=== PATIENT | male | born 1945 | race Two or more races ===

== ENCOUNTER 2023-11-11 10:39 | Inpatient (IN) | payer OTHER ==
[~2023-11-11] VITALS: Ht 188 cm; Wt 89.6 kg
[2023-11-11 11:40] LABS: Basophils # (auto) 0 10 ^3/uL (0-0.2); Basophils % (auto) 0.1 % (0.0-2.0); Eosinophils # (auto) 0 10 ^3/uL (0-0.8); Hematocrit 52.2 % (41.0-53.0); Hemoglobin 17.5 g/dL (13.5-17.5); Lymphocytes # (auto) 1.4 10 ^3/uL (0.4-5.4); Lymphocytes % (auto) 8.9 % (10.0-50.0); Mean Corpuscular Hemoglobin 32.8 pg (28.0-32.0); Mean Corpuscular Hgb Conc. 33.6 g/dL (32.0-36.0); Mean Corpuscular Volume 97.7 fL (80.0-100.0); Monocytes # (auto) 1.8 10 ^3/uL (0-1.3); Monocytes % (auto) 11.7 % (0.0-12.0); Neutrophils # (auto) 12.2 10 ^3/uL (1.6-8.6); Neutrophils % (auto) 79.3 % (37.0-80.0); Nucleated Red Blood Cells % 0.1 %; Red Blood Cells 5.34 10^6/uL (4.5-5.90); Red Cell Distribution Width 15.3 % (11.8-14.3); White Blood Cell 15.4 10^3/uL (4.4-10.8)
[2023-11-11 11:54] LABS: INR 1.17 (0.9-1.15); Partial Thromboplastin Time 28.2 SEC (24.5-34.5); Prothrombin Time 12.2 sec (9.3-11.8)
[2023-11-11 12:05] LABS: Alanine Aminotransferase 25 U/L (7-40); Albumin 4.8 g/dL (3.2-4.8); Alkaline Phosphatase 108 U/L (46-116); Anion Gap 17 (5-15); Aspartate Aminotransferase 16 U/L (13-40); BUN/Creatinine Ratio 28.5 (10.0-20.0); Blood Urea Nitrogen 43 mg/dL (9-23); Calcium 11.5 mg/dL (8.5-10.1); Carbon Dioxide 20 mmol/L (20-30); Chloride 102 mmol/L (98-107); Potassium 5.1 mmol/L (3.5-5.1); Sodium 139 mmol/L (136-145)
[2023-11-11 12:06] LABS: Total Protein 7.8 g/dL (5.7-8.2)
[2023-11-11 12:16] LABS: Glucose 432 mg/dL (74-106)
[2023-11-11] MEDS ORDERED: SODIUM CHLORIDE 0.9% 1,000 ML IV ONE (12:30)
[2023-11-11] MEDS ORDERED: FUROSEMIDE 40 MG/4 ML VIAL IV ONE (12:30)
[2023-11-11] MEDS ORDERED: PIPERACILLIN-TAZOB 3.375GM 100 ML IV ONE (12:30)
[2023-11-11] MEDS ORDERED: InsuLIN REG 1unit/0.01ml Soln (100units/ml) IV ONE (12:30)
[2023-11-11] MEDS ORDERED: ASPirin 325 MG TAB PO ONE (12:30)
[2023-11-11 13:00] VITALS: RESP 16; O2SAT 95
[2023-11-11 13:03] LABS: Magnesium 2.6 mg/dL (1.6-2.6)
[2023-11-11] MEDS ORDERED: ONDANSETRON HCL 4 MG/2 ML VIAL IV PRN (13:15)
[2023-11-11] MEDS ORDERED: NITROGLYCERIN 0.4 MG SL TAB SL PRN (13:15)
[2023-11-11] MEDS ORDERED: MORPHINE SULFATE INJ 2 MG/ml SYRG IV PRN (13:15)
[2023-11-11] MEDS ORDERED: ACETAMINOPHEN 325 MG TAB PO PRN (13:15)
[2023-11-11] MEDS ORDERED: DEXTROSE (50%) 50ML SYRG IV PRN (13:15)
[2023-11-11] MEDS ORDERED: FUR20T PO (13:28)
[2023-11-11] MEDS ORDERED: ATOR40TA52 PO (13:28)
[2023-11-11] MEDS ORDERED: EMPA1TAB3 PO (13:28)
[2023-11-11] MEDS ORDERED: LISI10TA34 PO (13:28)
[2023-11-11] MEDS ORDERED: TAMS0.4C36 PO (13:28)
[2023-11-11] MEDS ORDERED: METF-869 PO (13:28)
[2023-11-11 14:42] LABS: Alanine Aminotransferase 19 U/L (7-40); Albumin 4.5 g/dL (3.2-4.8); Alkaline Phosphatase 93 U/L (46-116); Anion Gap 14 (5-15); Aspartate Aminotransferase 15 U/L (13-40); Bilirubin, Total 0.8 mg/dL (0.2-1.0); Blood Urea Nitrogen 35 mg/dL (9-23); Calcium 10.9 mg/dL (8.7-10.4); Carbon Dioxide 20 mmol/L (20-30); Chloride 104 mmol/L (98-107); Potassium 4.9 mmol/L (3.5-5.1); Sodium 138 mmol/L (136-145); Total Protein 7.7 g/dL (5.7-8.2)
[2023-11-11 15:03] LABS: Glucose 437 mg/dL (74-106)
[2023-11-11 16:16] LABS: Urine WBC None Seen /hpf (0 - 3)
[2023-11-11 16:31] LABS: COVID19 ANTIGEN SOFIA FIA NEGATIVE (NEGATIVE); Rapid Influenza A Negative (Negative); Rapid Influenza B Negative (Negative)
[2023-11-11 16:42] LABS: Urine Bacteria NONE SEEN /hpf (None Seen); Urine Blood Negative /uL (Negative); Urine Clarity Clear (Clear); Urine Color Colorless (Yellow); Urine Protein, UAD TRACE (Negative); Urine Specific Gravity 1.035 (1.001-1.035); Urine Urobilinogen Normal (Negative); Urine pH 5.5 (5.0-8.0)
[2023-11-11] MEDS: ACCU-CHEK COMFORT CURVE STRIP VI SCH ×2 (17:00→22:00)
[2023-11-11] MEDS: FUROSEMIDE 20 MG/2 ML VIAL IV SCH (18:24)
[2023-11-11] MEDS: InsuLIN REG 1unit/0.01ml Soln (100units/ml) SC SCH (18:26)
[2023-11-11 19:47] VITALS: PULSE 102; RESP 16; O2SAT 95
[2023-11-11] MEDS ORDERED: InsuLIN REG 1unit/0.01ml Soln (100units/ml) SC SCH (22:00)
[2023-11-11 23:00] VITALS: PULSE 101
[2023-11-11] MEDS: ATORVASTATIN 20 MG TAB PO SCH (23:13)
[2023-11-11] MEDS ORDERED: INSLANTI SC (23:20)
[2023-11-11 23:25] VITALS: BP 146/67; PULSE 97; RESP 20; TEMP 97.8; O2SAT 96
[2023-11-12] VITALS (7 sets, daily range): BP systolic 129–163; BP diastolic 60–82; PULSE 74–108; RESP 17–18; TEMP 97.9–99.1; O2SAT 93–97
[2023-11-12 05:37] LABS: Basophils # (auto) 0 10 ^3/uL (0-0.2); Basophils % (auto) 0.2 % (0.0-2.0); Eosinophils # (auto) 0 10 ^3/uL (0-0.8); Eosinophils % (auto) 0.1 % (0.0-7.0); Hematocrit 47.6 % (41.0-53.0); Hemoglobin 16.1 g/dL (13.5-17.5); Lymphocytes # (auto) 1.5 10 ^3/uL (0.4-5.4); Lymphocytes % (auto) 11.2 % (10.0-50.0); Mean Corpuscular Hemoglobin 32.3 pg (28.0-32.0); Mean Corpuscular Hgb Conc. 33.8 g/dL (32.0-36.0); Mean Corpuscular Volume 95.6 fL (80.0-100.0); Monocytes # (auto) 1.6 10 ^3/uL (0-1.3); Monocytes % (auto) 11.9 % (0.0-12.0); Neutrophils # (auto) 10.3 10 ^3/uL (1.6-8.6); Neutrophils % (auto) 76.6 % (37.0-80.0); Nucleated Red Blood Cells % 0.1 %; Red Blood Cells 4.98 10^6/uL (4.5-5.90); Red Cell Distribution Width 14.7 % (11.8-14.3); White Blood Cell 13.4 10^3/uL (4.4-10.8)
[2023-11-12 05:53] LABS: Alanine Aminotransferase 25 U/L (7-40); Albumin 4.1 g/dL (3.2-4.8); Alkaline Phosphatase 93 U/L (46-116); Anion Gap 13 (5-15); Aspartate Aminotransferase 25 U/L (13-40); BUN/Creatinine Ratio 28.8 (10.0-20.0); Bilirubin, Total 0.6 mg/dL (0.2-1.0); Blood Urea Nitrogen 32 mg/dL (9-23); Calcium 10.4 mg/dL (8.5-10.1); Carbon Dioxide 20 mmol/L (20-30); Chloride 105 mmol/L (98-107); Sodium 138 mmol/L (136-145)
[2023-11-12 06:13] LABS: Glucose 277 mg/dL (74-106)
[2023-11-12] MEDS: InsuLIN REG 1unit/0.01ml Soln (100units/ml) SC SCH ×3 (06:37→17:23)
[2023-11-12] MEDS: FUROSEMIDE 20 MG/2 ML VIAL IV SCH ×2 (06:45→17:12)
[2023-11-12] MEDS: ACCU-CHEK COMFORT CURVE STRIP VI SCH ×3 (06:45→17:09)
[2023-11-12] MEDS: ENOXAPARIN SOD 40 MG/0.4 ML SYRINGE SC SCH (08:33)
[2023-11-12] MEDS: cefTRIAXone 1GM/50ML D5W 50 ML IV SCH (08:33)
[2023-11-12] MEDS: hydrALAZINE HCL 20 MG/ML VL IV PRN (08:33)
[2023-11-12] MEDS: TAMSULOSIN HYDROCHLORIDE 0.4 MG CAP PO SCH (08:34)
[2023-11-12] MEDS ORDERED: EMPA1TAB3 PO (09:55)
[2023-11-12] MEDS ORDERED: ASPI1TAB20 PO (09:55)
[2023-11-12] MEDS ORDERED: INS7030I SC (09:55)
[2023-11-12] MEDS: AZITHROMYCIN 500MG/ 250ML 250 ML IV SCH (10:25)
[2023-11-12] MEDS ORDERED: INSULIN LANTUS (GLARGINE) 1 /0.01ml (100units/ml) SC ONE ×2 (12:30→14:00)
[2023-11-12] MEDS ORDERED: DEXTROSE (50%) 50ML SYRG IV PRN (14:00)
[2023-11-12] MEDS: ATORVASTATIN 20 MG TAB PO SCH (21:27)
[2023-11-12] MEDS: INSULIN LANTUS (GLARGINE) 1 /0.01ml (100units/ml) SC SCH (21:33)
[2023-11-13] VITALS (8 sets, daily range): BP systolic 142–155; BP diastolic 67–78; PULSE 99–106; RESP 18–20; TEMP 97.3–98.3; O2SAT 94–98
[2023-11-13] MEDS: ACCU-CHEK COMFORT CURVE STRIP VI SCH ×4 (00:15→19:21)
[2023-11-13] MEDS: InsuLIN REG 1unit/0.01ml Soln (100units/ml) SC SCH ×4 (00:18→19:18)
[2023-11-13] MEDS: hydrALAZINE HCL 20 MG/ML VL IV PRN (00:29)
[2023-11-13] MEDS ORDERED: dilTIAZem 25 MG/5 ML VIAL IV ONE (01:45)
[2023-11-13] MEDS: FUROSEMIDE 20 MG/2 ML VIAL IV SCH ×2 (05:59→18:29)
[2023-11-13] MEDS: cefTRIAXone 1GM/50ML D5W 50 ML IV SCH (09:47)
[2023-11-13] MEDS: ENOXAPARIN SOD 40 MG/0.4 ML SYRINGE SC SCH (09:48)
[2023-11-13] MEDS: TAMSULOSIN HYDROCHLORIDE 0.4 MG CAP PO SCH (09:48)
[2023-11-13] MEDS ORDERED: INSULIN LANTUS (GLARGINE) 1 /0.01ml (100units/ml) SC SCH ×3 (10:00)
[2023-11-13] MEDS: AZITHROMYCIN 500MG/ 250ML 250 ML IV SCH (12:33)
[2023-11-13] MEDS: INSULIN LANTUS (GLARGINE) 1 /0.01ml (100units/ml) SC SCH ×3 (12:38→22:07)
[2023-11-13] MEDS: ATORVASTATIN 20 MG TAB PO SCH (22:07)
[2023-11-13] MEDS ORDERED: INSULIN LISPRO (HUMAN) 100 UNITS/ML ML SC ONE (23:45)
[2023-11-14] MEDS: ACCU-CHEK COMFORT CURVE STRIP VI SCH ×4 (00:01→17:22)
[2023-11-14] MEDS: InsuLIN REG 1unit/0.01ml Soln (100units/ml) SC SCH ×4 (01:34→17:29)
[2023-11-14 05:00] VITALS: BP 152/74; PULSE 102; RESP 18; TEMP 97.9; O2SAT 92
[2023-11-14 05:56] LABS: Anion Gap 10 (5-15); Calcium 10.3 mg/dL (8.7-10.4); Carbon Dioxide 27 mmol/L (20-30); Chloride 102 mmol/L (98-107); Potassium 2.7 mmol/L (3.5-5.1); Sodium 139 mmol/L (136-145)
[2023-11-14] MEDS: FUROSEMIDE 20 MG/2 ML VIAL IV SCH ×2 (06:01→17:25)
[2023-11-14 06:03] LABS: BUN/Creatinine Ratio 35.4 (10.0-20.0); Blood Urea Nitrogen 28 mg/dL (9-23)
[2023-11-14 06:53] LABS: Glucose 47 mg/dL (74-106)
[2023-11-14 07:30] VITALS: PULSE 105
[2023-11-14 09:00] VITALS: BP 123/57; PULSE 97; RESP 20; TEMP 98; O2SAT 92
[2023-11-14] MEDS: cefTRIAXone 1GM/50ML D5W 50 ML IV SCH (09:46)
[2023-11-14] MEDS: ENOXAPARIN SOD 40 MG/0.4 ML SYRINGE SC SCH (09:46)
[2023-11-14] MEDS: TAMSULOSIN HYDROCHLORIDE 0.4 MG CAP PO SCH (09:46)
[2023-11-14] MEDS: INSULIN LANTUS (GLARGINE) 1 /0.01ml (100units/ml) SC SCH ×3 (09:47→21:39)
[2023-11-14] MEDS: AZITHROMYCIN 500MG/ 250ML 250 ML IV SCH (10:48)
[2023-11-14 13:00] VITALS: BP 144/83; PULSE 98; RESP 18; TEMP 98.3; O2SAT 92
[2023-11-14 17:00] VITALS: BP 155/74; PULSE 96; RESP 18; TEMP 98.4; O2SAT 93
[2023-11-14 20:00] VITALS: PULSE 97; O2SAT 96
[2023-11-14] MEDS: ATORVASTATIN 20 MG TAB PO SCH (21:26)
[2023-11-15] VITALS (7 sets, daily range): BP systolic 108–149; BP diastolic 75–86; PULSE 85–100; RESP 16–18; TEMP 97.7–98.5; O2SAT 92–99
[2023-11-15] MEDS: ACCU-CHEK COMFORT CURVE STRIP VI SCH ×4 (00:42→18:36)
[2023-11-15] MEDS: InsuLIN REG 1unit/0.01ml Soln (100units/ml) SC SCH ×4 (00:48→19:21)
[2023-11-15] MEDS: FUROSEMIDE 20 MG/2 ML VIAL IV SCH ×2 (05:46→18:36)
[2023-11-15] MEDS: cefTRIAXone 1GM/50ML D5W 50 ML IV SCH (08:46)
[2023-11-15] MEDS: INSULIN LANTUS (GLARGINE) 1 /0.01ml (100units/ml) SC SCH ×2 (10:00→22:00)
[2023-11-15] MEDS: AZITHROMYCIN 500MG/ 250ML 250 ML IV SCH (10:37)
[2023-11-15] MEDS: TAMSULOSIN HYDROCHLORIDE 0.4 MG CAP PO SCH (10:37)
[2023-11-15] MEDS: ENOXAPARIN SOD 40 MG/0.4 ML SYRINGE SC SCH (10:38)
[2023-11-15 15:37] LABS: Basophils # (auto) 0 10 ^3/uL (0-0.2); Basophils % (auto) 0.4 % (0.0-2.0); Eosinophils # (auto) 0.2 10 ^3/uL (0-0.8); Eosinophils % (auto) 1.7 % (0.0-7.0); Hemoglobin 15.7 g/dL (13.5-17.5); Lymphocytes # (auto) 2.2 10 ^3/uL (0.4-5.4); Lymphocytes % (auto) 23.1 % (10.0-50.0); Mean Corpuscular Hemoglobin 32.6 pg (28.0-32.0); Mean Corpuscular Volume 95.9 fL (80.0-100.0); Neutrophils # (auto) 6.1 10 ^3/uL (1.6-8.6); Neutrophils % (auto) 64.8 % (37.0-80.0); Nucleated Red Blood Cells % 0.1 %; Red Cell Distribution Width 14.5 % (11.8-14.3); White Blood Cell 9.5 10^3/uL (4.4-10.8)
[2023-11-15 15:39] LABS: Chloride 98 mmol/L (98-107); Potassium 4.4 mmol/L (3.5-5.1)
[2023-11-15 15:40] LABS: Anion Gap 5 (5-15); Calcium 9.8 mg/dL (8.7-10.4); Carbon Dioxide 28 mmol/L (20-30)
[2023-11-15 15:45] LABS: Blood Urea Nitrogen 23 mg/dL (9-23)
[2023-11-15 15:46] LABS: Magnesium 1.7 mg/dL (1.6-2.6)
[2023-11-15 15:58] LABS: Glucose 354 mg/dL (74-106); Sodium 131 mmol/L (136-145)
[2023-11-15] MEDS: ATORVASTATIN 20 MG TAB PO SCH (22:05)
[2023-11-15] MEDS: DOCUSATE SOD 100 MG CAP PO PRN (22:20)
[2023-11-16] MEDS: ACCU-CHEK COMFORT CURVE STRIP VI SCH ×3 (00:06→11:04)
[2023-11-16 05:00] VITALS: BP 133/78; PULSE 95; RESP 16; TEMP 98; O2SAT 94
[2023-11-16] MEDS: FUROSEMIDE 20 MG/2 ML VIAL IV SCH (05:47)
[2023-11-16] MEDS: InsuLIN REG 1unit/0.01ml Soln (100units/ml) SC SCH ×3 (06:19→11:08)
[2023-11-16 08:00] VITALS: PULSE 82
[2023-11-16] MEDS: cefTRIAXone 1GM/50ML D5W 50 ML IV SCH (08:38)
[2023-11-16 09:00] VITALS: BP 122/74; PULSE 83; RESP 19; TEMP 98.4; O2SAT 94
[2023-11-16] MEDS: DOCUSATE SOD 100 MG CAP PO PRN (10:11)
[2023-11-16] MEDS: TAMSULOSIN HYDROCHLORIDE 0.4 MG CAP PO SCH (10:11)
[2023-11-16] MEDS: INSULIN LANTUS (GLARGINE) 1 /0.01ml (100units/ml) SC SCH (10:11)
[2023-11-16] MEDS: ENOXAPARIN SOD 40 MG/0.4 ML SYRINGE SC SCH (10:12)
[2023-11-16] MEDS ORDERED: FURO1TAB33 PO (10:57)
== END 2023-11-16 12:54 | disposition home or self-care (01) | DRG 871 ==
LOC: ER 10:39 → EDBD 10:39 → TELE 13:28 → TELE-WESTW 22:35
PROVIDERS: ADMIT Nurse Practitioner Acute Care; ATTEND Internal Medicine Geriatric Medicine
DX: A41.9 Sepsis, unspecified organism (principal); E11.10 Type 2 diabetes mellitus with ketoacidosis without coma; I21.A1 Myocardial infarction type 2; I50.43 Acute on chronic combined systolic (congestive) and diastolic (congestive) heart failure; J96.01 Acute respiratory failure with hypoxia; G93.41 Metabolic encephalopathy; N17.0 Acute kidney failure with tubular necrosis; J81.1 Chronic pulmonary edema; I11.0 Hypertensive heart disease with heart failure; E11.65 Type 2 diabetes mellitus with hyperglycemia; E78.5 Hyperlipidemia, unspecified; N40.0 Benign prostatic hyperplasia without lower urinary tract symptoms; Z20.822 Contact with and (suspected) exposure to COVID-19; E87.6 Hypokalemia; N30.90 Cystitis, unspecified without hematuria; Z79.899 Other long term (current) drug therapy
CPT/HCPCS: 36415; 71045; 80048; 80053; 81001; 82962; 83036; 83605; 83735; 83880; 84443; 84484; 85025; 85610; 85730; 87040; 87086; 87426; 87804; 93005; 93306; 96365; 96372; 96375; 96376; 97110; 97116; 97163; 97530; G0378; J1815; J2543

== ENCOUNTER 2025-05-24 15:20 | Inpatient (IN) | payer OTHER ==
[~2025-05-24] VITALS: Ht 172.7 cm; Wt 74.5 kg
[~2025-05-24 15:20] MED LIST: ASPI1TAB20 PO; ATOR40TA52 PO; EMPA1TAB3 PO; FURO1TAB33 PO; INSLANTI SC; LISI10TA34 PO; METF-869 PO; TAMS0.4C39 PO
[2025-05-24 15:45] VITALS: PULSE 118; RESP 18; O2SAT 93
--- NOTE | 2025-05-24 16:03 | ED.PDOC ---
Altered Mental Status HPI Comments HPI: This is a 79 year old male BIBA presenting to the ED with chief complaint of ALOC. EMS reports that the patient was found on the ground beside his bed by with a fever and pinpoint pupils. EMS relays that the patient's temperature was 105F on scene and the patient has not been answering questions and following commands, only responding to sternal rub and tracking with his eyes. EMS notes patient's HR was in the 120s. EMS denies any further history at this time. Initial Vitals BP: 100/64 HR: 126 RR: 17 O2 Sat: 96% Temp: 100.5F Past Medical history: DM, HLD, CAD Past Surgical history: PTCA , penile implant on CT scan Social History: Denies smoking, ETOH, and drug use. Allergies: NKDA HPI: Poor Historian. REVIEW OF SYSTEMS: Review of system is limited given the patient's altered mental status CONSTITUTIONAL: Denies acute: diaphoresis, HEAD: Denies acute: headache, photophobia Eyes: Denies acute: Double vision, vision loss, eye pain, eye discharge. EARS: Denies acute: tinnitus, hearing loss, ear discharge, ear pain, THROAT: Denies acute: sore throat, swelling, difficulty swallowing , pain with swallowing, change in voice. NECK: Denies acute: neck pain, neck swelling, stiff neck. HEART: Denies acute : chest pain, palpitations, LUNGS: Denies acute: SOB, wheezing, cough, hemoptysis ABDOMEN: Denies acute: abdominal pain, Nausea, Vomiting, diarrhea, melena , hematemesis, hematochezia SKIN: Denies acute: rash, redness, lesions, itchiness. EXTREMITIES: Denies acute: calf pain, numbness, tingling, weakness, denies pain in extremity. Denies acute: Low back pain. Neuro: Denies acute: focal neurological deficit, motor or sensory focal neurological deficit, tremors, seizure like activity, confusion, dizziness, change in mental status, loss of bowel or bladder function, cauda equina like symptoms. : Denies acute: dysuria, hematuria, flank pain, increase in urinary frequency. PSYCH: Denies acute: hallucination, suicidal ideation, homicidal ideation. PHYSICAL EXAM: General: -----qzwr-uu-qyvycmus---acute distress, awake and alert. Head: normocephalic, atraumatic. Neck: supple, trachea is midline, no swelling. Throat: Normal phonation. Eyes:, no erythema, no purulent discharge, no proptosis, no icterus. Heart: regular tachycardia in setting of fever and sepsis, no significant murmur appreciated. Lungs: no apparent respiratory distress, No wheezing, no rhonchi, no crackles. No stridors Clear to auscultation bilaterally. Abdomen: non tender to palpation, non distended, soft, no guarding, no rebound, + bowel sounds. Neuro: Awake, Alert, oriented to name, self, follows commands Patient arrives in C-collar. Skin: no petechia, no purpura, no cyanosis, non-pale, not jaundice. Lower extremities: --no - Pitting edema no deformity, no focal swelling, no calf TTP. Makes eye contact. moves all four extremities. Face: no apparent facial droop. No nuchal rigidity, Kernig's sign, Brudzinski's sign, no meningeal signs. ED COURSE: DISCLAIMER: This medical document was created using an electronic medical record system with voice recognition software and computerized dictation system. Although this document has been carefully reviewed, there might still be some phonetic and typographical errors. Occasional wrong-word or "sound-alike" substitutions may have occurred due to the inherent limitations of voice recognition software. These areas are purely typographical due to imperfections of the software programs and do not reflect any compromise in the patient's medical care. Please read the chart carefully and recognize, using context, where these substitutions have occurred. Chief Complaint: ALOC Time Seen by MD: 16:00 Primary Care Provider: unknown Reviewed Notes: Medications, Allergies Allergies: Coded Allergies: NO KNOWN ALLERGIES (Unverified , 11/11/23) Home Meds Active Scripts Furosemide (Lasix) 20 Mg Tb, 1 TAB PO DAILY, #30 TAB 5 Refills Prov:TREY SANCHEZ MD 11/16/23 Reported Medications Insulin Regular (Human) (Humulin R) 100 Unit/Ml Inj, 40 UNIT IV BID, INJ 05/26/25 Gabapentin (Gabapentin) 100 Mg Cap, 1 CAP PO TID, #90 CAP 2 Refills 05/26/25 Cholecalciferol (VITAMIN D3) 2,000 Unit Tab, 1250 UNIT OR QWEEKLY, TAB 05/26/25 Donepezil Hydrochloride (DONEPEZIL HCL) 5 Mg Tab, 1 TAB PO DAILY, #30 TAB 5 Refills 05/26/25 Hydrocodone-Acetaminophen (Hydrocodone Bitartrate/AC 5-325 mg) 1 Tab Tab, 1 TAB PO, TAB 05/26/25 Aspirin (Aspir-81) 81 Mg Tab, 81 MG PO DAILY, TAB 11/12/23 Insulin Glargine (Lantus) 100 Unit/Ml Inj, 40 SC BID, INJ 11/11/23 Metformin Hydrochloride (Metformin Hydrochloride) 500 Mg Tab, 1 TAB PO BID 11/11/23 Tamsulosin Hcl (Tamsulosin Hcl) 0.4 Mg Cap, 1 CAP PO DAILY 11/11/23 Empagliflozin (Jardiance) 25 Mg Tab, 1 TAB PO DAILY 11/11/23 Lisinopril (Lisinopril) 10 Mg Tab, 1 TAB PO DAILY 11/11/23 Atorvastatin Calcium (ATORVASTATIN CALCIUM) 40 Mg Tab, 1 TAB PO 11/11/23 Information Source: Patient Mode of Arrival: EMS Was a procedure done? Was a procedure done?: No Differential Diagnosis (ALOC) Differential Diagnosis: Dehydration, Hypoglycemia, DKA, Encephalopathy, Meningitis, Hypoxemia, Seizure, Closed Head Injury, CVA, Mass Lesion, SAH, Renal Failure, Other (DDX include CVA, TGA, cerebellar ischemia/infarct, carotid stenosis, Intracranial mass/infection/bleed, encephalopathy, electrolyte abnormality, thyroid disease, hydrocephalus, hypoglycemia, drug toxicity, cardiac arrhythmia, seizure, infection in the elderly, Hyperammonemia., kidney failure., sepsis.) X-Ray, Labs, Meds, VS Vital Signs Date Time Temp Pulse Resp B/P (MAP) Pulse Ox O2 Delivery O2 Flow Rate FiO2 05/24/25 22:00 107 20 131/81 (98) 100 05/24/25 21:37 96 05/24/25 20:00 97.9 109 12 131/81 (98) 98 97.9 05/24/25 19:35 115 19 92 Room Air* 0 21 05/24/25 18:00 103 29 125/74 (91) 98 05/24/25 15:48 97.8 118 18 134/78 (96) 93 97.8 05/24/25 15:45 118 18 93 Room Air* 0 21 05/24/25 15:42 100.5 126 17 100/64 (76) 96 100.5 Lab Test 05/24/25 19:33 05/24/25 17:15 05/24/25 16:23 Range/Units Lactic Acid Level 1.9 2.3 *H 0.4-2.0 mmol/L Troponin I High Sensitivity 10 10 10 </=54 ng/L White Blood Count 22.9 H 4.4-10.8 10^3/uL Red Blood Count 5.47 4.5-5.90 10^6/uL Hemoglobin 17.0 13.5-17.5 g/dL Hematocrit 50.6 41.0-53.0 % Mean Corpuscular Volume 92.6 80.0-100.0 fL Mean Corpuscular Hemoglobin 31.1 28.0-32.0 pg Mean Corpuscular Hemoglobin Concent 33.6 32.0-36.0 g/dL Red Cell Distribution Width 14.5 H 11.8-14.3 % Platelet Count 156 140-450 10^3/uL Mean Platelet Volume 9.7 6.9-10.8 fL Neutrophils (%) (Auto) 96.0 H 37.0-80.0 % Lymphocytes (%) (Auto) 1.7 L 10.0-50.0 % Monocytes (%) (Auto) 2.2 0.0-12.0 % Eosinophils (%) (Auto) 0.0 0.0-7.0 % Basophils (%) (Auto) 0.1 0.0-2.0 % Neutrophils # (Auto) 22.0 H 1.6-8.6 10 ^3/uL Lymphocytes # (Auto) 0.4 0.4-5.4 10 ^3/uL Monocytes # (Auto) 0.5 0-1.3 10 ^3/uL Eosinophils # (Auto) 0 0-0.8 10 ^3/uL Basophils # (Auto) 0 0-0.2 10 ^3/uL Nucleated Red Blood Cells 0.1 % Prothrombin Time 13.0 H 9.3-11.8 sec Prothrombin Time INR 1.25 H 0.9-1.15 Activated Partial Thromboplast Time 25.1 24.5-34.5 SEC Sodium Level 139 136-145 mmol/L Potassium Level 3.6 3.5-5.1 mmol/L Chloride Level 102 98-107 mmol/L Carbon Dioxide Level 27 20-31 mmol/L Anion Gap 10 5-15 Blood Urea Nitrogen 26 H 9-23 mg/dL Creatinine 1.38 H 0.700-1.30 mg/dL Glomerular Filtration Rate Calc 53 >90 mL/min BUN/Creatinine Ratio 18.8 10.0-20.0 Serum Glucose 186 H 74-106 mg/dL Calcium Level 11.3 H 8.7-10.4 mg/dL Total Bilirubin 0.5 0.2-1.0 mg/dL Aspartate Amino Transferase (AST) 39 13-40 U/L Alanine Aminotransferase (ALT) 24 7-40 U/L Alkaline Phosphatase 109 46-116 U/L Total Protein 6.8 5.7-8.2 g/dL Albumin 4.0 3.2-4.8 g/dL Microbiology Date/Time Source Procedure Growth Status 05/24/25 16:23 Blood Blood Culture - Final Escherichia coli Complete 05/24/25 16:18 Blood Blood Culture - Final Escherichia coli Complete [place] [address] Ph: [phone] DIAGNOSTIC IMAGING Diagnostic Imaging Report : [id number] Signed PATIENT: GAEL MCKEON ACCT: [id number] UNIT: [id number] : 1945 LOC: ER ROOM / BED: / AGE / SEX: 79 / M ADM STATUS: REG ER SERVICE [id number] ORDERING PHYSICIAN: ROBINA GENAO DO PROCEDURE(s): HWOCT - HEAD WITHOUT CONTRAST REASON: fall, ALOC, SEPSIS ORDER NUMBER(s): [id number], ACCESSION NUMBER(s): [id number] EXAM: CT HEAD WITHOUT CONTRAST INDICATION: fall, ALOC, SEPSIS TECHNIQUE: CT of the head without intravenous contrast. Radiation Dose Information: CT Dose: CTDI volume is 56.12 mGy. Dose-length product is 1011.93 mGy*cm The dose indicators for CT are the volume Computed Tomography (CT) Dose Index (CTDIvol) and the Dose Length Product (DLP), and are measured in units of mGy and mGy-cm, respectively. These indicators are not patient dose, but values generated from the CT scanner acquisition factors. The report includes radiation exposure data for exposures received during this examination. COMPARISON: None FINDINGS: There is no evidence of acute intracranial hemorrhage, extra-axial collection, mass effect, midline shift, herniation or hydrocephalus. The ventricles, sulci and cisterns are age appropriate. The toledo-white differentiation is intact. Patchy periventricular and subcortical white matter hypoattenuation is nonspecific but may be related to small vessel ischemic disease. The visualized paranasal sinuses and mastoid air cells are clear. The surrounding soft tissues and osseous structures are unremarkable. IMPRESSION: 1. No acute intracranial abnormality. ATED BY: MK COVARRUBIAS Jr., DO DICTATED DATE/TIME: 05/24/251717 SIGNED BY: MK COVARRUBIAS Jr., SIGNED DATE/TIME: 05/24/251717 CC: [place] [address] Ph: [phone] DIAGNOSTIC IMAGING Diagnostic Imaging Report : [id number] Signed PATIENT: GAEL MCKEON ACCT: [id number] UNIT: [id number] : 1945 LOC: ER ROOM / BED: / AGE / SEX: 79 / M ADM STATUS: REG ER SERVICE [id number] ORDERING PHYSICIAN: ROBINA GENAO DO PROCEDURE(s): CTCAP - CHST AB PEL WO CON-NO IV/ORAL REASON: fall, ALOC, SEPSIS ORDER NUMBER(s): [id number], ACCESSION NUMBER(s): [id number] Indication: fall, ALOC, SEPSIS Technique: CT axial images of the chest, abdomen and pelvis are obtained without contrast. Coronal and sagittal reformats were obtained. Radiation Dose Information: CTDI volume is 15.5 mGy. Dose-length product is 1091 mGy*cm Comparison: None FINDINGS: There is limited interpretation of the chest, abdomen and pelvis without administration of intravenous contrast. The trachea is patent. No pneumothorax. Bilateral atelectasis. 4 mm right upper lobe pulmonary nodule, solid. 3 mm right upper lobe calcified nodule. 2 mm left upper lobe solid nodule. Heart normal in size. Coronary artery calcification disease. Aortic atherosclerotic disease. Thyroid nodules measuring up to 2.1 cm. No supraclavicular, axillary lymphadenopathy. The adrenal glands, spleen are unremarkable in shape. Fatty infiltration of the pancreas. Liver unremarkable in shape. Possible cholelithiasis. No hydronephrosis, nephrolithiasis. Stomach is relatively nondistended. Small bowel loops are normal in caliber. The large bowel is relatively nondistended. Normal appendix. Abdominal aortic atherosclerotic disease. Bladder wall thickening and stranding. Extremely heterogeneous appearance of the prostate especially along the right aspect. Penile implant. Fat containing left inguinal hernia. Oeeo-nw-hglqyqee bilateral sacroiliac degenerative joint disease. Moderate thoracolumbar degenerative disc disease. L1 vertebral body hemangioma. IMPRESSION: Limited without contrast. No CT evidence for acute visceral injury of the chest, abdomen, pelvis. Atherosclerotic, coronary artery calcification disease. Heterogeneous appearance of the prostate especially along the right aspect of the prostate. Correlate clinically and with PSA levels, possible cholelithiasis. Other findings as described. 4 mm right upper lobe solid nodule. Recommend follow-up per Fleischner society criteria. Bladder wall thickening with surrounding stranding. Correlate for cystitis, neurogenic bladder, outlet obstruction, infiltrative etiologies. Thyroid nodules which can be further characterized with thyroid ultrasound in the nonemergent setting. ATED BY: ERIKA SEAY MD DICTATED DATE/TIME: 05/24/251734 SIGNED BY: ERIKA SEAY MD SIGNED DATE/TIME: 05/24/251734 CC: [place] [address] Ph: [phone] DIAGNOSTIC IMAGING Diagnostic Imaging Report : [id number] Signed PATIENT: GAEL MCKEON ACCT: [id number] UNIT: [id number] : 1945 LOC: ER ROOM / BED: / AGE / SEX: 79 / M ADM STATUS: REG ER SERVICE [id number] ORDERING PHYSICIAN: ROBINA GENAO DO PROCEDURE(s): CS2 - CERVICAL WITHOUT CONTRAST REASON: fall, ALOC, SEPSIS ORDER NUMBER(s): [id number], ACCESSION NUMBER(s): [id number] Indication: fall, ALOC, SEPSIS Technique: CT axial images of the cervical spine are obtained without contrast. Coronal and sagittal reformats were obtained. Radiation Dose Information: CTDI volume is 25 mGy. Dose-length product is 63 mGy*cm Comparison: None FINDINGS: The cervical vertebral body heights are maintained. There is mild cervical levocurvature. There is moderate to advanced disc space narrowing. No prevertebral edema. Facet articulations demonstrate moderate facet hypertrophic changes . The atlantooccipital, atlantoaxial articulations are intact. There is moderate to advanced multilevel neural foraminal stenosis in the cervical spine. There is a large left mastoid effusion. Thyroid nodules measuring up to 1.8 cm. Aortic atherosclerotic disease. IMPRESSION: Moderate to advanced cervical degenerative disc. Large left mastoid effusion. Thyroid nodules up to 1.8 cm. Recommend thyroid ultrasound in the nonemergent setting for further characterization. ATED BY: ERIKA SEAY MD DICTATED DATE/TIME: 05/24/251719 SIGNED BY: ERIKA SEAY MD SIGNED DATE/TIME: 05/24/251719 CC: [place] [address] Ph: [phone] DIAGNOSTIC IMAGING Diagnostic Imaging Report : [id number] Signed PATIENT: GAEL MCKEON ACCT: [id number] UNIT: [id number] : 1945 LOC: ER ROOM / BED: / AGE / SEX: 79 / M ADM STATUS: REG ER SERVICE [id number] ORDERING PHYSICIAN: ROBINA GENAO DO PROCEDURE(s): CXRP - CHEST PORTABLE REASON: sepsis ORDER NUMBER(s): [id number], ACCESSION NUMBER(s): [id number] CHEST RADIOGRAPH Indication: sepsis Technique: Single frontal view of the chest was obtained Comparison: XY CHEST XRAY 1 VIEW on DOS: 11/15/23, XY CHEST PORTABLE on DOS: 11/11/23 FINDINGS: Lines and Tubes: None Lungs: No focal consolidation. No pulmonary consolidation or cavitary lesions. Pleura: No effusion. No pneumothorax. Cardiomediastinal contours: Unremarkable Bones: No acute osseous abnormality. IMPRESSION: 1. No acute cardiopulmonary disease. ATED BY: MK COVARRUBIAS Jr., DO DICTATED DATE/TIME: 05/24/251633 SIGNED BY: MK COVARRUBIAS Jr., SIGNED DATE/TIME: 05/24/251633 CC: Time of 1ST Reevaluation: 17:00 Reevaluation 1ST: Unchanged Time of 2ND Reevaluation: 18:17 Reevaluation 2ND: Improved (Patient is slightly more alert and awake at this time.) Patient Education/Counseling: Diagnosis, Treatment Family Education/Counseling: No Family Present Comments MDM: patient presented with the above HPI.---ALOC/sepsis---workup was initiated. patient was found with the above mentioned diagnosis. the following medications were ordered: please refer to order lists of meds and tests obtained by myself Dr. Genao. Patient ED course and VS have been stabilized. Patient has been reassessed in the ED and remained in a stable condition. Patient has been observed in the ED adequate length of time to insure improvement/stability. Escalation of care considered: Consideration of escalation to observation or admission Sepsis protocol was initiated Patient was ADMITTED to the medicine team for further evaluation and treatment of their presentation. All the reports of any imaging studies that were ordered by myself were reviewed by myself. Departure 1 Departure Time of Disposition: 17:00 Impression: Primary Impression: Altered mental status Additional Impressions: Sepsis Fall Leukocytosis Fever in adult Mastoiditis UTI (urinary tract infection) Disposition: ADMITTED INPATIENT Admit to: Tele Condition: Guarded Discharged With: Self Critical Care Note Critical Care Time?: Yes (1 hr-critical care time only) I personally scribed for ROBINA GENAO DO ([email or web address]) on 05/24/25 at 16:03. Electronically submitted by Clayton Ann ([email or web address]). I personally scribed for ROBINA GENAO DO ([email or web address]) on 05/24/25 at 18:18. Electronically submitted by Clayton Ann ([email or web address]). I personally scribed for ROBINA GENAO DO ([email or web address]) on 05/24/25 at 20:34. Electronically submitted by Clayton Ann ([email or web address]). ROBINA GENAO DO May 24, 2025 16:03
[2025-05-24] MEDS: VANCOMYCIN 1GM/200ML PM 200 ML IV ONE (16:10)
[2025-05-24] MEDS: SODIUM CHLORIDE 0.9% 1,000 ML IV ONE ×3 (16:14→16:15)
--- NOTE | 2025-05-24 16:36 | DVH ---
CHEST RADIOGRAPH Indication: sepsis Technique: Single frontal view of the chest was obtained Comparison: XY CHEST XRAY 1 VIEW on DOS: 11/15/23, XY CHEST PORTABLE on DOS: 11/11/23 FINDINGS: Lines and Tubes: None Lungs: No focal consolidation. No pulmonary consolidation or cavitary lesions. Pleura: No effusion. No pneumothorax. Cardiomediastinal contours: Unremarkable Bones: No acute osseous abnormality. IMPRESSION: 1. No acute cardiopulmonary disease.
[2025-05-24 16:50] LABS: Hematocrit 50.6 % (41.0-53.0); Hemoglobin 17.0 g/dL (13.5-17.5); Mean Corpuscular Hemoglobin 31.1 pg (28.0-32.0); Mean Corpuscular Volume 92.6 fL (80.0-100.0); Nucleated Red Blood Cells % 0.1 %
[2025-05-24 17:04] LABS: Alanine Aminotransferase 24 U/L (7-40); Albumin 4.0 g/dL (3.2-4.8); Alkaline Phosphatase 109 U/L (46-116); Anion Gap 10 (5-15); BUN/Creatinine Ratio 18.8 (10.0-20.0); Carbon Dioxide 27 mmol/L (20-31); Chloride 102 mmol/L (98-107); Potassium 3.6 mmol/L (3.5-5.1); Sodium 139 mmol/L (136-145); Total Protein 6.8 g/dL (5.7-8.2)
[2025-05-24 17:05] LABS: Bilirubin, Total 0.5 mg/dL (0.2-1.0)
[2025-05-24 17:06] LABS: Blood Urea Nitrogen 26 mg/dL (9-23); Calcium 11.3 mg/dL (8.7-10.4); Glucose 186 mg/dL (74-106); INR 1.25 (0.9-1.15); Partial Thromboplastin Time 25.1 SEC (24.5-34.5); Prothrombin Time 13.0 sec (9.3-11.8)
[2025-05-24 17:08] LABS: Lactic Acid w/Reflex 2.3 mmol/L (0.4-2.0)
--- NOTE | 2025-05-24 17:20 | DVH ---
EXAM: CT HEAD WITHOUT CONTRAST INDICATION: fall, ALOC, SEPSIS TECHNIQUE: CT of the head without intravenous contrast. Radiation Dose Information: CT Dose: CTDI volume is 56.12 mGy. Dose-length product is 1011.93 mGy*cm The dose indicators for CT are the volume Computed Tomography (CT) Dose Index (CTDIvol) and the Dose Length Product (DLP), and are measured in units of mGy and mGy-cm, respectively. These indicators are not patient dose, but values generated from the CT scanner acquisition factors. The report includes radiation exposure data for exposures received during this examination. COMPARISON: None FINDINGS: There is no evidence of acute intracranial hemorrhage, extra-axial collection, mass effect, midline s hift, herniation or hydrocephalus. The ventricles, sulci and cisterns are age appropriate. The toledo-white differentiation is intact. Patchy periventricular and subcortical white matter hypoattenuation is nonspecific but may be related to small vessel ischemic disease. The visualized paranasal sinuses and mastoid air cells are clear. The surrounding soft tissues and osseous structures are unremarkable. IMPRESSION: 1. No acute intracranial abnormality.
--- NOTE | 2025-05-24 17:21 | DVH ---
Indication: fall, ALOC, SEPSIS Technique: CT axial images of the cervical spine are obtained without contrast. Coronal and sagittal reformats were obtained. Radiation Dose Information: CTDI volume is 25 mGy. Dose-length product is 63 mGy*cm Comparison: None FINDINGS: The cervical vertebral body heights are maintained. There is mild cervical levocurvature. There is m oderate to advanced disc space narrowing. No prevertebral edema. Facet articulations demonstrate mode rate facet hypertrophic changes . The atlantooccipital, atlantoaxial articulations are intact. There is moderate to advanced multilevel neural foraminal stenosis in the cervical spine. There is a large left mastoid effusion. Thyroid nodules measuring up to 1.8 cm. Aortic atherosclerot ic disease. IMPRESSION: Moderate to advanced cervical degenerative disc. Large left mastoid effusion. Thyroid nodules up to 1.8 cm. Recommend thyroid ultrasound in the nonemergent setting for further ch aracterization.
--- NOTE | 2025-05-24 17:35 | DVH ---
Indication: fall, ALOC, SEPSIS Technique: CT axial images of the chest, abdomen and pelvis are obtained without contrast. Coronal an d sagittal reformats were obtained. Radiation Dose Information: CTDI volume is 15.5 mGy. Dose-length product is 1091 mGy*cm Comparison: None FINDINGS: There is limited interpretation of the chest, abdomen and pelvis without administration of intravenou s contrast. The trachea is patent. No pneumothorax. Bilateral atelectasis. 4 mm right upper lobe pulmonary nodul e, solid. 3 mm right upper lobe calcified nodule. 2 mm left upper lobe solid nodule. Heart normal in size. Coronary artery calcification disease. Aortic atherosclerotic disease. Thyroid nodules measuring up to 2.1 cm. No supraclavicular, axillary lymphadenopathy. The adrenal glands, spleen are unremarkable in shape. Fatty infiltration of the pancreas. Liver unre markable in shape. Possible cholelithiasis. No hydronephrosis, nephrolithiasis. Stomach is relatively nondistended. Small bowel loops are normal in caliber. The large bowel is relatively nondistended. Normal appendix. Abdominal aortic atherosclerotic disease. Bladder wall thickening and stranding. Extremely heterogen eous appearance of the prostate especially along the right aspect. Penile implant. Fat containing lef t inguinal hernia. Wchg-xp-okkdjsgy bilateral sacroiliac degenerative joint disease. Moderate thoracolumbar degenerative disc disease. L1 vertebral body hemangioma. IMPRESSION: Limited without contrast. No CT evidence for acute visceral injury of the chest, abdomen, pelvis. Atherosclerotic, coronary artery calcification disease. Heterogeneous appearance of the prostate especially along the right aspect of the prostate. Correlate clinically and with PSA levels, possible cholelithiasis. Other findings as described. 4 mm right upper lobe solid nodule. Recommend follow-up per Fleischner society criteria. Bladder wall thickening with surrounding stranding. Correlate for cystitis, neurogenic bladder, outl et obstruction, infiltrative etiologies. Thyroid nodules which can be further characterized with thyroid ultrasound in the nonemergent setting .
[2025-05-24 19:35] VITALS: PULSE 115; RESP 19; O2SAT 92
[2025-05-24] MEDS ORDERED: ONDANSETRON HCL 4 MG/2 ML VIAL IV PRN (21:45)
[2025-05-24] MEDS ORDERED: DEXTROSE (50%) 50ML SYRG IV PRN (21:45)
[2025-05-24] MEDS ORDERED: VANCOMYCIN PER PHARMACY 0 MG IV SCH (21:45)
[2025-05-24] MEDS: SODIUM CHLOR 0.9% PF (SALINE LOCK) 10ML VIAL/SYR IV SCH (22:00)
[2025-05-24] MEDS: ACCU-CHEK COMFORT CURVE STRIP VI SCH (22:00)
[2025-05-24] MEDS: SODIUM CHLORIDE 0.9% 1,000 ML IV SCH (22:00)
[2025-05-24] MEDS: CEFEPIME 1GM/ 50ML 50 ML IV SCH (22:00)
[2025-05-24] MEDS: InsuLIN REG 1unit/0.01ml Soln (100units/ml) SC SCH (22:00)
[2025-05-24] MEDS: ATORVASTATIN 20 MG TAB PO SCH (22:00)
--- NOTE | 2025-05-24 23:29 | DVHHP2 ---
History of Present Illness Reason for Visit: Altered mental status History of Present Illness The patient is a 79-year-old male with past medical history of diabetes mellitus, hyperlipidemia, hypertension, and coronary artery disease who presented to [facility] ED evaluation of altered level consciousness. As reported by EMS, patient was found on the ground beside his bed by altered with fever and pinpoint pupils. Patient was seen and evaluated in the ED, laboratory data shows WBC 22.9, platelets 156, sodium 139, potassium 3.6, BUN 26, creatinine 1.36, glucose 186, calcium 11.3, lactic acid 2.3 trending down to 1.9, troponin 10, blood pressure 125/74, heart rate 126 trending down to 102, temperature 100.5 F trending down to 97.8 F, O2 saturation 97% on oxygen. Cervical spine CT revealing moderate to advanced cervical degenerative disc, large left mastoid effusion, thyroid nodules up to 1.8 cm. Thyroid ultrasound revealing complex appearing left thyroid lobe structure without calcification, bilateral hypoechoic foci. Please see medication orders section in the computer. On my assessment, patient denied chest pain, no headache, no dizziness, no shortness of breath, no nausea, no vomiting, no fever, no chills. Patient was admitted for further evaluation and medical management. Past Medical History DM, HLD, CAD, HTN Past Surgical History PTCA, Penile implant on CT scan Family History Reviewed, noncontributory to the management of this case. Past Social History The patient lives at home, denies smoking, alcohol or illicit drugs abuse. Review of Systems Constitutional: Yes: Weakness; No: Fever, Chills, Sweats, Malaise, Other Eyes: No: Pain, Vision change, Conjunctivae inflammation, Eyelid inflammation, Other, Redness ENT: No: Ear pain, Ear discharge, Nose pain, Nose discharge, Nose congestion, Mouth pain, Mouth swelling, Throat pain, Throat swelling, Other Respiratory: No: Cough, Dry, Shortness of breath, SOB with excertion, Wheezing, Hemoptysis, Pleuritic Pain, Sputum, Wheezing, Other Cardiovascular: No: Chest Pain, Palpitations, Orthopnea, Paroxysmal Noc. Dyspnea, Edema, Lt Headedness, Other Gastrointestinal: No: Nausea, Vomiting, Abdominal Pain, Diarrhea, Constipation, Melena, Hematochezia, Other Genitourinary: No Dysuria, No Frequency, No Incontinence, No Hematuria, No Retention, No Other Musculoskeletal: No: other, neck pain, shoulder pain, arm pain, back pain, hand pain, leg pain, foot pain Skin: No: Rash, Lesions, Jaundice, Bruising, Other Neurological: Other (Altered level of consciousness); No: Weakness, Numbness, Incoordination, Change in speech, Confusion, Seizures Allergies: Coded Allergies: NO KNOWN ALLERGIES (Unverified , 11/11/23) Medications Current Medications Medications Dose Ordered Sig/Wanda Route Start Time Stop Time Status Last Admin Dose Admin Cefepime HCl 50 ml @ 12.5 mls/hr Q8HR IV 05/24/25 22:00 Aspirin 81 mg DAILY PO 05/25/25 10:00 Atorvastatin Calcium 20 mg HS PO 05/24/25 22:00 Tamsulosin HCl 0.4 mg QPM PO 05/25/25 18:00 Lisinopril 10 mg DAILY PO 05/25/25 10:00 Vancomycin HCl 0 ml @ 0 mls/hr UD IV 05/24/25 21:45 UNV Diagnostic Test (Pha) 1 strip ACHS 05/24/25 22:00 Insulin Human Regular HS SC 05/24/25 22:00 Insulin Human Regular AC SC 05/25/25 07:00 Dextrose 50 ml UD PRN IV 05/24/25 21:45 Sodium Chloride 10 ml Q8HR IV 05/24/25 22:00 Acetaminophen/ Hydrocodone Bitart 1 tab Q4HP PRN PO 05/24/25 21:45 Ondansetron HCl 4 mg Q4HP PRN IV 05/24/25 21:45 Docusate Sodium 100 mg BIDPRN PRN PO 05/24/25 21:45 Acetaminophen 650 mg Q6HP PRN PO 05/24/25 21:45 Sodium Chloride 1,000 ml @ 60 mls/hr [id number] IV 05/24/25 22:00 Exam Vital Signs Vital Signs Date Time Temp Pulse Resp B/P (MAP) Pulse Ox O2 Delivery O2 Flow Rate FiO2 05/24/25 21:37 96 05/24/25 18:00 29 125/74 (91) 98 05/24/25 15:48 97.8 97.8 05/24/25 15:45 Room Air* 0 21 General Appearance: Alert, Oriented X3, Cooperative, No acute distress HEENT: Atraumatic, PERRLA, EOMI, Mucous membr. moist/pink Respiratory: Normal air movement Cardiovascular: Regular rate, Normal S1, Normal S2, No murmurs Abdominal: Normal bowel sounds, Soft, No tenderness, No hepatospenomegaly, No masses Extremities: No clubbing, No cyanosis, No edema, Normal pulses, No tenderness/swelling Skin: No rashes, No significant lesion Neuro: Normal speech, Normal tone, Sensation intact, Cranial nerves 3-12 NL, Reflexes 2+, Other (Generalized weakness) Psych/Mental Status: Mental status NL, Mood NL Labs/Xrays Labs Test 05/24/25 19:33 05/24/25 16:23 Range/Units Lactic Acid Level 1.9 0.4-2.0 mmol/L Troponin I High Sensitivity 10 </=54 ng/L White Blood Count 22.9 H 4.4-10.8 10^3/uL Red Blood Count 5.47 4.5-5.90 10^6/uL Hemoglobin 17.0 13.5-17.5 g/dL Hematocrit 50.6 41.0-53.0 % Mean Corpuscular Volume 92.6 80.0-100.0 fL Mean Corpuscular Hemoglobin 31.1 28.0-32.0 pg Mean Corpuscular Hemoglobin Concent 33.6 32.0-36.0 g/dL Red Cell Distribution Width 14.5 H 11.8-14.3 % Platelet Count 156 140-450 10^3/uL Mean Platelet Volume 9.7 6.9-10.8 fL Neutrophils (%) (Auto) 96.0 H 37.0-80.0 % Lymphocytes (%) (Auto) 1.7 L 10.0-50.0 % Monocytes (%) (Auto) 2.2 0.0-12.0 % Eosinophils (%) (Auto) 0.0 0.0-7.0 % Basophils (%) (Auto) 0.1 0.0-2.0 % Neutrophils # (Auto) 22.0 H 1.6-8.6 10 ^3/uL Lymphocytes # (Auto) 0.4 0.4-5.4 10 ^3/uL Monocytes # (Auto) 0.5 0-1.3 10 ^3/uL Eosinophils # (Auto) 0 0-0.8 10 ^3/uL Basophils # (Auto) 0 0-0.2 10 ^3/uL Nucleated Red Blood Cells 0.1 % Prothrombin Time 13.0 H 9.3-11.8 sec Prothrombin Time INR 1.25 H 0.9-1.15 Activated Partial Thromboplast Time 25.1 24.5-34.5 SEC Sodium Level 139 136-145 mmol/L Potassium Level 3.6 3.5-5.1 mmol/L Chloride Level 102 98-107 mmol/L Carbon Dioxide Level 27 20-31 mmol/L Anion Gap 10 5-15 Blood Urea Nitrogen 26 H 9-23 mg/dL Creatinine 1.38 H 0.700-1.30 mg/dL Glomerular Filtration Rate Calc 53 >90 mL/min BUN/Creatinine Ratio 18.8 10.0-20.0 Serum Glucose 186 H 74-106 mg/dL Calcium Level 11.3 H 8.7-10.4 mg/dL Total Bilirubin 0.5 0.2-1.0 mg/dL Aspartate Amino Transferase (AST) 39 13-40 U/L Alanine Aminotransferase (ALT) 24 7-40 U/L Alkaline Phosphatase 109 46-116 U/L Total Protein 6.8 5.7-8.2 g/dL Albumin 4.0 3.2-4.8 g/dL PATIENT: GAEL MCKEON ACCT: [id number] UNIT: [id number] : 1945 LOC: ER ROOM / BED: / AGE / SEX: 79 / M ADM STATUS: REG ER SERVICE 1607 ORDERING PHYSICIAN: ROBINA GENAO DO PROCEDURE(s): CTCAP - CHST AB PEL WO CON-NO IV/ORAL REASON: fall, ALOC, SEPSIS ORDER NUMBER(s): [id number], ACCESSION NUMBER(s): [id number] Indication: fall, ALOC, SEPSIS Technique: CT axial images of the chest, abdomen and pelvis are obtained without contrast. Coronal and sagittal reformats were obtained. Radiation Dose Information: CTDI volume is 15.5 mGy. Dose-length product is 1091 mGy*cm Comparison: None FINDINGS: There is limited interpretation of the chest, abdomen and pelvis without administration of intravenous contrast. The trachea is patent. No pneumothorax. Bilateral atelectasis. 4 mm right upper lobe pulmonary nodule, solid. 3 mm right upper lobe calcified nodule. 2 mm left upper lobe solid nodule. Heart normal in size. Coronary artery calcification disease. Aortic atherosclerotic disease. Thyroid nodules measuring up to 2.1 cm. No supraclavicular, axillary lymphadenopathy. The adrenal glands, spleen are unremarkable in shape. Fatty infiltration of the pancreas. Liver unremarkable in shape. Possible cholelithiasis. No hydronephrosis, nephrolithiasis. Stomach is relatively nondistended. Small bowel loops are normal in caliber. The large bowel is relatively nondistended. Normal appendix. Abdominal aortic atherosclerotic disease. Bladder wall thickening and stranding. Extremely heterogeneous appearance of the prostate especially along the right aspect. Penile implant. Fat containing left inguinal hernia. [id number] bilateral sacroiliac degenerative joint disease. Moderate thoracolumbar degenerative disc disease. L1 vertebral body hemangioma. IMPRESSION: Limited without contrast. No CT evidence for acute visceral injury of the chest, abdomen, pelvis. Atherosclerotic, coronary artery calcification disease. Heterogeneous appearance of the prostate especially along the right aspect of the prostate. Correlate clinically and with PSA levels, possible cholelithiasis. Other findings as described. 4 mm right upper lobe solid nodule. Recommend follow-up per Fleischner society criteria. Bladder wall thickening with surrounding stranding. Correlate for cystitis, neurogenic bladder, outlet obstruction, infiltrative etiologies. Thyroid nodules which can be further characterized with thyroid ultrasound in the nonemergent setting. ORDERING PHYSICIAN: ROBINA GENAO DO PROCEDURE(s): CS2 - CERVICAL WITHOUT CONTRAST REASON: fall, ALOC, SEPSIS ORDER NUMBER(s): [id number], ACCESSION NUMBER(s): [id number] Indication: fall, ALOC, SEPSIS Technique: CT axial images of the cervical spine are obtained without contrast. Coronal and sagittal reformats were obtained. Radiation Dose Information: CTDI volume is 25 mGy. Dose-length product is 63 mGy*cm Comparison: None FINDINGS: The cervical vertebral body heights are maintained. There is mild cervical levocurvature. There is moderate to advanced disc space narrowing. No prevertebral edema. Facet articulations demonstrate moderate facet hypertrophic changes. The atlantooccipital, atlantoaxial articulations are intact. There is moderate to advanced multilevel neural foraminal stenosis in the cervical spine. There is a large left mastoid effusion. Thyroid nodules measuring up to 1.8 cm. Aortic atherosclerotic disease. IMPRESSION: Moderate to advanced cervical degenerative disc. Large left mastoid effusion. Thyroid nodules up to 1.8 cm. Recommend thyroid ultrasound in the nonemergent setting for further characterization. ORDERING PHYSICIAN: ROBINA GENAO DO PROCEDURE(s): HWOCT - HEAD WITHOUT CONTRAST REASON: fall, ALOC, SEPSIS ORDER NUMBER(s): [id number], ACCESSION NUMBER(s): [id number] EXAM: CT HEAD WITHOUT CONTRAST INDICATION: fall, ALOC, SEPSIS TECHNIQUE: CT of the head without intravenous contrast. Radiation Dose Information: CT Dose: CTDI volume is 56.12 mGy. Dose-length product is 1011.93 mGy*cm The dose indicators for CT are the volume Computed Tomography (CT) Dose Index (CTDIvol) and the Dose Length Product (DLP), and are measured in units of mGy and mGy-cm, respectively. These indicators are not patient dose, but values generated from the CT scanner acquisition factors. The report includes radiation exposure data for exposures received during this examination. COMPARISON: None FINDINGS: There is no evidence of acute intracranial hemorrhage, extra-axial collection, mass effect, midline shift, herniation or hydrocephalus. The ventricles, sulci and cisterns are age appropriate. The toledo-white differentiation is intact. Patchy periventricular and subcortical white matter hypoattenuation is nonspecific but may be related to small vessel ischemic disease. The visualized paranasal sinuses and mastoid air cells are clear. The surrounding soft tissues and osseous structures are unremarkable. IMPRESSION: 1. No acute intracranial abnormality. ORDERING PHYSICIAN: CLAUDIA BRANHAM DNP PROCEDURE(s): THYDU - THYROID REASON: Thyroid nodules up to 1.8 cm. ORDER NUMBER(s): [id number], ACCESSION NUMBER(s): [id number] ULTRASOUND SOFT TISSUE HEAD AND NECK CLINICAL INDICATION: Thyroid nodules up to 1.8 cm. TECHNIQUE: Multiple real time sonographic images of the thyroid were obtained. Comparison: None FINDINGS: The right thyroid gland measures 3.4 x 1.9 x 1.8 cm and contains a 4 x 3 x 2 mm hypoechoic focus. The left thyroid gland measures approximately 3.0 x 1.5 x 1.4 cm and contains a 1.5 x 1.4 x 1.3 cm complex appearing structure (TR 3) without calcifications as well as a 5 x 4 x 4 mm hypoechoic focus. The isthmus measures 0.6 cm. IMPRESSION: 1. Complex appearing left thyroid lobe structure without calcifications. TR 3. 2. Bilateral hypoechoic foci. TR 2. [employer] TI-RADS Categories and Recommendations (2017): TR1: 0 points, Benign, No FNA TR2: 2 points, Not suspicious, No FNA TR3: 3 points, Mildly suspicious, FNA if > or = 2.5 cm, Follow if > or = 1.5 cm TR4: 4-6 points, Moderately Suspicious, FNA if > or = 1.5 cm, Follow if > or = 1.0 cm TR5: 7+ points, Highly Suspicious, FNA if > or = 1.0 cm, Follow if > or = 0.5 cm Follow-up ultrasound guidelines: TR5: yearly for 5 years, if no growth or change in TI-RADS level TR4: at 1, 2, 3 and 5 years, if no growth or change in TI-RADS level TR3: at 1, 3 and 5 years, if no growth or change in TI-RADS level If increased but below threshold for FNA, repeat in one year. Source: ACR Thyroid Imaging, Reporting and Data System (TI-RADS): White Paper of the ACR TI-RADS Committee. Roderick et al., J Am Rahul Radiol 2017;14:587-595. ORDERING PHYSICIAN: ROBINA GENAO DO PROCEDURE(s): CXRP - CHEST PORTABLE REASON: sepsis ORDER NUMBER(s): [id number], ACCESSION NUMBER(s): [id number] CHEST RADIOGRAPH Indication: sepsis Technique: Single frontal view of the chest was obtained Comparison: XY CHEST XRAY 1 VIEW on DOS: 11/15/23, XY CHEST PORTABLE on DOS: 11/11/23 FINDINGS: Lines and Tubes: None Lungs: No focal consolidation. No pulmonary consolidation or cavitary lesions. Pleura: No effusion. No pneumothorax. Cardiomediastinal contours: Unremarkable Bones: No acute osseous abnormality. IMPRESSION: 1. No acute cardiopulmonary disease. SEPSIS Sepsis Screen Date sepsis recognized/suspect: May 25, 2025 Time Sepsis recognized/suspect: 15:25 Recent Procedure: No On Antibiotic Therapy: No Respiratory Rate >20: No Heart Rate >90: Yes Temp<36 C (96.8 F) or >38.3 C: Yes SBP <90 or MAP <65 mmHG: No New Acute Mental Status Change: Yes Is the patient on CPAP, BIPAP,: No Physician Orders Shearing Supervisor (05/24/25 15:57) Urinalysis (05/24/25 15:57) Chest Portable (05/24/25 15:57) Accucheck (05/24/25 15:57) Blood Culture (05/24/25 15:57) Cefepime 1gm/ 50ml (Maxipime 1gm/50ml) (05/24/25 22:00) Notify Md If Map <65 Or Bp<90 (05/24/25 15:57) If Map<65 Start Vasopressor (05/24/25 15:57) Sepsis Reassesment After Fluid (05/24/25 16:57) Urine Bacterial Culture (05/24/25 16:07) Cervical Without Contrast (05/24/25 16:07) Head Without Contrast (05/24/25 16:07) Chst Ab Pel Wo Con-No Iv/Oral (05/24/25 16:07) Thyroid (05/24/25 21:37) Aspirin Tablet (05/25/25 10:00) Atorvastatin (Lipitor) (05/24/25 22:00) Tamsulosin Hydrochloride (Flomax) (05/25/25 18:00) Lisinopril Tablet (Zestril Tablet) (05/25/25 10:00) Vancomycin Per Pharmacy (05/24/25 21:45) Glucose Blood (Accu-Chek Comfort Curve T (05/24/25 22:00) Insulin R (Human) (Insulin R) (05/24/25 22:00) Insulin R (Human) (Insulin R) (05/25/25 07:00) Dextrose 50% Syringe (05/24/25 21:45) Allergies (05/24/25 21:37) Code Status (05/24/25 21:37) Sodium Chloride Lock (Saline Lock Ns) (05/24/25 22:00) Oxygen Per Hour (05/24/25 21:37) Hydrocodone-Acet 5/325mg Tab ([place] 5/32 (05/24/25 21:45) Ondansetron Hcl (Zofran) (05/24/25 21:45) Docusate Sodium Capsule (Colace Capsule) (05/24/25 21:45) Fall Risk Precautions In Place QSHIFT (05/24/25 21:37) Complete Blood Count (05/25/25 04:00) Comprehensive Metabolic Panel (05/25/25 04:00) Condition: Serious (05/24/25 21:37) Acetaminophen Tablet (Tylenol Tablet) (05/24/25 21:45) Maintain Bed Rest (05/24/25 21:37) Sequential Compression Device (05/24/25 ) Consistent Carb(Ccho)Diabetes (05/25/25 Breakfast) Sodium Chloride 0.9% (05/24/25 22:00) Vital Signs Date Time Temp Pulse Resp B/P (MAP) Pulse Ox O2 Delivery O2 Flow Rate FiO2 05/24/25 21:37 96 05/24/25 18:00 103 29 125/74 (91) 98 05/24/25 15:48 97.8 118 18 134/78 (96) 93 97.8 05/24/25 15:45 118 18 93 Room Air* 0 21 05/24/25 15:42 100.5 126 17 100/64 (76) 96 100.5 Laboratory Tests Test 05/24/25 16:23 05/24/25 19:33 Lactic Acid Level 2.3 mmol/L (0.4-2.0) *H 1.9 mmol/L (0.4-2.0) White Blood Count 22.9 10^3/uL (4.4-10.8) H Medications Medications Dose Ordered Sig/Wanda Route Start Time Stop Time Status Last Admin Dose Admin Sodium Chloride 1,000 ml @ 1,000 mls/hr Q1H ONCE IV 05/24/25 16:15 05/24/25 17:14 DC 05/24/25 16:15 1,000 MLS/HR Sodium Chloride 1,000 ml @ 1,000 mls/hr Q1H ONCE IV 05/24/25 16:15 05/24/25 17:14 DC 05/24/25 16:15 1,000 MLS/HR Sodium Chloride 1,000 ml @ 1,000 mls/hr Q1H ONCE IV 05/24/25 16:15 05/24/25 17:14 DC 05/24/25 16:14 1,000 MLS/HR Vancomycin HCl 200 ml @ 200 mls/hr ONCE ONCE IV 05/24/25 16:00 05/24/25 16:59 DC 05/24/25 16:10 200 MLS/HR Assessment/Plan Assessment/Plan Altered mental status Mastoiditis Acute renal injury Sepsis, unspecified organism Generalized weakness Plan 1. Admit to telemetry unit 2. Breathing treatment 3. Pain control management 4. IV antibiotic management 5. Management of fluids and electrolytes 6. Consultation for hospitalist 7. Diagnostic test cervical spine CT 8. DVT prophylaxis-on SCDs 9. Repeat labs CBC, CMP in a.m. 10. Home medication reviewed and reconciled 11. Continue with current medical management 12. Treatment plan discussed with patient and RN. Patient verbalized understanding. Plan discussed with: Patient, Other (RN) My Orders Orders - CLAUDIA BRANHAM DNP Procedure Category Date Status Time Thyroid US 05/24/25 Taken 21:37 Aspirin Tablet PHA 05/25/25 In Process 10:00 Atorvastatin (Lipitor) PHA 05/24/25 In Process 22:00 Tamsulosin PHA 05/25/25 In Process Hydrochloride (Flomax) 18:00 Lisinopril Tablet PHA 05/25/25 In Process (Zestril Tablet) 10:00 Vancomycin Per PHA 05/24/25 Pending Pharmacy 21:45 Glucose Blood PHA 05/24/25 In Process (Accu-Chek Comfort 22:00 Insulin R (Human) PHA 05/24/25 In Process (Insulin R) 22:00 Insulin R (Human) PHA 05/25/25 In Process (Insulin R) 07:00 Dextrose 50% Syringe PHA 05/24/25 In Process 21:45 Allergies SIMONE 05/24/25 In Process 21:37 Code Status CODE 05/24/25 Transmitted 21:37 Sodium Chloride Lock PHA 05/24/25 In Process (Saline Lock Ns) 22:00 Oxygen Per Hour RT 05/24/25 Transmitted 21:37 Hydrocodone-Acet PHA 05/24/25 In Process 5/325mg Tab ([place] 21:45 Ondansetron Hcl PHA 05/24/25 In Process (Zofran) 21:45 Docusate Sodium PHA 05/24/25 In Process Capsule (Colace 21:45 Fall Risk Precautions SIMONE 05/24/[address] 21:37 Complete Blood Count LAB 05/25/25 Verified 04:00 Comprehensive LAB 05/25/25 Verified Metabolic Panel 04:00 Condition: Serious SIMONE 05/24/25 In Process 21:37 Acetaminophen Tablet PHA 05/24/25 In Process (Tylenol Tablet) 21:45 Maintain Bed Rest SIMONE 05/24/25 In Process 21:37 Sequential SIMONE 05/24/25 In Process Compression Device Consistent DIET 05/25/25 Transmitted Carb(Ccho)Diabetes Breakfast Sodium Chloride 0.9% PHA 05/24/25 In Process 22:00 Problem List: (1) Altered mental status (2) Mastoiditis (3) Acute renal injury (4) Sepsis, unspecified organism Date of Service: May 24, 2025 Billing Provider: CLAUDIA BRANHAM DNP Common Visit Codes: [id number] INP/OBS CARE (HIGH) CLAUDIA BRANHAM DNP May 24, 2025 23:29
[2025-05-24] MEDS ORDERED: NITROGLYCERIN 0.4 MG SL TAB SL PRN (23:30)
[2025-05-24] MEDS ORDERED: MORPHINE SULFATE INJ 2 MG/ml SYRG IV PRN (23:30)
--- NOTE | 2025-05-24 23:56 | DVH ---
ULTRASOUND SOFT TISSUE HEAD AND NECK CLINICAL INDICATION: Thyroid nodules up to 1.8 cm. TECHNIQUE: Multiple real time sonographic images of the thyroid were obtained. Comparison: None FINDINGS: The right thyroid gland measures 3.4 x 1.9 x 1.8 cm and contains a 4 x 3 x 2 mm hypoechoic focus. The left thyroid gland measures approximately 3.0 x 1.5 x 1.4 cm and contains a 1.5 x 1.4 x 1.3 cm co mplex appearing structure (TR 3) without calcifications as well as a 5 x 4 x 4 mm hypoechoic focus. The isthmus measures 0.6 cm. IMPRESSION: 1. Complex appearing left thyroid lobe structure without calcifications. TR 3. 2. Bilateral hypoechoic foci. TR 2. [employer] TI-RADS Categories and Recommendations (2017): TR1: 0 points, Benign, No FNA TR2: 2 points, Not suspicious, No FNA TR3: 3 points, Mildly suspicious, FNA if > or = 2.5 cm, Follow if > or = 1.5 cm TR4: 4-6 points, Moderately Suspicious, FNA if > or = 1.5 cm, Follow if > or = 1.0 cm TR5: 7+ points, Highly Suspicious, FNA if > or = 1.0 cm, Follow if > or = 0.5 cm Follow-up ultrasound guidelines: TR5: yearly for 5 years, if no growth or change in TI-RADS level TR4: at 1, 2, 3 and 5 years, if no growth or change in TI-RADS level TR3: at 1, 3 and 5 years, if no growth or change in TI-RADS level If increased but below threshold for FNA, repeat in one year. Source: ACR Thyroid Imaging, Reporting and Data System (TI-RADS): White Paper of the ACR TI-RADS Committee. Roderick et al., J Am Rahul Radiol 2017;14:587-595.
[2025-05-25 06:37] LABS: Hematocrit 49.4 % (41.0-53.0); Hemoglobin 16.4 g/dL (13.5-17.5); Mean Corpuscular Hemoglobin 31.9 pg (28.0-32.0); Mean Corpuscular Volume 96.4 fL (80.0-100.0); Nucleated Red Blood Cells % 0.1 %
[2025-05-25] MEDS: InsuLIN REG 1unit/0.01ml Soln (100units/ml) SC SCH (06:44)
[2025-05-25 06:49] LABS: Alanine Aminotransferase 19 U/L (7-40); Albumin 3.2 g/dL (3.2-4.8); Alkaline Phosphatase 93 U/L (46-116); Anion Gap 11 (5-15); BUN/Creatinine Ratio 28.3 (10.0-20.0); Bilirubin, Total 0.4 mg/dL (0.2-1.0); Calcium 9.6 mg/dL (8.7-10.4); Carbon Dioxide 23 mmol/L (20-31); Chloride 106 mmol/L (98-107); Potassium 4.3 mmol/L (3.5-5.1); Sodium 140 mmol/L (136-145)
[2025-05-25 06:50] LABS: Blood Urea Nitrogen 28 mg/dL (9-23); Glucose 289 mg/dL (74-106); Total Protein 5.4 g/dL (5.7-8.2)
[2025-05-25 08:20] VITALS: PULSE 97; RESP 16; O2SAT 94
[2025-05-25 08:43] LABS: Urine Protein, UAD TRACE (Negative)
[2025-05-25] MEDS: LISINOPRIL 5 MG TAB PO SCH (09:36)
[2025-05-25] MEDS: HYDROcodone-ACET 5/325MG TAB PO PRN (09:37)
--- NOTE | 2025-05-25 12:30 | DVHPN2 ---
Subjective The patient seen and examined at bedside. The patient did not have any pain today. Reviewed: Care Plan, H&P, Labs, Medications, Previous Orders, Radiology Changes from previous H/P or p: No Changes Eyes: No Pain, No Vision change, No Conjunctivae inflammation, No Eyelid inflammation, No Other, No Redness ENT: No Ear pain, No Ear discharge, No Nose pain, No Nose discharge, No Nose congestion, No Mouth pain, No Mouth swelling, No Throat pain, No Throat swelling, No Other Cardiovascular: No Chest Pain, No Palpitations, No Orthopnea, No Paroxysmal Noc. Dyspnea, No Edema, No Lt Headedness, No Other Respiratory: No Cough, No Dry, No Shortness of breath, No SOB with excertion, No Wheezing, No Hemoptysis, No Pleuritic Pain, No Sputum, No Other Gastrointestinal: No Nausea, No Vomiting, No Abdominal Pain, No Diarrhea, No Constipation, No Melena, No Hematochezia, No Other Genitourinary: No Dysuria, No Frequency, No Incontinence, No Hematuria, No Retention, No Other Musculoskeletal: No other, No neck pain, No shoulder pain, No arm pain, No back pain, No hand pain, No leg pain, No foot pain Skin: No Rash, No Lesions, No Jaundice, No Bruising, No Other Objective Vitals Vital Signs Date Time Temp Pulse Resp B/P (MAP) Pulse Ox O2 Delivery O2 Flow Rate FiO2 05/25/25 12:00 85 18 113/55 (74) 91 05/25/25 08:20 98.8 98.8 05/25/25 08:20 Room Air* 0 21 Intake/Output Intake and Output 05/25/25 07:00 Intake Total 3200 ml Balance 3200 ml Intake IV Total 3200 ml General Appearance: Alert, Oriented X3, Cooperative, No acute distress HEENT: Atraumatic, PERRLA, EOMI, Mucous membr. moist/pink Neck: Supple Lungs: Clear to auscultation, Normal air movement Cardiovascular: Regular rate, Normal S1, Normal S2, No murmurs, Gallops, Rubs Abdomen: Normal bowel sounds, Soft, No tenderness Neuro: Cranial nerves 3-12 NL Psych/Mental Status: Mental status NL Medications Current Medications Medications Dose Ordered Sig/Wanda Route Start Time Stop Time Status Last Admin Dose Admin Cefepime HCl 50 ml @ 12.5 mls/hr Q8HR IV 05/24/25 22:00 05/25/25 06:19 12.5 MLS/HR Aspirin 81 mg DAILY PO 05/25/25 10:00 Atorvastatin Calcium 20 mg HS PO 05/24/25 22:00 05/24/25 22:00 20 MG Tamsulosin HCl 0.4 mg QPM PO 05/25/25 18:00 Lisinopril 10 mg DAILY PO 05/25/25 10:00 05/25/25 09:36 10 MG Vancomycin HCl 0 ml @ 0 mls/hr UD IV 05/24/25 21:45 UNV Diagnostic Test (Pha) 1 strip ACHS 05/24/25 22:00 05/25/25 12:08 1 STRIP Insulin Human Regular HS SC 05/24/25 22:00 05/24/25 22:00 2 UNITS Insulin Human Regular AC SC 05/25/25 07:00 05/25/25 12:05 12 UNITS Dextrose 50 ml UD PRN IV 05/24/25 21:45 Sodium Chloride 10 ml Q8HR IV 05/24/25 22:00 05/25/25 06:12 10 ML Acetaminophen/ Hydrocodone Bitart 1 tab Q4HP PRN PO 05/24/25 21:45 05/25/25 09:37 1 TAB Ondansetron HCl 4 mg Q4HP PRN IV 05/24/25 21:45 Docusate Sodium 100 mg BIDPRN PRN PO 05/24/25 21:45 Acetaminophen 650 mg Q6HP PRN PO 05/24/25 21:45 Sodium Chloride 1,000 ml @ 60 mls/hr [id number] IV 05/24/25 22:00 05/24/25 22:00 60 MLS/HR Nitroglycerin 0.4 mg Q5MINP PRN SL 05/24/25 23:30 Morphine Sulfate 2 mg Q30M PRN IV 05/24/25 23:30 Laboratory Results Laboratory Tests 05/25/25 06:10 Chemistry Test 05/24/25 16:23 05/25/25 06:10 Albumin 4.0 g/dL (3.2-4.8) 3.2 g/dL (3.2-4.8) Calcium Level 11.3 mg/dL (8.7-10.4) H 9.6 mg/dL (8.7-10.4) Total Protein 6.8 g/dL (5.7-8.2) 5.4 g/dL (5.7-8.2) L Coagulation Test 05/24/25 16:23 Prothrombin Time 13.0 sec (9.3-11.8) H Prothrombin Time INR 1.25 (0.9-1.15) H Activated Partial Thromboplast Time 25.1 SEC (24.5-34.5) LFT Test 05/24/25 16:23 05/25/25 06:10 Alanine Aminotransferase (ALT) 24 U/L (7-40) 19 U/L (7-40) Alkaline Phosphatase 109 U/L (46-116) 93 U/L (46-116) Aspartate Amino Transferase (AST) 39 U/L (13-40) 33 U/L (13-40) Total Bilirubin 0.5 mg/dL (0.2-1.0) 0.4 mg/dL (0.2-1.0) Urinalysis Test 05/25/25 08:15 Urine Color Light-orange (Yellow) Urine Clarity Cloudy (Clear) H Urine pH 5.5 (5.0-9.0) Urine Specific [place] 1.026 (1.001-1.035) Urine Protein Trace (Negative) H Urine Ketones 2+ (Negative) H Urine Blood 3+ /uL (Negative) H Urine Nitrite Negative (Negative) Urine Bilirubin Negative (Negative) Urine Urobilinogen Normal mg/dL (Negative) Urine Leukocyte Esterase Negative /uL (Negative) Urine RBC 1330 /hpf (0 - 3) Urine Microscopic WBC 13 /HPF (0-3) H Urine Squamous Epithelial Cells Few /hpf (<5) Urine Bacteria Few /hpf (None Seen) H Urine Glucose 4+ mg/dL (Normal) H Microbiology Microbiology Date/Time Source Procedure Growth Status 05/24/25 16:23 Blood Blood Culture - Preliminary Resulted Labs and/or images reviewed: Labs reviewed by me Assessment/Plan Assessment/Plan Altered mental status Mastoiditis Acute renal injury Sepsis, unspecified organism Generalized weakness Continue current management. Continue IVF Continue Abx This medical document was created using an electronic medical record system with [employer] direct computerized dictation system. Although this document has been carefully reviewed, there may still be some phonetic and typographical errors. These areas are purely typographical due to imperfections of the software programs, and do not reflect any compromise in the patient's medical care. Plan discussed with: Patient My Orders Orders - PAMELA LOPEZ MD Procedure Category Date Status Time Pt Request For Service PT 05/25/25 Logged 10:10 Date of Service: May 25, 2025 Billing Provider: PAMELA LOPEZ MD Common Visit Codes: [id number] INP/OBS CARE(HIGH) PAMELA LOPEZ MD May 25, 2025 12:30
[2025-05-25] MEDS: VANCOMYCIN 1GM/200ML PM 200 ML IV ONE (15:40)
[2025-05-25] MEDS: DOCUSATE SOD 100 MG CAP PO PRN (15:43)
[2025-05-25] MEDS: TAMSULOSIN HYDROCHLORIDE 0.4 MG CAP PO SCH (18:26)
[2025-05-25 20:00] VITALS: PULSE 80; RESP 18
[2025-05-25 21:00] VITALS: BP 111/67; PULSE 80; RESP 18; TEMP 97.8; O2SAT 96
[2025-05-26] VITALS (8 sets, daily range): BP systolic 114–145; BP diastolic 58–81; PULSE 81–93; RESP 16–19; TEMP 97.6–99.3; O2SAT 92–95
[2025-05-26] MEDS: VANCOMYCIN 1GM/200ML PM 200 ML IV SCH (04:18)
[2025-05-26] MEDS ORDERED: GABA-1308 PO (12:16)
[2025-05-26] MEDS ORDERED: INSREG3 IV (12:16)
[2025-05-26] MEDS ORDERED: DONE5TAB80 PO (12:16)
[2025-05-26] MEDS ORDERED: HYDR-4902 PO (12:16)
[2025-05-26] MEDS ORDERED: CHOL20007 OR (12:16)
--- NOTE | 2025-05-26 15:14 | DVHPN2 ---
Subjective The patient is seen and examined at bedside. Still very confused. Sitter at bedside. Reviewed: Care Plan, H&P, Labs, Medications, Previous Orders, Radiology Changes from previous H/P or p: No Changes Eyes: No Pain, No Vision change, No Conjunctivae inflammation, No Eyelid inflammation, No Other, No Redness ENT: No Ear pain, No Ear discharge, No Nose pain, No Nose discharge, No Nose congestion, No Mouth pain, No Mouth swelling, No Throat pain, No Throat swelling, No Other Cardiovascular: No Chest Pain, No Palpitations, No Orthopnea, No Paroxysmal Noc. Dyspnea, No Edema, No Lt Headedness, No Other Respiratory: No Cough, No Dry, No Shortness of breath, No SOB with excertion, No Wheezing, No Hemoptysis, No Pleuritic Pain, No Sputum, No Other Gastrointestinal: No Nausea, No Vomiting, No Abdominal Pain, No Diarrhea, No Constipation, No Melena, No Hematochezia, No Other Genitourinary: No Dysuria, No Frequency, No Incontinence, No Hematuria, No Retention, No Other Musculoskeletal: No other, No neck pain, No shoulder pain, No arm pain, No back pain, No hand pain, No leg pain, No foot pain Skin: No Rash, No Lesions, No Jaundice, No Bruising, No Other Objective Vitals Vital Signs Date Time Temp Pulse Resp B/P (MAP) Pulse Ox O2 Delivery O2 Flow Rate FiO2 05/26/25 09:44 124/68 05/26/25 08:00 Room Air* 0 21 05/26/25 05:00 99.0 88 18 93 99.0 Intake/Output Intake and Output 05/26/25 07:00 Intake Total 1000 ml Output Total 500 ml Balance 500 ml Intake Oral 700 ml IV Total 300 ml Output Urine Total 500 ml General Appearance: Alert HEENT: Atraumatic, PERRLA, EOMI, Mucous membr. moist/pink Neck: Supple Cardiovascular: Regular rate, Normal S1, Normal S2, No murmurs, Gallops, Rubs Abdomen: Normal bowel sounds, Soft, No tenderness Neuro: Cranial nerves 3-12 NL Psych/Mental Status: Mental status NL Medications Current Medications Medications Dose Ordered Sig/Wanda Route Start Time Stop Time Status Last Admin Dose Admin Cefepime HCl 50 ml @ 12.5 mls/hr Q8HR IV 05/24/25 22:00 05/26/25 14:48 12.5 MLS/HR Aspirin 81 mg DAILY PO 05/25/25 10:00 Atorvastatin Calcium 20 mg HS PO 05/24/25 22:00 05/25/25 21:29 20 MG Tamsulosin HCl 0.4 mg QPM PO 05/25/25 18:00 05/25/25 18:26 0.4 MG Lisinopril 10 mg DAILY PO 05/25/25 10:00 05/26/25 09:44 10 MG Vancomycin HCl 0 ml @ 0 mls/hr UD IV 05/24/25 21:45 Diagnostic Test (Pha) 1 strip ACHS 05/24/25 22:00 05/26/25 11:30 1 STRIP Insulin Human Regular HS SC 05/24/25 22:00 05/25/25 21:46 6 UNITS Insulin Human Regular AC SC 05/25/25 07:00 05/26/25 12:50 12 UNITS Dextrose 50 ml UD PRN IV 05/24/25 21:45 Sodium Chloride 10 ml Q8HR IV 05/24/25 22:00 05/26/25 14:00 10 ML Acetaminophen/ Hydrocodone Bitart 1 tab Q4HP PRN PO 05/24/25 21:45 05/25/25 22:09 1 TAB Ondansetron HCl 4 mg Q4HP PRN IV 05/24/25 21:45 Docusate Sodium 100 mg BIDPRN PRN PO 05/24/25 21:45 05/25/25 15:43 100 MG Acetaminophen 650 mg Q6HP PRN PO 05/24/25 21:45 Sodium Chloride 1,000 ml @ 60 mls/hr [id number] IV 05/24/25 22:00 05/26/25 07:20 60 MLS/HR Nitroglycerin 0.4 mg Q5MINP PRN SL 05/24/25 23:30 Morphine Sulfate 2 mg Q30M PRN IV 05/24/25 23:30 Vancomycin HCl 200 ml @ 200 mls/hr Q16H IV 05/26/25 05:00 05/26/25 04:18 200 MLS/HR Laboratory Results Laboratory Tests 05/25/25 06:10 05/26/25 06:10 Urinalysis Test 05/25/25 08:15 Urine Color Light-orange (Yellow) Urine Clarity Cloudy (Clear) H Urine pH 5.5 (5.0-9.0) Urine Specific [place] 1.026 (1.001-1.035) Urine Protein Trace (Negative) H Urine Ketones 2+ (Negative) H Urine Blood 3+ /uL (Negative) H Urine Nitrite Negative (Negative) Urine Bilirubin Negative (Negative) Urine Urobilinogen Normal mg/dL (Negative) Urine Leukocyte Esterase Negative /uL (Negative) Urine RBC 1330 /hpf (0 - 3) Urine Microscopic WBC 13 /HPF (0-3) H Urine Squamous Epithelial Cells Few /hpf (<5) Urine Bacteria Few /hpf (None Seen) H Urine Glucose 4+ mg/dL (Normal) H Microbiology Microbiology Date/Time Source Procedure Growth Status 05/25/25 08:15 Voided Urine Urine Culture - Preliminary Resulted 05/24/25 16:23 Blood Blood Culture - Preliminary Resulted Labs and/or images reviewed: Labs reviewed by me Assessment/Plan Assessment/Plan Altered mental status Mastoiditis Acute renal injury Sepsis, unspecified organism Generalized weakness Continuing current management Continuing with IV antibiotic Continuing with IV fluid This medical document was created using an electronic medical record system with [employer] direct computerized dictation system. Although this document has been carefully reviewed, there may still be some phonetic and typographical errors. These areas are purely typographical due to imperfections of the software programs, and do not reflect any compromise in the patient's medical care. Plan discussed with: Patient Date of Service: May 26, 2025 Billing Provider: PAMELA LOPEZ MD Common Visit Codes: [id number] INP/OBS CARE(HIGH) PAMELA LOPEZ MD May 26, 2025 15:14
[2025-05-27] VITALS (9 sets, daily range): BP systolic 132–175; BP diastolic 73–93; PULSE 74–89; RESP 16–18; TEMP 97.5–98.1; O2SAT 95–97
--- NOTE | 2025-05-27 14:50 | DVHPN2 ---
Subjective The patient is seen and examined at bedside. Still very confused. Sitter at bedside. Reviewed: Care Plan, H&P, Labs, Medications, Previous Orders, Radiology Changes from previous H/P or p: No Changes Eyes: No Pain, No Vision change, No Conjunctivae inflammation, No Eyelid inflammation, No Other, No Redness ENT: No Ear pain, No Ear discharge, No Nose pain, No Nose discharge, No Nose congestion, No Mouth pain, No Mouth swelling, No Throat pain, No Throat swelling, No Other Cardiovascular: No Chest Pain, No Palpitations, No Orthopnea, No Paroxysmal Noc. Dyspnea, No Edema, No Lt Headedness, No Other Respiratory: No Cough, No Dry, No Shortness of breath, No SOB with excertion, No Wheezing, No Hemoptysis, No Pleuritic Pain, No Sputum, No Other Gastrointestinal: No Nausea, No Vomiting, No Abdominal Pain, No Diarrhea, No Constipation, No Melena, No Hematochezia, No Other Genitourinary: No Dysuria, No Frequency, No Incontinence, No Hematuria, No Retention, No Other Musculoskeletal: No other, No neck pain, No shoulder pain, No arm pain, No back pain, No hand pain, No leg pain, No foot pain Skin: No Rash, No Lesions, No Jaundice, No Bruising, No Other Objective Vitals Vital Signs Date Time Temp Pulse Resp B/P (MAP) Pulse Ox O2 Delivery O2 Flow Rate FiO2 05/27/25 12:32 98.0 74 16 132/73 (92) 97 98.0 05/27/25 08:00 Room Air* 0 21 Intake/Output Intake and Output 05/27/25 07:00 Intake Total 3095 ml Output Total 1200 ml Balance 1895 ml Intake Oral 1385 ml IV Total 1710 ml Output Urine Total 1200 ml # Voids 1 General Appearance: Alert HEENT: Atraumatic, PERRLA, EOMI, Mucous membr. moist/pink Neck: Supple Lungs: Clear to auscultation, Normal air movement Cardiovascular: Regular rate, Normal S1, Normal S2, No murmurs, Gallops, Rubs Abdomen: Normal bowel sounds, Soft, No tenderness Neuro: Cranial nerves 3-12 NL Psych/Mental Status: Mental status NL Medications Current Medications Medications Dose Ordered Sig/Wanda Route Start Time Stop Time Status Last Admin Dose Admin Cefepime HCl 50 ml @ 12.5 mls/hr Q8HR IV 05/24/25 22:00 05/27/25 14:15 12.5 MLS/HR Aspirin 81 mg DAILY PO 05/25/25 10:00 Atorvastatin Calcium 20 mg HS PO 05/24/25 22:00 05/26/25 21:56 20 MG Tamsulosin HCl 0.4 mg QPM PO 05/25/25 18:00 05/26/25 16:41 0.4 MG Lisinopril 10 mg DAILY PO 05/25/25 10:00 05/26/25 09:44 10 MG Diagnostic Test (Pha) 1 strip ACHS 05/24/25 22:00 05/27/25 11:30 1 STRIP Insulin Human Regular HS SC 05/24/25 22:00 05/26/25 21:58 8 UNITS Insulin Human Regular AC SC 05/25/25 07:00 05/27/25 12:22 6 UNITS Dextrose 50 ml UD PRN IV 05/24/25 21:45 Sodium Chloride 10 ml Q8HR IV 05/24/25 22:00 05/27/25 14:17 10 ML Acetaminophen/ Hydrocodone Bitart 1 tab Q4HP PRN PO 05/24/25 21:45 05/27/25 10:35 1 TAB Ondansetron HCl 4 mg Q4HP PRN IV 05/24/25 21:45 Docusate Sodium 100 mg BIDPRN PRN PO 05/24/25 21:45 05/25/25 15:43 100 MG Acetaminophen 650 mg Q6HP PRN PO 05/24/25 21:45 Sodium Chloride 1,000 ml @ 60 mls/hr [id number] IV 05/24/25 22:00 05/26/25 07:20 60 MLS/HR Nitroglycerin 0.4 mg Q5MINP PRN SL 05/24/25 23:30 Morphine Sulfate 2 mg Q30M PRN IV 05/24/25 23:30 Laboratory Results Laboratory Tests 05/25/25 06:10 05/26/25 06:10 Urinalysis Test 05/25/25 08:15 Urine Color Light-orange (Yellow) Urine Clarity Cloudy (Clear) H Urine pH 5.5 (5.0-9.0) Urine Specific [place] 1.026 (1.001-1.035) Urine Protein Trace (Negative) H Urine Ketones 2+ (Negative) H Urine Blood 3+ /uL (Negative) H Urine Nitrite Negative (Negative) Urine Bilirubin Negative (Negative) Urine Urobilinogen Normal mg/dL (Negative) Urine Leukocyte Esterase Negative /uL (Negative) Urine RBC 1330 /hpf (0 - 3) Urine Microscopic WBC 13 /HPF (0-3) H Urine Squamous Epithelial Cells Few /hpf (<5) Urine Bacteria Few /hpf (None Seen) H Urine Glucose 4+ mg/dL (Normal) H Microbiology Microbiology Date/Time Source Procedure Growth Status 05/25/25 08:15 Voided Urine Urine Culture - Final Complete 05/24/25 16:23 Blood Blood Culture - Final Escherichia coli Complete Labs and/or images reviewed: Labs reviewed by me Assessment/Plan Assessment/Plan Altered mental status Mastoiditis Acute renal injury Sepsis due to E coli infection Generalized weakness Bacteremia with E coli Continuing current management Continuing with IV antibiotic Continuing with IV fluid This medical document was created using an electronic medical record system with [employer] direct computerized dictation system. Although this document has been carefully reviewed, there may still be some phonetic and typographical errors. These areas are purely typographical due to imperfections of the software programs, and do not reflect any compromise in the patient's medical care. Plan discussed with: Patient Date of Service: May 27, 2025 Billing Provider: PAMELA LOPEZ MD Common Visit Codes: [id number] INP/OBS CARE(HIGH) PAMELA LOPEZ MD May 27, 2025 14:50
[2025-05-27] MEDS: LISINOPRIL 5 MG TAB PO ONE (16:56)
[2025-05-28 05:00] VITALS: BP 127/70; PULSE 88; RESP 18; TEMP 98.7; O2SAT 97
[2025-05-28 08:00] VITALS: PULSE 72
[2025-05-28 09:00] VITALS: BP 176/89; PULSE 85; RESP 17; TEMP 97.6; O2SAT 97
--- NOTE | 2025-05-28 10:56 | DVHPN2 ---
Subjective The patient is seen and examined at bedside. Still very confused. Sitter at bedside. Reviewed: Care Plan, H&P, Labs, Medications, Previous Orders, Radiology Changes from previous H/P or p: No Changes Eyes: No Pain, No Vision change, No Conjunctivae inflammation, No Eyelid inflammation, No Other, No Redness ENT: No Ear pain, No Ear discharge, No Nose pain, No Nose discharge, No Nose congestion, No Mouth pain, No Mouth swelling, No Throat pain, No Throat swelling, No Other Cardiovascular: No Chest Pain, No Palpitations, No Orthopnea, No Paroxysmal Noc. Dyspnea, No Edema, No Lt Headedness, No Other Respiratory: No Cough, No Dry, No Shortness of breath, No SOB with excertion, No Wheezing, No Hemoptysis, No Pleuritic Pain, No Sputum, No Other Gastrointestinal: No Nausea, No Vomiting, No Abdominal Pain, No Diarrhea, No Constipation, No Melena, No Hematochezia, No Other Genitourinary: No Dysuria, No Frequency, No Incontinence, No Hematuria, No Retention, No Other Musculoskeletal: No other, No neck pain, No shoulder pain, No arm pain, No back pain, No hand pain, No leg pain, No foot pain Skin: No Rash, No Lesions, No Jaundice, No Bruising, No Other Objective Vitals Vital Signs Date Time Temp Pulse Resp B/P (MAP) Pulse Ox O2 Delivery O2 Flow Rate FiO2 05/28/25 09:15 176/89 05/28/25 08:00 Room Air* 0 21 05/28/25 05:00 98.7 88 18 97 98.7 Intake/Output Intake and Output 05/28/25 07:00 Intake Total 2740 ml Output Total 1050 ml Balance 1690 ml Intake Oral 840 ml IV Total 1900 ml Output Urine Total 1050 ml General Appearance: Alert HEENT: Atraumatic, PERRLA, EOMI, Mucous membr. moist/pink Neck: Supple Lungs: Clear to auscultation, Normal air movement Cardiovascular: Regular rate, Normal S1, Normal S2, No murmurs, Gallops, Rubs Abdomen: Normal bowel sounds, Soft, No tenderness Neuro: Cranial nerves 3-12 NL Psych/Mental Status: Mental status NL Medications Current Medications Medications Dose Ordered Sig/Wanda Route Start Time Stop Time Status Last Admin Dose Admin Cefepime HCl 50 ml @ 12.5 mls/hr Q8HR IV 05/24/25 22:00 05/28/25 05:59 12.5 MLS/HR Aspirin 81 mg DAILY PO 05/25/25 10:00 Atorvastatin Calcium 20 mg HS PO 05/24/25 22:00 05/27/25 21:43 20 MG Tamsulosin HCl 0.4 mg QPM PO 05/25/25 18:00 05/27/25 18:04 0.4 MG Lisinopril 10 mg DAILY PO 05/25/25 10:00 05/28/25 09:15 10 MG Diagnostic Test (Pha) 1 strip ACHS 05/24/25 22:00 05/28/25 06:17 1 STRIP Insulin Human Regular HS SC 05/24/25 22:00 05/27/25 21:44 4 UNITS Insulin Human Regular AC SC 05/25/25 07:00 05/28/25 06:20 6 UNITS Dextrose 50 ml UD PRN IV 05/24/25 21:45 Sodium Chloride 10 ml Q8HR IV 05/24/25 22:00 05/28/25 05:59 10 ML Acetaminophen/ Hydrocodone Bitart 1 tab Q4HP PRN PO 05/24/25 21:45 05/28/25 04:01 1 TAB Ondansetron HCl 4 mg Q4HP PRN IV 05/24/25 21:45 Docusate Sodium 100 mg BIDPRN PRN PO 05/24/25 21:45 05/25/25 15:43 100 MG Acetaminophen 650 mg Q6HP PRN PO 05/24/25 21:45 Sodium Chloride 1,000 ml @ 60 mls/hr [id number] IV 05/24/25 22:00 05/28/25 06:31 60 MLS/HR Nitroglycerin 0.4 mg Q5MINP PRN SL 05/24/25 23:30 Morphine Sulfate 2 mg Q30M PRN IV 05/24/25 23:30 Laboratory Results Laboratory Tests 05/25/25 06:10 05/26/25 06:10 Urinalysis Test 05/25/25 08:15 Urine Color Light-orange (Yellow) Urine Clarity Cloudy (Clear) H Urine pH 5.5 (5.0-9.0) Urine Specific [place] 1.026 (1.001-1.035) Urine Protein Trace (Negative) H Urine Ketones 2+ (Negative) H Urine Blood 3+ /uL (Negative) H Urine Nitrite Negative (Negative) Urine Bilirubin Negative (Negative) Urine Urobilinogen Normal mg/dL (Negative) Urine Leukocyte Esterase Negative /uL (Negative) Urine RBC 1330 /hpf (0 - 3) Urine Microscopic WBC 13 /HPF (0-3) H Urine Squamous Epithelial Cells Few /hpf (<5) Urine Bacteria Few /hpf (None Seen) H Urine Glucose 4+ mg/dL (Normal) H Microbiology Microbiology Date/Time Source Procedure Growth Status 05/25/25 08:15 Voided Urine Urine Culture - Final Complete 05/24/25 16:23 Blood Blood Culture - Final Escherichia coli Complete Assessment/Plan Assessment/Plan Altered mental status Mastoiditis Acute renal injury Sepsis due to E coli infection Generalized weakness Bacteremia with E coli Continuing current management Continuing with IV antibiotic Continuing with IV fluid Encourage to be out of bed and ambulate. This medical document was created using an electronic medical record system with [employer] direct computerized dictation system. Although this document has been carefully reviewed, there may still be some phonetic and typographical errors. These areas are purely typographical due to imperfections of the software programs, and do not reflect any compromise in the patient's medical care. Plan discussed with: Patient My Orders Orders - PAMELA LOPEZ MD Procedure Category Date Status Time Dietary NOTICE 05/27/25 Transmitted Recommendations 14:59 Date of Service: May 28, 2025 Billing Provider: PAMELA LOPEZ MD Common Visit Codes: [id number] INP/OBS CARE(HIGH) PAMELA LOPEZ MD May 28, 2025 10:56
[2025-05-28 13:00] VITALS: BP 114/63; PULSE 83; RESP 19; TEMP 97.8; O2SAT 97
[2025-05-28 17:00] VITALS: BP 138/60; PULSE 85; RESP 17; TEMP 98.2; O2SAT 97
[2025-05-28 20:00] VITALS: PULSE 81
[2025-05-29] VITALS (9 sets, daily range): BP systolic 143–172; BP diastolic 71–88; PULSE 86–100; RESP 15–20; TEMP 97.4–99.4; O2SAT 95–98
--- NOTE | 2025-05-29 12:19 | DVHPN2 ---
Subjective The patient is seen and examined at bedside. More alert , awake today. Complains of back pain and foot pain. Reviewed: Care Plan, H&P, Labs, Medications, Previous Orders, Radiology Changes from previous H/P or p: No Changes Eyes: No Pain, No Vision change, No Conjunctivae inflammation, No Eyelid inflammation, No Other, No Redness ENT: No Ear pain, No Ear discharge, No Nose pain, No Nose discharge, No Nose congestion, No Mouth pain, No Mouth swelling, No Throat pain, No Throat swelling, No Other Cardiovascular: No Chest Pain, No Palpitations, No Orthopnea, No Paroxysmal Noc. Dyspnea, No Edema, No Lt Headedness, No Other Respiratory: No Cough, No Dry, No Shortness of breath, No SOB with excertion, No Wheezing, No Hemoptysis, No Pleuritic Pain, No Sputum, No Other Gastrointestinal: No Nausea, No Vomiting, No Abdominal Pain, No Diarrhea, No Constipation, No Melena, No Hematochezia, No Other Genitourinary: No Dysuria, No Frequency, No Incontinence, No Hematuria, No Retention, No Other Musculoskeletal: No other, No neck pain, No shoulder pain, No arm pain, No back pain, No hand pain, No leg pain, No foot pain Skin: No Rash, No Lesions, No Jaundice, No Bruising, No Other Objective Vitals Vital Signs Date Time Temp Pulse Resp B/P (MAP) Pulse Ox O2 Delivery O2 Flow Rate FiO2 05/29/25 10:00 143/75 05/29/25 09:00 99.4 94 16 97 99.4 05/28/25 20:00 Room Air* 0 21 Intake/Output Intake and Output 05/29/25 07:00 Intake Total 350 ml Output Total 750 ml Balance -400 ml Intake Oral 200 ml IV Total 150 ml Output Urine Total 750 ml # Voids 7 General Appearance: Alert HEENT: Atraumatic, PERRLA, EOMI, Mucous membr. moist/pink Neck: Supple Lungs: Clear to auscultation, Normal air movement Cardiovascular: Regular rate, Normal S1, Normal S2, No murmurs, Gallops, Rubs Abdomen: Normal bowel sounds, Soft, No tenderness Extremities: Other (LLE cool to tough with chente color and some black, discolor skin around toes. Weak pulse on LLE) Neuro: Cranial nerves 3-12 NL Psych/Mental Status: Mental status NL Medications Current Medications Medications Dose Ordered Sig/Wanda Route Start Time Stop Time Status Last Admin Dose Admin Cefepime HCl 50 ml @ 12.5 mls/hr Q8HR IV 05/24/25 22:00 05/29/25 06:21 12.5 MLS/HR Aspirin 81 mg DAILY PO 05/25/25 10:00 Atorvastatin Calcium 20 mg HS PO 05/24/25 22:00 05/28/25 23:05 20 MG Tamsulosin HCl 0.4 mg QPM PO 05/25/25 18:00 05/28/25 16:57 0.4 MG Lisinopril 10 mg DAILY PO 05/25/25 10:00 05/28/25 09:15 10 MG Diagnostic Test (Pha) 1 strip ACHS 05/24/25 22:00 05/29/25 06:21 1 STRIP Insulin Human Regular HS SC 05/24/25 22:00 05/28/25 23:01 4 UNITS Insulin Human Regular AC SC 05/25/25 07:00 05/29/25 06:22 6 UNITS Dextrose 50 ml UD PRN IV 05/24/25 21:45 Sodium Chloride 10 ml Q8HR IV 05/24/25 22:00 05/29/25 06:23 10 ML Acetaminophen/ Hydrocodone Bitart 1 tab Q4HP PRN PO 05/24/25 21:45 05/28/25 16:57 1 TAB Ondansetron HCl 4 mg Q4HP PRN IV 05/24/25 21:45 Docusate Sodium 100 mg BIDPRN PRN PO 05/24/25 21:45 05/25/25 15:43 100 MG Acetaminophen 650 mg Q6HP PRN PO 05/24/25 21:45 Sodium Chloride 1,000 ml @ 60 mls/hr [id number] IV 05/24/25 22:00 05/28/25 06:31 60 MLS/HR Nitroglycerin 0.4 mg Q5MINP PRN SL 05/24/25 23:30 Morphine Sulfate 2 mg Q30M PRN IV 05/24/25 23:30 Laboratory Results Laboratory Tests 05/25/25 06:10 05/26/25 06:10 Urinalysis Test 05/25/25 08:15 Urine Color Light-orange (Yellow) Urine Clarity Cloudy (Clear) H Urine pH 5.5 (5.0-9.0) Urine Specific [place] 1.026 (1.001-1.035) Urine Protein Trace (Negative) H Urine Ketones 2+ (Negative) H Urine Blood 3+ /uL (Negative) H Urine Nitrite Negative (Negative) Urine Bilirubin Negative (Negative) Urine Urobilinogen Normal mg/dL (Negative) Urine Leukocyte Esterase Negative /uL (Negative) Urine RBC 1330 /hpf (0 - 3) Urine Microscopic WBC 13 /HPF (0-3) H Urine Squamous Epithelial Cells Few /hpf (<5) Urine Bacteria Few /hpf (None Seen) H Urine Glucose 4+ mg/dL (Normal) H Microbiology Microbiology Date/Time Source Procedure Growth Status 05/25/25 08:15 Voided Urine Urine Culture - Final Complete 05/24/25 16:23 Blood Blood Culture - Final Escherichia coli Complete Labs and/or images reviewed: Labs reviewed by me Assessment/Plan Assessment/Plan Altered mental status Mastoiditis Acute renal injury Sepsis due to E coli infection Generalized weakness Bacteremia with E coli Color change in Left foot with weak pulse, need to rule out ischemic foot. S/p fall, ? left foot injury Continuing current management Continuing with IV antibiotic Continuing with IV fluid Encourage to be out of bed and ambulate. Will order stat US with artery to rule out stenosis/ischemic foot. Will order XRay of left foot. Will give pain medication. Soft diet. This medical document was created using an electronic medical record system with [employer] direct computerized dictation system. Although this document has been carefully reviewed, there may still be some phonetic and typographical errors. These areas are purely typographical due to imperfections of the software programs, and do not reflect any compromise in the patient's medical care. Plan discussed with: Patient My Orders Orders - PAMELA LOPEZ MD Procedure Category Date Status Time Soft Diet DIET 05/28/25 Transmitted Lunch Date of Service: May 29, 2025 Billing Provider: PAMELA LOPEZ MD Common Visit Codes: [id number] INP/OBS CARE(HIGH) PAMELA LOPEZ MD May 29, 2025 12:19
--- NOTE | 2025-05-29 17:11 | DVH ---
LEFT Lower Extremity Arterial Duplex Date: 05/29/2025 04:25 PM Clinical History: rule out arterial stenosis Comparison: None Technique: Duplex Doppler evaluation including color Doppler and spectral/pulsed waveform analysis of the LEFT l ower extremity arteries was performed. Finding: LEFT: Peak systolic velocities are as follows: FUGITIVE DETECTIVE 130 cm/s triphasic waveform Deep femoral 83 cm/s triphasic waveform SFA proximal 147 cm/s triphasic waveform SFA mid-portion 113 cm/s triphasic waveform SFA distal 68 cm/s triphasic waveform Popliteal 125 cm/s triphasic waveform Posterior tibial 37 cm/s triphasic waveform Dorsalis pedis 9 cm/s monophasic waveform The waveforms are triphasic waveform throughout the left lower extremity except at the dorsalis pedis was monophasic REFERENCE VALUES, [facility]) vascular Imaging Lab Criteria: Peak systolic velocity ranges (in cm/sec) are as follows: <150 cm/s - <20 % stenosis 150-200 cm/s - 20-49% stenosis 200-300 cm/s - 50-75% stenosis >300 cm/s -> 75% stenosis IMPRESSION: 1. There is no evidence for peripheral vascular insufficiency in the left dorsalis pedis 2. No significant focal stenosis is identified.
--- NOTE | 2025-05-29 17:53 | DVH ---
CLINICAL INDICATION: r/o fracture TECHNIQUE: 3 of the radiographic views of the left foot were obtained. Comparison: None FINDINGS/IMPRESSION: Cortical irregularity proximal aspect proximal phalanx left 5th toe correlate for site of injury and tenderness.
--- NOTE | 2025-05-29 23:41 | DVH ---
CT LEFT FOOT HISTORY: L 5th phalanx injury COMPARISON: Left foot radiographs obtained earlier the same day. TECHNIQUE: Multiple axial CT images of the left foot were obtained without intravenous contrast. Cor onal and sagittal bone and soft tissue reformations were also obtained. One or more of the following radiation dose reduction techniques were used for this examination: automated exposure control, adjus tment of the mA and/or kV according to patient size, use of iterative reconstruction technique. Findings and impression: Obliquely oriented, minimally displaced fracture of the 5th proximal phalanx. This is best appreciate d on the sagittal projection. Age indeterminate but relatively chronic appearing deformity of the base of the 4th proximal phalanx as well. Please correlate with physical exam. No other grossly displaced fractures or dislocations are evident.
[2025-05-30] VITALS (8 sets, daily range): BP systolic 109–172; BP diastolic 69–90; PULSE 88–101; RESP 18–19; TEMP 97.6–98.9; O2SAT 93–99
[2025-05-30] MEDS: CEFEPIME 1GM/ 50ML 50 ML IV SCH (03:07)
[2025-05-30 07:32] LABS: Chloride 101 mmol/L (98-107); Sodium 138 mmol/L (136-145)
[2025-05-30 07:33] LABS: Anion Gap 10 (5-15); Carbon Dioxide 27 mmol/L (20-31)
[2025-05-30 07:38] LABS: BUN/Creatinine Ratio 12.9 (10.0-20.0)
[2025-05-30 07:42] LABS: Blood Urea Nitrogen 9 mg/dL (9-23); Calcium 11.1 mg/dL (8.7-10.4); Glucose 187 mg/dL (74-106); Potassium 3.4 mmol/L (3.5-5.1)
[2025-05-30 07:43] LABS: Hematocrit 45.8 % (41.0-53.0); Hemoglobin 15.5 g/dL (13.5-17.5); Mean Corpuscular Hemoglobin 31.1 pg (28.0-32.0); Mean Corpuscular Volume 91.9 fL (80.0-100.0); Nucleated Red Blood Cells % 0.1 %
--- NOTE | 2025-05-30 10:39 | DVHPN2 ---
Subjective Continue to complain of low back pain Reviewed: Care Plan, H&P, Labs, Medications, Previous Orders, Radiology, Other (Consultation) Changes from previous H/P or p: Changes Objective Vitals Vital Signs Date Time Temp Pulse Resp B/P (MAP) Pulse Ox O2 Delivery O2 Flow Rate FiO2 05/30/25 09:48 141/80 05/30/25 05:00 98.1 90 19 96 98.1 05/29/25 20:00 Room Air* 0 21 Intake/Output Intake and Output 05/30/25 07:00 Intake Total 225.0 ml Output Total 600 ml Balance -375.0 ml Intake Oral 200 ml IV Total 25.0 ml Output Urine Total 600 ml General Appearance: Alert, Other (Oriented only to self and place) HEENT: Atraumatic, Other (Severe hearing loss; bilateral) Lungs: Clear to auscultation, Normal air movement Cardiovascular: Regular rate, Normal S1, Normal S2 Abdomen: Normal bowel sounds, Soft, No tenderness Back: Other (Lumbar spine tenderness) Extremities: Other (Discolored left lower extremity) Neuro: Normal speech, Cranial nerves 3-12 NL, Other (Oriented to person and place) Psych/Mental Status: Mood NL Medications Current Medications Medications Dose Ordered Sig/Wanda Route Start Time Stop Time Status Last Admin Dose Admin Aspirin 81 mg DAILY PO 05/25/25 10:00 05/30/25 09:40 81 MG Atorvastatin Calcium 20 mg HS PO 05/24/25 22:00 05/29/25 21:52 20 MG Tamsulosin HCl 0.4 mg QPM PO 05/25/25 18:00 05/29/25 17:42 0.4 MG Lisinopril 10 mg DAILY PO 05/25/25 10:00 05/30/25 09:48 10 MG Diagnostic Test (Pha) 1 strip ACHS 05/24/25 22:00 05/30/25 06:09 1 STRIP Insulin Human Regular HS SC 05/24/25 22:00 05/29/25 21:51 4 UNITS Insulin Human Regular AC SC 05/25/25 07:00 05/30/25 06:10 6 UNITS Dextrose 50 ml UD PRN IV 05/24/25 21:45 Sodium Chloride 10 ml Q8HR IV 05/24/25 22:00 05/30/25 06:09 10 ML Acetaminophen/ Hydrocodone Bitart 1 tab Q4HP PRN PO 05/24/25 21:45 05/30/25 00:17 1 TAB Ondansetron HCl 4 mg Q4HP PRN IV 05/24/25 21:45 Docusate Sodium 100 mg BIDPRN PRN PO 05/24/25 21:45 05/25/25 15:43 100 MG Acetaminophen 650 mg Q6HP PRN PO 05/24/25 21:45 Sodium Chloride 1,000 ml @ 60 mls/hr [id number] IV 05/24/25 22:00 05/28/25 06:31 60 MLS/HR Nitroglycerin 0.4 mg Q5MINP PRN SL 05/24/25 23:30 Morphine Sulfate 2 mg Q30M PRN IV 05/24/25 23:30 Cefepime HCl 50 ml @ 12.5 mls/hr Q8H IV 05/30/25 02:00 05/30/25 10:06 12.5 MLS/HR Laboratory Results Laboratory Tests 05/30/25 06:49 Chemistry Test 05/30/25 06:49 Calcium Level 11.1 mg/dL (8.7-10.4) H Urinalysis Test 05/25/25 08:15 Urine Color Light-orange (Yellow) Urine Clarity Cloudy (Clear) H Urine pH 5.5 (5.0-9.0) Urine Specific [place] 1.026 (1.001-1.035) Urine Protein Trace (Negative) H Urine Ketones 2+ (Negative) H Urine Blood 3+ /uL (Negative) H Urine Nitrite Negative (Negative) Urine Bilirubin Negative (Negative) Urine Urobilinogen Normal mg/dL (Negative) Urine Leukocyte Esterase Negative /uL (Negative) Urine RBC 1330 /hpf (0 - 3) Urine Microscopic WBC 13 /HPF (0-3) H Urine Squamous Epithelial Cells Few /hpf (<5) Urine Bacteria Few /hpf (None Seen) H Urine Glucose 4+ mg/dL (Normal) H Microbiology Microbiology Date/Time Source Procedure Growth Status 05/25/25 08:15 Voided Urine Urine Culture - Final Complete 05/24/25 16:23 Blood Blood Culture - Final Escherichia coli Complete Labs and/or images reviewed: Labs reviewed by me, Image(s) reviewed by me Assessment/Plan Assessment/Plan Covering Dr. 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 hearing aids #Thyroid nodules/cysts; to follow up as outpatient #Atherosclerosis of multiple vessels #Lung nodule; to follow up as outpatient #Discoloration of left lower extremity; ruled out arterial insufficiency with duplex arterial ultrasound #Early dementia; is caregiver; not on treatment; no behavioral changes reported by #Physical deconditioning due to above Reviewed available lab studies and imaging studies Reviewed left foot imaging studies and consulted Podiatry Continue IV antibiotics Continue physical therapy Ordered lumbosacral spine x-rays Avoid nephrotoxic agents Continue pain management as needed Continue insulin treatment and adjust according to blood glucose readings Continue antihypertensive medications and adjust according to blood pressure readings Continue aspirin and statin Continue physical therapy as tolerated Continue monitoring Goals of care discussed with the patient and his for 20 minutes; full code Late Entry. This medical document was created using an electronic medical record system with computerized dictation system. Although this document has been carefully reviewed, there might still be some phonetic and typographical errors. These areas are purely typographical due to imperfections of the software programs, and do not reflect any compromise in the patient's medical care. Plan discussed with: Patient, Spouse, Other (Nurse) My Orders Orders - RENETTA REDDY MD Procedure Category Date Status Time *Podiatry Consult CONS 05/30/25 Verified Musson(Dvmg) 10:35 Potassium Chl Junito PHA 05/30/25 Verified KCL 10:45 Basic Metabolic Panel LAB 05/31/25 Verified 04:00 Complete Blood Count LAB 05/31/25 Verified 04:00 Magnesium LAB 05/31/25 Verified 04:00 Date of Service: May 30, 2025 Billing Provider: RENETTA REDDY MD Common Visit Codes: [id number] INP/OBS CARE(HIGH) Secondary Visit Codes: [id number] CARE PLAN 30 MINUTES (20 minutes) RENETTA REDDY MD May 30, 2025 10:39
--- NOTE | 2025-05-30 13:22 | DVH ---
INDICATION: low back pain COMPARISON: None TECHNIQUE: 3 views of the lumbar spine were obtained. FINDINGS: Levoscoliosis centered at the L3 vertebral body. Severe multilevel degenerative disc disease of the lumbosacral spine. No acute fracture, vertebral compression deformity or aggressive osseous lesions. The paravertebral soft tissues are grossly unremarkable. IMPRESSION: No acute fracture.
--- NOTE | 2025-05-30 14:10 | DVHINCON2 ---
Date Seen: May 30, 2025 Reason for Consultation Left foot toe discoloration History of Present Illness The patient is a 79-year-old male with past medical history of diabetes mellitus, hyperlipidemia, hypertension, and coronary artery disease who presented to [facility] ED evaluation of altered level co nsciousness. As reported by EMS, patient was found on the ground beside his bed by altered with fever and pinpoint pupils. Patient was seen and evaluated in the ED, laboratory data shows WBC 22.9, platelets 156, sodium 139, potassium 3.6, BUN 26, creatinine 1.36, glucose 186, calcium 11.3, lactic acid 2.3 trending down to 1.9, troponin 10, blood pressure 125/74, heart rate 126 trending down to 102, temperature 100.5 F trending down to 97.8 F, O2 saturation 97% on oxygen. Cervical spine CT revealing moderate to advanced cervical degenerative disc, large left mastoid effusion, thyroid nodules up to 1.8 cm. Thyroid ultrasound revealing complex appearing left thyroid lobe structure without calcification, bilateral hypoechoic foci. Please see medication orders section in the computer. On my assessment, patient denied chest pain, no headache, no dizziness, no shortness of breath, no nausea, no vomiting, no fever, no chills. Patient was admitted for further evaluation and medical management. Past Medical History See H&P Past Surgical History See H&P Family History: Patient reports no known family medical history. Allergies: Coded Allergies: NO KNOWN ALLERGIES (Unverified , 11/11/23) Home Meds Active Scripts Furosemide (Lasix) 20 Mg Tb, 1 TAB PO DAILY, #30 TAB 5 Refills Prov:TREY SANCHEZ MD 11/16/23 Reported Medications Insulin Regular (Human) (Humulin R) 100 Unit/Ml Inj, 40 UNIT IV BID, INJ 05/26/25 Gabapentin (Gabapentin) 100 Mg Cap, 1 CAP PO TID, #90 CAP 2 Refills 05/26/25 Cholecalciferol (VITAMIN D3) 2,000 Unit Tab, 1250 UNIT OR QWEEKLY, TAB 05/26/25 Donepezil Hydrochloride (DONEPEZIL HCL) 5 Mg Tab, 1 TAB PO DAILY, #30 TAB 5 Refills 05/26/25 Hydrocodone-Acetaminophen (Hydrocodone Bitartrate/AC 5-325 mg) 1 Tab Tab, 1 TAB PO, TAB 05/26/25 Aspirin (Aspir-81) 81 Mg Tab, 81 MG PO DAILY, TAB 11/12/23 Insulin Glargine (Lantus) 100 Unit/Ml Inj, 40 SC BID, INJ 11/11/23 Metformin Hydrochloride (Metformin Hydrochloride) 500 Mg Tab, 1 TAB PO BID 11/11/23 Tamsulosin Hcl (Tamsulosin Hcl) 0.4 Mg Cap, 1 CAP PO DAILY 11/11/23 Empagliflozin (Jardiance) 25 Mg Tab, 1 TAB PO DAILY 11/11/23 Lisinopril (Lisinopril) 10 Mg Tab, 1 TAB PO DAILY 11/11/23 Atorvastatin Calcium (ATORVASTATIN CALCIUM) 40 Mg Tab, 1 TAB PO 11/11/23 Current Medications Current Medications Medications (Trade) Dose Ordered Sig/Wanda Route PRN Reason Start Time Stop Time Status Last Admin Cefepime HCl 50 ml @ 12.5 mls/hr Q8H IV 05/30/25 02:00 05/30/25 10:06 Vital Signs Vital Signs Date Time Temp Pulse Resp B/P (MAP) Pulse Ox O2 Delivery O2 Flow Rate FiO2 05/30/25 09:48 141/80 05/30/25 08:10 Room Air* 0 21 05/30/25 05:00 98.1 90 19 96 98.1 Physical Exam Dermatological: No obvious derformity, swelling, bruising or skin changes No open wounds No signs of infection or trauma Vascular: Dorsalis pedis and posterior tibial pulses are 2+ bilaterally Capillary refill is <2 seconds Skin temperature is warm bilaterally Neurologic: Protective sensation intact to 10g monofilament Vibration sensation normal Musculoskeletal: Tenderness discoloration over the left 4th digit and 5th digit No warmth, fluctuance, or crepitus noted Range of motion at the ankle and MTP joints is within normal limits. Strength is 5/5 in all tested muscle groups. Antalgic gait abnormality Labs/Diagnostic Data Labs Test 05/30/25 11:49 05/30/25 06:49 05/27/25 12:00 05/25/25 08:15 Range/Units POC Glucose 179 H 70-106 mg/dl White Blood Count 11.4 #H 4.4-10.8 10^3/uL Red Blood Count 4.98 4.5-5.90 10^6/uL Hemoglobin 15.5 13.5-17.5 g/dL Hematocrit 45.8 41.0-53.0 % Mean Corpuscular Volume 91.9 # 80.0-100.0 fL Mean Corpuscular Hemoglobin 31.1 28.0-32.0 pg Mean Corpuscular Hemoglobin Concent 33.9 32.0-36.0 g/dL Red Cell Distribution Width 14.3 11.8-14.3 % Platelet Count 168 # 140-450 10^3/uL Mean Platelet Volume 9.4 6.9-10.8 fL Neutrophils (%) (Auto) 71.0 37.0-80.0 % Lymphocytes (%) (Auto) 17.8 10.0-50.0 % Monocytes (%) (Auto) 9.9 0.0-12.0 % Eosinophils (%) (Auto) 1.0 0.0-7.0 % Basophils (%) (Auto) 0.3 0.0-2.0 % Neutrophils # (Auto) 8.1 1.6-8.6 10 ^3/uL Lymphocytes # (Auto) 2.0 0.4-5.4 10 ^3/uL Monocytes # (Auto) 1.1 0-1.3 10 ^3/uL Eosinophils # (Auto) 0.1 0-0.8 10 ^3/uL Basophils # (Auto) 0 0-0.2 10 ^3/uL Nucleated Red Blood Cells 0.1 % Sodium Level 138 136-145 mmol/L Potassium Level 3.4 L 3.5-5.1 mmol/L Chloride Level 101 98-107 mmol/L Carbon Dioxide Level 27 20-31 mmol/L Anion Gap 10 5-15 Blood Urea Nitrogen 9 9-23 mg/dL Creatinine 0.70 0.700-1.30 mg/dL Glomerular Filtration Rate Calc 94 >90 mL/min BUN/Creatinine Ratio 12.9 10.0-20.0 Serum Glucose 187 #H 74-106 mg/dL Calcium Level 11.1 H 8.7-10.4 mg/dL Vancomycin Level Trough 8.9 5-10 ug/mL Urine Color Light-orange Yellow Urine Clarity Cloudy H Clear Urine pH 5.5 5.0-9.0 Urine Specific [place] 1.026 1.001-1.035 Urine Protein Trace H Negative Urine Ketones 2+ H Negative Urine Blood 3+ H Negative /uL Urine Nitrite Negative Negative Urine Bilirubin Negative Negative Urine Urobilinogen Normal Negative mg/dL Urine Leukocyte Esterase Negative Negative /uL Urine RBC 1330 0 - 3 /hpf Urine Microscopic WBC 13 H 0-3 /HPF Urine Squamous Epithelial Cells Few <5 /hpf Urine Bacteria Few H None Seen /hpf Urine Glucose 4+ H Normal mg/dL Test 05/25/25 06:10 05/24/25 19:33 05/24/25 16:23 Range/Units Total Bilirubin 0.4 0.2-1.0 mg/dL Aspartate Amino Transferase (AST) 33 13-40 U/L Alanine Aminotransferase (ALT) 19 7-40 U/L Alkaline Phosphatase 93 46-116 U/L Total Protein 5.4 L 5.7-8.2 g/dL Albumin 3.2 3.2-4.8 g/dL Lactic Acid Level 1.9 0.4-2.0 mmol/L Troponin I High Sensitivity 10 </=54 ng/L Prothrombin Time 13.0 H 9.3-11.8 sec Prothrombin Time INR 1.25 H 0.9-1.15 Activated Partial Thromboplast Time 25.1 24.5-34.5 SEC Microbiology Date/Time Source Procedure Growth Status 05/25/25 08:15 Voided Urine Urine Culture - Final Complete 05/24/25 16:23 Blood Blood Culture - Final Escherichia coli Complete Problems(with codes): (1) Hyperglycemia (2) Elevated troponin (3) Leukocytosis (4) Mastoiditis (5) Sepsis (6) Altered mental status (7) Fall (8) Fever in adult (9) Acute renal injury (10) Sepsis, unspecified organism Plan/Recommendation ASSESSMENT: Patient is a 80-year-old seen on the floor for worsening discoloration of the left foot PLAN: X-ray of the foot and ankle obtained to confirm fracture and assessed displacement Reviewed imaging which showed Fracture appears to be stable Immobilization initiated with a postop shoe Patient can weight bear as tolerated Ice and elevate to reduce swelling Reviewed signs of worsening pain and numbness Continue immobilization with postop shoe for 4 weeks All questions were answered and concerns addressed to the patient's satisfaction. The patient was given the phone number to the clinic and was told how to make contact with the clinic should any concerns or questions arise. Patient understands that if any questions or concerns arise prior to the next appointment, we should be contacted immediately. FOLLOW-UP: Continue to follow while inpatient Plan discussed with: Patient Date of Service: May 30, 2025 Billing Provider: DAREK TERRELL DPM Common Visit Codes: CONSULT ONLY Consultation Codes: [id number] CONSULT <80MIN DAREK TERRELL DPM May 30, 2025 14:10
--- NOTE | 2025-05-30 14:16 | ECG ---
[facility] Test Date: 2025-05-24 Test Time: 15:54:46 Pat Name: GAEL MCKEON Department: ED Room: 0216T A Gender: M Dredge Pumper: mau : 1945 Requested By: ROBINA GENAO Order Number: [id number] Reading MD: Chad Garcia Measurements Intervals [place] Rate: 117 P: 51 LA: 146 QRS: 5 QRSD: 72 T: -1 QT: 299 QTc: 417 Interpretive Statements Sinus tachycardia Probable left atrial enlargement Probable left ventricular hypertrophy Borderline T abnormalities, inferior leads Electronically Signed On 06-04-2025 21:38:05 PDT by Chad Garcia Please click the below link to view image of tracing.
[2025-05-30] MEDS: POTASSIUM CHLORIDE 40 MEQ, LIDOCAINE 1% (LOCAL ANESTH.) 4 ML in SODIUM CHL 0.9% 250 ML IV ONE (17:20)
[2025-05-31] VITALS (7 sets, daily range): BP systolic 96–152; BP diastolic 55–84; PULSE 68–121; RESP 18–24; TEMP 96.6–100.6; O2SAT 95–100
[2025-05-31] MEDS: ACETAMINOPHEN 325 MG TAB PO PRN (02:25)
[2025-05-31] MEDS: IBUPROFEN 800 MG TAB PO ONE (05:48)
--- NOTE | 2025-05-31 06:48 | DVHPN2 ---
Subjective Drowsy this morning with decreased saturation Reviewed: Care Plan, H&P, Labs, Medications, Previous Orders, Radiology, Other (Consultation) Changes from previous H/P or p: Changes Objective Vitals Vital Signs Date Time Temp Pulse Resp B/P (MAP) Pulse Ox O2 Delivery O2 Flow Rate FiO2 05/31/25 05:48 100.8 05/31/25 05:00 121 18 152/84 (106) 99 05/30/25 20:00 Room Air* 0 21 Intake/Output Intake and Output 05/31/25 07:00 Intake Total 570 ml Output Total 300 ml Balance 270 ml Intake Oral 420 ml IV Total 150 ml Output Urine Total 300 ml General Appearance: Other (Drowsy) HEENT: Atraumatic, Other (Severe hearing loss; bilateral) Lungs: Clear to auscultation, Normal air movement Cardiovascular: Regular rate, Normal S1, Normal S2 Abdomen: Normal bowel sounds, Soft, No tenderness Back: Other (Lumbar spine tenderness) Extremities: Other (Discolored left lower extremity) Neuro: Normal speech, Cranial nerves 3-12 NL, Other (Drowsy) Psych/Mental Status: Other (Drowsy) Medications Current Medications Medications Dose Ordered Sig/Wanda Route Start Time Stop Time Status Last Admin Dose Admin Aspirin 81 mg DAILY PO 05/25/25 10:00 05/30/25 09:40 81 MG Atorvastatin Calcium 20 mg HS PO 05/24/25 22:00 05/30/25 22:33 20 MG Tamsulosin HCl 0.4 mg QPM PO 05/25/25 18:00 05/30/25 18:26 0.4 MG Lisinopril 10 mg DAILY PO 05/25/25 10:00 05/30/25 09:48 10 MG Diagnostic Test (Pha) 1 strip ACHS 05/24/25 22:00 05/30/25 22:00 1 STRIP Insulin Human Regular HS SC 05/24/25 22:00 05/30/25 22:33 6 UNITS Insulin Human Regular AC SC 05/25/25 07:00 05/30/25 18:35 9 UNITS Dextrose 50 ml UD PRN IV 05/24/25 21:45 Sodium Chloride 10 ml Q8HR IV 05/24/25 22:00 05/31/25 05:49 10 ML Acetaminophen/ Hydrocodone Bitart 1 tab Q4HP PRN PO 05/24/25 21:45 05/30/25 22:34 1 TAB Ondansetron HCl 4 mg Q4HP PRN IV 05/24/25 21:45 Docusate Sodium 100 mg BIDPRN PRN PO 05/24/25 21:45 05/30/25 22:37 100 MG Acetaminophen 650 mg Q6HP PRN PO 05/24/25 21:45 05/31/25 02:25 650 MG Sodium Chloride 1,000 ml @ 60 mls/hr [id number] IV 05/24/25 22:00 05/28/25 06:31 60 MLS/HR Nitroglycerin 0.4 mg Q5MINP PRN SL 05/24/25 23:30 Morphine Sulfate 2 mg Q30M PRN IV 05/24/25 23:30 Cefepime HCl 50 ml @ 12.5 mls/hr Q8H IV 05/30/25 02:00 05/31/25 02:45 12.5 MLS/HR Laboratory Results Laboratory Tests 05/30/25 06:49 Chemistry Test 05/30/25 06:49 Calcium Level 11.1 mg/dL (8.7-10.4) H Urinalysis Test 05/25/25 08:15 Urine Color Light-orange (Yellow) Urine Clarity Cloudy (Clear) H Urine pH 5.5 (5.0-9.0) Urine Specific [place] 1.026 (1.001-1.035) Urine Protein Trace (Negative) H Urine Ketones 2+ (Negative) H Urine Blood 3+ /uL (Negative) H Urine Nitrite Negative (Negative) Urine Bilirubin Negative (Negative) Urine Urobilinogen Normal mg/dL (Negative) Urine Leukocyte Esterase Negative /uL (Negative) Urine RBC 1330 /hpf (0 - 3) Urine Microscopic WBC 13 /HPF (0-3) H Urine Squamous Epithelial Cells Few /hpf (<5) Urine Bacteria Few /hpf (None Seen) H Urine Glucose 4+ mg/dL (Normal) H Microbiology Microbiology Date/Time Source Procedure Growth Status 05/25/25 08:15 Voided Urine Urine Culture - Final Complete 05/24/25 16:23 Blood Blood Culture - Final Escherichia coli Complete Labs and/or images reviewed: Labs reviewed by me, Image(s) reviewed by me Assessment/Plan Assessment/Plan Covering Dr. Richard: #Acute hypoxic respiratory failure due to acute on chronic diastolic heart failure causing pulmonary congestion #Acute on chronic diastolic heart failure #Recurrent fever on May 31, 2025 #Acute metabolic/toxic encephalopathy due to sepsis in the setting of early dementia; worsening on May 31, 2025 #Sepsis due to E coli bacteremia in the setting of suspected acute mastoiditis #Leukocytosis and lactic acidosis due to sepsis #GABI in the setting of sepsis due to vasomotor nephropathy #Generalized weakness due to sepsis #Uncontrolled diabetes mellitus type 2 #Hypertensive heart disease #Status post fall at home resulting in left foot fracture #Low back pain due to degenerative changes #Bilateral severe hearing loss; lost his hearing aids #Thyroid nodules/cysts; to follow up as outpatient #Atherosclerosis of multiple vessels #Lung nodule; to follow up as outpatient #Discoloration of left lower extremity; ruled out arterial insufficiency with duplex arterial ultrasound #Early dementia; is caregiver; not on treatment; no behavioral changes reported by #Physical deconditioning due to above Reviewed repeat head CT ordered and done on May 31, 2025 that showed no acute abnormalities Reviewed repeat chest x-ray ordered and done on May 31, 2025 that showed pulmonary congestion Changed IV cefepime to IV Zosyn; ordered a new set of blood cultures Started IV furosemide for pulmonary congestion and increasing oxygen requirement Continue oxygen therapy as needed Reviewed available lab studies and imaging studies Podiatry is following; reviewed their recommendations Continue physical therapy Avoid nephrotoxic agents Continue pain management as needed Continue insulin treatment and adjust according to blood glucose readings Continue antihypertensive medications and adjust according to blood pressure readings; increased the dose of lisinopril on May 31, 2025 Continue aspirin and statin Continue physical therapy as tolerated Continue monitoring Late Entry. This medical document was created using an electronic medical record system with computerized dictation system. Although this document has been carefully reviewed, there might still be some phonetic and typographical errors. These areas are purely typographical due to imperfections of the software programs, and do not reflect any compromise in the patient's medical care. Plan discussed with: Spouse, Other (Nurse) My Orders Orders - RENETTA REDDY MD Procedure Category Date Status Time *Podiatry Consult CONS 05/30/25 Transmitted [facility]) 10:35 Basic Metabolic Panel LAB 05/31/25 Logged 04:00 Complete Blood Count LAB 05/31/25 Logged 04:00 Magnesium LAB 05/31/25 Logged 04:00 Lumbar Spine 3 View XY 05/30/25 Resulted 11:04 Blood Culture JUAREZ 05/31/25 Logged 06:29 Piperacillin-Tazob PHA 05/31/25 In Process 3.375gm (Zosyn 3.375g 14:00 Piperacillin-Tazob PHA 05/31/25 In Process 3.375gm (Zosyn 3.375g 06:30 Complete Blood Count LAB 06/01/25 Verified 04:00 Basic Metabolic Panel LAB 06/01/25 Verified 04:00 Hemoglobin A1c LAB 05/31/25 Logged 06:35 Lisinopril Tablet PHA 05/31/25 In Process (Zestril Tablet) 10:00 Date of Service: May 31, 2025 Billing Provider: RENETTA REDDY MD Common Visit Codes: [id number] INP/OBS CARE(HIGH) RENETTA REDDY MD May 31, 2025 06:48
[2025-05-31] MEDS: PIPERACILLIN-TAZOB 3.375GM 100 ML IV ONE (07:05)
[2025-05-31 07:19] LABS: Anion Gap 9 (5-15); Carbon Dioxide 27 mmol/L (20-31); Chloride 102 mmol/L (98-107); Sodium 138 mmol/L (136-145)
[2025-05-31 07:21] LABS: Hematocrit 43.0 % (41.0-53.0); Hemoglobin 14.6 g/dL (13.5-17.5); Mean Corpuscular Hemoglobin 31.0 pg (28.0-32.0); Mean Corpuscular Volume 91.3 fL (80.0-100.0)
[2025-05-31 07:23] LABS: Calcium 10.8 mg/dL (8.7-10.4); Potassium 3.2 mmol/L (3.5-5.1)
[2025-05-31 07:25] LABS: BUN/Creatinine Ratio 17.9 (10.0-20.0); Blood Urea Nitrogen 14 mg/dL (9-23)
[2025-05-31 07:27] LABS: Glucose 191 mg/dL (74-106); Magnesium 1.3 mg/dL (1.6-2.6)
[2025-05-31 07:58] LABS: Smudge Cells 2 /100 WBC; Total Cells Counted 100.0 (100)
[2025-05-31] MEDS: LISINOPRIL 5 MG TAB PO SCH (10:00)
--- NOTE | 2025-05-31 13:29 | DVH ---
EXAM: XY CHEST XRAY 1 VIEW Indication: Decreased oxygen saturation. Technique: Single frontal view of the chest was obtained Comparison: XY CHEST PORTABLE on DOS: 05/24/25, XY CHEST XRAY 1 VIEW on DOS: 11/15/23, XY CHEST PORTABLE on DOS: 11/11/23 FINDINGS: Lines and Tubes: None Lungs: Low lung volumes . Mild pulmonary edema Pleura: No effusion. No pneumothorax. Cardiomediastinal contours: Unremarkable Bones: No acute osseous abnormality. IMPRESSION: Low lung volumes with mild pulmonary edema.
--- NOTE | 2025-05-31 13:51 | DVH ---
CT HEAD WITHOUT CONTRAST Indication: Altered mental status. Thank You! EXAM DATE: 05/31/2025 12:38 PM COMPARISON: CT HEAD WITHOUT CONTRAST on DOS: 05/24/25 TECHNIQUE: CT of the head without intravenous contrast. RADIATION DOSE: CTDIvol: 0.07 mGy, DLP: 655.36 mGy*cm FINDINGS: There is no intracranial hemorrhage. There is no extra-axial fluid, mass, mass effect or midline shif t. The ventricles are midline and normal in size. Basilar cisterns are patent. There are moderate per iventricular and subcortical white matter chronic microvascular ischemic changes. Mild global cerebr al volume loss. Large left mastoid effusion.. Imaged portion of the orbits are unremarkable. IMPRESSION: No intracranial hemorrhage or mass effect. Moderate chronic microvascular ischemic changes. Mild global cerebral volume loss. Large left mastoid effusion.
[2025-05-31] MEDS: MAGNESIUM SULFATE 1GM/100ML 100 ML IV SCH (14:07)
[2025-05-31] MEDS: PIPERACILLIN-TAZOB 3.375GM 100 ML IV SCH (14:07)
[2025-05-31] MEDS: FUROSEMIDE 40 MG/4 ML VIAL IV ONE (16:04)
[2025-05-31] MEDS: POTASSIUM CHL 20MEQ/100ML 100 ML IV SCH (16:25)
[2025-06-01] VITALS (9 sets, daily range): BP systolic 114–139; BP diastolic 43–74; PULSE 80–120; RESP 17–24; TEMP 98.2–100.5; O2SAT 92–96
[2025-06-01 07:10] LABS: Hematocrit 43.2 % (41.0-53.0); Hemoglobin 14.7 g/dL (13.5-17.5); Mean Corpuscular Hemoglobin 31.2 pg (28.0-32.0); Mean Corpuscular Volume 91.7 fL (80.0-100.0); Nucleated Red Blood Cells % 0.0 %
[2025-06-01 07:15] LABS: Chloride 101 mmol/L (98-107); Sodium 137 mmol/L (136-145)
[2025-06-01 07:16] LABS: Anion Gap 11 (5-15); Calcium 10.2 mg/dL (8.7-10.4); Carbon Dioxide 25 mmol/L (20-31)
[2025-06-01 07:21] LABS: BUN/Creatinine Ratio 17.6 (10.0-20.0); Blood Urea Nitrogen 22 mg/dL (9-23)
[2025-06-01 07:24] LABS: Glucose 205 mg/dL (74-106); Magnesium 1.5 mg/dL (1.6-2.6); Potassium 3.5 mmol/L (3.5-5.1)
[2025-06-01] MEDS: FUROSEMIDE 40 MG/4 ML VIAL IV SCH (07:40)
[2025-06-01] MEDS ORDERED: VANCOMYCIN PER PHARMACY 0 MG IV SCH (09:15)
--- NOTE | 2025-06-01 11:03 | DVHPN2 ---
Subjective Feeling better this morning but with current fever Reviewed: Care Plan, H&P, Labs, Medications, Previous Orders, Radiology, Other (Consultation) Changes from previous H/P or p: Changes Objective Vitals Vital Signs Date Time Temp Pulse Resp B/P (MAP) Pulse Ox O2 Delivery O2 Flow Rate FiO2 06/01/25 09:04 139/74 06/01/25 09:00 99.2 108 18 94 99.2 06/01/25 08:05 Room Air* 0 21 Intake/Output Intake and Output 06/01/25 07:00 Intake Total 970 ml Output Total 225 ml Balance 745 ml Intake Oral 570 ml IV Total 400 ml Output Urine Total 225 ml # Voids 4 # Bowel Movements 1 General Appearance: Alert, Other (Oriented to person and place) HEENT: Atraumatic, Other (Severe hearing loss; bilateral) Lungs: Clear to auscultation, Normal air movement Cardiovascular: Regular rate, Normal S1, Normal S2 Abdomen: Normal bowel sounds, Soft, No tenderness Back: Other (Lumbar spine tenderness) Extremities: Other (Discolored left lower extremity) Neuro: Normal speech, Cranial nerves 3-12 NL, Other (Oriented to person and place) Psych/Mental Status: Mental status NL, Mood NL Medications Current Medications Medications Dose Ordered Sig/Wanda Route Start Time Stop Time Status Last Admin Dose Admin Aspirin 81 mg DAILY PO 05/25/25 10:00 05/30/25 09:40 81 MG Atorvastatin Calcium 20 mg HS PO 05/24/25 22:00 05/31/25 21:41 20 MG Tamsulosin HCl 0.4 mg QPM PO 05/25/25 18:00 05/31/25 17:57 0.4 MG Diagnostic Test (Pha) 1 strip ACHS 05/24/25 22:00 06/01/25 07:52 1 STRIP Insulin Human Regular HS SC 05/24/25 22:00 05/31/25 21:53 6 UNITS Insulin Human Regular AC SC 05/25/25 07:00 06/01/25 07:55 6 UNITS Dextrose 50 ml UD PRN IV 05/24/25 21:45 Sodium Chloride 10 ml Q8HR IV 05/24/25 22:00 06/01/25 07:39 10 ML Acetaminophen/ Hydrocodone Bitart 1 tab Q4HP PRN PO 05/24/25 21:45 06/01/25 00:33 1 TAB Ondansetron HCl 4 mg Q4HP PRN IV 05/24/25 21:45 Docusate Sodium 100 mg BIDPRN PRN PO 05/24/25 21:45 05/30/25 22:37 100 MG Acetaminophen 650 mg Q6HP PRN PO 05/24/25 21:45 06/01/25 04:16 650 MG Sodium Chloride 1,000 ml @ 60 mls/hr [id number] IV 05/24/25 22:00 05/31/25 21:40 60 MLS/HR Nitroglycerin 0.4 mg Q5MINP PRN SL 05/24/25 23:30 Piperacillin Sod/ Tazobactam Sod 100 ml @ 25 mls/hr Q8HR IV 05/31/25 14:00 06/01/25 07:39 25 MLS/HR Lisinopril 20 mg DAILY PO 05/31/25 10:00 Furosemide 40 mg QAM IV 06/01/25 07:00 06/01/25 07:40 40 MG Vancomycin HCl 0 ml @ 0 mls/hr UD IV 06/01/25 09:15 UNV Laboratory Results Laboratory Tests 06/01/25 06:47 Chemistry Test 06/01/25 06:47 Calcium Level 10.2 mg/dL (8.7-10.4) Magnesium Level 1.5 mg/dL (1.6-2.6) L Urinalysis Test 05/25/25 08:15 Urine Color Light-orange (Yellow) Urine Clarity Cloudy (Clear) H Urine pH 5.5 (5.0-9.0) Urine Specific [place] 1.026 (1.001-1.035) Urine Protein Trace (Negative) H Urine Ketones 2+ (Negative) H Urine Blood 3+ /uL (Negative) H Urine Nitrite Negative (Negative) Urine Bilirubin Negative (Negative) Urine Urobilinogen Normal mg/dL (Negative) Urine Leukocyte Esterase Negative /uL (Negative) Urine RBC 1330 /hpf (0 - 3) Urine Microscopic WBC 13 /HPF (0-3) H Urine Squamous Epithelial Cells Few /hpf (<5) Urine Bacteria Few /hpf (None Seen) H Urine Glucose 4+ mg/dL (Normal) H Microbiology Microbiology Date/Time Source Procedure Growth Status 05/31/25 06:55 Blood Blood Culture - Preliminary NO GROWTH AFTER 24 HOURS OF INCUBATION. Resulted 05/25/25 08:15 Voided Urine Urine Culture - Final Complete Labs and/or images reviewed: Labs reviewed by me, Image(s) reviewed by me Assessment/Plan Assessment/Plan Covering Dr. Richard: #Acute hypoxic respiratory failure due to acute on chronic diastolic heart failure causing pulmonary congestion #Acute on chronic diastolic heart failure #Recurrent fever on May 31 and 2024; added IV vancomycin as per pharmacy on June 01, 2025 #Acute metabolic/toxic encephalopathy due to sepsis in the setting of early dementia; resolving #Sepsis due to E coli bacteremia in the setting of suspected acute mastoiditis; repeat cultures with no growth so far #Leukocytosis and lactic acidosis due to sepsis #GABI in the setting of sepsis due to vasomotor nephropathy #Generalized weakness due to sepsis #Uncontrolled diabetes mellitus type 2 #Hypertensive heart disease #Status post fall at home resulting in left foot fracture #Low back pain due to degenerative changes #Bilateral severe hearing loss; lost his hearing aids #Thyroid nodules/cysts; to follow up as outpatient #Atherosclerosis of multiple vessels #Lung nodule; to follow up as outpatient #Discoloration of left lower extremity; ruled out arterial insufficiency with duplex arterial ultrasound #Early dementia; is caregiver; not on treatment; no behavioral changes reported by #Physical deconditioning due to above Reviewed repeat head CT ordered and done on May 31, 2025 that showed no acute abnormalities Reviewed repeat chest x-ray ordered and done on May 31, 2025 that showed pulmonary congestion Changed IV cefepime to IV Zosyn on May 31, 2025 Continue IV furosemide for pulmonary congestion and increasing oxygen requirement Continue oxygen therapy as needed Reviewed available lab studies and imaging studies Podiatry is following; reviewed their recommendations Continue physical therapy Avoid nephrotoxic agents Continue pain management as needed Continue insulin treatment and adjust according to blood glucose readings Continue antihypertensive medications and adjust according to blood pressure readings Continue aspirin and statin Continue physical therapy as tolerated Continue monitoring Late Entry. This medical document was created using an electronic medical record system with computerized dictation system. Although this document has been carefully reviewed, there might still be some phonetic and typographical errors. These areas are purely typographical due to imperfections of the software programs, and do not reflect any compromise in the patient's medical care. Plan discussed with: Patient, Spouse, Other (Nurse) My Orders Orders - RENETTA REDDY MD Procedure Category Date Status Time Chest Xray 1 View XY 05/31/25 Resulted 12:[address] 05/31/25 Resulted 12:19 Furosemide Injection PHA 06/01/25 In Process (Lasix Injection) 07:00 Electrocardigram EKG 05/31/25 Logged 17:31 Vancomycin Per PHA 06/01/25 Logged Pharmacy 09:15 Urine Bacterial JUAREZ 06/01/25 Uncollected Culture 09:06 Urinalysis LAB 06/01/25 Uncollected 09:06 Basic Metabolic Panel LAB 06/02/25 Verified 04:00 Complete Blood Count LAB 06/02/25 Verified 04:00 Date of Service: Jun 01, 2025 Billing Provider: RENETTA REDDY MD Common Visit Codes: [id number] INP/OBS CARE(HIGH) RENETTA REDDY MD Jun 01, 2025 11:03
--- NOTE | 2025-06-01 12:00 | ECG ---
[facility] Test Date: 2025-05-31 Test Time: 02:09:47 Pat Name: GAEL MCKEON Department: Respiratoy Room: 0216T A Gender: M [employer]: SHARMAINE : 1945 Requested By: RENETTA REDDY Order Number: [id number] Reading MD: Chad Garcia Measurements Intervals [place] Rate: 134 P: 42 [place]: 106 QRS: -2 QRSD: 94 T: 142 QT: 367 QTc: 548 Interpretive Statements Sinus tachycardia Inferior infarct, old Anteroseptal infarct, old Prolonged QT interval Baseline wander in lead(s) V3 Electronically Signed On 06-04-2025 21:30:43 PDT by Chad Garcia Please click the below link to view image of tracing.
[2025-06-01] MEDS: VANCOMYCIN 1GM/200ML PM 200 ML IV ONE (13:11)
[2025-06-02] VITALS (8 sets, daily range): BP systolic 113–137; BP diastolic 53–89; PULSE 78–104; RESP 16–18; TEMP 97–99.7; O2SAT 90–95
[2025-06-02 06:27] LABS: Hematocrit 42.5 % (41.0-53.0); Hemoglobin 14.2 g/dL (13.5-17.5); Mean Corpuscular Hemoglobin 31.2 pg (28.0-32.0); Mean Corpuscular Volume 93.3 fL (80.0-100.0); Nucleated Red Blood Cells % 0.0 %
[2025-06-02 07:04] LABS: Chloride 101 mmol/L (98-107)
[2025-06-02 07:05] LABS: Anion Gap 9 (5-15); Carbon Dioxide 26 mmol/L (20-31)
[2025-06-02 07:06] LABS: Calcium 9.9 mg/dL (8.7-10.4)
[2025-06-02 07:10] LABS: BUN/Creatinine Ratio 16.1 (10.0-20.0); Blood Urea Nitrogen 19 mg/dL (9-23)
[2025-06-02 07:11] LABS: Glucose 264 mg/dL (74-106); Potassium 3.4 mmol/L (3.5-5.1); Sodium 136 mmol/L (136-145)
--- NOTE | 2025-06-02 11:16 | DVHPN2 ---
Subjective Did not share any complaints; no more fever so far Reviewed: Care Plan, H&P, Labs, Medications, Previous Orders, Radiology, Other (Consultation) Changes from previous H/P or p: Changes Objective Vitals Vital Signs Date Time Temp Pulse Resp B/P (MAP) Pulse Ox O2 Delivery O2 Flow Rate FiO2 06/02/25 08:45 99.0 104 17 130/89 (103) 93 99.0 06/01/25 20:00 Room Air* 0 21 Intake/Output Intake and Output 06/02/25 07:00 Intake Total 865 ml Output Total 400 ml Balance 465 ml Intake Oral 565 ml IV Total 300 ml Output Urine Total 400 ml # Voids 7 # Bowel Movements 1 General Appearance: Alert, Other (Oriented to person and place) HEENT: Atraumatic, Other (Severe hearing loss; bilateral) Lungs: Clear to auscultation, Normal air movement Cardiovascular: Regular rate, Normal S1, Normal S2 Abdomen: Normal bowel sounds, Soft, No tenderness Back: Other (Lumbar spine tenderness) Extremities: Other (Discolored left lower extremity) Neuro: Normal speech, Cranial nerves 3-12 NL, Other (Oriented to person and place) Psych/Mental Status: Mental status NL, Mood NL Medications Current Medications Medications Dose Ordered Sig/Wanda Route Start Time Stop Time Status Last Admin Dose Admin Aspirin 81 mg DAILY PO 05/25/25 10:00 05/30/25 09:40 81 MG Atorvastatin Calcium 20 mg HS PO 05/24/25 22:00 06/01/25 21:12 20 MG Tamsulosin HCl 0.4 mg QPM PO 05/25/25 18:00 06/01/25 18:22 0.4 MG Diagnostic Test (Pha) 1 strip ACHS 05/24/25 22:00 06/02/25 05:36 1 STRIP Insulin Human Regular HS SC 05/24/25 22:00 06/01/25 22:21 4 UNITS Insulin Human Regular AC SC 05/25/25 07:00 06/02/25 05:47 9 UNITS Dextrose 50 ml UD PRN IV 05/24/25 21:45 Sodium Chloride 10 ml Q8HR IV 05/24/25 22:00 06/02/25 05:37 10 ML Acetaminophen/ Hydrocodone Bitart 1 tab Q4HP PRN PO 05/24/25 21:45 06/02/25 02:37 1 TAB Ondansetron HCl 4 mg Q4HP PRN IV 05/24/25 21:45 Docusate Sodium 100 mg BIDPRN PRN PO 05/24/25 21:45 06/02/25 02:30 100 MG Acetaminophen 650 mg Q6HP PRN PO 05/24/25 21:45 06/01/25 21:12 650 MG Sodium Chloride 1,000 ml @ 60 mls/hr [id number] IV 05/24/25 22:00 06/01/25 11:43 60 MLS/HR Nitroglycerin 0.4 mg Q5MINP PRN SL 05/24/25 23:30 Piperacillin Sod/ Tazobactam Sod 100 ml @ 25 mls/hr Q8HR IV 05/31/25 14:00 06/02/25 05:37 25 MLS/HR Lisinopril 20 mg DAILY PO 05/31/25 10:00 Furosemide 40 mg QAM IV 06/01/25 07:00 06/02/25 05:37 40 MG Vancomycin HCl 0 ml @ 0 mls/hr UD IV 06/01/25 09:15 Laboratory Results Laboratory Tests 06/02/25 05:43 Chemistry Test 06/02/25 05:43 Calcium Level 9.9 mg/dL (8.7-10.4) Urinalysis Test 05/25/25 08:15 Urine Color Light-orange (Yellow) Urine Clarity Cloudy (Clear) H Urine pH 5.5 (5.0-9.0) Urine Specific [place] 1.026 (1.001-1.035) Urine Protein Trace (Negative) H Urine Ketones 2+ (Negative) H Urine Blood 3+ /uL (Negative) H Urine Nitrite Negative (Negative) Urine Bilirubin Negative (Negative) Urine Urobilinogen Normal mg/dL (Negative) Urine Leukocyte Esterase Negative /uL (Negative) Urine RBC 1330 /hpf (0 - 3) Urine Microscopic WBC 13 /HPF (0-3) H Urine Squamous Epithelial Cells Few /hpf (<5) Urine Bacteria Few /hpf (None Seen) H Urine Glucose 4+ mg/dL (Normal) H Microbiology Microbiology Date/Time Source Procedure Growth Status 05/31/25 06:55 Blood Blood Culture - Preliminary NO GROWTH AFTER 48 HOURS OF INCUBATION. Resulted 05/25/25 08:15 Voided Urine Urine Culture - Final Complete Labs and/or images reviewed: Labs reviewed by me, Image(s) reviewed by me Assessment/Plan Assessment/Plan Covering Dr. Richard: #Acute hypoxic respiratory failure due to acute on chronic diastolic heart failure causing pulmonary congestion; resolved #Acute on chronic diastolic heart failure #Recurrent fever on May 31 and 2024; added IV vancomycin on June 01, 2025; no fever reported after starting IV vancomycin #Acute metabolic/toxic encephalopathy due to sepsis in the setting of early dementia; resolving #Sepsis due to E coli bacteremia in the setting of suspected acute mastoiditis; repeat cultures with no growth so far #Leukocytosis and lactic acidosis due to sepsis #GABI in the setting of sepsis due to vasomotor nephropathy #Generalized weakness due to sepsis #Uncontrolled diabetes mellitus type 2 #Hypertensive heart disease #Status post fall at home resulting in left foot fracture #Low back pain due to degenerative changes #Bilateral severe hearing loss; lost his hearing aids #Thyroid nodules/cysts; to follow up as outpatient #Atherosclerosis of multiple vessels #Lung nodule; to follow up as outpatient #Discoloration of left lower extremity; ruled out arterial insufficiency with duplex arterial ultrasound #Early dementia; is caregiver; not on treatment; no behavioral changes reported by #Physical deconditioning due to above Reviewed repeat head CT ordered and done on May 31, 2025 that showed no acute abnormalities Reviewed repeat chest x-ray ordered and done on May 31, 2025 that showed pulmonary congestion Changed IV cefepime to IV Zosyn on May 31, 2025 Continue IV furosemide Restart oxygen therapy if needed Reviewed available lab studies and imaging studies Podiatry is following; reviewed their recommendations Continue physical therapy Avoid nephrotoxic agents Continue pain management as needed Continue insulin treatment and adjust according to blood glucose readings Continue antihypertensive medications and adjust according to blood pressure readings Continue aspirin and statin Continue physical therapy as tolerated Continue monitoring Late Entry. This medical document was created using an electronic medical record system with computerized dictation system. Although this document has been carefully reviewed, there might still be some phonetic and typographical errors. These areas are purely typographical due to imperfections of the software programs, and do not reflect any compromise in the patient's medical care. Plan discussed with: Patient, Other (Nurse) My Orders Orders - RENETTA REDDY MD Procedure Category Date Status Time Vancomycin Per SIMONE 06/01/25 In Process Pharmacy Protoc 18:50 Date of Service: Jun 02, 2025 Billing Provider: RENETTA REDDY MD Common Visit Codes: [id number] INP/OBS CARE(HIGH) RENETTA REDDY MD Jun 02, 2025 11:16
[2025-06-02 14:03] LABS: Urine Protein, UAD Negative (Negative)
[2025-06-02] MEDS: POTASSIUM EFFERVESENT TAB 25 MEQ PO ONE (14:26)
[2025-06-02] MEDS: VANCOMYCIN 1GM/200ML PM 200 ML IV ONE (18:29)
[2025-06-03] VITALS (8 sets, daily range): BP systolic 125–145; BP diastolic 68–83; PULSE 81–102; RESP 16–19; TEMP 97.1–99.9; O2SAT 95–97
[2025-06-03 08:35] LABS: Hematocrit 44.5 % (41.0-53.0); Hemoglobin 15.1 g/dL (13.5-17.5); Mean Corpuscular Hemoglobin 30.6 pg (28.0-32.0); Mean Corpuscular Volume 90.1 fL (80.0-100.0); Nucleated Red Blood Cells % 0.1 %
[2025-06-03 08:46] LABS: Potassium 3.6 mmol/L (3.5-5.1); Sodium 138 mmol/L (136-145)
[2025-06-03 08:47] LABS: Anion Gap 6 (5-15)
[2025-06-03 08:52] LABS: BUN/Creatinine Ratio 14.9 (10.0-20.0); Blood Urea Nitrogen 17 mg/dL (9-23)
[2025-06-03 09:21] LABS: Calcium 10.5 mg/dL (8.7-10.4); Carbon Dioxide 34 mmol/L (20-31); Chloride 98 mmol/L (98-107); Glucose 215 mg/dL (74-106); Magnesium 1.5 mg/dL (1.6-2.6)
--- NOTE | 2025-06-03 11:09 | DVHPN2 ---
Subjective Did not share any complaints; some chills yesterday but no fever documented Reviewed: Care Plan, H&P, Labs, Medications, Previous Orders, Radiology, Other (Consultation) Changes from previous H/P or p: Changes Objective Vitals Vital Signs Date Time Temp Pulse Resp B/P (MAP) Pulse Ox O2 Delivery O2 Flow Rate FiO2 06/03/25 09:42 142/81 06/03/25 08:34 97.5 94 17 96 97.5 06/03/25 08:00 Room Air* 0 21 Intake/Output Intake and Output 06/03/25 07:00 Intake Total 300 ml Balance 300 ml Intake Oral 100 ml IV Total 200 ml # Voids 7 General Appearance: Alert, Other (Oriented to person and place) HEENT: Atraumatic, Other (Severe hearing loss; bilateral) Lungs: Clear to auscultation, Normal air movement Cardiovascular: Regular rate, Normal S1, Normal S2 Abdomen: Normal bowel sounds, Soft, No tenderness Back: Other (Lumbar spine tenderness) Extremities: Other (Discolored left lower extremity) Neuro: Normal speech, Cranial nerves 3-12 NL, Other (Oriented to person and place) Psych/Mental Status: Mental status NL, Mood NL Medications Current Medications Medications Dose Ordered Sig/Wanda Route Start Time Stop Time Status Last Admin Dose Admin Aspirin 81 mg DAILY PO 05/25/25 10:00 06/03/25 09:42 81 MG Atorvastatin Calcium 20 mg HS PO 05/24/25 22:00 06/02/25 21:01 20 MG Tamsulosin HCl 0.4 mg QPM PO 05/25/25 18:00 06/02/25 18:14 0.4 MG Diagnostic Test (Pha) 1 strip ACHS 05/24/25 22:00 06/03/25 06:16 1 STRIP Insulin Human Regular HS SC 05/24/25 22:00 06/02/25 21:24 4 UNITS Insulin Human Regular AC SC 05/25/25 07:00 06/03/25 06:35 6 UNITS Dextrose 50 ml UD PRN IV 05/24/25 21:45 Sodium Chloride 10 ml Q8HR IV 05/24/25 22:00 06/03/25 06:16 10 ML Ondansetron HCl 4 mg Q4HP PRN IV 05/24/25 21:45 Docusate Sodium 100 mg BIDPRN PRN PO 05/24/25 21:45 06/03/25 03:52 100 MG Acetaminophen 650 mg Q6HP PRN PO 05/24/25 21:45 06/01/25 21:12 650 MG Sodium Chloride 1,000 ml @ 60 mls/hr [id number] IV 05/24/25 22:00 06/02/25 22:40 60 MLS/HR Nitroglycerin 0.4 mg Q5MINP PRN SL 05/24/25 23:30 Piperacillin Sod/ Tazobactam Sod 100 ml @ 25 mls/hr Q8HR IV 05/31/25 14:00 06/03/25 06:15 25 MLS/HR Lisinopril 20 mg DAILY PO 05/31/25 10:00 06/03/25 09:42 20 MG Furosemide 40 mg QAM IV 06/01/25 07:00 06/03/25 06:15 40 MG Vancomycin HCl 0 ml @ 0 mls/hr UD IV 06/01/25 09:15 Vancomycin HCl 150 ml @ 150 mls/hr DAILY IV 06/03/25 10:42 Laboratory Results Laboratory Tests 06/03/25 08:16 Chemistry Test 06/03/25 08:16 Calcium Level 10.5 mg/dL (8.7-10.4) H Magnesium Level 1.5 mg/dL (1.6-2.6) L Urinalysis Test 06/02/25 05:20 Urine Color Light-yellow (Yellow) Urine Clarity Clear (Clear) Urine pH 5.0 (5.0-9.0) Urine Specific [place] 1.016 (1.001-1.035) Urine Protein Negative (Negative) Urine Ketones Negative (Negative) Urine Blood Negative /uL (Negative) Urine Nitrite Negative (Negative) Urine Bilirubin Negative (Negative) Urine Urobilinogen Normal mg/dL (Negative) Urine Leukocyte Esterase Negative /uL (Negative) Urine RBC <1 /hpf (0 - 3) Urine Microscopic WBC 2 /HPF (0-3) Urine Squamous Epithelial Cells None seen /hpf (<5) Urine Bacteria None seen /hpf (None Seen) Urine Glucose Trace mg/dL (Normal) Microbiology Microbiology Date/Time Source Procedure Growth Status 06/02/25 05:20 Voided Urine Urine Culture - Preliminary Resulted 05/31/25 06:55 Blood Blood Culture - Preliminary NO GROWTH AFTER 72 HOURS OF INCUBATION. Resulted Labs and/or images reviewed: Labs reviewed by me, Image(s) reviewed by me Assessment/Plan Assessment/Plan Covering Dr. Richard: #Acute hypoxic respiratory failure due to acute on chronic diastolic heart failure causing pulmonary congestion; resolved #Acute on chronic diastolic heart failure #Recurrent fever on May 31 and 2024; added IV vancomycin on June 01, 2025; no fever reported after starting IV vancomycin; chills reported on June 02, 2025 but no documented fever #Acute metabolic/toxic encephalopathy due to sepsis in the setting of early dementia; resolving #Sepsis due to E coli bacteremia in the setting of suspected acute mastoiditis; repeat blood/urine cultures with no growth so far #Leukocytosis and lactic acidosis due to sepsis #GABI in the setting of sepsis due to vasomotor nephropathy #Generalized weakness due to sepsis #Uncontrolled diabetes mellitus type 2 #Hypertensive heart disease with heart failure #Status post fall at home resulting in left foot fracture #Low back pain due to degenerative changes #Bilateral severe hearing loss; lost his hearing aids #Thyroid nodules/cysts; to follow up as outpatient #Atherosclerosis of multiple vessels #Lung nodule; to follow up as outpatient #Discoloration of left lower extremity; ruled out arterial insufficiency with duplex arterial ultrasound #Early dementia; is caregiver; not on treatment; no behavioral changes reported by #Physical deconditioning due to above Reviewed repeat head CT ordered and done on May 31, 2025 that showed no acute abnormalities Reviewed repeat chest x-ray ordered and done on May 31, 2025 that showed pulmonary congestion Changed IV cefepime to IV Zosyn on May 31, 2025 Continue IV furosemide Restart oxygen therapy if needed Reviewed available lab studies and imaging studies Podiatry is following; reviewed their recommendations Continue physical therapy Avoid nephrotoxic agents Continue pain management as needed Continue insulin treatment and adjust according to blood glucose readings Continue antihypertensive medications and adjust according to blood pressure readings Continue aspirin and statin Ordered re-assessment by PT; and ordered Rn Clinical for discharge needs Continue monitoring This medical document was created using an electronic medical record system with computerized dictation system. Although this document has been carefully reviewed, there might still be some phonetic and typographical errors. These areas are purely typographical due to imperfections of the software programs, and do not reflect any compromise in the patient's medical care. Plan discussed with: Patient, Son, Other (Nurse) My Orders Orders - RENETTA REDDY MD Procedure Category Date Status Time Vancomycin Per SIMONE 06/02/25 In Process Pharmacy Protoc 14:33 Vancomycin PHA 06/03/25 In Process 750mg/150ml 10:42 Vancomycin Per SIMONE 06/06/25 In Process Pharmacy Protoc 10:00 Creatinine LAB 06/04/25 Verified 05:00 Vancomycin,Trough LAB 06/06/25 Verified 09:00 Insert Midline ORDERS 06/03/25 Transmitted 10:52 * Rn Clinical CONS 06/03/25 Transmitted Consult Pt Request For Service PT 06/03/25 Transmitted 11:02 Date of Service: Jun 03, 2025 Billing Provider: RENETTA REDDY MD Common Visit Codes: [id number] INP/OBS CARE(HIGH) RENETTA REDDY MD Jun 03, 2025 11:09
[2025-06-03] MEDS: VANCOMYCIN 750mg/150ml 150 ML IV SCH (12:59)
[2025-06-03] MEDS: MAGNESIUM SULFATE 1GM/100ML 100 ML IV SCH (12:59)
[2025-06-04] VITALS (8 sets, daily range): BP systolic 119–155; BP diastolic 62–82; PULSE 80–112; RESP 17–20; TEMP 97–98.3; O2SAT 93–99
[2025-06-04 06:51] LABS: Hematocrit 41.0 % (41.0-53.0); Hemoglobin 14.3 g/dL (13.5-17.5); Mean Corpuscular Hemoglobin 31.5 pg (28.0-32.0); Mean Corpuscular Volume 90.4 fL (80.0-100.0); Nucleated Red Blood Cells % 0.1 %
[2025-06-04 06:52] LABS: Chloride 98 mmol/L (98-107); Sodium 138 mmol/L (136-145)
[2025-06-04 06:53] LABS: Anion Gap 8 (5-15); Calcium 10.2 mg/dL (8.7-10.4)
[2025-06-04 06:58] LABS: BUN/Creatinine Ratio 16.2 (10.0-20.0); Blood Urea Nitrogen 16 mg/dL (9-23); Carbon Dioxide 32 mmol/L (20-31); Glucose 267 mg/dL (74-106); Magnesium 1.9 mg/dL (1.6-2.6); Potassium 3.5 mmol/L (3.5-5.1)
[2025-06-04] MEDS ORDERED: DEXTROSE (50%) 50ML SYRG IV PRN (11:00)
--- NOTE | 2025-06-04 11:04 | DVHPN2 ---
Subjective Patient denies any symptoms at this time. Reviewed: Care Plan, H&P, Labs, Medications, Previous Orders, Radiology, Other (Consultation) Changes from previous H/P or p: No Changes General: Per HPI Objective Vitals Vital Signs Date Time Temp Pulse Resp B/P (MAP) Pulse Ox O2 Delivery O2 Flow Rate FiO2 06/04/25 09:44 148/81 06/04/25 09:00 97.8 92 20 94 97.8 06/04/25 08:00 Room Air* 0 21 Intake/Output Intake and Output 06/04/25 07:00 Intake Total 2800 ml Output Total 1200 ml Balance 1600 ml Intake Oral 1350 ml IV Total 1450 ml Output Urine Total 1200 ml # Bowel Movements 1 General Appearance: Alert, Oriented X3, Cooperative, No acute distress HEENT: Atraumatic, PERRLA, Other (Severe hearing loss; bilateral) Lungs: Clear to auscultation, Normal air movement Cardiovascular: Regular rate, Normal S1, Normal S2 Abdomen: Normal bowel sounds, Soft, No tenderness Back: Other (Lumbar spine tenderness) Extremities: Other (Discolored left lower extremity) Neuro: Normal speech, Cranial nerves 3-12 NL, Other (Oriented to person and place) Psych/Mental Status: Mental status NL, Mood NL Medications Current Medications Medications Dose Ordered Sig/Wanda Route Start Time Stop Time Status Last Admin Dose Admin Aspirin 81 mg DAILY PO 05/25/25 10:00 06/04/25 09:43 81 MG Atorvastatin Calcium 20 mg HS PO 05/24/25 22:00 06/03/25 22:35 20 MG Tamsulosin HCl 0.4 mg QPM PO 05/25/25 18:00 06/03/25 17:34 0.4 MG Sodium Chloride 10 ml Q8HR IV 05/24/25 22:00 06/04/25 06:22 10 ML Ondansetron HCl 4 mg Q4HP PRN IV 05/24/25 21:45 Docusate Sodium 100 mg BIDPRN PRN PO 05/24/25 21:45 06/03/25 03:52 100 MG Acetaminophen 650 mg Q6HP PRN PO 05/24/25 21:45 06/01/25 21:12 650 MG Sodium Chloride 1,000 ml @ 60 mls/hr [id number] IV 05/24/25 22:00 06/03/25 22:01 60 MLS/HR Nitroglycerin 0.4 mg Q5MINP PRN SL 05/24/25 23:30 Piperacillin Sod/ Tazobactam Sod 100 ml @ 25 mls/hr Q8HR IV 05/31/25 14:00 06/04/25 06:22 25 MLS/HR Lisinopril 20 mg DAILY PO 05/31/25 10:00 06/04/25 09:44 20 MG Furosemide 40 mg QAM IV 06/01/25 07:00 06/04/25 06:22 40 MG Diagnostic Test (Pha) 1 strip ACHS 06/04/25 11:30 UNV Insulin Human Regular AC SC 06/04/25 11:30 UNV Insulin Human Regular HS SC 06/04/25 22:00 UNV Dextrose 50 ml UD PRN IV 06/04/25 11:00 UNV Laboratory Results Laboratory Tests 06/04/25 05:39 Chemistry Test 06/04/25 05:39 Calcium Level 10.2 mg/dL (8.7-10.4) Magnesium Level 1.9 mg/dL (1.6-2.6) Urinalysis Test 06/02/25 05:20 Urine Color Light-yellow (Yellow) Urine Clarity Clear (Clear) Urine pH 5.0 (5.0-9.0) Urine Specific [place] 1.016 (1.001-1.035) Urine Protein Negative (Negative) Urine Ketones Negative (Negative) Urine Blood Negative /uL (Negative) Urine Nitrite Negative (Negative) Urine Bilirubin Negative (Negative) Urine Urobilinogen Normal mg/dL (Negative) Urine Leukocyte Esterase Negative /uL (Negative) Urine RBC <1 /hpf (0 - 3) Urine Microscopic WBC 2 /HPF (0-3) Urine Squamous Epithelial Cells None seen /hpf (<5) Urine Bacteria None seen /hpf (None Seen) Urine Glucose Trace mg/dL (Normal) Microbiology Microbiology Date/Time Source Procedure Growth Status 06/02/25 05:20 Voided Urine Urine Culture - Final Complete 05/31/25 06:55 Blood Blood Culture - Preliminary NO GROWTH AFTER 72 HOURS OF INCUBATION. Resulted Labs and/or images reviewed: Labs reviewed by me, Image(s) reviewed by me Assessment/Plan Assessment/Plan Impression: -sepsis with E coli in the blood -dementia -metabolic encephalopathy secondary to infection -primary hypertension -diabetes mellitus -acute mastoiditis -acute hypoxic respiratory failure -acute on chronic diastolic heart failure with pulmonary vascular congestion -acute kidney injury, vasomotor nephropathy -mechanical fall with left foot fracture -bilateral hearing deficits -thyroid cyst/nodules Plan: -deescalate antibiotic therapy to Rocephin 2 g IV daily -stop IV fluids -increase regular insulin sliding scale to aggressive scale -physical therapy -PUD, DVT prophylaxis -continue diuresis with Lasix -repeat labs in a.m. Discussion made with the patient's . Total time spent with patient and family regarding advance care plannin minutes. Total time spent with patient discussing and formulating plan of care: 35 minutes. This medical document was created using an electronic medical record system with [employer] [place] dictation system. Although this document has been carefully reviewed, there may still be some phonetic and typographical errors. These areas are purely typographical due to imperfections of the software programs, and do not reflect any compromise in the patient's medical care. Plan discussed with: Patient, Spouse, Other (RN) My Orders Orders - DAVID PINEDO NP Procedure Category Date Status Time Glucose Blood PHA 06/04/25 Logged (Accu-Chek Comfort 11:30 Insulin R (Human) PHA 06/04/25 Logged (Insulin R) 11:30 Insulin R (Human) PHA 06/04/25 Logged (Insulin R) 22:00 Dextrose 50% Syringe PHA 06/04/25 Logged 11:00 Basic Metabolic Panel LAB 06/05/25 Verified 04:00 Complete Blood Count LAB 06/05/25 Verified 04:00 Ceftriaxone Ivpb PHA 06/05/25 Transmitted Rocephin 10:00 Date of Service: Jun 04, 2025 Billing Provider: DAVID PINEDO NP Common Visit Codes: [id number] INP/OBS CARE(HIGH) Secondary Visit Codes: [id number] CARE PLAN 30 MINUTES DAVID PINEDO NP Jun 04, 2025 11:04
[2025-06-04] MEDS: InsuLIN REG 1unit/0.01ml Soln (100units/ml) SC SCH ×2 (11:40→22:43)
[2025-06-04] MEDS: ACCU-CHEK COMFORT CURVE STRIP VI SCH (11:40)
[2025-06-05] VITALS (9 sets, daily range): BP systolic 105–157; BP diastolic 59–87; PULSE 77–119; RESP 15–18; TEMP 97.3–98.4; O2SAT 91–97
[2025-06-05 07:24] LABS: Hematocrit 42.6 % (41.0-53.0); Hemoglobin 14.7 g/dL (13.5-17.5); Mean Corpuscular Hemoglobin 31.4 pg (28.0-32.0); Mean Corpuscular Volume 90.9 fL (80.0-100.0); Nucleated Red Blood Cells % 0.1 %
[2025-06-05 07:48] LABS: Anion Gap 10 (5-15); Potassium 4.0 mmol/L (3.5-5.1); Sodium 139 mmol/L (136-145)
[2025-06-05 07:50] LABS: Calcium 11.2 mg/dL (8.7-10.4); Carbon Dioxide 33 mmol/L (20-31); Chloride 96 mmol/L (98-107)
[2025-06-05 07:54] LABS: BUN/Creatinine Ratio 18.2 (10.0-20.0); Blood Urea Nitrogen 20 mg/dL (9-23)
[2025-06-05 07:55] LABS: Glucose 350 mg/dL (74-106)
[2025-06-05] MEDS: cefTRIAXone 2GM/50ML D5W 50 ML IV SCH (10:00)
[2025-06-05] MEDS: LISINOPRIL 20 MG TAB PO SCH (10:00)
[2025-06-05] MEDS: INSULIN LANTUS (GLARGINE) 1 /0.01ml (100units/ml) SC SCH (10:00)
[2025-06-05] MEDS ORDERED: DIPHENOXYLATE W/ATROPINE 2.5 MG TAB PO PRN (10:30)
--- NOTE | 2025-06-05 10:32 | DVHPN2 ---
Subjective Patient denies any symptoms at this time. Reviewed: Care Plan, H&P, Labs, Medications, Previous Orders, Radiology, Other (Consultation) Changes from previous H/P or p: No Changes General: Per HPI Objective Vitals Vital Signs Date Time Temp Pulse Resp B/P (MAP) Pulse Ox O2 Delivery O2 Flow Rate FiO2 06/05/25 09:00 98.4 103 17 147/78 (101) 94 98.4 06/05/25 07:50 Room Air* 0 21 Intake/Output Intake and Output 06/05/25 07:00 Intake Total 1240 ml Output Total 1075 ml Balance 165 ml Intake Oral 1090 ml IV Total 150 ml Output Urine Total 1075 ml # Voids 4 General Appearance: Alert, Oriented X3, Cooperative, No acute distress HEENT: Atraumatic, PERRLA, Other (Severe hearing loss; bilateral) Lungs: Clear to auscultation, Normal air movement Cardiovascular: Regular rate, Normal S1, Normal S2 Abdomen: Normal bowel sounds, Soft, No tenderness Back: Other (Lumbar spine tenderness) Extremities: Other (Discolored left lower extremity) Neuro: Normal speech, Cranial nerves 3-12 NL, Other (Oriented to person and place) Skin: Dry, Intact Psych/Mental Status: Mental status NL, Mood NL Medications Current Medications Medications Dose Ordered Sig/Wanda Route Start Time Stop Time Status Last Admin Dose Admin Aspirin 81 mg DAILY PO 05/25/25 10:00 06/04/25 09:43 81 MG Atorvastatin Calcium 20 mg HS PO 05/24/25 22:00 06/04/25 22:39 20 MG Tamsulosin HCl 0.4 mg QPM PO 05/25/25 18:00 06/04/25 16:38 0.4 MG Sodium Chloride 10 ml Q8HR IV 05/24/25 22:00 06/05/25 06:10 10 ML Ondansetron HCl 4 mg Q4HP PRN IV 05/24/25 21:45 Docusate Sodium 100 mg BIDPRN PRN PO 05/24/25 21:45 06/03/25 03:52 100 MG Acetaminophen 650 mg Q6HP PRN PO 05/24/25 21:45 06/01/25 21:12 650 MG Nitroglycerin 0.4 mg Q5MINP PRN SL 05/24/25 23:30 Furosemide 40 mg QAM IV 06/01/25 07:00 06/05/25 06:10 40 MG Diagnostic Test (Pha) 1 strip ACHS 06/04/25 11:30 06/05/25 06:11 1 STRIP Insulin Human Regular AC SC 06/04/25 11:30 06/05/25 06:11 20 UNITS Insulin Human Regular HS SC 06/04/25 22:00 06/04/25 22:43 2 UNITS Dextrose 50 ml UD PRN IV 06/04/25 11:00 Ceftriaxone Sodium/Dextrose 50 ml @ 50 mls/hr DAILY IV 06/05/25 10:00 Insulin Glargine 10 units DAILY@1000 SC 06/05/25 10:00 Lisinopril 40 mg DAILY PO 06/05/25 10:00 Sodium Chloride 1,000 ml @ 75 mls/hr [id number] IV 06/05/25 10:15 Saccharomyces Boulardii 250 mg DAILY PO 06/06/25 10:00 UNV Diphenoxylate HCl/ Atropine 2.5 mg PRN PRN PO 06/05/25 10:30 UNV Laboratory Results Laboratory Tests 06/05/25 05:07 Chemistry Test 06/05/25 05:07 Calcium Level 11.2 mg/dL (8.7-10.4) H Urinalysis Test 06/02/25 05:20 Urine Color Light-yellow (Yellow) Urine Clarity Clear (Clear) Urine pH 5.0 (5.0-9.0) Urine Specific [place] 1.016 (1.001-1.035) Urine Protein Negative (Negative) Urine Ketones Negative (Negative) Urine Blood Negative /uL (Negative) Urine Nitrite Negative (Negative) Urine Bilirubin Negative (Negative) Urine Urobilinogen Normal mg/dL (Negative) Urine Leukocyte Esterase Negative /uL (Negative) Urine RBC <1 /hpf (0 - 3) Urine Microscopic WBC 2 /HPF (0-3) Urine Squamous Epithelial Cells None seen /hpf (<5) Urine Bacteria None seen /hpf (None Seen) Urine Glucose Trace mg/dL (Normal) Microbiology Microbiology Date/Time Source Procedure Growth Status 06/02/25 05:20 Voided Urine Urine Culture - Final Complete 05/31/25 06:55 Blood Blood Culture - Final NO GROWTH AFTER 5 DAYS OF INCUBATION. Complete Labs and/or images reviewed: Labs reviewed by me, Image(s) reviewed by me Assessment/Plan Assessment/Plan Impression: -sepsis with E coli in the blood -dementia -metabolic encephalopathy secondary to infection -primary hypertension -diabetes mellitus -acute mastoiditis -acute hypoxic respiratory failure -acute on chronic diastolic heart failure with pulmonary vascular congestion -acute kidney injury, vasomotor nephropathy -mechanical fall with left foot fracture -bilateral hearing deficits -thyroid cyst/nodules Plan: Events: Patient with no changes overnight. White blood cell count normal. Calcium level continues to increase. Unable to find source of bacteremia. -urology consultation: Possible septic etiology being penile implant. Noted changes prostate bladder on CT scan of abdomen and pelvis -current antibiotic therapy with Rocephin -gentle IV hydration -increase regular insulin sliding scale to aggressive scale , add Lantus 10 units daily -physical therapy -PUD, DVT prophylaxis -continue diuresis with Lasix -repeat labs in a.m. Discussion made with the patient's . Total time spent with patient and family regarding advance care plannin minutes. This medical document was created using an electronic medical record system with [employer] dictation system. Although this document has been carefully reviewed, there may still be some phonetic and typographical errors. These areas are purely typographical due to imperfections of the software programs, and do not reflect any compromise in the patient's medical care. Plan discussed with: Patient, Other (RN) My Orders Orders - DAVID PINEDO [employer] Procedure Category Date Status Time Glucose Blood PHA 06/04/25 In Process (Accu-Chek Comfort 11:30 Insulin R (Human) PHA 06/04/25 In Process (Insulin R) 11:30 Insulin R (Human) PHA 06/04/25 In Process (Insulin R) 22:00 Dextrose 50% Syringe PHA 06/04/25 In Process 11:00 Ceftriaxone 2gm/50ml PHA 06/05/25 In Process D5w (Rocephin 2gm/5 10:00 Psa Total+% Free LAB 06/05/25 In Process 08:17 Insulin Lantus PHA 06/05/25 In Process (Glargine) (Lantus) 10:00 Lisinopril Tablet PHA 06/05/25 In Process (Zestril Tablet) 10:00 Sodium Chloride 0.9% PHA 06/05/25 In Process 10:15 Comprehensive LAB 06/06/25 Verified Metabolic Panel 04:00 Complete Blood Count LAB 06/06/25 Verified 04:00 Florastor (S. PHA 06/06/25 Logged Boulardii) (Florastor) 10:00 Diphenoxylate/Atropine PHA 06/05/25 Logged Tablet (Lomotil T 10:30 * Urology Consult CONS 06/05/25 Verified 10:27 Date of Service: Jun 05, 2025 Billing Provider: DAVID PINEDO NP Common Visit Codes: [id number] INP/OBS CARE(HIGH) DAVID PINEDO NP Jun 05, 2025 10:32
[2025-06-05] MEDS: SODIUM CHLORIDE 0.9% 1,000 ML IV SCH (10:40)
[2025-06-05] MEDS ORDERED: MORPHINE SULFATE INJ 2 MG/ml SYRG IV PRN (10:45)
[2025-06-05] MEDS: HYDROcodone-ACET 5/325MG TAB PO PRN (11:39)
--- NOTE | 2025-06-05 13:24 | DVHINCON2 ---
Date of service: Jun 05, 2025 Referring Physician Hospitalist Reason for Consultation Sepsis Penile implant History of Present Illness Patient was seen at in [facility]ic [facility] on 03/22/2025 for urinary incontinence. He has advanced dementia and uncontrolled diabetes. He was treated for urinary tract infection with antibiotics. He is awaiting to undergo a diagnostic cystoscopy. Patient is admitted to [facility] for altered level of consciousness. Urological consultation is requested mainly because of positive blood culture with the associated existing penile prosthesis. 79-year-old male with past medical history of diabetes mellitus, hyperlipidemia, hypertension, and coronary artery disease who presented to [facility] ED evaluation of altered level consciousness. As reported by EMS, patient was found on the ground beside his bed by altered with fever and pinpoint pupils. Patient was seen and evaluated in the ED, laboratory data shows WBC 22.9, platelets 156, sodium 139, potassium 3.6, BUN 26, creatinine 1.36, glucose 186, calcium 11.3, lactic acid 2.3 trending down to 1.9, troponin 10, blood pressure 125/74, heart rate 126 trending down to 102, temperature 100.5 F trending down to 97.8 F, O2 saturation 97% on oxygen. Cervical spine CT revealing moderate to advanced cervical degenerative disc, large left mastoid effusion, thyroid nodules up to 1.8 cm. Thyroid ultrasound revealing complex appearing left thyroid lobe structure without calcification, bilateral hypoechoic foci. Please see medication orders section in the computer. On my assessment, patient denied chest pain, no headache, no dizziness, no shortness of breath, no nausea, no vomiting, no fever, no chills. Patient was admitted for further evaluation and medical management. Past Medical History DM, HLD, CAD, HTN Past Surgical History PTCA, Penile implant on CT scan Family History Reviewed, noncontributory to the management of this case. Past Social History The patient lives at home, denies smoking, alcohol or illicit drugs abuse. Family History: Patient reports no known family medical history. Allergies: Coded Allergies: NO KNOWN ALLERGIES (Unverified , 11/11/23) Home Meds Active Scripts Furosemide (Lasix) 20 Mg Tb, 1 TAB PO DAILY, #30 TAB 5 Refills Prov:TREY SANCHEZ MD 11/16/23 Reported Medications Insulin Regular (Human) (Humulin R) 100 Unit/Ml Inj, 40 UNIT IV BID, INJ 05/26/25 Gabapentin (Gabapentin) 100 Mg Cap, 1 CAP PO TID, #90 CAP 2 Refills 05/26/25 Cholecalciferol (VITAMIN D3) 2,000 Unit Tab, 1250 UNIT OR QWEEKLY, TAB 05/26/25 Donepezil Hydrochloride (DONEPEZIL HCL) 5 Mg Tab, 1 TAB PO DAILY, #30 TAB 5 Refills 05/26/25 Hydrocodone-Acetaminophen (Hydrocodone Bitartrate/AC 5-325 mg) 1 Tab Tab, 1 TAB PO, TAB 05/26/25 Aspirin (Aspir-81) 81 Mg Tab, 81 MG PO DAILY, TAB 11/12/23 Insulin Glargine (Lantus) 100 Unit/Ml Inj, 40 SC BID, INJ 11/11/23 Metformin Hydrochloride (Metformin Hydrochloride) 500 Mg Tab, 1 TAB PO BID 11/11/23 Tamsulosin Hcl (Tamsulosin Hcl) 0.4 Mg Cap, 1 CAP PO DAILY 11/11/23 Empagliflozin (Jardiance) 25 Mg Tab, 1 TAB PO DAILY 11/11/23 Lisinopril (Lisinopril) 10 Mg Tab, 1 TAB PO DAILY 11/11/23 Atorvastatin Calcium (ATORVASTATIN CALCIUM) 40 Mg Tab, 1 TAB PO 11/11/23 Current Medications Current Medications Medications (Trade) Dose Ordered Sig/Wanda Route PRN Reason Start Time Stop Time Status Last Admin Insulin Human Regular (InsuLIN R) HS SC 06/04/25 22:00 06/04/25 22:43 Ceftriaxone Sodium/Dextrose 50 ml @ 50 mls/hr DAILY IV 06/05/25 10:00 06/05/25 10:00 Insulin Glargine (Lantus) 10 units DAILY@1000 SC 06/05/25 10:00 06/05/25 10:00 Lisinopril (Zestril Tablet) 40 mg DAILY PO 06/05/25 10:00 06/05/25 10:00 Sodium Chloride 1,000 ml @ 75 mls/hr [id number] IV 06/05/25 10:15 06/05/25 10:40 Saccharomyces Boulardii (Florastor) 250 mg DAILY PO 06/06/25 10:00 Diphenoxylate HCl/ Atropine (Lomotil Tablet) 2.5 mg PRN PRN PO FOR DIARRHEA 06/05/25 10:30 Morphine Sulfate 1 mg Q4HPRN PRN IV SEVERE PAIN (7-10 PAIN SCALE) 06/05/25 10:45 Acetaminophen/ Hydrocodone Bitart ([place] 5/325MG Tab) 1 tab Q6HPRN PRN PO MODERATE PAIN (4-6 PAIN SCALE) 06/05/25 10:45 06/05/25 11:39 Review of Systems Patient is alert and oriented times three. He spelled is 1st name correctly as ARTH UR Vital Signs Vital Signs Date Time Temp Pulse Resp B/P (MAP) Pulse Ox O2 Delivery O2 Flow Rate FiO2 06/05/25 10:00 147/78 06/05/25 09:00 98.4 103 17 94 98.4 06/05/25 07:50 Room Air* 0 21 Physical Exam exam: The three piece IP P is palpable in the genitalia and it is fully functional. There is no evidence of fluctuance, erosion or dysfunction involving the penile implant Labs/Diagnostic Data Labs Test 06/05/25 11:13 06/05/25 08:17 06/05/25 05:07 06/04/25 05:39 Range/Units POC Glucose 385 H 70-106 mg/dl Lactate Dehydrogenase 181 120-246 U/L Parathyroid Hormone (Intact) 89.6 H 18.4-80.1 pg/mL White Blood Count 7.8 4.4-10.8 10^3/uL Red Blood Count 4.69 4.5-5.90 10^6/uL Hemoglobin 14.7 13.5-17.5 g/dL Hematocrit 42.6 41.0-53.0 % Mean Corpuscular Volume 90.9 80.0-100.0 fL Mean Corpuscular Hemoglobin 31.4 28.0-32.0 pg Mean Corpuscular Hemoglobin Concent 34.6 32.0-36.0 g/dL Red Cell Distribution Width 14.6 H 11.8-14.3 % Platelet Count 174 140-450 10^3/uL Mean Platelet Volume 10.0 6.9-10.8 fL Neutrophils (%) (Auto) 65.0 37.0-80.0 % Lymphocytes (%) (Auto) 23.5 10.0-50.0 % Monocytes (%) (Auto) 9.8 0.0-12.0 % Eosinophils (%) (Auto) 1.4 0.0-7.0 % Basophils (%) (Auto) 0.3 0.0-2.0 % Neutrophils # (Auto) 5.0 1.6-8.6 10 ^3/uL Lymphocytes # (Auto) 1.8 0.4-5.4 10 ^3/uL Monocytes # (Auto) 0.8 0-1.3 10 ^3/uL Eosinophils # (Auto) 0.1 0-0.8 10 ^3/uL Basophils # (Auto) 0 0-0.2 10 ^3/uL Nucleated Red Blood Cells 0.1 % Sodium Level 139 136-145 mmol/L Potassium Level 4.0 3.5-5.1 mmol/L Chloride Level 96 L 98-107 mmol/L Carbon Dioxide Level 33 H 20-31 mmol/L Anion Gap 10 5-15 Blood Urea Nitrogen 20 9-23 mg/dL Creatinine 1.10 0.700-1.30 mg/dL Glomerular Filtration Rate Calc 69 >90 mL/min BUN/Creatinine Ratio 18.2 10.0-20.0 Serum Glucose 350 H 74-106 mg/dL Calcium Level 11.2 H 8.7-10.4 mg/dL Carcinoembryonic Antigen 1.38 <=5.0 ng/mL Magnesium Level 1.9 1.6-2.6 mg/dL Test 06/03/25 05:44 06/02/25 05:20 05/31/25 06:28 05/27/25 12:00 Range/Units Random Vancomycin Level 12.7 H 5-10 ug/mL Urine Color Light-yellow Yellow Urine Clarity Clear Clear Urine pH 5.0 5.0-9.0 Urine Specific [place] 1.016 1.001-1.035 Urine Protein Negative Negative Urine Ketones Negative Negative Urine Blood Negative Negative /uL Urine Nitrite Negative Negative Urine Bilirubin Negative Negative Urine Urobilinogen Normal Negative mg/dL Urine Leukocyte Esterase Negative Negative /uL Urine RBC <1 0 - 3 /hpf Urine Microscopic WBC 2 0-3 /HPF Urine Squamous Epithelial Cells None seen <5 /hpf Urine Bacteria None seen None Seen /hpf Urine Glucose Trace Normal mg/dL Differential Total Cells Counted 100.0 100 Neutrophils % (Manual) 81 H 37.0-80.0 Band Neutrophils % (Manual) 6 Lymphocytes % (Manual) 5 L 10.0-50.0 Monocytes % (Manual) 8 0-12 Eosinophils % (Manual) 0 0-7 Basophils % (Manual) 0 0.0-2.0 Metamyelocytes % (manual) 0 Myelocytes % (Manual) 0 Promyelocytes % (Manual) 0 Blast Cells % (Manual) 0 Reactive Lymphocytes 0 Smudge Cells 2 /100 WBC Platelet Estimate [place] Large Platelets Few Hemoglobin A1c 10.3 H <5.7 % A1C Vancomycin Level Trough 8.9 5-10 ug/mL Test 05/25/25 06:10 05/24/25 19:33 05/24/25 16:23 Range/Units Total Bilirubin 0.4 0.2-1.0 mg/dL Aspartate Amino Transferase (AST) 33 13-40 U/L Alanine Aminotransferase (ALT) 19 7-40 U/L Alkaline Phosphatase 93 46-116 U/L Total Protein 5.4 L 5.7-8.2 g/dL Albumin 3.2 3.2-4.8 g/dL Lactic Acid Level 1.9 0.4-2.0 mmol/L Troponin I High Sensitivity 10 </=54 ng/L Prothrombin Time 13.0 H 9.3-11.8 sec Prothrombin Time INR 1.25 H 0.9-1.15 Activated Partial Thromboplast Time 25.1 24.5-34.5 SEC Microbiology Date/Time Source Procedure Growth Status 06/02/25 05:20 Voided Urine Urine Culture - Final Complete 05/31/25 06:55 Blood Blood Culture - Final NO GROWTH AFTER 5 DAYS OF INCUBATION. Complete PATIENT: GAEL MCKEON ACCT: [id number] UNIT: [id number] : 1945 LOC: ER ROOM / BED: / AGE / SEX: 79 / M ADM STATUS: REG ER SERVICE 1607 ORDERING PHYSICIAN: ROBINA GENAO DO PROCEDURE(s): CTCAP - CHST AB PEL WO CON-NO IV/ORAL REASON: fall, ALOC, SEPSIS ORDER NUMBER(s): [id number], ACCESSION NUMBER(s): [id number] Indication: fall, ALOC, SEPSIS Technique: CT axial images of the chest, abdomen and pelvis are obtained without contrast. Coronal and sagittal reformats were obtained. Radiation Dose Information: CTDI volume is 15.5 mGy. Dose-length product is 1091 mGy*cm Comparison: None FINDINGS: There is limited interpretation of the chest, abdomen and pelvis without administration of intravenous contrast. The trachea is patent. No pneumothorax. Bilateral atelectasis. 4 mm right upper lobe pulmonary nodule, solid. 3 mm right upper lobe calcified nodule. 2 mm left upper lobe solid nodule. Heart normal in size. Coronary artery calcification disease. Aortic atherosclerotic disease. Thyroid nodules measuring up to 2.1 cm. No supraclavicular, axillary lymphadenopathy. The adrenal glands, spleen are unremarkable in shape. Fatty infiltration of the pancreas. Liver unremarkable in shape. Possible cholelithiasis. No hydronephrosis, nephrolithiasis. Stomach is relatively nondistended. Small bowel loops are normal in caliber. The large bowel is relatively nondistended. Normal appendix. Abdominal aortic atherosclerotic disease. Bladder wall thickening and stranding. Extremely heterogeneous appearance of the prostate especially along the right aspect. Penile implant. Fat containing left inguinal hernia. [id number] bilateral sacroiliac degenerative joint disease. Moderate thoracolumbar degenerative disc disease. L1 vertebral body hemangioma. IMPRESSION: Limited without contrast. No CT evidence for acute visceral injury of the chest, abdomen, pelvis. Atherosclerotic, coronary artery calcification disease. Heterogeneous appearance of the prostate especially along the right aspect of the prostate. Correlate clinically and with PSA levels, possible cholelithiasis. Other findings as described. 4 mm right upper lobe solid nodule. Recommend follow-up per Fleischner society criteria. Bladder wall thickening with surrounding stranding. Correlate for cystitis, neurogenic bladder, outlet obstruction, infiltrative etiologies. Thyroid nodules which can be further characterized with thyroid ultrasound in the nonemergent setting. ATED BY: ERIKA SEAY MD DICTATED DATE/TIME: 05/24/251734 SIGNED BY: ERIKA SEAY MD SIGNED DATE/TIME: 05/24/251734 CC: Assessment History of urinary incontinence and UTI Status post penile prosthesis many years ago Plan/Recommendation No acute urological intervention is indicated at this time. He is scheduled to undergo a cystoscopy in the office setting Plan discussed with: Patient JUSTO PATEL MD Jun 05, 2025 13:24
[2025-06-06] VITALS (8 sets, daily range): BP systolic 104–151; BP diastolic 58–84; PULSE 79–96; RESP 16–20; TEMP 97.6–100; O2SAT 95–99
[2025-06-06 05:37] LABS: Hematocrit 39.6 % (41.0-53.0); Hemoglobin 14.0 g/dL (13.5-17.5); Mean Corpuscular Hemoglobin 32.0 pg (28.0-32.0); Mean Corpuscular Volume 90.8 fL (80.0-100.0); Nucleated Red Blood Cells % 0.0 %
[2025-06-06 05:51] LABS: Alanine Aminotransferase 23 U/L (7-40); Albumin 3.4 g/dL (3.2-4.8); Alkaline Phosphatase 81 U/L (46-116); Anion Gap 8 (5-15); BUN/Creatinine Ratio 22.1 (10.0-20.0); Blood Urea Nitrogen 23 mg/dL (9-23); Calcium 10.2 mg/dL (8.7-10.4); Sodium 137 mmol/L (136-145); Total Protein 6.1 g/dL (5.7-8.2)
[2025-06-06 05:52] LABS: Bilirubin, Total 0.5 mg/dL (0.2-1.0)
[2025-06-06 05:55] LABS: Carbon Dioxide 32 mmol/L (20-31); Chloride 97 mmol/L (98-107); Glucose 268 mg/dL (74-106); Potassium 3.4 mmol/L (3.5-5.1)
--- NOTE | 2025-06-06 09:43 | DVHPN2 ---
Subjective Patient denies any symptoms at this time. Reviewed: Care Plan, H&P, Labs, Medications, Previous Orders, Radiology, Other (Consultation) Changes from previous H/P or p: No Changes General: Per HPI Objective Vitals Vital Signs Date Time Temp Pulse Resp B/P (MAP) Pulse Ox O2 Delivery O2 Flow Rate FiO2 06/06/25 09:04 98.7 95 20 124/80 (95) 96 98.7 06/05/25 20:00 Room Air* 0 21 Intake/Output Intake and Output 06/06/25 07:00 Intake Total 1050 ml Output Total 1100 ml Balance -50 ml Intake Oral 1050 ml Output Urine Total 1100 ml # Voids 1 # Bowel Movements 3 General Appearance: Alert, Oriented X3, Cooperative, No acute distress HEENT: Atraumatic, PERRLA, Other (Severe hearing loss; bilateral) Lungs: Clear to auscultation, Normal air movement Cardiovascular: Regular rate, Normal S1, Normal S2 Abdomen: Normal bowel sounds, Soft, No tenderness Back: Other (Lumbar spine tenderness) Extremities: Other (Discolored left lower extremity) Neuro: Normal speech, Cranial nerves 3-12 NL, Other (Oriented to person and place) Skin: Dry, Intact Psych/Mental Status: Mental status NL, Mood NL Medications Current Medications Medications Dose Ordered Sig/Wanda Route Start Time Stop Time Status Last Admin Dose Admin Aspirin 81 mg DAILY PO 05/25/25 10:00 06/05/25 10:00 81 MG Atorvastatin Calcium 20 mg HS PO 05/24/25 22:00 06/05/25 22:27 20 MG Tamsulosin HCl 0.4 mg QPM PO 05/25/25 18:00 06/05/25 17:41 0.4 MG Sodium Chloride 10 ml Q8HR IV 05/24/25 22:00 06/06/25 06:26 10 ML Ondansetron HCl 4 mg Q4HP PRN IV 05/24/25 21:45 Docusate Sodium 100 mg BIDPRN PRN PO 05/24/25 21:45 06/03/25 03:52 100 MG Acetaminophen 650 mg Q6HP PRN PO 05/24/25 21:45 06/01/25 21:12 650 MG Nitroglycerin 0.4 mg Q5MINP PRN SL 05/24/25 23:30 Furosemide 40 mg QAM IV 06/01/25 07:00 06/06/25 06:26 40 MG Diagnostic Test (Pha) 1 strip ACHS 06/04/25 11:30 06/06/25 06:26 1 STRIP Insulin Human Regular AC SC 06/04/25 11:30 06/06/25 06:27 16 UNITS Insulin Human Regular HS SC 06/04/25 22:00 06/05/25 22:32 4 UNITS Dextrose 50 ml UD PRN IV 06/04/25 11:00 Ceftriaxone Sodium/Dextrose 50 ml @ 50 mls/hr DAILY IV 06/05/25 10:00 06/05/25 10:00 50 MLS/HR Lisinopril 40 mg DAILY PO 06/05/25 10:00 06/05/25 10:00 40 MG Sodium Chloride 1,000 ml @ 75 mls/hr [id number] IV 06/05/25 10:15 06/05/25 10:40 75 MLS/HR Saccharomyces Boulardii 250 mg DAILY PO 06/06/25 10:00 Diphenoxylate HCl/ Atropine 2.5 mg PRN PRN PO 06/05/25 10:30 Morphine Sulfate 1 mg Q4HPRN PRN IV 06/05/25 10:45 Acetaminophen/ Hydrocodone Bitart 1 tab Q6HPRN PRN PO 06/05/25 10:45 06/05/25 11:39 1 TAB Insulin Glargine 15 units DAILY@1000 SC 06/06/25 10:00 Laboratory Results Laboratory Tests 06/06/25 05:02 Chemistry Test 06/06/25 05:02 Albumin 3.4 g/dL (3.2-4.8) Calcium Level 10.2 mg/dL (8.7-10.4) Total Protein 6.1 g/dL (5.7-8.2) LFT Test 06/06/25 05:02 Alanine Aminotransferase (ALT) 23 U/L (7-40) Alkaline Phosphatase 81 U/L (46-116) Aspartate Amino Transferase (AST) 24 U/L (13-40) Total Bilirubin 0.5 mg/dL (0.2-1.0) Urinalysis Test 06/02/25 05:20 Urine Color Light-yellow (Yellow) Urine Clarity Clear (Clear) Urine pH 5.0 (5.0-9.0) Urine Specific [place] 1.016 (1.001-1.035) Urine Protein Negative (Negative) Urine Ketones Negative (Negative) Urine Blood Negative /uL (Negative) Urine Nitrite Negative (Negative) Urine Bilirubin Negative (Negative) Urine Urobilinogen Normal mg/dL (Negative) Urine Leukocyte Esterase Negative /uL (Negative) Urine RBC <1 /hpf (0 - 3) Urine Microscopic WBC 2 /HPF (0-3) Urine Squamous Epithelial Cells None seen /hpf (<5) Urine Bacteria None seen /hpf (None Seen) Urine Glucose Trace mg/dL (Normal) Microbiology Microbiology Date/Time Source Procedure Growth Status 06/02/25 05:20 Voided Urine Urine Culture - Final Complete 05/31/25 06:55 Blood Blood Culture - Final NO GROWTH AFTER 5 DAYS OF INCUBATION. Complete Labs and/or images reviewed: Labs reviewed by me, Image(s) reviewed by me Assessment/Plan Assessment/Plan Impression: -sepsis with E coli in the blood -dementia -metabolic encephalopathy secondary to infection -primary hypertension -diabetes mellitus -acute mastoiditis -acute hypoxic respiratory failure -acute on chronic diastolic heart failure with pulmonary vascular congestion -acute kidney injury, vasomotor nephropathy -mechanical fall with left foot fracture -bilateral hearing deficits -thyroid cyst/nodules Plan: Events: Patient now ambulating approximately 15 ft. Denies any symptoms. White blood cell count normal. No fevers. Discussed possible SNF placement with the patient. At this time he wants to continue rehabbing hospital until he is able to go home. -urology consultation: Recommendations reviewed -current antibiotic therapy with Rocephin -gentle IV hydration -increase regular insulin sliding scale to aggressive scale , add Lantus 10 units daily -physical therapy -PUD, DVT prophylaxis -potassium replaced -repeat labs in a.m. Discussion made with the patient's . Total time spent with patient and family regarding advance care plannin minutes. This medical document was created using an electronic medical record system with [employer] system. Although this document has been carefully reviewed, there may still be some phonetic and typographical errors. These areas are purely typographical due to imperfections of the software programs, and do not reflect any compromise in the patient's medical care. Plan discussed with: Patient, Other (RN) My Orders Orders - DAVID PINEDO NP Procedure Category Date Status Time Sodium Chloride 0.9% PHA 06/05/25 In Process 10:15 Florastor (S. PHA 06/06/25 In Process Boulardii) (Florastor) 10:00 Diphenoxylate/Atropine PHA 06/05/25 In Process Tablet (Lomotil T 10:30 * Urology Consult CONS 06/05/25 Transmitted 10:27 Morphine Sulfate PHA 06/05/25 In Process Injection 10:45 Hydrocodone-Acet PHA 06/05/25 In Process 5/325mg Tab (Volin 10:45 Insulin Lantus PHA 06/06/25 In Process (Glargine) (Lantus) 10:00 Basic Metabolic Panel LAB 06/07/25 Verified 04:00 Complete Blood Count LAB 06/07/25 Verified 04:00 Potassium Effervesent PHA 06/06/25 Verified Tab (Klor-Con/Ef) 09:45 Date of Service: Jun 06, 2025 Billing Provider: DAVID PINEDO NP Common Visit Codes: [id number] INP/OBS CARE(HIGH) DAVID PINEDO NP Jun 06, 2025 09:43
[2025-06-06] MEDS: POTASSIUM EFFERVESENT TAB 25 MEQ PO ONE (10:22)
[2025-06-06] MEDS: FLORASTOR (S. BOULARDII) 250 MG CAP PO SCH (10:23)
[2025-06-06] MEDS: INSULIN LANTUS (GLARGINE) 1 /0.01ml (100units/ml) SC SCH (10:34)
[2025-06-06 11:07] LABS: Prostate Specific Antigen 3.3 ng/mL (0.0-4.0)
[2025-06-07] VITALS (9 sets, daily range): BP systolic 126–184; BP diastolic 55–90; PULSE 18–105; RESP 16–19; TEMP 97.4–100.2; O2SAT 93–97
[2025-06-07 06:15] LABS: Hematocrit 40.3 % (41.0-53.0); Hemoglobin 13.9 g/dL (13.5-17.5); Mean Corpuscular Hemoglobin 31.2 pg (28.0-32.0); Mean Corpuscular Volume 90.2 fL (80.0-100.0); Nucleated Red Blood Cells % 0.1 %
[2025-06-07 06:55] LABS: Anion Gap 9 (5-15); Sodium 139 mmol/L (136-145)
[2025-06-07 06:56] LABS: Calcium 10.9 mg/dL (8.7-10.4); Carbon Dioxide 32 mmol/L (20-31); Chloride 98 mmol/L (98-107); Potassium 3.5 mmol/L (3.5-5.1)
[2025-06-07 07:02] LABS: BUN/Creatinine Ratio 23.0 (10.0-20.0); Blood Urea Nitrogen 20 mg/dL (9-23); Glucose 224 mg/dL (74-106)
--- NOTE | 2025-06-07 09:43 | DVHPN2 ---
Subjective Patient denies any symptoms at this time. Reviewed: Care Plan, H&P, Labs, Medications, Previous Orders, Radiology, Other (Consultation) Changes from previous H/P or p: No Changes General: Per HPI Objective Vitals Vital Signs Date Time Temp Pulse Resp B/P (MAP) Pulse Ox O2 Delivery O2 Flow Rate FiO2 06/07/25 08:38 97.4 105 17 126/63 (84) 93 97.4 06/07/25 08:00 Room Air* 0 21 Intake/Output Intake and Output 06/07/25 07:00 Intake Total 2400 ml Balance 2400 ml Intake Oral 1400 ml IV Total 1000 ml # Voids 107 General Appearance: Alert, Oriented X3, Cooperative, No acute distress HEENT: Atraumatic, PERRLA, Other (Severe hearing loss; bilateral) Lungs: Clear to auscultation, Normal air movement Cardiovascular: Regular rate, Normal S1, Normal S2 Abdomen: Normal bowel sounds, Soft, No tenderness Back: Other (Lumbar spine tenderness) Extremities: Other (Discolored left lower extremity) Neuro: Normal speech, Cranial nerves 3-12 NL, Other (Oriented to person and place) Skin: Dry, Intact Psych/Mental Status: Mental status NL, Mood NL Medications Current Medications Medications Dose Ordered Sig/Wanda Route Start Time Stop Time Status Last Admin Dose Admin Aspirin 81 mg DAILY PO 05/25/25 10:00 06/06/25 10:23 81 MG Atorvastatin Calcium 20 mg HS PO 05/24/25 22:00 06/06/25 21:45 20 MG Tamsulosin HCl 0.4 mg QPM PO 05/25/25 18:00 06/06/25 16:57 0.4 MG Sodium Chloride 10 ml Q8HR IV 05/24/25 22:00 06/07/25 06:02 10 ML Ondansetron HCl 4 mg Q4HP PRN IV 05/24/25 21:45 Docusate Sodium 100 mg BIDPRN PRN PO 05/24/25 21:45 06/03/25 03:52 100 MG Acetaminophen 650 mg Q6HP PRN PO 05/24/25 21:45 06/07/25 03:44 650 MG Nitroglycerin 0.4 mg Q5MINP PRN SL 05/24/25 23:30 Furosemide 40 mg QAM IV 06/01/25 07:00 06/07/25 06:11 40 MG Diagnostic Test (Pha) 1 strip ACHS 06/04/25 11:30 06/07/25 06:11 1 STRIP Insulin Human Regular AC SC 06/04/25 11:30 06/07/25 06:10 4 UNITS Insulin Human Regular HS SC 06/04/25 22:00 06/06/25 21:44 3 UNITS Dextrose 50 ml UD PRN IV 06/04/25 11:00 Ceftriaxone Sodium/Dextrose 50 ml @ 50 mls/hr DAILY IV 06/05/25 10:00 06/06/25 10:22 50 MLS/HR Lisinopril 40 mg DAILY PO 06/05/25 10:00 06/06/25 10:23 40 MG Sodium Chloride 1,000 ml @ 75 mls/hr [id number] IV 06/05/25 10:15 06/07/25 03:32 75 MLS/HR Saccharomyces Boulardii 250 mg DAILY PO 06/06/25 10:00 06/06/25 10:23 250 MG Diphenoxylate HCl/ Atropine 2.5 mg PRN PRN PO 06/05/25 10:30 Morphine Sulfate 1 mg Q4HPRN PRN IV 06/05/25 10:45 Acetaminophen/ Hydrocodone Bitart 1 tab Q6HPRN PRN PO 06/05/25 10:45 06/05/25 11:39 1 TAB Insulin Glargine 20 units DAILY@1000 SC 06/07/25 10:00 Laboratory Results Laboratory Tests 06/07/25 05:05 Chemistry Test 06/07/25 05:05 Calcium Level 10.9 mg/dL (8.7-10.4) H Urinalysis Test 06/02/25 05:20 Urine Color Light-yellow (Yellow) Urine Clarity Clear (Clear) Urine pH 5.0 (5.0-9.0) Urine Specific [place] 1.016 (1.001-1.035) Urine Protein Negative (Negative) Urine Ketones Negative (Negative) Urine Blood Negative /uL (Negative) Urine Nitrite Negative (Negative) Urine Bilirubin Negative (Negative) Urine Urobilinogen Normal mg/dL (Negative) Urine Leukocyte Esterase Negative /uL (Negative) Urine RBC <1 /hpf (0 - 3) Urine Microscopic WBC 2 /HPF (0-3) Urine Squamous Epithelial Cells None seen /hpf (<5) Urine Bacteria None seen /hpf (None Seen) Urine Glucose Trace mg/dL (Normal) Microbiology Microbiology Date/Time Source Procedure Growth Status 06/02/25 05:20 Voided Urine Urine Culture - Final Complete 05/31/25 06:55 Blood Blood Culture - Final NO GROWTH AFTER 5 DAYS OF INCUBATION. Complete Labs and/or images reviewed: Labs reviewed by me, Image(s) reviewed by me Assessment/Plan Assessment/Plan Impression: -sepsis with E coli in the blood -dementia -metabolic encephalopathy secondary to infection -primary hypertension -diabetes mellitus -acute mastoiditis -acute hypoxic respiratory failure -acute on chronic diastolic heart failure with pulmonary vascular congestion -acute kidney injury, vasomotor nephropathy -mechanical fall with left foot fracture -bilateral hearing deficits -thyroid cyst/nodules Plan: Events: Patient did not ambulate yesterday. Discussed with the patient [facility] facility placement. Social service consultation will be placed to speak with the patient. Blood sugars better controlled. -urology consultation: Recommendations reviewed -current antibiotic therapy with Rocephin -gentle IV hydration -increase regular insulin sliding scale to aggressive scale , increase Lantus to 20 units daily -physical therapy -PUD, DVT prophylaxis -potassium replaced -repeat labs in a.m. Discussion made with the patient's . Total time spent with patient and family regarding advance care plannin minutes. This medical document was created using an electronic medical record system with [employer] dictation system. Although this document has been carefully reviewed, there may still be some phonetic and typographical errors. These areas are purely typographical due to imperfections of the software programs, and do not reflect any compromise in the patient's medical care. Plan discussed with: Patient, Other (RN) My Orders Orders - DAVID PINEDO NP Procedure Category Date Status Time Insulin Lantus PHA 06/07/25 In Process (Glargine) (Lantus) 10:00 * Alternative Medicine Practitioner CONS 06/07/25 Transmitted Consult Date of Service: Jun 07, 2025 Billing Provider: DAVID PINEDO NP Common Visit Codes: [id number] INP/OBS CARE(HIGH) DAVID PINEDO NP Jun 07, 2025 09:43
[2025-06-07] MEDS: INSULIN LANTUS (GLARGINE) 1 /0.01ml (100units/ml) SC SCH (10:00)
[2025-06-08] VITALS (7 sets, daily range): BP systolic 113–151; BP diastolic 52–82; PULSE 77–90; RESP 16–18; TEMP 36.4; O2SAT 93–98
--- NOTE | 2025-06-08 12:24 | DVHDS2 ---
Discharge Summary Date of Admission May 24, 2025 at 23:28 Date of Discharge: Jun 08, 2025 Admitting Diagnosis Altered mental status Labs/Diagnostic Data: Laboratory Results Test 06/08/25 11:20 06/07/25 05:05 06/06/25 05:02 06/05/25 15:07 POC Glucose 244 mg/dl (70-106) White Blood Count 10.6 10^3/uL (4.4-10.8) Red Blood Count 4.47 10^6/uL (4.5-5.90) Hemoglobin 13.9 g/dL (13.5-17.5) Hematocrit 40.3 % (41.0-53.0) Mean Corpuscular Volume 90.2 fL (80.0-100.0) Mean Corpuscular Hemoglobin 31.2 pg (28.0-32.0) Mean Corpuscular Hemoglobin Concent 34.5 g/dL (32.0-36.0) Red Cell Distribution Width 14.4 % (11.8-14.3) Platelet Count 192 10^3/uL (140-450) Mean Platelet Volume 9.3 fL (6.9-10.8) Neutrophils (%) (Auto) 82.6 % (37.0-80.0) Lymphocytes (%) (Auto) 9.8 % (10.0-50.0) Monocytes (%) (Auto) 7.0 % (0.0-12.0) Eosinophils (%) (Auto) 0.3 % (0.0-7.0) Basophils (%) (Auto) 0.3 % (0.0-2.0) Neutrophils # (Auto) 8.8 10 ^3/uL (1.6-8.6) Lymphocytes # (Auto) 1.0 10 ^3/uL (0.4-5.4) Monocytes # (Auto) 0.7 10 ^3/uL (0-1.3) Eosinophils # (Auto) 0 10 ^3/uL (0-0.8) Basophils # (Auto) 0 10 ^3/uL (0-0.2) Nucleated Red Blood Cells 0.1 % Sodium Level 139 mmol/L (136-145) Potassium Level 3.5 mmol/L (3.5-5.1) Chloride Level 98 mmol/L (98-107) Carbon Dioxide Level 32 mmol/L (20-31) Anion Gap 9 (5-15) Blood Urea Nitrogen 20 mg/dL (9-23) Creatinine 0.87 mg/dL (0.700-1.30) Glomerular Filtration Rate Calc 88 mL/min (>90) BUN/Creatinine Ratio 23.0 (10.0-20.0) Serum Glucose 224 mg/dL (74-106) Calcium Level 10.9 mg/dL (8.7-10.4) Total Bilirubin 0.5 mg/dL (0.2-1.0) Aspartate Amino Transferase (AST) 24 U/L (13-40) Alanine Aminotransferase (ALT) 23 U/L (7-40) Alkaline Phosphatase 81 U/L (46-116) Total Protein 6.1 g/dL (5.7-8.2) Albumin 3.4 g/dL (3.2-4.8) Free Prostate Specific Antigen 0.77 ng/mL (N/A) Percent Free Prostate Specific Ag 23.3 % (.) Prostate Specific Antigen Total 3.3 ng/mL (0.0-4.0) Test 06/05/25 08:17 06/05/25 05:07 06/04/25 05:39 06/03/25 05:44 Lactate Dehydrogenase 181 U/L (120-246) Parathyroid Hormone (Intact) 89.6 pg/mL (18.4-80.1) Carcinoembryonic Antigen 1.38 ng/mL (<=5.0) Magnesium Level 1.9 mg/dL (1.6-2.6) Random Vancomycin Level 12.7 ug/mL (5-10) Test 06/02/25 05:20 05/31/25 06:28 05/27/25 12:00 05/24/25 19:33 Urine Color Light-yellow (Yellow) Urine Clarity Clear (Clear) Urine pH 5.0 (5.0-9.0) Urine Specific [place] 1.016 (1.001-1.035) Urine Protein Negative (Negative) Urine Ketones Negative (Negative) Urine Blood Negative /uL (Negative) Urine Nitrite Negative (Negative) Urine Bilirubin Negative (Negative) Urine Urobilinogen Normal mg/dL (Negative) Urine Leukocyte Esterase Negative /uL (Negative) Urine RBC <1 /hpf (0 - 3) Urine Microscopic WBC 2 /HPF (0-3) Urine Squamous Epithelial Cells None seen /hpf (<5) Urine Bacteria None seen /hpf (None Seen) Urine Glucose Trace mg/dL (Normal) Differential Total Cells Counted 100.0 (100) Neutrophils % (Manual) 81 (37.0-80.0) Band Neutrophils % (Manual) 6 Lymphocytes % (Manual) 5 (10.0-50.0) Monocytes % (Manual) 8 (0-12) Eosinophils % (Manual) 0 (0-7) Basophils % (Manual) 0 (0.0-2.0) Metamyelocytes % (manual) 0 Myelocytes % (Manual) 0 Promyelocytes % (Manual) 0 Blast Cells % (Manual) 0 Reactive Lymphocytes 0 Smudge Cells 2 /100 WBC Platelet Estimate [place] Large Platelets Few Hemoglobin A1c 10.3 % A1C (<5.7) Vancomycin Level Trough 8.9 ug/mL (5-10) Lactic Acid Level 1.9 mmol/L (0.4-2.0) Troponin I High Sensitivity 10 ng/L (</=54) Test 05/24/25 16:23 Prothrombin Time 13.0 sec (9.3-11.8) Prothrombin Time INR 1.25 (0.9-1.15) Activated Partial Thromboplast Time 25.1 SEC (24.5-34.5) Other Laboratory Tests 06/07/25 05:05 Brief Hx & Hospital Course: History of Present Illness The patient is a 79-year-old male with past medical history of diabetes mellitus, hyperlipidemia, hypertension, and coronary artery disease who presented to [facility] ED evaluation of altered level consciousness. As reported by EMS, patient was found on the ground beside his bed by altered with fever and pinpoint pupils. Patient was seen and evaluated in the ED, laboratory data shows WBC 22.9, platelets 156, sodium 139, potassium 3.6, BUN 26, creatinine 1.36, glucose 186, calcium 11.3, lactic acid 2.3 trending down to 1.9, troponin 10, blood pressure 125/74, heart rate 126 trending down to 102, temperature 100.5 F trending down to 97.8 F, O2 saturation 97% on oxygen. Cervical spine CT revealing moderate to advanced cervical degenerative disc, large left mastoid effusion, thyroid nodules up to 1.8 cm. Thyroid ultrasound revealing complex appearing left thyroid lobe structure without calcification, bilateral hypoechoic foci. Please see medication orders section in the computer. On my assessment, patient denied chest pain, no headache, no dizziness, no shortness of breath, no nausea, no vomiting, no fever, no chills. Patient was admitted for further evaluation and medical management. Course of hospitalization: Patient was treated with IV hydration, regular insulin sliding, Lantus, IV antibiotic therapy. Patient was found to be positive for E coli in the blood. CT scan of the abdomen and pelvis revealed questionable acute cystitis without any noted positive urine cultures. Given positive E coli, urology consultation was obtained. Plans for outpatient cystoscopy. Repeat blood cultures found to be negative. Antibiotics were deescalated to Rocephin 1 g IV daily. Patient's blood sugars were found to be somewhat difficult to control, with increase incremental increases in Lantus, achieving in a blood sugar less than 180. Patient has been found to be deconditioned during his hospitalization. Physical therapy was implemented. Patient will be transitioned to a halfway facility for rehab at this time. Patient was agreeable with discharge plan. All questions answered. Physical examination General: Alert and Oriented x3. No acute distress. Well-nourished. Eyes: EOMI. Anicteric. HENT: Moist mucous membranes. Lungs: Clear to auscultation bilaterally. No accessory muscle use. Cardiovascular: Regular rate and rhythm. No murmur. No JVD. Abdomen: Soft, non-tender and non-distended. No palpable masses. Extremities: No edema. Non-tender. Skin: No rashes or lesions. Warm. Neurologic: No focal neurological deficits. CN II-XII grossly intact, but not individually tested. Psychiatric: Cooperative. Appropriate mood and affect. Total time spent with patient discussing and formulating plan of care: 35 minutes. This medical document was created using an electronic medical record system with SMS [employer] dictation system. Although this document has been carefully reviewed, there may still be some phonetic and typographical errors. These areas are purely typographical due to imperfections of the software programs, and do not reflect any compromise in the patient's medical care. Consults/Reason for consult Urology: Complicated cystitis Condition at Discharge: Fair Final Diagnosis/Problems List Sepsis -sepsis with E coli in the blood -dementia -metabolic encephalopathy secondary to infection -primary hypertension -diabetes mellitus -acute mastoiditis -acute hypoxic respiratory failure -acute on chronic diastolic heart failure with pulmonary vascular congestion -acute kidney injury, vasomotor nephropathy -mechanical fall with left foot fracture -bilateral hearing deficits -thyroid cyst/nodules Discharge Disposition: Shelter Facility Discharge Instruct/Medications Diet: Consistent carbohydrate, Cardiac 2g Na,low cholest Activity: No Restrictions, As Tolerated Follow Up/Referral: Per accepting provider Medications: Refer to medication reconciliation form Scheduled Aspirin (Aspir-81), 81 MG PO DAILY, (Reported) Cholecalciferol (Vitamin D3), 1,250 UNIT OR QWEEKLY, (Reported) Donepezil Hydrochloride (Donepezil Hcl), 1 TAB PO DAILY, (Reported) Empagliflozin (Jardiance), 1 TAB PO DAILY, (Reported) Furosemide (Lasix), 1 TAB PO DAILY Gabapentin (Gabapentin), 1 CAP PO TID, (Reported) Insulin Glargine (Lantus), 40 SC BID, (Reported) Insulin Regular (Human) (Humulin R), 40 UNIT IV BID, (Reported) Lisinopril (Lisinopril), 1 TAB PO DAILY, (Reported) Metformin Hydrochloride (Metformin Hydrochloride), 1 TAB PO BID, (Reported) Tamsulosin Hcl (Tamsulosin Hcl), 1 CAP PO DAILY, (Reported) Miscellaneous Medications Atorvastatin Calcium (Atorvastatin Calcium), 1 TAB PO, (Reported) Hydrocodone-Acetaminophen (Hydrocodone Bitartrate/AC 5-325 mg), 1 TAB PO, (Reported) 36 Discharge Statement: "Patient was advised to return to the ER or call 911 if any headaches, dizziness, shortness of breath, chest pain, abdominal pain, bleeding, fevers, or worsening of medical condition. Patient was counseled about treatment plan, medications, possible side effects, patientverbalized understanding. All questions were answered to the best of my ability. This discharge took greater then 30 minutes in planning, reviewing documentation, counseling the patient, and discussing with other team members." ASSESSMENT ASSESSMENT Assessment Sepsis Date of Service: Jun 08, 2025 Billing Provider: DAVID PINEDO NP Common Visit Codes: 87371-JZJ/OBS DISCH DAY >30min DAVID PINEDO NP Jun 08, 2025 12:24
[2025-06-08] MEDS ORDERED: CEFPODOXIME PROXETIL 200 MG TAB PO SCH (22:00)
== END 2025-06-08 17:15 | DRG 871 ==
LOC: ER 15:20 → EDBD 15:20 → EDUNIT# 15:20 → OVERFLOW 23:28 → TELE-CENTR 05-25 18:09 → CENTRAL 06-07 19:34
PROVIDERS: ADMIT Nurse Practitioner Acute Care; ATTEND Nurse Practitioner Acute Care
DX: A41.51 Sepsis due to Escherichia coli [E. coli] (principal); G92.8 Other toxic encephalopathy; N17.0 Acute kidney failure with tubular necrosis; J96.01 Acute respiratory failure with hypoxia; I50.33 Acute on chronic diastolic (congestive) heart failure; E87.20 Acidosis, unspecified; H70.003 Acute mastoiditis without complications, bilateral; N39.0 Urinary tract infection, site not specified; I11.0 Hypertensive heart disease with heart failure; R65.20 Severe sepsis without septic shock; F03.90 Unspecified dementia, unspecified severity, without behavioral disturbance, psychotic disturbance, mood disturbance, and anxiety; E04.2 Nontoxic multinodular goiter; I70.8 Atherosclerosis of other arteries; E11.9 Type 2 diabetes mellitus without complications; S92.812A Other fracture of left foot, initial encounter for closed fracture; R32 Unspecified urinary incontinence; I25.10 Atherosclerotic heart disease of native coronary artery without angina pectoris; E78.5 Hyperlipidemia, unspecified; E87.6 Hypokalemia; M54.50 Low back pain, unspecified; R91.1 Solitary pulmonary nodule; W18.30XA Fall on same level, unspecified, initial encounter; Y93.89 Activity, other specified; Y99.8 Other external cause status; Y92.098 Other place in other non-institutional residence as the place of occurrence of the external cause
CPT/HCPCS: 36415; 70450; 71045; 71250; 72100; 72125; 73630; 73700; 74176; 76536; 80048; 80053; 80202; 81001; 82378; 82565; 82962; 83036; 83605; 83615; 83735; 83970; 84154; 84484; 85007; 85025; 85027; 85610; 85730; 87040; 87077; 87086; 87186; 93005; 93926; 96365; 97110; 97116; 97162; 97163; G0378; J1815; J2003; J2543; J3480

== ENCOUNTER 2025-09-11 01:40 | Inpatient (IN) | payer OTHER ==
[2025-09-11] VITALS (19 sets, daily range): BP systolic 87–156; BP diastolic 23–81; PULSE 66–92; RESP 11–26; TEMP 97.5; O2SAT 96–100
[~2025-09-11] VITALS: Ht 167.6 cm; Wt 77.9 kg
[~2025-09-11 01:40] MED LIST changes: +CHOL20007 OR; +DONE5TAB80 PO; +GABA-1308 PO; +HYDR-4902 PO; +INSREG3 IV
[2025-09-11 02:03] LABS: Hematocrit 44.3 % (36.0-46.0); Hemoglobin 15.2 g/dL (12.2-16.2); Mean Corpuscular Hemoglobin 32.2 pg (28.0-32.0); Mean Corpuscular Volume 93.8 fL (80.0-100.0); Nucleated Red Blood Cells % 0.0 %
[2025-09-11 02:14] LABS: Chloride 104 mmol/L (98-107); Potassium 4.1 mmol/L (3.5-5.1); Sodium 142 mmol/L (136-145)
[2025-09-11 02:15] LABS: Anion Gap 6 (5-15)
[2025-09-11 02:16] LABS: Calcium 10.0 mg/dL (8.7-10.4); Carbon Dioxide 32 mmol/L (20-31)
[2025-09-11 02:20] LABS: BUN/Creatinine Ratio 18.1 (10.0-20.0); Blood Urea Nitrogen 21 mg/dL (9-23)
[2025-09-11 02:21] LABS: Glucose 128 mg/dL (74-106)
--- NOTE | 2025-09-11 02:45 | ED.PDOC ---
History of Present Illness HPI Comments 80-year-old male who is brought in by ambulance from home for chief complaint of chest pain. Significant history for diabetes, [place] in 2020, and tobacco cigarette use. Patient endorses on sudden, unprovoked, and atraumatic onset of substernal chest pain at 1800, yesterday. Patient is reported to radiate, directly, to his back. He says and having chest pain in the past, intermittently, but not as severe as today's episode. He also reports on taking 324 mg of baby aspirin that his gave him prior to EMS arrival, with pain subsiding 5 minutes after oral intake. He denies on having any symptoms at this time. Per EMS personnel report, patient was not noted to have been hypotensive and a had a blood sugar of 143 on scene. REVIEW OF SYSTEMS: General: No fever, no chills, or fatigue HEENT: No sore throat, no earache, no congestion, no neck pain. Cardiac: chest pain. No palpitations. Lungs: No shortness of breath, no cough. GI: No nausea, no vomiting, no diarrhea, no constipation, no abdominal pain : No dysuria, frequency, or urgency. No hematuria. Musculoskeletal: No joint pain , no joint swelling, no extremity edema. Skin: No rash, no itching. Neuro: No headache, no dizziness, no weakness PHYSICAL EXAM: General: Awake, alert and oriented. No acute distress. Skin: Skin in warm, dry and intact. Appropriate color for ethnicity. HEENT: The head is normocephalic and atraumatic. Conjunctivae are clear without exudates or hemorrhage. Sclera is non-icteric. EOM are intact. No signs of nystagmus. Eyelids are normal in appearance without swelling or lesions. Oral mucosa is pink and moist Neck: The neck is supple with normal range of motion. No JVD. Cardiac: Heart rate and rhythm are normal. No murmurs, gallops, or rubs are auscultated. Respiratory: No signs of respiratory distress. Lung sounds are clear in all lobes bilaterally without rales, rhonchi, or wheezes. Abdominal: Abdomen is soft, non-tender without distention, guarding or rigidity. Bowel sounds are present and normoactive in all four quadrants. Extremities: 1+ pitting edema to bilateral lower extremities. Remaining upper and lower extremities are atraumatic in appearance without deformity or edema. Neurological: The patient is awake, alert and oriented to person, place, and time with normal speech. Speech is clear. There is no facial asymmetry. Psychiatric: Appropriate mood and affect. Good judgement and insight. Chief Complaint: Chest Pain Time Seen by MD: 02:00 Reviewed Notes: Nurses Notes, Warehouse Shipping Supervisor Notes, Medications, Allergies Allergies: Coded Allergies: NO KNOWN ALLERGIES (Unverified , 09/11/25) Information Source: Patient, Emergency Med Personnel Mode of Arrival: EMS Severity: Moderate Timing: Hours Duration: Since onset Prehospital treatment: 12 Lead EKG, Accucheck (143), ASA (324mg), Sewage Reticulation Drafting Officer Past Medical History PAST MEDICAL HISTORY: DM, [place] (2020) Surgical History: Denies all surgeries Family History Family History: Unknown Social History Smoker: Cigarettes, Less Than 1 Pack/Day Alcohol: Occasionally Drugs: Denies Drug Use Lives In: Home Was a procedure done? Was a procedure done?: No EKG EKG : Pulse Rate (adult): 85 [place]: Normal Cardiac Rhythm: NSR Block: None Hypertrophy: None ST: Normal Differential Dx Considerations may include: Differential diagnoses considered include acute ischemic coronary syndrome, aortic dissection, cardiac tamponade, mediastinitis, pulmonary embolus, pneumothorax, tension pneumothorax, esophageal rupture, coronary artery vasospasm, myocarditis, pericarditis, pneumonia, pulmonary edema, esophageal tear, pancreatitis, aortic stenosis, dilated cardiomyopathy, hypertrophic cardiomyopathy, mitral valve prolapse, malignancy, pleuritis, pneumomediastinum, primary pulmonary hypertension, cholecystitis, esophageal spasm, esophagus, gastritis, GERD, peptic ulcer disease, costochondritis, fibromyalgia, rib fracture, herpes zoster, radicular syndromes, thoracic outlet syndrome, somatization. X-Ray, Labs, Meds, VS Vital Signs Date Time Temp Pulse Resp B/P (MAP) Pulse Ox O2 Delivery O2 Flow Rate FiO2 09/11/25 03:57 98.3 79 14 165/86 (112) 100 98.3 09/11/25 02:46 75 09/11/25 02:45 85 09/11/25 01:40 85 09/11/25 01:40 98.5 85 18 178/78 98 98.5 Lab Test 09/11/25 04:42 09/11/25 03:22 09/11/25 01:51 Range/Units Prothrombin Time 10.9 9.3-11.8 sec Prothrombin Time INR 1.03 0.9-1.15 Activated Partial Thromboplast Time 21.7 L 24.5-34.5 SEC Troponin I High Sensitivity 1128 *H 699 *H 536 *H </=54 ng/L White Blood Count 8.4 4.4-10.8 10^3/uL Red Blood Count 4.73 4.0-5.20 10^6/uL Hemoglobin 15.2 12.2-16.2 g/dL Hematocrit 44.3 36.0-46.0 % Mean Corpuscular Volume 93.8 80.0-100.0 fL Mean Corpuscular Hemoglobin 32.2 H 28.0-32.0 pg Mean Corpuscular Hemoglobin Concent 34.3 32.0-36.0 g/dL Red Cell Distribution Width 15.0 H 11.8-14.3 % Platelet Count 163 140-450 10^3/uL Mean Platelet Volume 8.5 6.9-10.8 fL Neutrophils (%) (Auto) 66.7 37.0-80.0 % Lymphocytes (%) (Auto) 24.0 10.0-50.0 % Monocytes (%) (Auto) 7.4 0.0-12.0 % Eosinophils (%) (Auto) 1.6 0.0-7.0 % Basophils (%) (Auto) 0.3 0.0-2.0 % Neutrophils # (Auto) 5.6 1.6-8.6 10 ^3/uL Lymphocytes # (Auto) 2.0 0.4-5.4 10 ^3/uL Monocytes # (Auto) 0.6 0-1.3 10 ^3/uL Eosinophils # (Auto) 0.1 0-0.8 10 ^3/uL Basophils # (Auto) 0 0-0.2 10 ^3/uL Nucleated Red Blood Cells 0.0 % Sodium Level 142 136-145 mmol/L Potassium Level 4.1 3.5-5.1 mmol/L Chloride Level 104 98-107 mmol/L Carbon Dioxide Level 32 H 20-31 mmol/L Anion Gap 6 5-15 Blood Urea Nitrogen 21 9-23 mg/dL Creatinine 1.16 0.700-1.30 mg/dL Glomerular Filtration Rate Calc 64 >90 mL/min BUN/Creatinine Ratio 18.1 10.0-20.0 Serum Glucose 128 H 74-106 mg/dL Calcium Level 10.0 8.7-10.4 mg/dL [address] [address] Ph: [phone] DIAGNOSTIC IMAGING Diagnostic Imaging Report : [id number] Signed PATIENT: TIFFANIE MCKEON ACCT: [id number] UNIT: [id number] : 1945 LOC: ER ROOM / BED: / AGE / SEX: 80 / M ADM STATUS: REG ER SERVICE 3 ORDERING PHYSICIAN: KARIN VILLALTA MD PROCEDURE(s): CXR1 - CHEST XRAY 1 VIEW REASON: Chest pain ORDER NUMBER(s): [id number], ACCESSION NUMBER(s): [id number] CHEST RADIOGRAPH Indication: Chest pain Technique: 1 view Comparison: None FINDINGS: Lines and Tubes: None. Lungs/Pleura: Diffuse interstitial opacities. Left basilar subsegmental atelectasis. No evident pleural effusion or pneumothorax. Cardiomediastinum: No obvious cardiomegaly. Other: No acute osseous abnormality. IMPRESSION: Diffuse interstitial opacities suggest edema or pneumonitis/bronchitis. No evidence of infectious consolidation. ATED BY: ROSAMARIA MCCARTY MD DICTATED DATE/TIME: 09/11/25316 SIGNED BY: ROSAMARIA MCCARTY MD SIGNED DATE/TIME: 09/11/25316 CC: Time of 1ST Reevaluation: 02:30 Reevaluation 1ST: Unchanged Patient Education/Counseling: Treatment, Other (Need for admission) Family Education/Counseling: No Family Present SEPSIS Sepsis Screen Date sepsis recognized/suspect: Sep 11, 2025 Time Sepsis recognized/suspect: 0140 Recent Procedure: No On Antibiotic Therapy: No Respiratory Rate >20: No Heart Rate >90: No Temp<36 C (96.8 F) or >38.3 C: No SBP <90 or MAP <65 mmHG: No New Acute Mental Status Change: No Is the patient on CPAP, BIPAP,: No Physician Orders Electrocardigram (09/11/25 02:41) Electrocardigram (09/11/25 04:41) Chest Xray 1 View (09/11/25 02:14) Platelet Monitoring (09/11/25 04:03) Heparin Per Standardized Proce (09/11/25 04:03) Discontinue All Im Injections (09/11/25 04:03) Heparin Drip/D5w 100units/Ml (09/11/25 06:00) Stat Ekg For Chest Pain (09/11/25 04:03) Titrate Oxygen (09/11/25 04:31) Oxygen (09/11/25 ) Continous Pulse Oximetry (09/11/25 04:31) Saline Lock (09/11/25 04:31) Sewage Reticulation Drafting Officer (09/11/25 ) Vital Signs Date Time Temp Pulse Resp B/P (MAP) Pulse Ox O2 Delivery O2 Flow Rate FiO2 09/11/25 03:57 98.3 79 14 165/86 (112) 100 98.3 09/11/25 02:46 75 09/11/25 02:45 85 09/11/25 01:40 85 09/11/25 01:40 98.5 85 18 178/78 98 98.5 Laboratory Tests Test 09/11/25 01:51 White Blood Count 8.4 10^3/uL (4.4-10.8) Departure 1 Departure Time of Disposition: 03:02 Impression: Primary Impression: Chest pain Additional Impression: NSTEMI (non-ST elevated myocardial infarction) Disposition: ADMITTED INPATIENT Condition: Stable Comments MDM: We will trend troponin prior to heparin. Patient admitted to hospitalist service for further treatment, evaluation and monitoring. Extensive evaluation was performed in attempt to identify or rule out: (See differential diagnosis section) The following tests were ordered, and results were reviewed by me and discussed with patient: (See diagnostic results section) The following test were independently interpreted by me: EKG, chest x-ray-no acute disease I reviewed and agreed with the following test results read by other providers: Chest x-ray Additional information was gathered from interviewing the following independent historians: EMS Personnel Decision regarding hospitalization or escalation of hospital level of care: Risk and benefits of admission for further treatment of patient's condition was considered. Due to patient's current clinical condition, high risk of decline and poor outcome if discharged and need for further inpatient management and monitoring, patient will be admitted to the hospital. Critical Care Note Critical Care Time?: No Stability Stability form required: No Heart Score Heart Score: Heart Score Response (Comments) Value History Moderate Suspicious 1 EKG Normal 0 Age >65 2 Risk Factors 1 or 2 risk factors 1 Troponin >3 x's Normal limit 2 Total 6 I personally scribed for KARIN VILLALTA MD ([email or web address]) on 09/11/25 at 02:45. Electronically submitted by Julian Coats ([email or web address]). I personally scribed for KARIN VILLALTA MD ([email or web address]) on 09/11/25 at 04:20. Electronically submitted by Julian Coats ([email or web address]). KARIN VILLALTA MD Sep 11, 2025 02:45
--- NOTE | 2025-09-11 02:47 | ECG ---
[facility] Test Date: 2025-09-11 Test Time: 02:46:18 Pat Name: TIFFANIE MCKEON Department: [facility] ED Patient ID: [facility]-[id number] Room: 0219T Gender: M [place] Guide: YESENIA : 1945 Requested By: EMERGENCY EMERGENCY Order Number: [id number] Reading MD: Chda Garcia Measurements Intervals [place] Rate: 75 P: 67 OR: 137 QRS: 8 QRSD: 87 T: 67 QT: 394 QTc: 441 Interpretive Statements Sinus rhythm Low voltage, precordial leads Consider anterior infarct Borderline ST depression, lateral leads Electronically Signed On 09-18-2025 13:16:04 PST by Chad Garcia Please click the below link to view image of tracing.
--- NOTE | 2025-09-11 03:19 | DVH ---
CHEST RADIOGRAPH Indication: Chest pain Technique: 1 view Comparison: None FINDINGS: Lines and Tubes: None. Lungs/Pleura: Diffuse interstitial opacities. Left basilar subsegmental atelectasis. No evident pleu ral effusion or pneumothorax. Cardiomediastinum: No obvious cardiomegaly. Other: No acute osseous abnormality. IMPRESSION: Diffuse interstitial opacities suggest edema or pneumonitis/bronchitis. No evidence of infectious con solidation.
[2025-09-11] MEDS ORDERED: ONDANSETRON HCL 4 MG/2 ML VIAL IV PRN (05:00)
[2025-09-11] MEDS ORDERED: MORPHINE SULFATE INJ 2 MG/ml SYRG IV PRN (05:00)
--- NOTE | 2025-09-11 05:00 | DVHHP2 ---
History of Present Illness Reason for Visit: Chest pain History of Present Illness 80 year-old male presents for evaluation of chest pain. Patient reports developing chest pain yesterday at 3:00 p.m.. He describes the pain as substernal pressure-like nonradiating. Denies shortness or breath, nausea or vomiting. No cough or fever. Past Medical History Diabetes mellitus, mi, hypertension Past Surgical History Denies Smoke: <1 pack per day ALCOHOL: occassional Drugs: None Lives: with Family Review of Systems Review of Systems Review of systems are currently negative otherwise addressed in HPI. Allergies: Coded Allergies: NO KNOWN ALLERGIES (Unverified , 09/11/25) Medications Current Medications Medications Dose Ordered Sig/Wanda Route Start Time Stop Time Status Last Admin Dose Admin Heparin Sodium/ Dextrose 250 ml @ 9.384 mls/ hr Q24H IV 09/11/25 04:15 UNV Hydralazine HCl 10 mg Q6HP PRN IV 09/11/25 05:00 UNV Ondansetron HCl 4 mg Q4HP PRN IV 09/11/25 05:00 UNV Nitroglycerin 0.4 mg Q5MINP PRN SL 09/11/25 05:00 UNV Morphine Sulfate 2 mg Q30M PRN IV 09/11/25 05:00 UNV Exam Vital Signs Vital Signs Date Time Temp Pulse Resp B/P (MAP) Pulse Ox O2 Delivery O2 Flow Rate FiO2 09/11/25 03:57 98.3 79 14 165/86 (112) 100 98.3 Exam Gen: 80-year-old male in mild distress Skin: Warm, dry, normal color and texture, no rash. HEENT: Normocephalic atraumatic, mucous membranes moist and pink. Neck: Cervical and supraclavicular nodes normal without enlargement, trachea is midline, thyroid gland is normal without masses. Pulmonary: Clear to auscultation and percussion bilaterally. Cardiac: Regular rate and rhythm. No murmur Abdomen: Soft, nontender, nondistended, bowel sounds present all 4 quadrants, no guarding, no rigidity, no organomegaly. Extremities: No cyanosis, clubbing, no edema Neuro: Cranial nerves II through XII grossly intact, normal affect and speech, no focal motor deficits. Labs/Xrays ORDERING PHYSICIAN: KARIN VILLALTA MD PROCEDURE(s): CXR1 - CHEST XRAY 1 VIEW REASON: Chest pain ORDER NUMBER(s): [id number], ACCESSION NUMBER(s): [id number] CHEST RADIOGRAPH Indication: Chest pain Technique: 1 view Comparison: None FINDINGS: Lines and Tubes: None. Lungs/Pleura: Diffuse interstitial opacities. Left basilar subsegmental atelectasis. No evident pleural effusion or pneumothorax. Cardiomediastinum: No obvious cardiomegaly. Other: No acute osseous abnormality. IMPRESSION: Diffuse interstitial opacities suggest edema or pneumonitis/bronchitis. No evidence of infectious consolidation. Labs Test 09/11/25 04:42 09/11/25 01:51 Range/Units White Blood Count 8.4 4.4-10.8 10^3/uL Red Blood Count 4.73 4.0-5.20 10^6/uL Hemoglobin 15.2 12.2-16.2 g/dL Hematocrit 44.3 36.0-46.0 % Mean Corpuscular Volume 93.8 80.0-100.0 fL Mean Corpuscular Hemoglobin 32.2 H 28.0-32.0 pg Mean Corpuscular Hemoglobin Concent 34.3 32.0-36.0 g/dL Red Cell Distribution Width 15.0 H 11.8-14.3 % Platelet Count 163 140-450 10^3/uL Mean Platelet Volume 8.5 6.9-10.8 fL Neutrophils (%) (Auto) 66.7 37.0-80.0 % Lymphocytes (%) (Auto) 24.0 10.0-50.0 % Monocytes (%) (Auto) 7.4 0.0-12.0 % Eosinophils (%) (Auto) 1.6 0.0-7.0 % Basophils (%) (Auto) 0.3 0.0-2.0 % Neutrophils # (Auto) 5.6 1.6-8.6 10 ^3/uL Lymphocytes # (Auto) 2.0 0.4-5.4 10 ^3/uL Monocytes # (Auto) 0.6 0-1.3 10 ^3/uL Eosinophils # (Auto) 0.1 0-0.8 10 ^3/uL Basophils # (Auto) 0 0-0.2 10 ^3/uL Nucleated Red Blood Cells 0.0 % Sodium Level 142 136-145 mmol/L Potassium Level 4.1 3.5-5.1 mmol/L Chloride Level 104 98-107 mmol/L Carbon Dioxide Level 32 H 20-31 mmol/L Anion Gap 6 5-15 Blood Urea Nitrogen 21 9-23 mg/dL Creatinine 1.16 0.700-1.30 mg/dL Glomerular Filtration Rate Calc 64 >90 mL/min BUN/Creatinine Ratio 18.1 10.0-20.0 Serum Glucose 128 H 74-106 mg/dL Calcium Level 10.0 8.7-10.4 mg/dL SEPSIS Sepsis Screen Date sepsis recognized/suspect: Sep 11, 2025 Time Sepsis recognized/suspect: 014 Recent Procedure: No On Antibiotic Therapy: No Respiratory Rate >20: No Heart Rate >90: No Temp<36 C (96.8 F) or >38.3 C: No SBP <90 or MAP <65 mmHG: No New Acute Mental Status Change: No Is the patient on CPAP, BIPAP,: No Physician Orders Electrocardigram (09/11/25 02:41) Electrocardigram (09/11/25 04:41) Troponin-I Hs (09/11/25 04:42) Chest Xray 1 View (09/11/25 02:14) Prothrombin Time W/ Inr (09/11/25 04:01) Platelet Monitoring (09/11/25 04:03) Heparin Per Standardized Proce (09/11/25 04:03) Discontinue All Im Injections (09/11/25 04:03) Heparin Drip/D5w 100units/Ml (09/11/25 04:15) Stat Ekg For Chest Pain (09/11/25 04:03) Titrate Oxygen (09/11/25 04:31) Oxygen (09/11/25 ) Continous Pulse Oximetry (09/11/25 04:31) Saline Lock (09/11/25 04:31) Returned Goods Repairer (09/11/25 ) Hydralazine Injection (Apresoline Inject (09/11/25 05:00) * Cardiology Consult (09/11/25 04:51) Admit (09/11/25 04:51) Ondansetron Hcl (Zofran) (09/11/25 05:00) Complete Blood Count (09/12/25 04:00) Comprehensive Metabolic Panel (09/12/25 04:00) Npo (Nothing By Mouth) Diet (09/11/25 Breakfast) Echo 2d Mode Cardiac Dop (09/11/25 04:51) Condition: Fair (09/11/25 04:51) Bedrest With Bathroom Privileg (09/11/25 04:51) Nitroglycerin Sublingual (Ntrostat Subli (09/11/25 05:00) Morphine Sulfate Injection (09/11/25 05:00) Notify Of Changes From Base (09/11/25 04:51) Poultry Culler For 24 Hours (09/11/25 04:51) Emergency Dysrhythmia Protocol (09/11/25 04:51) Rhythm Strips Once Every Shift (09/11/25 04:51) Oxygen By Nasal Cannula (09/11/25 04:51) Vital Signs Date Time Temp Pulse Resp B/P (MAP) Pulse Ox O2 Delivery O2 Flow Rate FiO2 09/11/25 03:57 98.3 79 14 165/86 (112) 100 98.3 09/11/25 02:46 75 09/11/25 02:45 85 09/11/25 01:40 85 09/11/25 01:40 98.5 85 18 178/78 98 98.5 Laboratory Tests Test 09/11/25 01:51 White Blood Count 8.4 10^3/uL (4.4-10.8) Assessment/Plan Assessment/Plan Assessment NSTEMI Accelerated hypertension Plan Admit the patient to telemetry to the hospitalist ACS protocol Continue heparin drip NPO Cardiology consultation As needed antihypertensives Continue treatment per orders. Plan discussed with: Patient My Orders Orders - FREDDY MUNOZ Procedure Category Date Status Time Hydralazine Injection PHA 09/11/25 Logged (Apresoline Inject 05:00 * Cardiology Consult CONS 09/11/25 Transmitted 04:51 Admit ADMIT 09/11/25 Transmitted 04:51 Ondansetron Hcl PHA 09/11/25 Logged (Zofran) 05:00 Complete Blood Count LAB 09/12/25 Verified 04:00 Comprehensive LAB 09/12/25 Verified Metabolic Panel 04:00 Npo (Nothing By DIET 09/11/25 Transmitted Mouth) Diet Breakfast Echo 2d Mode Cardiac US 09/11/25 Logged DOP 04:51 Condition: Fair [facility] 09/11/25 In Process 04:51 Bedrest With Bathroom [facility] 09/11/25 In Process Privileg 04:[address] [facility] 09/11/25 Logged Sublingual (Ntrostat 05:[address] [facility] 09/11/25 Logged Injection 05:00 Notify Md Of Changes [facility] 09/11/25 In Process From Base 04:51 Poultry Culler For [facility] 09/11/25 In Process 24 Hours 04:51 Emergency Dysrhythmia [facility] 09/11/25 In Process Protocol 04:51 Rhythm Strips Once [facility] 09/11/25 In Process Every Shift 04:51 Oxygen By Nasal RT 09/11/25 Transmitted Cannula 04:51 Date of Service: Sep 11, 2025 Billing Provider: FREDDY MUNOZ Common Visit Codes: [id number] INP/OBS CARE (HIGH) FREDDY MUNOZ Sep 11, 2025 05:00
[2025-09-11 05:20] LABS: INR 1.03 (0.9-1.15); Prothrombin Time 10.9 sec (9.3-11.8)
[2025-09-11] MEDS: hydrALAZINE HCL 20 MG/ML VL IV PRN (05:50)
[2025-09-11] MEDS: HEPARIN SODIUM (PORCINE) 5000 UNITS/ML 1ML VIAL IV ONE ×2 (06:04)
[2025-09-11] MEDS: HEPARIN DRIP/D5W 100UNITS/ML 250 ML IV SCH (06:15)
[2025-09-11] MEDS: NITROGLYCERIN 0.4 MG SL TAB SL PRN (06:36)
--- NOTE | 2025-09-11 07:33 | ECG ---
[facility] Test Date: 2025-09-11 Test Time: 06:59:51 Pat Name: TIFFANIE MCKEON Department: [facility] ED Patient ID: [id number] Room: 0219T Gender: M Waiter/Waitress Formal: YESENIA : 1945 Requested By: EMERGENCY EMERGENCY Order Number: [id number] Reading MD: Chad Garcia Measurements Intervals [place] Rate: 84 P: 56 [place]: 140 QRS: 9 QRSD: 90 T: 43 QT: 420 QTc: 497 Interpretive Statements Sinus rhythm Low voltage, precordial leads Consider anterior infarct Electronically Signed On 09-18-2025 13:16:20 PST by Chad Garcia Please click the below link to view image of tracing.
--- NOTE | 2025-09-11 07:34 | ECG ---
[facility] Test Date: 2025-09-11 Test Time: 01:38:07 Pat Name: TIFFANIE MCKEON Department: [facility] ED Patient ID: [id number] Room: 0219T Gender: M After School Teacher: LADONNA : 1945 Requested By: EMERGENCY EMERGENCY Order Number: [id number] Reading MD: Chad Garcia Measurements Intervals [place] Rate: 85 P: 58 [place]: 144 QRS: 3 QRSD: 94 T: 26 QT: 414 QTc: 493 Interpretive Statements Sinus rhythm Abnormal inferior Q waves Probable anteroseptal infarct, recent Electronically Signed On 09-18-2025 13:16:02 PST by Chad Garcia Please click the below link to view image of tracing.
[2025-09-11] MEDS: NITROGLYCERIN 50MG/250ML 250 ML IV SCH (07:40)
[2025-09-11 08:42] LABS: Triglycerides 79 mg/dL (< 150)
[2025-09-11 08:44] LABS: Cholesterol 187 mg/dL (< 200); HDL Cholesterol 53 mg/dL (40-59)
[2025-09-11] MEDS ORDERED: DEXTROSE (50%) 50ML SYRG IV PRN (09:00)
--- NOTE | 2025-09-11 09:00 | DVHINCON2 ---
Date Seen: Sep 11, 2025 Referring Physician Brady Montiel NP Reason for Consultation NSTEMI History of Present Illness René Mojica is a 80-year-old male patient who presents to the ED with chief complaint of retrosternal oppressive chest pain in Functional Class IV intensity 6/10 which has been constant since 09/10/2025 at 3:00 p.m., has not been relieved with oral nor IV medication (patient currently on nitroglycerin and heparin drip in emergency department). Had similar symptoms with previous infarct in 2010. Denies any other associated symptoms including dyspnea, palpitation, syncope and diaphoresis. Past medical history: Diabetes insulin-dependent, 2010 AL status post PCI with one NYDIA, last stress test was 10 years ago which was within normal limits, mild cognitive impairment. Surgical history: PCI in 2010 Family history: Noncontributory Social history: Lives in [place] with (next of kin. Smokes six cigars per year, drinks two beers a week. Denies current tobacco, alcohol and other drug abuse. Allergies: Denies Home medication: Aspirin, metformin, insulin Patient seen and examined at bedside. Currently continues with same retrosternal oppressive chest pain intensity 6/10 despite IV nitroglycerin in IV heparin drip, troponin up trending, EKG shows old anterior infarct, no ST e levation. Planning on coronary angiography within 24 hours. Explained risks and benefits to patient twice (he did not recall the 1st time) and also explained to (Fidelina), agreed on completing coronary angiography. Past Medical History Per HPI Past Surgical History Per HPI Family History Per HPI Social History Per HPI Allergies: Coded Allergies: NO KNOWN ALLERGIES (Unverified , 11/11/23) Home Meds Active Scripts Furosemide (Lasix) 20 Mg Tb, 1 TAB PO DAILY, #30 TAB 5 Refills Prov:TREY SANCHEZ MD 11/16/23 Reported Medications Insulin Regular (Human) (Humulin R) 100 Unit/Ml Inj, 40 UNIT IV BID, INJ 05/26/25 Gabapentin (Gabapentin) 100 Mg Cap, 1 CAP PO TID, #90 CAP 2 Refills 05/26/25 Cholecalciferol (VITAMIN D3) 2,000 Unit Tab, 1250 UNIT OR QWEEKLY, TAB 05/26/25 Donepezil Hydrochloride (DONEPEZIL HCL) 5 Mg Tab, 1 TAB PO DAILY, #30 TAB 5 Refills 05/26/25 Hydrocodone-Acetaminophen (Hydrocodone Bitartrate/AC 5-325 mg) 1 Tab Tab, 1 TAB PO, TAB 05/26/25 Aspirin (Aspir-81) 81 Mg Tab, 81 MG PO DAILY, TAB 11/12/23 Insulin Glargine (Lantus) 100 Unit/Ml Inj, 40 SC BID, INJ 11/11/23 Metformin Hydrochloride (Metformin Hydrochloride) 500 Mg Tab, 1 TAB PO BID 11/11/23 Tamsulosin Hcl (Tamsulosin Hcl) 0.4 Mg Cap, 1 CAP PO DAILY 11/11/23 Empagliflozin (Jardiance) 25 Mg Tab, 1 TAB PO DAILY 11/11/23 Lisinopril (Lisinopril) 10 Mg Tab, 1 TAB PO DAILY 11/11/23 Atorvastatin Calcium (ATORVASTATIN CALCIUM) 40 Mg Tab, 1 TAB PO 11/11/23 Current Medications Current Medications Medications (Trade) Dose Ordered Sig/Wanda Route PRN Reason Start Time Stop Time Status Last Admin Heparin Sodium/ Dextrose 250 ml @ 10 mls/hr Q24H IV 09/11/25 06:00 09/11/25 06:15 Hydralazine HCl (Apresoline Injection) 10 mg Q6HP PRN IV SBP>150 09/11/25 05:00 09/11/25 05:50 Ondansetron HCl (Zofran) 4 mg Q4HP PRN IV NAUSEA / VOMITING 09/11/25 05:00 Nitroglycerin (Ntrostat Sublingual) 0.4 mg Q5MINP PRN SL FOR CHEST PAIN 09/11/25 05:00 09/11/25 06:36 Morphine Sulfate 2 mg Q30M PRN IV FOR CHEST PAIN 09/11/25 05:00 Nitroglycerin 250 ml @ 1.5 mls/hr Q24H IV 09/11/25 07:00 09/11/25 07:40 Review of Systems Per HPI Vital Signs Vital Signs Date Time Temp Pulse Resp B/P (MAP) Pulse Ox O2 Delivery O2 Flow Rate FiO2 09/11/25 08:10 137/71 09/11/25 08:00 89 09/11/25 06:28 12 94 09/11/25 06:25 Room Air* 0 21 09/11/25 03:57 98.3 98.3 Physical Exam Patient lying in bed, in no acute distress General: Lucid, afebrile, mucosae are moist Cardiovascular: Normal S1 and S2. No murmurs, gallops or rubs Respiratory: Normal ventilation mechanics. Bilateral rales, rest of lung auscultation is clear Abdomen: Soft, nontender, no organomegaly, normal bowel sounds MSK/skin: Mobilizes 4 limbs. Skin is dry and warm. Bilateral infrapatellar pitting edema. Neurological: Oriented in 2 spheres (not time). No motor no sensitive deficits. Pupils are isocoric and reactive Labs/Diagnostic Data Labs Test 09/11/25 07:36 09/11/25 04:42 09/11/25 01:51 Range/Units Troponin I High Sensitivity 2283 *H </=54 ng/L Prothrombin Time 10.9 9.3-11.8 sec Prothrombin Time INR 1.03 0.9-1.15 Activated Partial Thromboplast Time 21.7 L 24.5-34.5 SEC White Blood Count 8.4 4.4-10.8 10^3/uL Red Blood Count 4.73 4.0-5.20 10^6/uL Hemoglobin 15.2 12.2-16.2 g/dL Hematocrit 44.3 36.0-46.0 % Mean Corpuscular Volume 93.8 80.0-100.0 fL Mean Corpuscular Hemoglobin 32.2 H 28.0-32.0 pg Mean Corpuscular Hemoglobin Concent 34.3 32.0-36.0 g/dL Red Cell Distribution Width 15.0 H 11.8-14.3 % Platelet Count 163 140-450 10^3/uL Mean Platelet Volume 8.5 6.9-10.8 fL Neutrophils (%) (Auto) 66.7 37.0-80.0 % Lymphocytes (%) (Auto) 24.0 10.0-50.0 % Monocytes (%) (Auto) 7.4 0.0-12.0 % Eosinophils (%) (Auto) 1.6 0.0-7.0 % Basophils (%) (Auto) 0.3 0.0-2.0 % Neutrophils # (Auto) 5.6 1.6-8.6 10 ^3/uL Lymphocytes # (Auto) 2.0 0.4-5.4 10 ^3/uL Monocytes # (Auto) 0.6 0-1.3 10 ^3/uL Eosinophils # (Auto) 0.1 0-0.8 10 ^3/uL Basophils # (Auto) 0 0-0.2 10 ^3/uL Nucleated Red Blood Cells 0.0 % Sodium Level 142 136-145 mmol/L Potassium Level 4.1 3.5-5.1 mmol/L Chloride Level 104 98-107 mmol/L Carbon Dioxide Level 32 H 20-31 mmol/L Anion Gap 6 5-15 Blood Urea Nitrogen 21 9-23 mg/dL Creatinine 1.16 0.700-1.30 mg/dL Glomerular Filtration Rate Calc 64 >90 mL/min BUN/Creatinine Ratio 18.1 10.0-20.0 Serum Glucose 128 H 74-106 mg/dL Calcium Level 10.0 8.7-10.4 mg/dL Triglycerides Level 79 < 150 mg/dL Cholesterol Level 187 < 200 mg/dL LDL Cholesterol 123 H < 100 mg/dL HDL Cholesterol 53 40-59 mg/dL Assessment NSTEMI type I Hypertensive crisis Acute on newly diagnosed congestive heart failure (pending LVEF) Coronary artery disease with history of AL status post PCI with one NYDIA Respiratory alkalosis Diabetes insulin dependent Dyslipidemia Vitamin-D deficiency Mild cognitive impairment Plan/Recommendation EKG 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 Troponin positive in up trending ([phone]). Cardiac pain (previously documented angina). Discussed with Dr. Robledo, planning on completing left heart catheterization on 09/11/2025. Continue trending troponin until peak Ordered echocardiogram Currently on heparin and nitroglycerin drip On IV diuretics with furosemide 20 mg IV b.i.d.. On aspirin atorvastatin. After obtaining coronary anatomy we will add a P2Y12 inhibitor Optimize afterload and preload Goals of care discussed with patient for over 18 minutes: Full code status Discussed plan with Dr. Robledo, patient, (Fidelina) and nurses: Patient currently admitted to hospital on telemetry status. Patient will require coronary angiography, planning to completed on 09/11/2025. Explained risks and benefits to patient 2 times (he did not recall) and to , patient and agreed with plan. Pending echocardiogram. Continue with optimal medical therapy at this point. Patient has poor prognosis Plan discussed with: Patient, Spouse (Fidelina), Other (Nurses) NYHA Physical activity limitations: Class2(Slight)fatigue,sob Date of Service: Sep 11, 2025 Billing Provider: MRAY REZA Sr., MD Cardiology Common Codes: [id number] INP/OBS CARE (High) Cardiology Secondary Visit Cod: [id number] CARE PLAN 30 MINUTES THA MONTES RESIDENT Sep 11, 2025 09:00
[2025-09-11] MEDS: METOPROLOL TARTRATE 25 MG TAB PO ONE (09:04)
[2025-09-11] MEDS: ATORVASTATIN 20 MG TAB PO ONE (09:10)
[2025-09-11 09:29] LABS: Base Excess 0.0 mmol/L (-2.0-3.0)
[2025-09-11] MEDS: ERGOCALCIFEROL 50,000 UNIT(1.25MG) CAP PO SCH (10:13)
[2025-09-11] MEDS: CYANOCOBALAMIN 500 MCG TAB PO SCH (10:15)
[2025-09-11] MEDS: FUROSEMIDE 20 MG/2 ML VIAL IV ONE (10:30)
[2025-09-11 11:20] LABS: Hematocrit 40.6 % (41.0-53.0); Hemoglobin 13.8 g/dL (13.5-17.5); Mean Corpuscular Hemoglobin 31.8 pg (28.0-32.0); Mean Corpuscular Volume 93.6 fL (80.0-100.0); Nucleated Red Blood Cells % 0.1 %
[2025-09-11] MEDS: ACCU-CHEK COMFORT CURVE STRIP VI SCH (11:59)
[2025-09-11] MEDS: InsuLIN REG 1unit/0.01ml Soln (100units/ml) SC SCH (11:59)
[2025-09-11 12:25] LABS: Alanine Aminotransferase 17 U/L (7-40); Albumin 3.6 g/dL (3.2-4.8); Alkaline Phosphatase 93 U/L (46-116); Anion Gap 10 (5-15); BUN/Creatinine Ratio 28.1 (10.0-20.0); Bilirubin, Total 0.5 mg/dL (0.2-1.0); Blood Urea Nitrogen 25 mg/dL (9-23); Calcium 9.2 mg/dL (8.7-10.4); Carbon Dioxide 25 mmol/L (20-31); Chloride 106 mmol/L (98-107); Glucose 219 mg/dL (74-106); Magnesium 1.5 mg/dL (1.6-2.6); Potassium 3.8 mmol/L (3.5-5.1); Sodium 141 mmol/L (136-145); Total Protein 6.0 g/dL (5.7-8.2)
[2025-09-11 12:27] LABS: INR 1.07 (0.9-1.15); Partial Thromboplastin Time 52.7 SEC (24.5-34.5); Prothrombin Time 11.3 sec (9.3-11.8)
[2025-09-11 12:51] LABS: Lipase 18 U/L (12-53)
[2025-09-11] MEDS: IODIXANOL 320MG/ML 100ML BTL IV ONE (16:14)
[2025-09-11] MEDS: ANGIOMAX 250 MG VIAL IV ONE ×2 (17:25→19:04)
[2025-09-11] MEDS: VERAPAMIL 2.5MG/ML INJ 2ML VIAL IV ONE (17:25)
[2025-09-11] MEDS: LIDOCAINE 2%HCL (LOCAL ANESTH.) INJ 20ML MDV ONE (17:26)
[2025-09-11] MEDS: fentaNYL CITRATE 100 MCG/2 ML VL ONE (17:26)
[2025-09-11] MEDS: SODIUM CHL 0.9% 50 ML ONE ×2 (17:26→19:04)
[2025-09-11] MEDS: MIDAZOLAM HCL 2MG/2ML 2ml VIAL (1mg/ml) ONE (17:26)
[2025-09-11] MEDS: EPTIFIBATIDE INJ (2MG/ML) 10ML VIAL IV ONE (19:40)
[2025-09-11] MEDS: TICAGRELOR 90 MG TAB ONE (19:40)
[2025-09-11] MEDS: FUROSEMIDE 20 MG/2 ML VIAL IV SCH (20:55)
[2025-09-11] MEDS: MAGNESIUM SULFATE 1GM/100ML 100 ML IV SCH (20:55)
[2025-09-11] MEDS: POTASSIUM PHOSPHATE 22 MEQ in SODIUM CHL 0.9% 100 ML IV ONE (20:56)
--- NOTE | 2025-09-11 21:09 | DVHOP ---
DATE OF SURGERY: 09/11/2025 TECHNIQUE PERFORMED: * Emergency case. * Ultrasound of the right radial artery. * Management of conscious sedation. * Ultrasound guided insertion of a 6-American arterial line from the right radial artery. * Left heart cath. * Left ventriculogram. * [place] selective left and right coronary artery angiography. COMPLICATIONS: None. ASSISTANTS: Assisted by our staff over here is Lew Martinez Angie. INDICATIONS: Acute myocardial infarction. Troponin more than 4000, loss of R wave V1 to V4. DESCRIPTION OF PROCEDURE: Risks and benefits discussed. Counseling done. The patient was brought to laborer hoisting. The right radial area thoroughly cleaned with soap and Betadine. Ultrasound was done. IV Versed and fentanyl was given. A 6-American arterial line was placed. The patient got 100 mcg of nitroglycerin, 2.5 mg of verapamil, 2000 units of heparin. TIG catheter 5-American 4.0 was passed and left coronary angio was done. With the help of similar catheter, right coronary angiography was performed. With the help of similar catheter, left heart cath and the left ventriculogram was also done in the right anterior oblique view. Procedure completed. IMPRESSION: * Normal left main. * Left anterior descending artery 100% occluded at the mid region, DAYANA grade 0 flow to the diagonal artery arising from mid region of the left radial artery subtotal occlusion. * Circumferential artery is a large codominant artery and proximally narrowed 90% and the distal region of the circumflex artery also narrowed 90%. * The right coronary artery is 100% occluded at the proximal one-third region. Chronically occluded artery. PLAN OF ACTION: At this time, the patient was advised to undergo the intervention of the left anterior descending artery. Yao Robledo MD MP/TREVOR/KVNG TID: [id number] RECEIPT: [id number] LUDY
[2025-09-11 21:42] LABS: Prothrombin Time 42.3 sec (9.3-11.8)
[2025-09-11 21:56] LABS: INR 4.65 (0.9-1.15); Partial Thromboplastin Time 70.9 SEC (24.5-34.5)
[2025-09-11] MEDS: ATORVASTATIN 20 MG TAB PO SCH (21:56)
--- NOTE | 2025-09-11 22:03 | DVHSR ---
APPROVED REPORT EXAM: Two-dimensional and M-mode echocardiogram with Doppler and color Doppler. Blood Pressure: 141/78 mmHg INDICATION Chest Pain RISK FACTORS Height: 66, Weight: 242 DIMENSIONS LVDd4.7 (3.8-5.7cm)LA (2D)3.5 (1.9-4.0cm)Aortic Root4.2 (2.0-3.7cm) LVDs3.8 (2.5-4.0cm)LA (MM) (1.9-4.0cm)Aortic Cusp Exc2.1 (1.5-2.0cm) EF (%) 40.0 (55-70%)Rt. Atrium4.1 (1.9-4.0cm)Asc. Aorta cm Mitral Valve MitralMitral Stenosis E wave0.75m/sMV Mean GR.mmHg A wave1.05m/sMV Peak GR.mmHg E/A ratio0.72D MVAcm2 DECEL [id number] 1/2 Fhoo83rh IVRTmsDop MVA3.30cm2 Aortic Valve Aortic ValveAortic Stenosis V11.04m/Marvel Mean GR.3mmHg V21.06m/Marvel Peak GR.4mmHg LVOT Diameter2.3 (1.8-2.4cm)Doppler AVA4.07cm2 Other Information Technically limited study due to body habitus and patient laying flat on his back. Conclusion MAJOR HYPOKINESIS OF ENTIRE ANTERIOR ,APICAL AND SEPTAL WALL LV EF IS 35% AND IS MODERATELY REDUCED NORMAL VALVES NO EFFUSION
--- NOTE | 2025-09-11 23:50 | DVHINCON2 ---
Date Seen: Sep 11, 2025 Referring Physician Brady Montiel NP Reason for Consultation NSTEMI History of Present Illness This is a 80-year-old male with a PMH of Diabetes insulin-dependent, 2011 [place] status post PCI with one NYDIA, last stress test was 10 years ago which was within normal limits, mild cognitive impairment who presents to the ED with a complaint of retrosternal oppressive chest pain in Functional Class IV intensity 04/24 which has been constant since 09/10/2025 at 3:00 p.m., has not been relieved with oral nor IV medication (patient currently on nitroglycerin and heparin drip in emergency department). Had similar symptoms with previous infarct in 2010. Denies any other associated symptoms including dyspnea, palpitation, syncope and diaphoresis. Troponin 2601 > 4873. Chest x-ray shows diffuse interstitial opacities suggest edema or pneumonitis/bronchitis. Patient was admitted to the hospital. I am asked to consult on this patient. Family History: Patient reports no known family medical history. Allergies: Coded Allergies: NO KNOWN ALLERGIES (Unverified , 11/11/23) Home Meds Active Scripts Furosemide (Lasix) 20 Mg Tb, 1 TAB PO DAILY, #30 TAB 5 Refills Prov:TREY SANCHEZ MD 11/16/23 Reported Medications Insulin Regular (Human) (Humulin R) 100 Unit/Ml Inj, 40 UNIT IV BID, INJ 05/26/25 Gabapentin (Gabapentin) 100 Mg Cap, 1 CAP PO TID, #90 CAP 2 Refills 05/26/25 Cholecalciferol (VITAMIN D3) 2,000 Unit Tab, 1250 UNIT OR QWEEKLY, TAB 05/26/25 Donepezil Hydrochloride (DONEPEZIL HCL) 5 Mg Tab, 1 TAB PO DAILY, #30 TAB 5 Re fills 05/26/25 Hydrocodone-Acetaminophen (Hydrocodone Bitartrate/AC 5-325 mg) 1 Tab Tab, 1 TAB PO, TAB 05/26/25 Aspirin (Aspir-81) 81 Mg Tab, 81 MG PO DAILY, TAB 11/12/23 Insulin Glargine (Lantus) 100 Unit/Ml Inj, 40 SC BID, INJ 11/11/23 Metformin Hydrochloride (Metformin Hydrochloride) 500 Mg Tab, 1 TAB PO BID 11/11/23 Tamsulosin Hcl (Tamsulosin Hcl) 0.4 Mg Cap, 1 CAP PO DAILY 11/11/23 Empagliflozin (Jardiance) 25 Mg Tab, 1 TAB PO DAILY 11/11/23 Lisinopril (Lisinopril) 10 Mg Tab, 1 TAB PO DAILY 11/11/23 Atorvastatin Calcium (ATORVASTATIN CALCIUM) 40 Mg Tab, 1 TAB PO 11/11/23 Current Medications Current Medications Medications (Trade) Dose Ordered Sig/Wanda Route PRN Reason Start Time Stop Time Status Last Admin Heparin Sodium/ Dextrose 250 ml @ 10 mls/hr Q24H IV 09/11/25 06:00 09/11/25 06:15 Hydralazine HCl (Apresoline Injection) 10 mg Q6HP PRN IV SBP>150 09/11/25 05:00 09/11/25 05:50 Ondansetron HCl (Zofran) 4 mg Q4HP PRN IV NAUSEA / VOMITING 09/11/25 05:00 Nitroglycerin (Ntrostat Sublingual) 0.4 mg Q5MINP PRN SL FOR CHEST PAIN 09/11/25 05:00 09/11/25 06:36 Morphine Sulfate 2 mg Q30M PRN IV FOR CHEST PAIN 09/11/25 05:00 Nitroglycerin 250 ml @ 1.5 mls/hr Q24H IV 09/11/25 07:00 09/11/25 07:40 Aspirin 81 mg DAILY PO 09/12/25 10:00 Atorvastatin Calcium (Lipitor) 40 mg HS PO 09/11/25 22:00 Diagnostic Test (Pha) (Accu-Chek Comfort Curve T) 1 strip Q6HR 09/11/25 12:00 09/11/25 11:59 Insulin Human Regular (InsuLIN R) Q6HR SC 09/11/25 12:00 09/11/25 11:59 Dextrose 50 ml UD PRN IV Blood Sugar LESS THAN 60 09/11/25 09:00 Ergocalciferol (Vitamin D 50,000 Unit) 50,000 unit Q7D PO 09/11/25 09:45 09/11/25 10:13 Cyanocobalamin (Vitamin B-12) 1,000 mcg DAILY PO 09/11/25 10:00 09/11/25 10:15 Furosemide (Lasix Injection) 20 mg BIDD IV 09/11/25 18:00 Magnesium Sulfate/ Dextrose 100 ml @ 100 mls/hr Q1HR IV 09/11/25 15:00 09/11/25 16:59 DC Review of Systems Per HPI Vital Signs Vital Signs Date Time Temp Pulse Resp B/P (MAP) Pulse Ox O2 Delivery O2 Flow Rate FiO2 09/11/25 15:30 82 17 106/80 (89) 95 09/11/25 12:15 98.8 98.8 09/11/25 07:30 Room Air* 0 21 Physical Exam GENERAL: Alert and oriented x 3. No acute distress. EYES: PERRL, EOMI. Anicteric. HENT: Moist mucous membranes. LUNGS: Clear to auscultation bilaterally. CARDIOVASCULAR: Regular rate and rhythm. ABDOMEN: Soft, nontender and nondistended. EXTREMITIES: Bilateral infrapatellar pitting edema. NEUROLOGIC: No focal neurological deficits. SKIN: Warm, dry. Labs/Diagnostic Data Labs Test 09/11/25 11:55 09/11/25 11:09 09/11/25 09:15 09/11/25 01:51 Range/Units Prothrombin Time 11.3 9.3-11.8 sec Prothrombin Time INR 1.07 0.9-1.15 Activated Partial Thromboplast Time 52.7 H 24.5-34.5 SEC White Blood Count 10.3 4.4-10.8 10^3/uL Red Blood Count 4.34 L 4.5-5.90 10^6/uL Hemoglobin 13.8 13.5-17.5 g/dL Hematocrit 40.6 L 41.0-53.0 % Mean Corpuscular Volume 93.6 80.0-100.0 fL Mean Corpuscular Hemoglobin 31.8 28.0-32.0 pg Mean Corpuscular Hemoglobin Concent 34.0 32.0-36.0 g/dL Red Cell Distribution Width 15.0 H 11.8-14.3 % Platelet Count 133 L 140-450 10^3/uL Mean Platelet Volume 8.5 6.9-10.8 fL Neutrophils (%) (Auto) 72.3 37.0-80.0 % Lymphocytes (%) (Auto) 21.3 10.0-50.0 % Monocytes (%) (Auto) 5.8 0.0-12.0 % Eosinophils (%) (Auto) 0.3 0.0-7.0 % Basophils (%) (Auto) 0.3 0.0-2.0 % Neutrophils # (Auto) 7.5 1.6-8.6 10 ^3/uL Lymphocytes # (Auto) 2.2 0.4-5.4 10 ^3/uL Monocytes # (Auto) 0.6 0-1.3 10 ^3/uL Eosinophils # (Auto) 0 0-0.8 10 ^3/uL Basophils # (Auto) 0 0-0.2 10 ^3/uL Nucleated Red Blood Cells 0.1 % Sodium Level 141 136-145 mmol/L Potassium Level 3.8 3.5-5.1 mmol/L Chloride Level 106 98-107 mmol/L Carbon Dioxide Level 25 20-31 mmol/L Anion Gap 10 5-15 Blood Urea Nitrogen 25 H 9-23 mg/dL Creatinine 0.89 0.700-1.30 mg/dL Glomerular Filtration Rate Calc 88 >90 mL/min BUN/Creatinine Ratio 28.1 H 10.0-20.0 Serum Glucose 219 H 74-106 mg/dL Hemoglobin A1c 10.7 H <5.7 % A1C Lactic Acid Level 1.1 0.4-2.0 mmol/L Calcium Level 9.2 8.7-10.4 mg/dL Phosphorus Level 2.1 L 2.4-5.1 mg/dL Magnesium Level 1.5 L 1.6-2.6 mg/dL Total Bilirubin 0.5 0.2-1.0 mg/dL Aspartate Amino Transferase (AST) 75 H 13-40 U/L Alanine Aminotransferase (ALT) 17 7-40 U/L Alkaline Phosphatase 93 46-116 U/L Troponin I High Sensitivity 4873 *H </=54 ng/L C-Reactive Protein High Sensitivity 0.84 <1.0 mg/dL Total Protein 6.0 5.7-8.2 g/dL Albumin 3.6 3.2-4.8 g/dL Lipase 18 12-53 U/L Blood Gas Specimen Type Arterial Blood Gas Sample Site Right radial Blood Gas Patient Temperature 37.0 Arterial Blood Date Drawn [id number] Arterial Blood pH 7.458 H 7.350-7.450 Arterial Blood Partial Pressure CO2 33.5 L 35.0-48.0 mmHg Arterial Blood Partial Pressure O2 73.2 L 83.0-108.0 mmHg Arterial Blood HCO3 23.2 21.0-28.0 mmol/L Arterial Blood Oxygen Saturation 95.2 94.0-98.0 % Arterial Blood Base Excess 0.0 -2.0-3.0 mmol/L Arterial Blood Oxyhemoglobin 94.0 94.0-98.0 % Arterial Blood Carboxyhemoglobin 1.0 0.5-1.5 % Arterial Blood Methemoglobin 0.3 0.0-1.5 % Nic Test Yes Blood Gas Total Hemoglobin 14.10 13.5-17.5 g/dL Blood Gas Modality Room air FiO2 % 21.0 B-Type Natriuretic Peptide 81.09 0-100 pg/mL Triglycerides Level 79 < 150 mg/dL Cholesterol Level 187 < 200 mg/dL LDL Cholesterol 123 H < 100 mg/dL HDL Cholesterol 53 40-59 mg/dL Vitamin B12 Level 217 211-911 pg/mL Vitamin D 25-Hydroxy 24.1 L 30.0-100 ng/mL Thyroid Stimulating Hormone (TSH) 2.00 0.55-4.78 uIU/mL Assessment NSTEMI type I. Hypertensive crisis. Acute on newly diagnosed congestive heart failure (pending LVEF). Coronary artery disease with history of [place] status post PCI with one NYDIA. Respiratory alkalosis. Diabetes insulin dependent. Dyslipidemia. Vitamin-D deficiency. Mild cognitive impairment. Plan/Recommendation I agree with your ongoing assessment and care of plan. 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 Troponin positive in up trending ([phone]). Cardiac pain (previously documented angina). Planning on completing left heart catheterization on 09/11/2025. Continue trending troponin until peak Ordered echocardiogram Currently on heparin and nitroglycerin drip On IV diuretics with furosemide 20 mg IV b.i.d.. On aspirin atorvastatin. After obtaining coronary anatomy we will add a P2Y12 inhibitor Optimize afterload and preload Additional plan as per the hospital course. Plan discussed with: Patient NYHA Physical activity limitations: Class2(Slight)fatigue,sob Date of Service: Sep 11, 2025 Billing Provider: BOBBY FORDE MD Cardiology Common Codes: 06797-[id number] INP/OBS CARE (High), 01450-DHDTSVTD CARE 30-74 MIN, 15634-DIPGLQFS CARE-EACH +30MIN BOBBY FORDE MD Sep 11, 2025 17:49
[2025-09-12] VITALS (81 sets, daily range): BP systolic 92–158; BP diastolic 51–81; PULSE 68–94; RESP 9–30; TEMP 97.4–99.6; O2SAT 83–99
[2025-09-12 05:48] LABS: Hematocrit 42.4 % (41.0-53.0); Hemoglobin 14.6 g/dL (13.5-17.5); Mean Corpuscular Hemoglobin 32.0 pg (28.0-32.0); Mean Corpuscular Volume 93.2 fL (80.0-100.0); Nucleated Red Blood Cells % 0.1 %
[2025-09-12 05:59] LABS: INR 1.14 (0.9-1.15); Partial Thromboplastin Time 30.8 SEC (24.5-34.5); Prothrombin Time 11.9 sec (9.3-11.8)
[2025-09-12 06:04] LABS: Albumin 3.7 g/dL (3.2-4.8); Alkaline Phosphatase 96 U/L (46-116); Anion Gap 7 (5-15); BUN/Creatinine Ratio 14.7 (10.0-20.0); Bilirubin, Total 1.0 mg/dL (0.2-1.0); Blood Urea Nitrogen 14 mg/dL (9-23); Calcium 9.5 mg/dL (8.7-10.4); Carbon Dioxide 28 mmol/L (20-31); Chloride 104 mmol/L (98-107); Cholesterol 168 mg/dL (< 200); HDL Cholesterol 40 mg/dL (40-59); Magnesium 1.9 mg/dL (1.6-2.6); Sodium 139 mmol/L (136-145); Total Protein 6.5 g/dL (5.7-8.2); Triglycerides 104 mg/dL (< 150)
[2025-09-12 06:07] LABS: Alanine Aminotransferase 41 U/L (7-40); Glucose 224 mg/dL (74-106); Potassium 3.4 mmol/L (3.5-5.1)
--- NOTE | 2025-09-12 10:27 | DVHPN2 ---
Subjective Status post PTCA and angioplasty of the LAD yesterday Chest pains improved Changes from previous H/P or p: Changes Objective Vitals Vital Signs Date Time Temp Pulse Resp B/P (MAP) Pulse Ox O2 Delivery O2 Flow Rate FiO2 09/12/25 08:00 68 09/12/25 08:00 24 96 Room Air* 0 21 09/12/25 07:45 99.0 116/59 (78) 99.0 Intake/Output Intake and Output 09/12/25 07:00 Intake Total 985 ml Output Total 1415 ml Balance -430 ml Intake Oral 600 ml IV Total 385 ml Output Urine Total 1415 ml # Voids 5 General Appearance: Alert, Oriented X3, Cooperative Lungs: Clear to auscultation, Normal air movement Cardiovascular: Regular rate, Normal S1, Normal S2 Abdomen: Normal bowel sounds, Soft, No tenderness Extremities: No edema Medications Current Medications Medications Dose Ordered Sig/Wanda Route Start Time Stop Time Status Last Admin Dose Admin Hydralazine HCl 10 mg Q6HP PRN IV 09/11/25 05:00 09/11/25 05:50 10 MG Ondansetron HCl 4 mg Q4HP PRN IV 09/11/25 05:00 Nitroglycerin 0.4 mg Q5MINP PRN SL 09/11/25 05:00 09/11/25 06:36 0.4 MG Morphine Sulfate 2 mg Q30M PRN IV 09/11/25 05:00 Aspirin 81 mg DAILY PO 09/12/25 10:00 Atorvastatin Calcium 40 mg HS PO 09/11/25 22:00 09/11/25 21:56 40 MG Diagnostic Test (Pha) 1 strip Q6HR 09/11/25 12:00 09/12/25 06:00 1 STRIP Insulin Human Regular Q6HR SC 09/11/25 12:00 09/12/25 06:34 4 UNITS Dextrose 50 ml UD PRN IV 09/11/25 09:00 Ergocalciferol 50,000 unit Q7D PO 09/11/25 09:45 09/11/25 10:13 50,000 UNIT Cyanocobalamin 1,000 mcg DAILY PO 09/11/25 10:00 09/11/25 10:15 1,000 MCG Furosemide 20 mg BIDD IV 09/11/25 18:00 09/11/25 20:55 20 MG Laboratory Results Laboratory Tests 09/12/25 05:15 Chemistry Test 09/11/25 11:09 09/12/25 05:15 Albumin 3.6 g/dL (3.2-4.8) 3.7 g/dL (3.2-4.8) Calcium Level 9.2 mg/dL (8.7-10.4) 9.5 mg/dL (8.7-10.4) Magnesium Level 1.5 mg/dL (1.6-2.6) L 1.9 mg/dL (1.6-2.6) Phosphorus Level 2.1 mg/dL (2.4-5.1) L Total Protein 6.0 g/dL (5.7-8.2) 6.5 g/dL (5.7-8.2) Coagulation Test 09/11/25 11:55 09/11/25 20:38 09/12/25 05:15 Prothrombin Time 11.3 sec (9.3-11.8) 42.3 sec (9.3-11.8) H 11.9 sec (9.3-11.8) H Prothrombin Time INR 1.07 (0.9-1.15) 4.65 (0.9-1.15) *H 1.14 (0.9-1.15) Activated Partial Thromboplast Time 52.7 SEC (24.5-34.5) H 70.9 SEC (24.5-34.5) *H 30.8 SEC (24.5-34.5) Lipid panel Test 09/11/25 11:09 09/12/25 05:15 Lipase 18 U/L (12-53) Cholesterol Level 168 mg/dL (< 200) HDL Cholesterol 40 mg/dL (40-59) Triglycerides Level 104 mg/dL (< 150) LFT Test 09/11/25 11:09 09/12/25 05:15 Alanine Aminotransferase (ALT) 17 U/L (7-40) 41 U/L (7-40) H Alkaline Phosphatase 93 U/L (46-116) 96 U/L (46-116) Aspartate Amino Transferase (AST) 75 U/L (13-40) H 302 U/L (13-40) H Total Bilirubin 0.5 mg/dL (0.2-1.0) 1.0 mg/dL (0.2-1.0) HgA1c, TSH Test 09/11/25 11:09 09/12/25 05:15 Hemoglobin A1c 10.7 % A1C (<5.7) H Thyroid Stimulating Hormone (TSH) 0.86 uIU/mL (0.55-4.78) Assessment/Plan Assessment/Plan NSTEMI type 1 Hypertensive crisis Coronary artery disease status post PCI stenting of the LAD Type 2 diabetes Hypertension Mixed hyperlipidemia Vitamin-D deficiency Mild cognitive impairment Acute on chronic congestive heart failure with reduced ejection fraction Plan Aspirin Brilinta Lipitor Lasix 20 mg IV twice a day The patient will need a 2nd angioplasty which will be done early next week on Wednesday Continue to monitor the patient on telemetry closely Plan discussed with: Patient My Orders Orders - TREY SANCHEZ MD Procedure Category Date Status Time Mrsa Screen JUAREZ 09/12/25 Logged 00:17 Education - Smoking SIMONE 09/12/25 In Process Cessation 00:34 * Smoking Cessation CONS 09/12/25 Transmitted Consult 00:34 * Land Reclamation Specialist CONS 09/12/25 Transmitted Consult 00:34 Date of Service: Sep 12, 2025 Billing Provider: TREY SANCHEZ MD Common Visit Codes: NOT BILLABLE TREY SANCHEZ MD Sep 12, 2025 10:27
--- NOTE | 2025-09-12 10:39 | DVHPNRES ---
Progress Note Date Seen: Sep 12, 2025 Resident Creating Document: THA MONTES RESIDENT Medical Necessity Reason Pt with a Central, PICC or Fol: No Subjective Review of Systems René Mojica is a 80-year-old male patient who presents to the ED with chief complaint of retrosternal oppressive chest pain in Functional Class IV intensity 04/24 which has been constant since 09/10/2025 at 3:00 p.m., has not been relieved with oral nor IV medication (patient currently on nitroglycerin and heparin drip in emergency department). Had similar symptoms with previous infarct in 2010. Denies any other associated symptoms including dyspnea, palpitation, syncope and diaphoresis. Past medical history: Diabetes insulin-dependent, 2010 [facility] status post PCI with one NYDIA, last stress test was 10 years ago which was within normal limits, mild cognitive impairment. Surgical history: PCI in 2010 Family history: Noncontributory Social history: Lives in [place] with (next of kin). Smokes six cigars per year, drinks two beers a week. Denies current tobacco, alcohol and other drug abuse. Allergies: Denies Home medication: Aspirin, metformin, insulin Patient seen and examined at bedside. Currently has no new complaints, no retrosternal chest pain after procedure. Patient is currently status post coronary angiography with placement of stents in the LAD, rest of coronary anatomy shows chronically occluded RCA and significant stenosis in circumflex. Planning on stage procedure to RCA on Wednesday. Due to non reflow syndrome patient required tirofiban infusion. Currently on DAPT with aspirin and clopidogrel. Objective vital signs Vital Sign Date Time Temp Pulse Resp B/P (MAP) Pulse Ox O2 Delivery O2 Flow Rate FiO2 09/12/25 08:00 68 09/12/25 08:00 24 96 Room Air* 0 21 09/12/25 07:45 99.0 116/59 (78) 99.0 Total Intake and Output 09/11/25 09/11/25 09/12/25 15:00 23:00 07:00 Intake Total 80 ml 100 ml 805 ml Output Total 1415 ml Balance 80 ml 100 ml -610 ml medications Current Medications Medications Dose Ordered Sig/Wanda Route Start Time Stop Time Status Last Admin Dose Admin Hydralazine HCl 10 mg Q6HP PRN IV 09/11/25 05:00 09/11/25 05:50 10 MG Ondansetron HCl 4 mg Q4HP PRN IV 09/11/25 05:00 Nitroglycerin 0.4 mg Q5MINP PRN SL 09/11/25 05:00 09/11/25 06:36 0.4 MG Morphine Sulfate 2 mg Q30M PRN IV 09/11/25 05:00 Aspirin 81 mg DAILY PO 09/12/25 10:00 09/12/25 10:26 81 MG Atorvastatin Calcium 40 mg HS PO 09/11/25 22:00 Hold 09/11/25 21:56 40 MG Dextrose 50 ml UD PRN IV 09/11/25 09:00 Ergocalciferol 50,000 unit Q7D PO 09/11/25 09:45 09/11/25 10:13 50,000 UNIT Cyanocobalamin 1,000 mcg DAILY PO 09/11/25 10:00 09/12/25 10:26 1,000 MCG Furosemide 20 mg BIDD IV 09/11/25 18:00 09/11/25 20:55 20 MG Clopidogrel Bisulfate 75 mg DAILY PO 09/13/25 10:00 Diagnostic Test (Pha) 1 strip ACHS 09/12/25 11:30 Insulin Human Regular ACHS SC 09/12/25 11:30 Enoxaparin Sodium 40 mg DAILY SC 09/13/25 10:00 UNV Examination Patient lying in bed, in no acute distress General: Lucid, afebrile, mucosae are moist Cardiovascular: Normal S1 and S2. No murmurs, gallops or rubs Respiratory: Normal ventilation mechanics. Clear lung sounds. Abdomen: Soft, nontender, no organomegaly, normal bowel sounds MSK/skin: Mobilizes 4 limbs. Skin is dry and warm. Bilateral infrapatellar pitting edema. Neurological: Oriented in 2 spheres (not time). No motor no sensitive deficits. Pupils are isocoric and reactive laboratory and microbiology Laboratory Tests 09/12/25 05:15 Test 09/12/25 05:15 Range/Units Serum Glucose 224 H 74-106 mg/dL Problem List/Assessment/Plan Problem List/Assessment/Plan Assessment NSTEMI type I - s/p PCI to LAD Hypertensive crisis Acute on newly diagnosed systolic congestive heart failure (LVEF 35%) Coronary artery disease with history of [facility] status post PCI with one NYDIA Respiratory alkalosis No reflow phenomenon Transaminitis Diabetes insulin dependent Dyslipidemia Vitamin-D deficiency Mild cognitive impairment Plan/Recommendation EKG 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 Troponin positive in up trending ([phone]). Cardiac pain (previously documented angina). Completed LHC which showed multi-vessel disease (occluded proximal LAD, chronically occluded RCA and severe stenosis and circumflex), completed PCI to LAD. Due to no reflow phenomena required Tirofiban infusion. Planning on stage procedure to RCA for Wednesday Continue trending troponin until peak Echocardiogram: Major hypokinesis in anterior apical and septal wall, LVEF 35% Optimize GDM T as clinically tolerated. Required heparin and nitroglycerin drip on admission, currently off On IV diuretics with furosemide 20 mg IV b.i.d.. On aspirin and clopidogrel, hold atorvastatin due to transaminitis. Optimize afterload and preload Goals of care discussed with patient for over 18 minutes: Full code status Discussed plan with Dr. Robledo, patient, (Fidelina) and nurses: Currently DAVIS. Completed coronary angiography on 09/11/2025 with PCI to LAD, planning on stage procedure to RCA for Wednesday09/17/2025. On IV diuretics, DAPT, pending optimize his GDM T and hold atorvastatin due to transaminitis. Patient has poor prognosis Plan discussed with: Patient, Spouse (Michaela), Other (Nurses) My Orders My Orders Orders - THA MONTES RESIDENT Procedure Category Date Status Time Npo Except For SIMONE 09/12/25 In Process Medications 00:01 Obtain Consent For: ORDERS 09/11/25 Transmitted 13:46 Hold Enoxaparin Day SIMONE 09/12/25 In Process Of Procedu 00:01 D/C Tlc SIMONE 09/11/25 In Process 13:46 Shave Both Groins SIMONE 09/11/25 In Process 13:46 Provide Education SIMONE 09/11/25 In Process Materials 13:46 Cl Left Heart Cath CL 09/11/25 Logged 13:46 Comprehensive LAB 09/13/25 Verified Metabolic Panel 04:00 Obtain Consent For SIMONE 09/11/25 In Process Anesthesia 13:46 Clopidogrel Bisulfate PHA 09/13/25 In Process (Plavix) 10:00 Enoxaparin Sodium PHA 09/13/25 Logged (Lovenox) 10:00 Enoxaparin Sodium PHA 09/12/25 Logged (Lovenox) 10:45 Visit Coding Cardiology RES Date of Service: Sep 12, 2025 Billing Provider: MARY REZA Sr., MD Cardiology Common Codes: 20037-[id number] HOSP CARE(High Cardiology Secondary Visit Cod: [id number] CARE PLAN 30 MINUTES THA MONTES RESIDENT Sep 12, 2025 10:39
[2025-09-12] MEDS: POTASSIUM CHL 20 Meq TABLET PO ONE (12:41)
[2025-09-12] MEDS: CLOPIDOGREL BISULFATE 75 MG TAB PO ONE (12:43)
[2025-09-12] MEDS: ACCU-CHEK COMFORT CURVE STRIP VI SCH (12:43)
[2025-09-12] MEDS: ENOXAPARIN SOD 40 MG/0.4 ML SYRINGE SC ONE (12:53)
[2025-09-12] MEDS: InsuLIN REG 1unit/0.01ml Soln (100units/ml) SC SCH (12:54)
--- NOTE | 2025-09-12 12:57 | DVHOP ---
DATE OF SURGERY: 09/11/2025 TECHNIQUE PERFORMED: * Emergency case. * Ultrasound of the right radial artery. * Management of conscious sedation. * Ultrasound-guided insertion of a 6-Gu[place] arterial line from the right radial artery. * Left coronary angiography. * Mechanical thrombectomy of the left anterior artery with Penumbra catheter. * Balloon angioplasty of the mid region of the left anterior artery with 2.0 x 30 mm length semi-compliant balloon. * Balloon angioplasty of the mid and distal region of the left anterior artery with the help of a similar balloon 2.0 x 30 mm length semi-compliant balloon. * Stenting and angioplasty of the mid region of the left anterior artery with 2.75 x 30 mm length Rob [place] stent of g2One and mid stent size up to more than 3.0 mm in size. * Intravascular ultrasound of the left main and also of the left anterior descending artery stented region. * Balloon angioplasty of the left anterior descending artery stent with 3.5 x 20 mm in length noncompliant balloon, mid artery size up to 3.7 mm in size. * Intracoronary administration of the Integrilin, total of 10 mL of bolus. COMPLICATIONS: None. ASSISTANTS: Assisted by Seun Martinez. INDICATIONS: Acute myocardial infarction, anterior wall myocardial infarction. Troponin more than 4000, acute occlusion of the mid region of the left anterior descending artery. DESCRIPTION OF PROCEDURE: Risks and benefits discussed. Counseling done. The patient was brought to the cath lab technologist. The right thoroughly cleaned with soap and Betadine. A 6-[place] arterial line also has been placed in a standard manner. We put XB 3.0 catheter, unaable to engage it. Now we put a JL3.0 6-Guatemalan guiding catheter, able to engage and subsequently put a Whisper MS wire, able to pass smoothly. AngioMax has also already been started. Subsequently, we put a Penumbra catheter. Again, a thrombectomy had been done. The clot had been removed and we have also seen the clot in the mid region of the left anterior descending artery. Subsequently, now we put a balloon 2.0 x 30 mm length, balloon angioplasty of the mid and distal region of the left anterior descending artery was done with the similar balloon because of the heavy burden of the clot and subtotal occlusion of the artery. Subsequently, now we put the stent 2.75 x 30 mm length stent and deployed in mid region of the right radial artery, was taken up to 99 mm. Stent size was increased more than 3.0 mm in size, inflated for 31 seconds and subsequently for 21 seconds inflated balloon had been discontinued and then subsequently now on intravascular ultrasound, we found gap between stent and media. So, we put 3.5 x 20 mm noncompliant balloon, proximal in mid and distal region of the stent, mid stent size to 3.7 mm in size and subsequently now we gave intracoronary Integrilin and angiography was done with the help of. There was no complication. The patient did very well. Balloon, wire, catheter all had been discontinued. CONCLUSION: Prior to performing the procedure; 1. The left anterior artery in the mid region was 100% acutely occluded, DAYANA grade 0 flow. 2. The post procedure DAYANA grade 3 flow, 100% widely open, residual stenosis 0%. 3. The most distal region of the left anterior descending in the apical region has got 90% narrowing. We does not need intervention. PLAN OF ACTION: Advised for aspirin, Brilinta, beta-zuri, cholesterol reducing medicine. At a later date, the patient needs to come back and we will do the intervention on the left circumflex artery. Yao Robledo MD MP/LEIGH/KVNG/ELLIOTT TID: [id number] RECEIPT: [id number]
--- NOTE | 2025-09-12 23:46 | DVHPN2 ---
Consult Progress Note Date Seen: Sep 12, 2025 Subjective Other Systems: Patient was seen and evaluated in follow up. Currently has no new complaints, no retrosternal chest pain after procedure. Patient is currently status post coronary angiography with placement of stents in the LAD, rest of coronary anatomy shows chronically occluded RCA and significant stenosis in circumflex. Planning on stage procedure to RCA on Wednesday. Due to non reflow syndrome patient required tirofiban infusion. Currently on DAPT with aspirin and clopidogrel. K 3.4, GLUC 357, AST 302, ALT 41. Objective vital signs Vital Sign Date Time Temp Pulse Resp B/P (MAP) Pulse Ox O2 Delivery O2 Flow Rate FiO2 09/12/25 15:45 98.3 83 29 117/74 (88) 94 98.3 09/12/25 08:00 Room Air* 0 21 Total Intake and Output 09/11/25 09/11/25 09/12/25 15:00 23:00 07:00 Intake Total 80 ml 100 ml 805 ml Output Total 1415 ml Balance 80 ml 100 ml -610 ml medications Current Medications Medications Dose Ordered Sig/Wanda Route Start Time Stop Time Status Last Admin Dose Admin Hydralazine HCl 10 mg Q6HP PRN IV 09/11/25 05:00 09/11/25 05:50 10 MG Ondansetron HCl 4 mg Q4HP PRN IV 09/11/25 05:00 Nitroglycerin 0.4 mg Q5MINP PRN SL 09/11/25 05:00 09/11/25 06:36 0.4 MG Morphine Sulfate 2 mg Q30M PRN IV 09/11/25 05:00 Aspirin 81 mg DAILY PO 09/12/25 10:00 09/12/25 10:26 81 MG Atorvastatin Calcium 40 mg HS PO 09/11/25 22:00 Hold 09/11/25 21:56 40 MG Dextrose 50 ml UD PRN IV 09/11/25 09:00 Ergocalciferol 50,000 unit Q7D PO 09/11/25 09:45 09/11/25 10:13 50,000 UNIT Cyanocobalamin 1,000 mcg DAILY PO 09/11/25 10:00 09/12/25 10:26 1,000 MCG Furosemide 20 mg BIDD IV 09/11/25 18:00 09/11/25 20:55 20 MG Clopidogrel Bisulfate 75 mg DAILY PO 09/13/25 10:00 Diagnostic Test (Pha) 1 strip ACHS 09/12/25 11:30 09/12/25 12:43 1 STRIP Insulin Human Regular ACHS SC 09/12/25 11:30 09/12/25 12:54 10 UNITS Enoxaparin Sodium 40 mg DAILY SC 09/13/25 10:00 Examination: GENERAL:Normal, HEENT:Normal, NECK:Normal, LUNGS:Normal, CVS:Normal, ABDOMEN:Normal, MSK:Abnormal (Bilateral infrapatellar pitting edema.), SKIN:Normal, NEURO:Normal laboratory and microbiology Laboratory Tests 09/12/25 05:15 Test 09/12/25 05:15 Range/Units Serum Glucose 224 H 74-106 mg/dL Problem List/Assessment/Plan Problem List/Assessment/Plan Problem list NSTEMI type I - s/p PCI to LAD. Hypertensive crisis. Acute on newly diagnosed systolic congestive heart failure (LVEF 35%). Coronary artery disease with history of OR status post PCI with one NYDIA. Respiratory alkalosis. No reflow phenomenon. Transaminitis. Diabetes insulin dependent. Dyslipidemia. Vitamin-D deficiency. Mild cognitive impairment. Plan/Recommendation Continued all current supportive medical care. 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 Troponin positive in up trending ([phone]). Cardiac pain (previously documented angina). Completed C which showed multi-vessel disease (occluded proximal LAD, chronically occluded RCA and severe stenosis and circumflex), completed PCI to LAD. Due to no reflow phenomena required Tirofiban infusion. Planning on stage procedure to RCA for Wednesday. Continue trending troponin until peak. Echocardiogram: Major hypokinesis in anterior apical and septal wall, LVEF 35%. Optimize GDM T as clinically tolerated. Required heparin and nitroglycerin drip on admission, currently off. On IV diuretics with furosemide 20 mg IV b.i.d.. On aspirin and clopidogrel, hold atorvastatin due to transaminitis. Optimize afterload and preload. Additional plan as per the hospital course. Plan discussed with: Patient Date of Service: Sep 12, 2025 Billing Provider: BOBBY FORDE MD Cardiology Common Codes: [id number] CARE 30-74 MIN BOBBY FORDE MD Sep 12, 2025 16:43
[2025-09-13] VITALS (11 sets, daily range): BP systolic 100–135; BP diastolic 60–109; PULSE 65–93; RESP 14–26; TEMP 97.8–99.3; O2SAT 94–98
[2025-09-13 04:05] LABS: COVID19 ANTIGEN SOFIA FIA NEGATIVE (NEGATIVE)
[2025-09-13 07:46] LABS: Benzodiazephine Screen, Urine Pos (NEGATIVE)
[2025-09-13 07:53] LABS: Amphetamine Screen, Urine Neg (NEGATIVE); Barbiturate Scree,Urine Neg (NEGATIVE); Cannabinoid Screen, Urine Neg (NEGATIVE); Cocaine Screen, Urine Neg (NEGATIVE); Opiate Scree,Urine Neg (NEGATIVE); Phencyclidine Screen, Urine Neg (NEGATIVE); Urine Protein, UAD Negative (Negative); Urine WBC Clumps PRESENT /hpf (None Seen)
[2025-09-13] MEDS: ENOXAPARIN SOD 40 MG/0.4 ML SYRINGE SC SCH (08:51)
[2025-09-13] MEDS: CLOPIDOGREL BISULFATE 75 MG TAB PO SCH (08:52)
[2025-09-13 10:02] LABS: Hematocrit 43.1 % (41.0-53.0); Hemoglobin 14.7 g/dL (13.5-17.5); Mean Corpuscular Hemoglobin 32.2 pg (28.0-32.0); Mean Corpuscular Volume 94.3 fL (80.0-100.0); Nucleated Red Blood Cells % 0.2 %
[2025-09-13 10:19] LABS: Alanine Aminotransferase 26 U/L (7-40); Albumin 3.7 g/dL (3.2-4.8); Alkaline Phosphatase 89 U/L (46-116); Anion Gap 8 (5-15); BUN/Creatinine Ratio 15.8 (10.0-20.0); Blood Urea Nitrogen 16 mg/dL (9-23); Calcium 9.7 mg/dL (8.7-10.4); Carbon Dioxide 28 mmol/L (20-31); Chloride 102 mmol/L (98-107); Magnesium 1.7 mg/dL (1.6-2.6); Potassium 3.6 mmol/L (3.5-5.1); Sodium 138 mmol/L (136-145); Total Protein 6.6 g/dL (5.7-8.2)
[2025-09-13 10:21] LABS: Bilirubin, Total 0.9 mg/dL (0.2-1.0)
[2025-09-13 10:24] LABS: Glucose 272 mg/dL (74-106)
[2025-09-13] MEDS: METOPROLOL SUCCINATE XL 50 MG TAB PO SCH (12:20)
[2025-09-13] MEDS: EMPAGLIFLOZIN 10 MG TAB PO SCH (12:20)
[2025-09-13] MEDS: LOSARTAN POTASSIUM 25 MG TAB PO SCH (12:21)
[2025-09-13] MEDS: FUROSEMIDE 40 MG TAB PO SCH (12:21)
[2025-09-13] MEDS: INSULIN LANTUS (GLARGINE) 1 /0.01ml (100units/ml) SC ONE (12:23)
[2025-09-13] MEDS: INSULIN LANTUS (GLARGINE) 1 /0.01ml (100units/ml) SC SCH (21:14)
[2025-09-14] VITALS (9 sets, daily range): BP systolic 102–139; BP diastolic 57–83; PULSE 61–88; RESP 16–20; TEMP 97.8–98.6; O2SAT 93–97
--- NOTE | 2025-09-14 11:05 | DVHPNRES ---
Progress Note Date Seen: Sep 13, 2025 Resident Creating Document: THA MONTES RESIDENT Medical Necessity Reason Pt with a Central, PICC or Fol: No Subjective Review of Systems René Mojica is a 80-year-old male patient who presents to the ED with chief complaint of retrosternal oppressive chest pain in Functional Class IV intensity / which has been constant since 09/10/2025 at 3:00 p.m., has not been relieved with oral nor IV medication (patient currently on nitroglycerin and heparin drip in emergency department). Had similar symptoms with previous infarct in 2010. Denies any other associated symptoms including dyspnea, palpitation, syncope and diaphoresis. Past medical history: Diabetes insulin-dependent, 2010 [place] status post PCI with one NYDIA, last stress test was 10 years ago which was within normal limits, mild cognitive impairment. Surgical history: PCI in 2010 Family history: Noncontributory Social history: Lives in [place] with (next of kin). Smokes six cigars per year, drinks two beers a week. Denies current tobacco, alcohol and other drug abuse. Allergies: Denies Home medication: Aspirin, metformin, insulin Patient seen and examined at bedside. Currently has no new complaints, no retrosternal chest pain after procedure. Patient currently status post left heart catheterization with PCI with stent placement in LAD. Pending PCI to RCA on Wednesday. Optimize GDM T as tolerated Objective vital signs Vital Sign Date Time Temp Pulse Resp B/P (MAP) Pulse Ox O2 Delivery O2 Flow Rate FiO2 09/13/25 09:00 97.8 82 18 125/72 (89) 96 97.8 09/12/25 20:00 Room Air* 0 21 Total Intake and Output 09/12/25 09/12/25 09/13/25 15:00 23:00 07:00 Intake Total 480 ml 677 ml 0 ml Output Total 850 ml Balance 480 ml -173 ml 0 ml medications Current Medications Medications Dose Ordered Sig/Wanda Route Start Time Stop Time Status Last Admin Dose Admin Hydralazine HCl 10 mg Q6HP PRN IV 09/11/25 05:00 09/11/25 05:50 10 MG Ondansetron HCl 4 mg Q4HP PRN IV 09/11/25 05:00 Nitroglycerin 0.4 mg Q5MINP PRN SL 09/11/25 05:00 09/11/25 06:36 0.4 MG Morphine Sulfate 2 mg Q30M PRN IV 09/11/25 05:00 Aspirin 81 mg DAILY PO 09/12/25 10:00 09/13/25 08:52 81 MG Atorvastatin Calcium 40 mg HS PO 09/11/25 22:00 Hold 09/11/25 21:56 40 MG Dextrose 50 ml UD PRN IV 09/11/25 09:00 Ergocalciferol 50,000 unit Q7D PO 09/11/25 09:45 09/11/25 10:13 50,000 UNIT Cyanocobalamin 1,000 mcg DAILY PO 09/11/25 10:00 09/13/25 08:52 1,000 MCG Clopidogrel Bisulfate 75 mg DAILY PO 09/13/25 10:00 09/13/25 08:52 75 MG Diagnostic Test (Pha) 1 strip ACHS 09/12/25 11:30 09/13/25 06:46 1 STRIP Insulin Human Regular ACHS SC 09/12/25 11:30 09/13/25 06:44 4 UNITS Enoxaparin Sodium 40 mg DAILY SC 09/13/25 10:00 09/13/25 08:51 40 MG Furosemide 40 mg DAILY PO 09/13/25 10:00 UNV Losartan Potassium 25 mg DAILY PO 09/13/25 10:00 UNV Empaglifozin 10 mg DAILY PO 09/13/25 10:00 UNV Metoprolol Succinate 25 mg DAILY PO 09/13/25 10:00 UNV Examination Patient lying in bed, in no acute distress General: Lucid, afebrile, mucosae are moist Cardiovascular: Normal S1 and S2. No murmurs, gallops or rubs Respiratory: Normal ventilation mechanics. Clear lung sounds. Abdomen: Soft, nontender, no organomegaly, normal bowel sounds MSK/skin: Mobilizes 4 limbs. Skin is dry and warm. Bilateral infrapatellar pitting edema. Neurological: Oriented in 2 spheres (not time). No motor no sensitive deficits. 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 Troponin positive in up trending ([phone]). Cardiac pain (previously documented angina). Completed LHC which showed multi-vessel disease (occluded proximal LAD, chronically occluded RCA and severe stenosis and circumflex), completed PCI to LAD. Due to no reflow phenomena required Tirofiban infusion. Planning on stage procedure to RCA for Wednesday Continue trending troponin until peak Echocardiogram: Major hypokinesis in anterior apical and septal wall, LVEF 35% Optimize GDM T as clinically tolerated. Required heparin and nitroglycerin drip on admission, currently off On IV diuretics with furosemide 20 mg PO daily.. On aspirin and clopidogrel and atorvastatin Optimize afterload and preload Goals of care discussed with patient for over 18 minutes: Full code status Discussed plan with Dr. Forde, patient and nurses: Currently on Telemetry status. Completed coronary angiography on 09/11/2025 with PCI to LAD, planning on stage procedure to RCA for Wednesday09/17/2025. On PO diuretics, DAPT, statins, optimizing GDM T as tolerated. Patient has poor prognosis Plan discussed with: Patient, Other (Nurses) My Orders My Orders Orders - THA MONTES RESIDENT Procedure Category Date Status Time Clopidogrel Bisulfate PHA 09/13/25 In Process (Plavix) 10:00 Enoxaparin Sodium PHA 09/13/25 In Process (Lovenox) 10:00 Complete Blood Count LAB 09/13/25 Logged 09:36 Comprehensive LAB 09/13/25 Logged Metabolic Panel 09:36 Magnesium LAB 09/13/25 Logged 09:36 Furosemide Tablet PHA 09/13/25 Transmitted (Lasix Tablet) 10:00 Losartan Tablet PHA 09/13/25 Transmitted (Cozaar Tablet) 10:00 Empagliflozin PHA 09/13/25 Transmitted (Jardiance) 10:00 Metoprolol Xl PHA 09/13/25 Transmitted Succinate (Toprol Xl) 10:00 Visit Coding Cardiology RES Date of Service: Sep 13, 2025 Billing Provider: BOBBY FORDE MD Cardiology Common Codes: [id number] HOSP CARE(High Cardiology Secondary Visit Cod: [id number] CARE PLAN 30 MINUTES THA MONTES RESIDENT Sep 13, 2025 09:42 BOBBY FORDE MD Sep 14, 2025 00:58
--- NOTE | 2025-09-14 11:06 | DVHPN2 ---
Subjective Doing well No chest pain Awaiting his 2nd angioplasty on Wednesday Complains of generalized weakness Changes from previous H/P or p: Changes Objective Vitals Vital Signs Date Time Temp Pulse Resp B/P (MAP) Pulse Ox O2 Delivery O2 Flow Rate FiO2 09/13/25 09:00 97.8 82 18 125/72 (89) 96 97.8 09/12/25 20:00 Room Air* 0 21 Intake/Output Intake and Output 09/13/25 07:00 Intake Total 1157 ml Output Total 850 ml Balance 307 ml Intake Oral 1157 ml Output Urine Total 850 ml General Appearance: Alert, Oriented X3, Cooperative Lungs: Clear to auscultation, Normal air movement Cardiovascular: Regular rate, Normal S1, Normal S2 Abdomen: Normal bowel sounds, Soft, No tenderness Extremities: No edema Medications Current Medications Medications Dose Ordered Sig/Wanda Route Start Time Stop Time Status Last Admin Dose Admin Hydralazine HCl 10 mg Q6HP PRN IV 09/11/25 05:00 09/11/25 05:50 10 MG Ondansetron HCl 4 mg Q4HP PRN IV 09/11/25 05:00 Nitroglycerin 0.4 mg Q5MINP PRN SL 09/11/25 05:00 09/11/25 06:36 0.4 MG Morphine Sulfate 2 mg Q30M PRN IV 09/11/25 05:00 Aspirin 81 mg DAILY PO 09/12/25 10:00 09/13/25 08:52 81 MG Atorvastatin Calcium 40 mg HS PO 09/11/25 22:00 Hold 09/11/25 21:56 40 MG Dextrose 50 ml UD PRN IV 09/11/25 09:00 Ergocalciferol 50,000 unit Q7D PO 09/11/25 09:45 09/11/25 10:13 50,000 UNIT Cyanocobalamin 1,000 mcg DAILY PO 09/11/25 10:00 09/13/25 08:52 1,000 MCG Clopidogrel Bisulfate 75 mg DAILY PO 09/13/25 10:00 09/13/25 08:52 75 MG Diagnostic Test (Pha) 1 strip ACHS 09/12/25 11:30 09/13/25 06:46 1 STRIP Insulin Human Regular ACHS SC 09/12/25 11:30 09/13/25 06:44 4 UNITS Enoxaparin Sodium 40 mg DAILY SC 09/13/25 10:00 09/13/25 08:51 40 MG Furosemide 40 mg DAILY PO 09/13/25 10:00 UNV Losartan Potassium 25 mg DAILY PO 09/13/25 10:00 UNV Empaglifozin 10 mg DAILY PO 09/13/25 10:00 UNV Metoprolol Succinate 25 mg DAILY PO 09/13/25 10:00 UNV Laboratory Results Laboratory Tests 09/13/25 09:27 Chemistry Test 09/13/25 09:27 Albumin Pending Calcium Level Pending Magnesium Level Pending Total Protein Pending LFT Test 09/13/25 09:27 Alanine Aminotransferase (ALT) Pending Alkaline Phosphatase Pending Aspartate Amino Transferase (AST) Pending Total Bilirubin Pending Urinalysis Test 09/13/25 07:00 Urine Color Light-yellow (Yellow) Urine Clarity Cloudy (Clear) H Urine pH 5.5 (5.0-9.0) Urine Specific Crawford 1.017 (1.001-1.035) Urine Protein Negative (Negative) Urine Ketones Negative (Negative) Urine Blood Negative /uL (Negative) Urine Nitrite Negative (Negative) Urine Bilirubin Negative (Negative) Urine Urobilinogen Normal mg/dL (Negative) Urine Leukocyte Esterase 3+ /uL (Negative) Urine RBC 2 /hpf (0 - 3) Urine WBC Clumps Present /hpf (None Seen) Urine Microscopic WBC 154 /HPF (0-3) H Urine Squamous Epithelial Cells None seen /hpf (<5) Urine Bacteria Many /hpf (None Seen) H Urine Glucose 4+ mg/dL (Normal) H Assessment/Plan Assessment/Plan NSTEMI type 1 Hypertensive crisis Coronary artery disease status post PCI stenting of the LAD Type 2 diabetes Hypertension Mixed hyperlipidemia Vitamin-D deficiency Mild cognitive impairment Acute on chronic congestive heart failure with reduced ejection fraction Plan Aspirin Brilinta Lipitor Lasix 20 mg IV twice a day The patient will need a 2nd angioplasty which will be done early next week on Wednesday Continue to monitor the patient on telemetry closely 09/13/2025: Continue aspirin and Plavix Lasix Restart Lantus Physical therapy evaluation Monitor closely Plan discussed with: Patient My Orders Orders - TREY SANCHEZ MD Procedure Category Date Status Time Glucose Blood PHA 09/12/25 In Process (Accu-Chek Comfort 11:30 Insulin R (Human) PHA 09/12/25 In Process (Insulin R) 11:30 Magnesium LAB 09/13/25 In Process 04:00 Transfer Orders XFER 09/12/25 Transmitted 18:01 Comprehensive LAB 09/13/25 In Process Metabolic Panel 04:00 Pt Request For Service PT 09/13/25 Verified 10:12 Date of Service: Sep 13, 2025 Billing Provider: TREY SANCHEZ MD Common Visit Codes: NOT BILLABLE TREY SANCHEZ MD Sep 13, 2025 10:16
--- NOTE | 2025-09-14 11:31 | DVHPN2 ---
Progress Note - Dictate Date Seen: Sep 13, 2025 Medical Necessity Reason Pt with a Central, PICC or Fol: No Subjective Patient was seen and evaluated in follow up. Currently has no new complaints, no retrosternal chest pain after procedure. Patient currently status post left heart catheterization with PCI with stent placement in LAD. Pending PCI to RCA on Wednesday. Optimize GDM T as tolerated Telemetry reviewed. vital signs Vital Sign Date Time Temp Pulse Resp B/P (MAP) Pulse Ox O2 Delivery O2 Flow Rate FiO2 09/13/25 09:00 97.8 82 18 125/72 (89) 96 97.8 09/13/25 08:05 Room Air* 0 21 Total Intake and Output 09/12/25 09/12/25 09/13/25 15:00 23:00 07:00 Intake Total 480 ml 677 ml 0 ml Output Total 850 ml Balance 480 ml -173 ml 0 ml medications Current Medications Medications Dose Ordered Sig/Wanda Route Start Time Stop Time Status Last Admin Dose Admin Hydralazine HCl 10 mg Q6HP PRN IV 09/11/25 05:00 09/11/25 05:50 10 MG Ondansetron HCl 4 mg Q4HP PRN IV 09/11/25 05:00 Nitroglycerin 0.4 mg Q5MINP PRN SL 09/11/25 05:00 09/11/25 06:36 0.4 MG Morphine Sulfate 2 mg Q30M PRN IV 09/11/25 05:00 Aspirin 81 mg DAILY PO 09/12/25 10:00 09/13/25 08:52 81 MG Atorvastatin Calcium 40 mg HS PO 09/11/25 22:00 Hold 09/11/25 21:56 40 MG Dextrose 50 ml UD PRN IV 09/11/25 09:00 Ergocalciferol 50,000 unit Q7D PO 09/11/25 09:45 09/11/25 10:13 50,000 UNIT Cyanocobalamin 1,000 mcg DAILY PO 09/11/25 10:00 09/13/25 08:52 1,000 MCG Clopidogrel Bisulfate 75 mg DAILY PO 09/13/25 10:00 09/13/25 08:52 75 MG Diagnostic Test (Pha) 1 strip ACHS 09/12/25 11:30 09/13/25 11:30 1 STRIP Insulin Human Regular ACHS SC 09/12/25 11:30 09/13/25 06:44 4 UNITS Enoxaparin Sodium 40 mg DAILY SC 09/13/25 10:00 09/13/25 08:51 40 MG Furosemide 40 mg DAILY PO 09/13/25 10:00 Losartan Potassium 25 mg DAILY PO 09/13/25 10:00 Empaglifozin 10 mg DAILY PO 09/13/25 10:00 Metoprolol Succinate 25 mg DAILY PO 09/13/25 10:00 Insulin Glargine 10 units BID@0700,2200 OK 09/13/25 22:00 objective GENERAL: Alert and oriented x 3. No acute distress. EYES: PERRL, EOMI. Anicteric. HENT: Moist mucous membranes. LUNGS: Clear to auscultation bilaterally. CARDIOVASCULAR: Regular rate and rhythm. ABDOMEN: Soft, nontender and nondistended. EXTREMITIES: Bilateral infrapatellar pitting edema. NEUROLOGIC: No focal neurological deficits. SKIN: Warm, dry. laboratory and microbiology Laboratory Tests 09/13/25 09:27 Test 09/13/25 09:27 Range/Units Serum Glucose 272 H 74-106 mg/dL Problem List NSTEMI type I - s/p PCI to LAD. Hypertensive crisis. Acute on newly diagnosed systolic congestive heart failure (LVEF 35%). Coronary artery disease with history of [place] status post PCI with one NYDIA . Respiratory alkalosis. No reflow phenomenon. Transaminitis - resolved. Diabetes insulin dependent. Dyslipidemia. Vitamin-D deficiency. Mild cognitive impairment. Assessment/Plan Continued all current supportive medical care. Patient has been seen by Edie Hickey Resident on my behalf, we have discussed the plan with the patient. 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 Troponin positive in up trending ([phone]). Cardiac pain (previously documented angina). Completed C which showed multi-vessel disease (occluded proximal LAD, chronically occluded RCA and severe stenosis and circumflex), completed PCI to LAD. Due to no reflow phenomena required Tirofiban infusion. Planning on stage procedure to RCA for Wednesday. Continue trending troponin until peak. Echocardiogram: Major hypokinesis in anterior apical and septal wall, LVEF 35%. Optimize GDM T as clinically tolerated. Required heparin and nitroglycerin drip on admission, currently off. On IV diuretics with furosemide 20 mg PO daily. On aspirin and clopidogrel and atorvastatin. Optimize afterload and preload. Additional plan as per the hospital course. Date of Service: Sep 13, 2025 Billing Provider: BOBBY FORDE MD Cardiology Common Codes: [id number] HOSP CARE(High Cardiology Secondary Visit Cod: [id number] CARE PLAN 30 MINUTES Plan discussed with: Patient BOBBY FORDE MD Sep 13, 2025 12:17
--- NOTE | 2025-09-14 11:41 | DVHPNRES ---
Progress Note Date Seen: Sep 14, 2025 Resident Creating Document: THA MONTES RESIDENT Medical Necessity Reason Pt with a Central, PICC or Fol: No Subjective Review of Systems René Mojica is a 80-year-old male patient who presents to the ED with chief complaint of retrosternal oppressive chest pain in Functional Class IV intensity 04/24 which has been constant since 09/10/2025 at 3:00 p.m., has not been relieved with oral nor IV medication (patient currently on nitroglycerin and heparin drip in emergency department). Had similar symptoms with previous infarct in 2010. Denies any other associated symptoms including dyspnea, palpitation, syncope and diaphoresis. Past medical history: Diabetes insulin-dependent, 2010 [place] status post PCI with one NYDIA, last stress test was 10 years ago which was within normal limits, mild cognitive impairment. Surgical history: PCI in 2010 Family history: Noncontributory Social history: Lives in [place] with (next of kin). Smokes six cigars per year, drinks two beers a week. Denies current tobacco, alcohol and other drug abuse. Allergies: Denies Home medication: Aspirin, metformin, insulin Patient seen and examined at bedside. Currently has no new complaints, no retrosternal chest pain after procedure. Patient currently status post left heart catheterization with PCI with stent placement in LAD. Pending PCI to RCA on Wednesday. Optimize GDM T as tolerated Objective vital signs Vital Sign Date Time Temp Pulse Resp B/P (MAP) Pulse Ox O2 Delivery O2 Flow Rate FiO2 09/14/25 08:24 98.6 88 20 119/79 (92) 96 98.6 09/13/25 20:00 Room Air* 0 21 Total Intake and Output 09/13/25 09/13/25 09/14/25 15:00 23:00 07:00 Intake Total 800 ml 550 ml Output Total 1150 ml 800 ml Balance -350 ml -250 ml medications Current Medications Medications Dose Ordered Sig/Wanda Route Start Time Stop Time Status Last Admin Dose Admin Hydralazine HCl 10 mg Q6HP PRN IV 09/11/25 05:00 09/11/25 05:50 10 MG Ondansetron HCl 4 mg Q4HP PRN IV 09/11/25 05:00 Nitroglycerin 0.4 mg Q5MINP PRN SL 09/11/25 05:00 09/11/25 06:36 0.4 MG Morphine Sulfate 2 mg Q30M PRN IV 09/11/25 05:00 Aspirin 81 mg DAILY PO 09/12/25 10:00 09/13/25 08:52 81 MG Atorvastatin Calcium 40 mg HS PO 09/11/25 22:00 09/13/25 21:13 40 MG Dextrose 50 ml UD PRN IV 09/11/25 09:00 Ergocalciferol 50,000 unit Q7D PO 09/11/25 09:45 09/11/25 10:13 50,000 UNIT Cyanocobalamin 1,000 mcg DAILY PO 09/11/25 10:00 09/13/25 08:52 1,000 MCG Clopidogrel Bisulfate 75 mg DAILY PO 09/13/25 10:00 09/13/25 08:52 75 MG Diagnostic Test (Pha) 1 strip ACHS 09/12/25 11:30 09/14/25 06:15 1 STRIP Insulin Human Regular ACHS SC 09/12/25 11:30 09/14/25 06:17 3 UNITS Enoxaparin Sodium 40 mg DAILY SC 09/13/25 10:00 09/13/25 08:51 40 MG Furosemide 40 mg DAILY PO 09/13/25 10:00 09/13/25 12:21 40 MG Losartan Potassium 25 mg DAILY PO 09/13/25 10:00 09/13/25 12:21 25 MG Empaglifozin 10 mg DAILY PO 09/13/25 10:00 09/13/25 12:20 10 MG Metoprolol Succinate 25 mg DAILY PO 09/13/25 10:00 09/13/25 12:20 25 MG Insulin Glargine 10 units BID@0700,2200 MI 09/13/25 22:00 09/14/25 06:18 10 UNITS Examination Patient lying in bed, in no acute distress General: Lucid, afebrile, mucosae are moist Cardiovascular: Normal S1 and S2. No murmurs, gallops or rubs Respiratory: Normal ventilation mechanics. Clear lung sounds. Abdomen: Soft, nontender, no organomegaly, normal bowel sounds MSK/skin: Mobilizes 4 limbs. Skin is dry and warm. Bilateral infrapatellar pitting edema. Neurological: Oriented in 2 spheres (not time). No motor no sensitive deficits. Pupils are isocoric and reactive laboratory and microbiology Laboratory Tests 09/13/25 09:27 Test 09/13/25 09:27 Range/Units Serum Glucose 272 H 74-106 mg/dL Microbiology Date/Time Source Procedure Growth Status 09/13/25 02:30 Nose MRSA Screen - Final Complete Problem List/Assessment/Plan Problem List/Assessment/Plan Assessment NSTEMI type I - s/p PCI to LAD Hypertensive crisis Acute on newly diagnosed systolic congestive heart failure (LVEF 35%) Coronary artery disease with history of [place] status post PCI with one NYDIA Respiratory alkalosis No reflow phenomenon Transaminitis - resolved Diabetes insulin dependent Dyslipidemia Vitamin-D deficiency Mild cognitive impairment Plan/Recommendation EKG 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 Troponin positive in up trending ([phone]). Cardiac pain (previously documented angina). Completed LHC which showed multi-vessel disease (occluded proximal LAD, chronically occluded RCA and severe stenosis and circumflex), completed PCI to LAD. Due to no reflow phenomena required Tirofiban infusion. Planning on stage procedure to RCA for Wednesday Continue trending troponin until peak Echocardiogram: Major hypokinesis in anterior apical and septal wall, LVEF 35% Optimize GDM T as clinically tolerated. Required heparin and nitroglycerin drip on admission, currently off On IV diuretics with furosemide 20 mg PO daily.. On aspirin and clopidogrel and atorvastatin Optimize afterload and preload Goals of care discussed with patient for over 18 minutes: Full code status Discussed plan with Dr. Robledo, patient and nurses: Currently on Telemetry status. Completed coronary angiography on 09/11/2025 with PCI to LAD, planning on stage procedure to RCA for Wednesday09/17/2025. On PO diuretics, DAPT, statins, optimizing GDM T as tolerated. Patient has poor prognosis Plan discussed with: Patient, Other (Nurses and Friend at bedside) My Orders My Orders Orders - THA MONTES RESIDENT Procedure Category Date Status Time Furosemide Tablet PHA 09/13/25 In Process (Lasix Tablet) 10:00 Losartan Tablet PHA 09/13/25 In Process (Cozaar Tablet) 10:00 Empagliflozin PHA 09/13/25 In Process (Jardiance) 10:00 Metoprolol Xl PHA 09/13/25 In Process Succinate (Toprol Xl) 10:00 Visit Coding Cardiology RES Date of Service: Sep 14, 2025 Billing Provider: MARY REZA Sr., MD Cardiology Common Codes: [id number] HOSP CARE([facility] Secondary Visit Cod: [email or web address] CARE PLAN 30 MINUTES THA MONTES RESIDENT Sep 14, 2025 08:33
--- NOTE | 2025-09-14 12:07 | DVHPN2 ---
Subjective No new complaints No chest pain Changes from previous H/P or p: Changes Objective Vitals Vital Signs Date Time Temp Pulse Resp B/P (MAP) Pulse Ox O2 Delivery O2 Flow Rate FiO2 09/14/25 10:45 88 119/79 09/14/25 08:24 98.6 20 96 98.6 09/13/25 20:00 Room Air* 0 21 Intake/Output Intake and Output 09/14/25 07:00 Intake Total 1350 ml Output Total 1950 ml Balance -600 ml Intake Oral 1350 ml Output Urine Total 1950 ml # Voids 6 # Bowel Movements 1 General Appearance: Alert, Oriented X3, Cooperative Lungs: Clear to auscultation, Normal air movement Cardiovascular: Regular rate, Normal S1, Normal S2 Abdomen: Normal bowel sounds, Soft, No tenderness Extremities: No edema Medications Current Medications Medications Dose Ordered Sig/Wanda Route Start Time Stop Time Status Last Admin Dose Admin Hydralazine HCl 10 mg Q6HP PRN IV 09/11/25 05:00 09/11/25 05:50 10 MG Ondansetron HCl 4 mg Q4HP PRN IV 09/11/25 05:00 Nitroglycerin 0.4 mg Q5MINP PRN SL 09/11/25 05:00 09/11/25 06:36 0.4 MG Morphine Sulfate 2 mg Q30M PRN IV 09/11/25 05:00 Aspirin 81 mg DAILY PO 09/12/25 10:00 09/14/25 10:45 81 MG Atorvastatin Calcium 40 mg HS PO 09/11/25 22:00 09/13/25 21:13 40 MG Dextrose 50 ml UD PRN IV 09/11/25 09:00 Ergocalciferol 50,000 unit Q7D PO 09/11/25 09:45 09/11/25 10:13 50,000 UNIT Cyanocobalamin 1,000 mcg DAILY PO 09/11/25 10:00 09/14/25 10:45 1,000 MCG Clopidogrel Bisulfate 75 mg DAILY PO 09/13/25 10:00 09/14/25 10:44 75 MG Diagnostic Test (Pha) 1 strip ACHS 09/12/25 11:30 09/14/25 11:44 1 STRIP Insulin Human Regular ACHS SC 09/12/25 11:30 09/14/25 11:45 6 UNITS Enoxaparin Sodium 40 mg DAILY SC 09/13/25 10:00 09/14/25 10:46 40 MG Furosemide 40 mg DAILY PO 09/13/25 10:00 09/14/25 10:44 40 MG Losartan Potassium 25 mg DAILY PO 09/13/25 10:00 09/14/25 10:45 25 MG Empaglifozin 10 mg DAILY PO 09/13/25 10:00 09/14/25 10:45 10 MG Metoprolol Succinate 25 mg DAILY PO 09/13/25 10:00 09/14/25 10:45 25 MG Insulin Glargine 10 units BID@0700,2200 SC 09/13/25 22:00 09/14/25 06:18 10 UNITS Laboratory Results Laboratory Tests 09/13/25 09:27 Urinalysis Test 09/13/25 07:00 Urine Color Light-yellow (Yellow) Urine Clarity Cloudy (Clear) H Urine pH 5.5 (5.0-9.0) Urine Specific [place] 1.017 (1.001-1.035) Urine Protein Negative (Negative) Urine Ketones Negative (Negative) Urine Blood Negative /uL (Negative) Urine Nitrite Negative (Negative) Urine Bilirubin Negative (Negative) Urine Urobilinogen Normal mg/dL (Negative) Urine Leukocyte Esterase 3+ /uL (Negative) Urine RBC 2 /hpf (0 - 3) Urine WBC Clumps Present /hpf (None Seen) Urine Microscopic WBC 154 /HPF (0-3) H Urine Squamous Epithelial Cells None seen /hpf (<5) Urine Bacteria Many /hpf (None Seen) H Urine Glucose 4+ mg/dL (Normal) H Microbiology Microbiology Date/Time Source Procedure Growth Status 09/13/25 02:30 Nose MRSA Screen - Final Complete Assessment/Plan Assessment/Plan NSTEMI type 1 Hypertensive crisis Coronary artery disease status post PCI stenting of the LAD Type 2 diabetes Hypertension Mixed hyperlipidemia Vitamin-D deficiency Mild cognitive impairment Acute on chronic congestive heart failure with reduced ejection fraction Plan Aspirin Brilinta Lipitor Lasix 20 mg IV twice a day The patient will need a 2nd angioplasty which will be done early next week on Wednesday Continue to monitor the patient on telemetry closely 09/13/2025: Continue aspirin and Plavix Lasix Restart Lantus Physical therapy evaluation Monitor closely 09/14/25: Continue current Tx Angiogram for Wednesday Plan discussed with: Patient My Orders Orders - TREY SANCHEZ MD Procedure Category Date Status Time Dietary NOTICE 09/14/25 Transmitted Recommendations 11:09 Date of Service: Sep 14, 2025 Billing Provider: TREY SANCHEZ MD Common Visit Codes: NOT BILLABLE TREY SANCHEZ MD Sep 14, 2025 12:07
[2025-09-14] MEDS ORDERED: DEXTROSE (50%) 50ML SYRG IV PRN (12:15)
[2025-09-14] MEDS: MAGNESIUM SULFATE 1GM/100ML 100 ML IV SCH (14:03)
[2025-09-14] MEDS: POTASSIUM EFFERVESENT TAB 25 MEQ PO ONE (14:03)
[2025-09-14] MEDS: InsuLIN REG 1unit/0.01ml Soln (100units/ml) SC SCH ×2 (17:13→22:32)
[2025-09-14] MEDS: ACCU-CHEK COMFORT CURVE STRIP VI SCH (17:14)
--- NOTE | 2025-09-14 17:37 | DVHPN2 ---
Consult Progress Note Date Seen: Sep 14, 2025 Subjective Other Systems: Patient was seen and evaluated in follow up. No overnight events. Patient is c/o generalized weakness. Planned for stage procedure to RCA for Wednesday09/17/2025. On PO diuretics, DAPT, statins, optimizing GDM T as tolerated. Telemetry reviewed. Objective vital signs Vital Sign Date Time Temp Pulse Resp B/P (MAP) Pulse Ox O2 Delivery O2 Flow Rate FiO2 09/14/25 10:45 88 119/79 09/14/25 08:24 98.6 20 96 98.6 09/13/25 20:00 Room Air* 0 21 Total Intake and Output 09/13/25 09/13/25 09/14/25 15:00 23:00 07:00 Intake Total 800 ml 550 ml Output Total 1150 ml 800 ml Balance -350 ml -250 ml medications Current Medications Medications Dose Ordered Sig/Wanda Route Start Time Stop Time Status Last Admin Dose Admin Hydralazine HCl 10 mg Q6HP PRN IV 09/11/25 05:00 09/11/25 05:50 10 MG Ondansetron HCl 4 mg Q4HP PRN IV 09/11/25 05:00 Nitroglycerin 0.4 mg Q5MINP PRN SL 09/11/25 05:00 09/11/25 06:36 0.4 MG Morphine Sulfate 2 mg Q30M PRN IV 09/11/25 05:00 Aspirin 81 mg DAILY PO 09/12/25 10:00 09/14/25 10:45 81 MG Atorvastatin Calcium 40 mg HS PO 09/11/25 22:00 09/13/25 21:13 40 MG Dextrose 50 ml UD PRN IV 09/11/25 09:00 Ergocalciferol 50,000 unit Q7D PO 09/11/25 09:45 09/11/25 10:13 50,000 UNIT Cyanocobalamin 1,000 mcg DAILY PO 09/11/25 10:00 09/14/25 10:45 1,000 MCG Clopidogrel Bisulfate 75 mg DAILY PO 09/13/25 10:00 09/14/25 10:44 75 MG Diagnostic Test (Pha) 1 strip ACHS 09/12/25 11:30 09/14/25 06:15 1 STRIP Insulin Human Regular ACHS SC 09/12/25 11:30 09/14/25 06:17 3 UNITS Enoxaparin Sodium 40 mg DAILY SC 09/13/25 10:00 09/14/25 10:46 40 MG Furosemide 40 mg DAILY PO 09/13/25 10:00 09/14/25 10:44 40 MG Losartan Potassium 25 mg DAILY PO 09/13/25 10:00 09/14/25 10:45 25 MG Empaglifozin 10 mg DAILY PO 09/13/25 10:00 09/14/25 10:45 10 MG Metoprolol Succinate 25 mg DAILY PO 09/13/25 10:00 09/14/25 10:45 25 MG Insulin Glargine 10 units BID@0700,2200 SC 09/13/25 22:00 09/14/25 06:18 10 UNITS Examination: GENERAL:Normal, HEENT:Normal, NECK:Normal, LUNGS:Normal, CVS:Normal, ABDOMEN:Normal, MSK:Normal laboratory and microbiology Laboratory Tests 09/13/25 09:27 Test 09/13/25 09:27 Range/Units Serum Glucose 272 H 74-106 mg/dL Problem List/Assessment/Plan Problem List/Assessment/Plan Problem list NSTEMI type I - s/p PCI to LAD. Hypertensive crisis . Acute on newly diagnosed systolic congestive heart failure (LVEF 35%). Coronary artery disease with history of [place] status post PCI with one NYDIA . Respiratory alkalosis. No reflow phenomenon. Transaminitis - resolved. Diabetes insulin dependent. Dyslipidemia. Vitamin-D deficiency . Mild cognitive impairment. Plan/Recommendation Continued all current supportive medical care. 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 Troponin positive in up trending ([phone]). Cardiac pain (previously documented angina). Completed LHC which showed multi-vessel disease (occluded proximal LAD, chronically occluded RCA and severe stenosis and circumflex), completed PCI to LAD. Due to no reflow phenomena required Tirofiban infusion. Planning on stage procedure to RCA for Wednesday. Continue trending troponin until peak. Echocardiogram: Major hypokinesis in anterior apical and septal wall, LVEF 35%. Optimize GDM T as clinically tolerated. Required heparin and nitroglycerin drip on admission, currently off. On IV diuretics with furosemide 20 mg PO daily.. On aspirin and clopidogrel and atorvastatin. Optimize afterload and preload . Additional plan as per the hospital course. Plan discussed with: Patient Dietary Evaluation Review Comments: Nutrition Recommendation: 1) Consider CCHO 60 + cardiac diet 2) Refer [employer] for diabetes education 3) Monitor PO intake, lab values, weight trend, and I/O Expected Outcomes/Goals: Intake to meet >75% estimated needs Lab values to improve Fu 3-5 days Date of Service: Sep 14, 2025 Billing Provider: BOBBY FORDE MD Cardiology Common Codes: [id number] HOSP CARE(High BOBBY FORDE MD Sep 14, 2025 11:36
[2025-09-15] VITALS (8 sets, daily range): BP systolic 104–137; BP diastolic 60–83; PULSE 61–77; RESP 16–20; TEMP 97.9–98.2; O2SAT 92–96
--- NOTE | 2025-09-15 10:53 | DVHPN2 ---
Subjective No new complaints No chest pain Awaiting heart cath on 09/17/25 Changes from previous H/P or p: Changes Objective Vitals Vital Signs Date Time Temp Pulse Resp B/P (MAP) Pulse Ox O2 Delivery O2 Flow Rate FiO2 09/15/25 08:58 98.0 70 20 134/65 (88) 92 98.0 09/15/25 07:45 Room Air* 0 21 Intake/Output Intake and Output 09/15/25 07:00 Intake Total 800 ml Output Total 900 ml Balance -100 ml Intake Oral 600 ml IV Total 200 ml Output Urine Total 900 ml # Voids 1 General Appearance: Alert, Oriented X3, Cooperative Lungs: Clear to auscultation, Normal air movement Cardiovascular: Regular rate, Normal S1, Normal S2 Abdomen: Normal bowel sounds, Soft, No tenderness Extremities: No edema Medications Current Medications Medications Dose Ordered Sig/Wanda Route Start Time Stop Time Status Last Admin Dose Admin Hydralazine HCl 10 mg Q6HP PRN IV 09/11/25 05:00 09/11/25 05:50 10 MG Ondansetron HCl 4 mg Q4HP PRN IV 09/11/25 05:00 Nitroglycerin 0.4 mg Q5MINP PRN SL 09/11/25 05:00 09/11/25 06:36 0.4 MG Morphine Sulfate 2 mg Q30M PRN IV 09/11/25 05:00 Aspirin 81 mg DAILY PO 09/12/25 10:00 09/15/25 08:53 81 MG Atorvastatin Calcium 40 mg HS PO 09/11/25 22:00 09/14/25 22:10 40 MG Ergocalciferol 50,000 unit Q7D PO 09/11/25 09:45 09/11/25 10:13 50,000 UNIT Cyanocobalamin 1,000 mcg DAILY PO 09/11/25 10:00 09/15/25 08:54 1,000 MCG Clopidogrel Bisulfate 75 mg DAILY PO 09/13/25 10:00 09/15/25 08:53 75 MG Enoxaparin Sodium 40 mg DAILY SC 09/13/25 10:00 09/15/25 08:54 40 MG Furosemide 40 mg DAILY PO 09/13/25 10:00 09/15/25 08:53 40 MG Losartan Potassium 25 mg DAILY PO 09/13/25 10:00 09/15/25 08:53 25 MG Empaglifozin 10 mg DAILY PO 09/13/25 10:00 09/15/25 08:53 10 MG Metoprolol Succinate 25 mg DAILY PO 09/13/25 10:00 09/15/25 08:53 25 MG Diagnostic Test (Pha) 1 strip ACHS 09/14/25 17:00 09/15/25 05:54 1 STRIP Insulin Human Regular HS SC 09/14/25 22:00 09/14/25 22:32 4 UNITS Insulin Human Regular AC SC 09/14/25 17:00 09/14/25 17:13 12 UNITS Dextrose 50 ml UD PRN IV 09/14/25 12:15 Insulin Glargine 20 units BID@0700,2200 SC 09/15/25 22:00 Laboratory Results Laboratory Tests 09/13/25 09:27 Urinalysis Test 09/13/25 07:00 Urine Color Light-yellow (Yellow) Urine Clarity Cloudy (Clear) H Urine pH 5.5 (5.0-9.0) Urine Specific [place] 1.017 (1.001-1.035) Urine Protein Negative (Negative) Urine Ketones Negative (Negative) Urine Blood Negative /uL (Negative) Urine Nitrite Negative (Negative) Urine Bilirubin Negative (Negative) Urine Urobilinogen Normal mg/dL (Negative) Urine Leukocyte Esterase 3+ /uL (Negative) Urine RBC 2 /hpf (0 - 3) Urine WBC Clumps Present /hpf (None Seen) Urine Microscopic WBC 154 /HPF (0-3) H Urine Squamous Epithelial Cells None seen /hpf (<5) Urine Bacteria Many /hpf (None Seen) H Urine Glucose 4+ mg/dL (Normal) H Microbiology Microbiology Date/Time Source Procedure Growth Status 09/13/25 02:30 Nose MRSA Screen - Final Complete Assessment/Plan Assessment/Plan NSTEMI type 1 Hypertensive crisis Coronary artery disease status post PCI stenting of the LAD Type 2 diabetes Hypertension Mixed hyperlipidemia Vitamin-D deficiency Mild cognitive impairment Acute on chronic congestive heart failure with reduced ejection fraction Plan Aspirin Brilinta Lipitor Lasix 20 mg IV twice a day The patient will need a 2nd angioplasty which will be done early next week on Wednesday Continue to monitor the patient on telemetry closely 09/13/2025: Continue aspirin and Plavix Lasix Restart Lantus Physical therapy evaluation Monitor closely 09/14/25: Continue current Tx Angiogram for Wednesday09/15/25: Continue current Tx Increase Lantus to 20 units bid Angiogram in 2 days ASA and Plavix Plan discussed with: Patient My Orders Orders - TREY SANCHEZ MD Procedure Category Date Status Time Dietary NOTICE 09/14/25 Transmitted Recommendations 11:09 Insulin Lantus PHA 09/15/25 In Process (Glargine) (Lantus) 22:00 Date of Service: Sep 15, 2025 Billing Provider: TREY SANCHEZ MD Common Visit Codes: NOT BILLABLE TREY SANCHEZ MD Sep 15, 2025 10:52
[2025-09-15] MEDS: INSULIN LANTUS (GLARGINE) 1 /0.01ml (100units/ml) SC ONE (11:01)
[2025-09-15] MEDS: INSULIN LANTUS (GLARGINE) 1 /0.01ml (100units/ml) SC SCH (21:23)
--- NOTE | 2025-09-15 23:52 | DVHPN2 ---
Progress Note - Dictate Date Seen: Sep 15, 2025 Medical Necessity Reason Pt with a Central, PICC or Fol: No Subjective Patient was seen and evaluated in follow up. No overnight events. Patient appears comfortable in bed. Patient is awaiting heart cath on 09/17/25. Telemetry reviewed. vital signs Vital Sign Date Time Temp Pulse Resp B/P (MAP) Pulse Ox O2 Delivery O2 Flow Rate FiO2 09/15/25 17:22 97.9 64 20 120/63 (82) 93 97.9 09/15/25 07:45 Room Air* 0 21 Total Intake and Output 09/14/25 09/14/25 09/15/25 15:00 23:00 07:00 Intake Total 600 ml 200 ml Output Total 900 ml Balance -300 ml 200 ml medications Current Medications Medications Dose Ordered Sig/Wanda Route Start Time Stop Time Status Last Admin Dose Admin Hydralazine HCl 10 mg Q6HP PRN IV 09/11/25 05:00 09/11/25 05:50 10 MG Ondansetron HCl 4 mg Q4HP PRN IV 09/11/25 05:00 Nitroglycerin 0.4 mg Q5MINP PRN SL 09/11/25 05:00 09/11/25 06:36 0.4 MG Morphine Sulfate 2 mg Q30M PRN IV 09/11/25 05:00 Aspirin 81 mg DAILY PO 09/12/25 10:00 09/15/25 08:53 81 MG Atorvastatin Calcium 40 mg HS PO 09/11/25 22:00 09/14/25 22:10 40 MG Ergocalciferol 50,000 unit Q7D PO 09/11/25 09:45 09/11/25 10:13 50,000 UNIT Cyanocobalamin 1,000 mcg DAILY PO 09/11/25 10:00 09/15/25 08:54 1,000 MCG Clopidogrel Bisulfate 75 mg DAILY PO 09/13/25 10:00 09/15/25 08:53 75 MG Enoxaparin Sodium 40 mg DAILY SC 09/13/25 10:00 09/15/25 08:54 40 MG Furosemide 40 mg DAILY PO 09/13/25 10:00 09/15/25 08:53 40 MG Losartan Potassium 25 mg DAILY PO 09/13/25 10:00 09/15/25 08:53 25 MG Empaglifozin 10 mg DAILY PO 09/13/25 10:00 09/15/25 08:53 10 MG Metoprolol Succinate 25 mg DAILY PO 09/13/25 10:00 09/15/25 08:53 25 MG Diagnostic Test (Pha) 1 strip ACHS 09/14/25 17:00 09/15/25 16:57 1 STRIP Insulin Human Regular HS SC 09/14/25 22:00 09/14/25 22:32 4 UNITS Insulin Human Regular AC SC 09/14/25 17:00 09/15/25 17:09 9 UNITS Dextrose 50 ml UD PRN IV 09/14/25 12:15 Insulin Glargine 20 units BID@0700,2200 SC 09/15/25 22:00 objective GENERAL: Alert and oriented x 3. No acute distress. EYES: PERRL, EOMI. Anicteric. HENT: Moist mucous membranes. LUNGS: Clear to auscultation bilaterally. CARDIOVASCULAR: Regular rate and rhythm. ABDOMEN: Soft, nontender and nondistended. EXTREMITIES: Bilateral infrapatellar pitting edema. NEUROLOGIC: No focal neurological deficits. SKIN: Warm, dry. laboratory and microbiology Laboratory Tests 09/13/25 09:27 Test 09/13/25 09:27 Range/Units Serum Glucose 272 H 74-106 mg/dL Problem List NSTEMI type I - s/p PCI to LAD. Hypertensive crisis . Acute on newly diagnosed systolic congestive heart failure (LVEF 35%). Coronary artery disease with history of [place] status post PCI with one NYDIA . Respiratory alkalosis. No reflow phenomenon. Transaminitis - resolved. Diabetes insulin dependent. Dyslipidemia. Vitamin-D deficiency . Mild cognitive impairment. Assessment/Plan Continued all current supportive medical care. Aspirin, Lipitor, Plavix, Metoprolol. DVT prophylactics. Diuretics with Lasix. Losartan. Morphine for pain management. Additional plan as per the hospital course. Dietary Evaluation Review Comments: Nutrition Recommendation: 1) Consider CCHO 60 + cardiac diet 2) Refer [employer] for diabetes education 3) Monitor PO intake, lab values, weight trend, and I/O Expected Outcomes/Goals: Intake to meet >75% estimated needs Lab values to improve Fu 3-5 days Plan discussed with: Patient BOBBY FORDE MD Sep 15, 2025 21:04
[2025-09-16] VITALS (8 sets, daily range): BP systolic 111–140; BP diastolic 61–82; PULSE 64–72; RESP 17–20; TEMP 97.7–98.6; O2SAT 94–97
--- NOTE | 2025-09-16 09:51 | DVHPN2 ---
Subjective No new complaints No chest pain Awaiting heart cath on 09/17/25 Changes from previous H/P or p: Changes Objective Vitals Vital Signs Date Time Temp Pulse Resp B/P (MAP) Pulse Ox O2 Delivery O2 Flow Rate FiO2 09/16/25 08:52 98.2 72 20 139/68 (91) 94 98.2 09/15/25 20:00 Room Air* 0 21 Intake/Output Intake and Output 09/16/25 06:59 Intake Total 700 ml Output Total 1850 ml Balance -1150 ml Intake Oral 700 ml Output Urine Total 1850 ml # Bowel Movements 1 General Appearance: Alert, Oriented X3, Cooperative Lungs: Clear to auscultation, Normal air movement Cardiovascular: Regular rate, Normal S1, Normal S2 Abdomen: Normal bowel sounds, Soft, No tenderness Extremities: No edema Medications Current Medications Medications Dose Ordered Sig/Wanda Route Start Time Stop Time Status Last Admin Dose Admin Hydralazine HCl 10 mg Q6HP PRN IV 09/11/25 05:00 09/11/25 05:50 10 MG Ondansetron HCl 4 mg Q4HP PRN IV 09/11/25 05:00 Nitroglycerin 0.4 mg Q5MINP PRN SL 09/11/25 05:00 09/11/25 06:36 0.4 MG Morphine Sulfate 2 mg Q30M PRN IV 09/11/25 05:00 Aspirin 81 mg DAILY PO 09/12/25 10:00 09/16/25 08:49 81 MG Atorvastatin Calcium 40 mg HS PO 09/11/25 22:00 09/15/25 21:14 40 MG Ergocalciferol 50,000 unit Q7D PO 09/11/25 09:45 09/11/25 10:13 50,000 UNIT Cyanocobalamin 1,000 mcg DAILY PO 09/11/25 10:00 09/16/25 08:50 1,000 MCG Clopidogrel Bisulfate 75 mg DAILY PO 09/13/25 10:00 09/16/25 08:52 75 MG Enoxaparin Sodium 40 mg DAILY SC 09/13/25 10:00 09/16/25 08:52 40 MG Furosemide 40 mg DAILY PO 09/13/25 10:00 09/16/25 08:52 40 MG Losartan Potassium 25 mg DAILY PO 09/13/25 10:00 09/16/25 08:51 25 MG Empaglifozin 10 mg DAILY PO 09/13/25 10:00 09/16/25 08:52 10 MG Metoprolol Succinate 25 mg DAILY PO 09/13/25 10:00 09/16/25 08:51 25 MG Diagnostic Test (Pha) 1 strip ACHS 09/14/25 17:00 09/16/25 05:18 1 STRIP Insulin Human Regular HS SC 09/14/25 22:00 09/15/25 21:24 4 UNITS Insulin Human Regular AC SC 09/14/25 17:00 09/15/25 17:09 9 UNITS Dextrose 50 ml UD PRN IV 09/14/25 12:15 Insulin Glargine 30 units BID@0700,2200 SC 09/16/25 22:00 Laboratory Results Laboratory Tests 09/13/25 09:27 Urinalysis Test 09/13/25 07:00 Urine Color Light-yellow (Yellow) Urine Clarity Cloudy (Clear) H Urine pH 5.5 (5.0-9.0) Urine Specific [place] 1.017 (1.001-1.035) Urine Protein Negative (Negative) Urine Ketones Negative (Negative) Urine Blood Negative /uL (Negative) Urine Nitrite Negative (Negative) Urine Bilirubin Negative (Negative) Urine Urobilinogen Normal mg/dL (Negative) Urine Leukocyte Esterase 3+ /uL (Negative) Urine RBC 2 /hpf (0 - 3) Urine WBC Clumps Present /hpf (None Seen) Urine Microscopic WBC 154 /HPF (0-3) H Urine Squamous Epithelial Cells None seen /hpf (<5) Urine Bacteria Many /hpf (None Seen) H Urine Glucose 4+ mg/dL (Normal) H Microbiology Microbiology Date/Time Source Procedure Growth Status 09/13/25 02:30 Nose MRSA Screen - Final Complete Assessment/Plan Assessment/Plan NSTEMI type 1 Hypertensive crisis Coronary artery disease status post PCI stenting of the LAD Type 2 diabetes Hypertension Mixed hyperlipidemia Vitamin-D deficiency Mild cognitive impairment Acute on chronic congestive heart failure with reduced ejection fraction Plan Aspirin Brilinta Lipitor Lasix 20 mg IV twice a day The patient will need a 2nd angioplasty which will be done early next week on Wednesday Continue to monitor the patient on telemetry closely 09/13/2025: Continue aspirin and Plavix Lasix Restart Lantus Physical therapy evaluation Monitor closely 10/31/25: Continue current Tx Angiogram for Wednesday09/15/25: Continue current Tx Increase Lantus to 20 units bid Angiogram in 2 days ASA and Plavix 09/16/2025: Doing well Continue Lantus 20 units twice a day Angiogram in the morning Continue aspirin and Plavix Plan discussed with: Patient My Orders Orders - TREY SANCHEZ MD Procedure Category Date Status Time Insulin Lantus PHA 09/16/25 In Process (Glargine) (Lantus) 22:00 Date of Service: Sep 16, 2025 Billing Provider: TREY SANCHEZ MD Common Visit Codes: NOT BILLABLE TREY SANCHEZ MD Sep 16, 2025 09:51
[2025-09-16] MEDS: INSULIN LANTUS (GLARGINE) 1 /0.01ml (100units/ml) SC ONE (10:39)
[2025-09-16] MEDS ORDERED: INSULIN LANTUS (GLARGINE) 1 /0.01ml (100units/ml) SC SCH (22:00)
[2025-09-16] MEDS: INSULIN LANTUS (GLARGINE) 1 /0.01ml (100units/ml) SC SCH (22:05)
--- NOTE | 2025-09-16 23:03 | DVHPN2 ---
Progress Note - Dictate Date Seen: Sep 16, 2025 Medical Necessity Reason Pt with a Central, PICC or Fol: No Subjective Patient was seen and evaluated in follow up. No overnight events. Patient denies any current complaints at this time. Telemetry reviewed. vital signs Vital Sign Date Time Temp Pulse Resp B/P (MAP) Pulse Ox O2 Delivery O2 Flow Rate FiO2 09/16/25 13:10 97.7 68 20 121/61 (81) 94 97.7 09/16/25 08:00 Room Air* 0 21 Total Intake and Output 09/15/25 09/15/25 09/16/25 14:59 22:59 06:59 Intake Total 300 ml 400 ml Output Total 400 ml 1450 ml Balance -100 ml -1050 ml medications Current Medications Medications Dose Ordered Sig/Wanda Route Start Time Stop Time Status Last Admin Dose Admin Hydralazine HCl 10 mg Q6HP PRN IV 09/11/25 05:00 09/11/25 05:50 10 MG Ondansetron HCl 4 mg Q4HP PRN IV 09/11/25 05:00 Nitroglycerin 0.4 mg Q5MINP PRN SL 09/11/25 05:00 09/11/25 06:36 0.4 MG Morphine Sulfate 2 mg Q30M PRN IV 09/11/25 05:00 Aspirin 81 mg DAILY PO 09/12/25 10:00 09/16/25 08:49 81 MG Atorvastatin Calcium 40 mg HS PO 09/11/25 22:00 09/15/25 21:14 40 MG Ergocalciferol 50,000 unit Q7D PO 09/11/25 09:45 09/11/25 10:13 50,000 UNIT Cyanocobalamin 1,000 mcg DAILY PO 09/11/25 10:00 09/16/25 08:50 1,000 MCG Clopidogrel Bisulfate 75 mg DAILY PO 09/13/25 10:00 09/16/25 08:52 75 MG Enoxaparin Sodium 40 mg DAILY SC 09/13/25 10:00 09/16/25 08:52 40 MG Furosemide 40 mg DAILY PO 09/13/25 10:00 09/16/25 08:52 40 MG Losartan Potassium 25 mg DAILY PO 09/13/25 10:00 09/16/25 08:51 25 MG Empaglifozin 10 mg DAILY PO 09/13/25 10:00 09/16/25 08:52 10 MG Metoprolol Succinate 25 mg DAILY PO 09/13/25 10:00 09/16/25 08:51 25 MG Diagnostic Test (Pha) 1 strip ACHS 09/14/25 17:00 09/16/25 11:43 1 STRIP Insulin Human Regular HS SC 09/14/25 22:00 09/15/25 21:24 4 UNITS Insulin Human Regular AC SC 09/14/25 17:00 09/16/25 11:42 3 UNITS Dextrose 50 ml UD PRN IV 09/14/25 12:15 Insulin Glargine 20 units BID@0700,2200 SC 09/16/25 22:00 objective GENERAL: Alert and oriented x 3. No acute distress. EYES: PERRL, EOMI. Anicteric. HENT: Moist mucous membranes. LUNGS: Clear to auscultation bilaterally. CARDIOVASCULAR: Regular rate and rhythm. ABDOMEN: Soft, nontender and nondistended. EXTREMITIES: Bilateral infrapatellar pitting edema. NEUROLOGIC: No focal neurological deficits. SKIN: Warm, dry. laboratory and microbiology Laboratory Tests 09/13/25 09:27 Test 09/13/25 09:27 Range/Units Serum Glucose 272 H 74-106 mg/dL Problem List NSTEMI type I - s/p PCI to LAD. Hypertensive crisis . Acute on newly diagnosed systolic congestive heart failure (LVEF 35%). Coronary artery disease with history of [place] status post PCI with one NYDIA . Respiratory alkalosis. No reflow phenomenon. Transaminitis - resolved. Diabetes insulin dependent. Dyslipidemia. Vitamin-D deficiency . Mild cognitive impairment. Assessment/Plan Continued all current supportive medical care. Aspirin, Plavix, Metoprolol. DVT prophylactics. Diuretics with Lasix. Losartan. Morphine for pain management. Additional plan as per the hospital course. Dietary Evaluation Review Comments: Nutrition Recommendation: 1) Consider CCHO 60 + cardiac diet 2) Refer Museum Exhibit Technician for diabetes education 3) Monitor PO intake, lab values, weight trend, and I/O Expected Outcomes/Goals: Intake to meet >75% estimated needs Lab values to improve Fu 3-5 days Plan discussed with: Patient BOBBY FORDE MD Sep 16, 2025 14:02
[2025-09-17] VITALS (13 sets, daily range): BP systolic 104–155; BP diastolic 66–92; PULSE 60–76; RESP 11–18; TEMP 97.5–98.1; O2SAT 94–99
[2025-09-17 04:28] LABS: Urine Protein, UAD Negative (Negative)
[2025-09-17] MEDS: IODIXANOL 320MG/ML 100ML BTL IV ONE (08:21)
[2025-09-17] MEDS: HEPARIN IN NS 1000Units/500mL 1,500 ML ONE (08:21)
[2025-09-17] MEDS: MIDAZOLAM HCL 2MG/2ML 2ml VIAL (1mg/ml) ONE (09:00)
[2025-09-17] MEDS: SODIUM CHL 0.9% 50 ML ONE (09:00)
[2025-09-17] MEDS: ANGIOMAX 250 MG VIAL IV ONE (09:00)
[2025-09-17] MEDS: LIDOCAINE 2%HCL (LOCAL ANESTH.) INJ 20ML MDV ONE (09:00)
[2025-09-17] MEDS: fentaNYL CITRATE 100 MCG/2 ML VL ONE (09:00)
[2025-09-17] MEDS: NITROGLYCERIN 50MG/250ML 250 ML IV ONE (09:44)
[2025-09-17] MEDS: EPINEPHrine HCL 1 MG/10 ML SYRG ONE (09:44)
[2025-09-17] MEDS: ATROPINE SULF 1 MG/10ml SYR ONE (09:45)
[2025-09-17] MEDS: CLOPIDOGREL BISULFATE 75 MG TAB ONE (09:46)
[2025-09-17] MEDS: TICAGRELOR 90 MG TAB ONE (09:46)
--- NOTE | 2025-09-17 11:04 | DVHPN2 ---
Subjective Angiogram done today Status post angioplasty today reveals right coronary artery He needs a 3rd procedure in 2 days for his other circumflex stenosis Changes from previous H/P or p: Changes Objective Vitals Vital Signs Date Time Temp Pulse Resp B/P (MAP) Pulse Ox O2 Delivery O2 Flow Rate FiO2 09/17/25 10:45 71 15 124/72 (89) 97 09/17/25 05:00 98.1 98.1 09/16/25 20:00 Room Air* 0 21 Intake/Output Intake and Output 09/17/25 07:00 Intake Total 1080 ml Output Total 900 ml Balance 180 ml Intake Oral 1080 ml Output Urine Total 900 ml # Bowel Movements 1 General Appearance: Alert, Oriented X3, Cooperative Lungs: Clear to auscultation, Normal air movement Cardiovascular: Regular rate, Normal S1, Normal S2 Abdomen: Normal bowel sounds, Soft, No tenderness Extremities: No edema Medications Current Medications Medications Dose Ordered Sig/[place] Route Start Time Stop Time Status Last Admin Dose Admin Hydralazine HCl 10 mg Q6HP PRN IV 09/11/25 05:00 09/11/25 05:50 10 MG Ondansetron HCl 4 mg Q4HP PRN IV 09/11/25 05:00 Nitroglycerin 0.4 mg Q5MINP PRN SL 09/11/25 05:00 09/11/25 06:36 0.4 MG Morphine Sulfate 2 mg Q30M PRN IV 09/11/25 05:00 Aspirin 81 mg DAILY PO 09/12/25 10:00 09/16/25 08:49 81 MG Atorvastatin Calcium 40 mg HS PO 09/11/25 22:00 09/16/25 22:05 40 MG Ergocalciferol 50,000 unit Q7D PO 09/11/25 09:45 09/11/25 10:13 50,000 UNIT Cyanocobalamin 1,000 mcg DAILY PO 09/11/25 10:00 09/16/25 08:50 1,000 MCG Clopidogrel Bisulfate 75 mg DAILY PO 09/13/25 10:00 09/16/25 08:52 75 MG Enoxaparin Sodium 40 mg DAILY SC 09/13/25 10:00 09/16/25 08:52 40 MG Furosemide 40 mg DAILY PO 09/13/25 10:00 09/16/25 08:52 40 MG Losartan Potassium 25 mg DAILY PO 09/13/25 10:00 09/16/25 08:51 25 MG Empaglifozin 10 mg DAILY PO 09/13/25 10:00 09/16/25 08:52 10 MG Metoprolol Succinate 25 mg DAILY PO 09/13/25 10:00 09/16/25 08:51 25 MG Diagnostic Test (Pha) 1 strip ACHS 09/14/25 17:00 09/17/25 06:47 1 STRIP Insulin Human Regular HS SC 09/14/25 22:00 09/16/25 22:04 3 UNITS Insulin Human Regular AC SC 09/14/25 17:00 09/16/25 17:25 6 UNITS Dextrose 50 ml UD PRN IV 09/14/25 12:15 Insulin Glargine 20 units BID@0700,2200 SC 09/16/25 22:00 09/16/25 22:05 20 UNITS Laboratory Results Laboratory Tests 09/13/25 09:27 Urinalysis Test 09/13/25 07:00 09/17/25 04:14 Urine WBC Clumps Present /hpf (None Seen) Urine Color Colorless (Yellow) Urine Clarity Turbid (Clear) H Urine pH 7.0 (5.0-9.0) Urine Specific [place] 1.025 (1.001-1.035) Urine Protein Negative (Negative) Urine Ketones Negative (Negative) Urine Blood Negative /uL (Negative) Urine Nitrite Negative (Negative) Urine Bilirubin Negative (Negative) Urine Urobilinogen Normal mg/dL (Negative) Urine Leukocyte Esterase 3+ /uL (Negative) Urine RBC 2 /hpf (0 - 3) Urine Microscopic WBC 88 /HPF (0-3) H Urine Squamous Epithelial Cells None seen /hpf (<5) Urine Bacteria Few /hpf (None Seen) H Urine Glucose 4+ mg/dL (Normal) H Microbiology Microbiology Date/Time Source Procedure Growth Status 09/13/25 02:30 Nose MRSA Screen - Final Complete Assessment/Plan Assessment/Plan NSTEMI type 1 Hypertensive crisis Coronary artery disease status post PCI stenting of the LAD Type 2 diabetes Hypertension Mixed hyperlipidemia Vitamin-D deficiency Mild cognitive impairment Acute on chronic congestive heart failure with reduced ejection fraction Plan Aspirin Brilinta Lipitor Lasix 20 mg IV twice a day The patient will need a 2nd angioplasty which will be done early next week on Wednesday Continue to monitor the patient on telemetry closely 09/13/2025: Continue aspirin and Plavix Lasix Restart Lantus Physical therapy evaluation Monitor closely 09/14/25: Continue current Tx Angiogram for Wednesday09/15/25: Continue current Tx Increase Lantus to 20 units bid Angiogram in 2 days ASA and Plavix 09/16/2025: Doing well Continue Lantus 20 units twice a day Angiogram in the morning Continue aspirin and Plavix 09/17/2025: Status post angiogram and RCA angioplasty today Status post LAD angiogram and angioplasty few days ago He is still needs a 3rd procedure for his circumflex artery in [address] Connie Robledo Continue aspirin and Plavix Plan discussed with: Patient Date of Service: Sep 17, 2025 Billing Provider: TREY SANCHEZ MD Common Visit Codes: NOT BILLABLE TREY SANCHEZ MD Sep 17, 2025 11:04
--- NOTE | 2025-09-17 13:48 | DVHPNRES ---
Progress Note Date Seen: Sep 17, 2025 Resident Creating Document: THA MONTES RESIDENT Medical Necessity Reason Pt with a Central, PICC or Fol: No Subjective Review of Systems René Mojica is a 80-year-old male patient who presents to the ED with chief complaint of retrosternal oppressive chest pain in Functional Class IV intensity 04/24 which has been constant since 09/10/2025 at 3:00 p.m., has not been relieved with oral nor IV medication (patient currently on nitroglycerin and heparin drip in emergency department). Had similar symptoms with previous infarct in 2010. Denies any other associated symptoms including dyspnea, palpitation, syncope and diaphoresis. Past medical history: Diabetes insulin-dependent, 2010 RI status post PCI with one NYDIA, last stress test was 10 years ago which was within normal limits, mild cognitive impairment. Surgical history: PCI in 2010 Family history: Noncontributory Social history: Lives in [place] with (next of kin). Smokes six cigars per year, drinks two beers a week. Denies current tobacco, alcohol and other drug abuse. Allergies: Denies Home medication: Aspirin, metformin, insulin Patient seen and examined at bedside. Currently has no new complaints. Currently status post staged PCI to proximal-mid RCA with placement of 3 NYDIA. Optimized GDM T as tolerated Objective vital signs Vital Sign Date Time Temp Pulse Resp B/P (MAP) Pulse Ox O2 Delivery O2 Flow Rate FiO2 09/17/25 13:00 97.5 71 16 155/92 (113) 94 97.5 09/17/25 08:00 Room Air* 0 21 Total Intake and Output 09/16/25 09/16/25 09/17/25 15:00 23:00 07:00 Intake Total 480 ml 600 ml Output Total 400 ml 500 ml Balance 80 ml 100 ml medications Current Medications Medications Dose Ordered Sig/Wanda Route Start Time Stop Time Status Last Admin Dose Admin Hydralazine HCl 10 mg Q6HP PRN IV 09/11/25 05:00 09/11/25 05:50 10 MG Ondansetron HCl 4 mg Q4HP PRN IV 09/11/25 05:00 Nitroglycerin 0.4 mg Q5MINP PRN SL 09/11/25 05:00 09/11/25 06:36 0.4 MG Morphine Sulfate 2 mg Q30M PRN IV 09/11/25 05:00 Aspirin 81 mg DAILY PO 09/12/25 10:00 09/16/25 08:49 81 MG Atorvastatin Calcium 40 mg HS PO 09/11/25 22:00 09/16/25 22:05 40 MG Ergocalciferol 50,000 unit Q7D PO 09/11/25 09:45 09/11/25 10:13 50,000 UNIT Cyanocobalamin 1,000 mcg DAILY PO 09/11/25 10:00 09/17/25 12:42 1,000 MCG Clopidogrel Bisulfate 75 mg DAILY PO 09/13/25 10:00 09/16/25 08:52 75 MG Enoxaparin Sodium 40 mg DAILY SC 09/13/25 10:00 09/16/25 08:52 40 MG Furosemide 40 mg DAILY PO 09/13/25 10:00 09/17/25 12:35 40 MG Losartan Potassium 25 mg DAILY PO 09/13/25 10:00 09/17/25 12:42 25 MG Empaglifozin 10 mg DAILY PO 09/13/25 10:00 09/17/25 12:41 10 MG Metoprolol Succinate 25 mg DAILY PO 09/13/25 10:00 09/17/25 12:44 25 MG Diagnostic Test (Pha) 1 strip ACHS 09/14/25 17:00 09/17/25 11:45 1 STRIP Insulin Human Regular HS [place] 09/14/25 22:00 09/16/25 22:04 3 UNITS Insulin Human Regular AC SC 09/14/25 17:00 09/16/25 17:25 6 UNITS Dextrose 50 ml UD PRN IV 09/14/25 12:15 Insulin Glargine 20 units BID@0700,2200 [place] 09/16/25 22:00 09/16/25 22:05 20 UNITS Spironolactone 25 mg DAILY PO 09/18/25 10:00 UNV Examination Patient lying in bed, in no acute distress General: Lucid, afebrile, mucosae are moist Cardiovascular: Normal S1 and S2. No murmurs, gallops or rubs Respiratory: Normal ventilation mechanics. Clear lung sounds. Abdomen: Soft, nontender, no organomegaly, normal bowel sounds MSK/skin: Mobilizes 4 limbs. Skin is dry and warm. Bilateral infrapatellar pitting edema. Neurological: Oriented in 2 spheres (not time). No motor no sensitive deficits. Pupils are isocoric and reactive laboratory and microbiology Laboratory Tests 09/13/25 09:27 Test 09/13/25 09:27 Range/Units Serum Glucose 272 H 74-106 mg/dL Microbiology Date/Time Source Procedure Growth Status 09/13/25 02:30 Nose MRSA Screen - Final Complete Problem List/Assessment/Plan Problem List/Assessment/Plan Assessment NSTEMI type I - s/p PCI to LAD and staged PCI to RCA Hypertensive crisis Acute on newly diagnosed systolic congestive heart failure (LVEF 35%) Coronary artery disease with history of [place] status post PCI with one NYDIA Respiratory alkalosis No reflow phenomenon Transaminitis - resolved Diabetes insulin dependent Dyslipidemia Vitamin-D deficiency Mild cognitive impairment Plan/Recommendation EKG 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 Troponin positive in up trending ([phone]). Cardiac pain (previously documented angina). Completed LHC which showed multi-vessel disease (occluded proximal LAD, chronically occluded RCA and severe stenosis and circumflex), completed PCI to LAD. Due to no reflow phenomena required Tirofiban infusion. Completed stages procedure PCI to proximal-mid RCA with 3 NYDIA on 09/17/2025 Continue trending troponin until peak Echocardiogram: Major hypokinesis in anterior apical and septal wall, LVEF 35% Optimize GDM T as clinically tolerated, currently completed. Ordered laboratory to evaluate kidney function and electrolytes Required heparin and nitroglycerin drip on admission, currently off On PO diuretics with furosemide 20 mg PO daily. On aspirin and clopidogrel and atorvastatin Optimize afterload and preload Goals of care discussed with patient for over 18 minutes: Full code status Discussed plan with Dr. Robledo, patient and nurses: Currently on Telemetry status. Completed coronary angiography on 09/11/2025 with PCI to LAD and staged procedure to proximal-mid RCA on 09/17/2025. On PO diuretics, DAPT, statins, optimal GDMT. Cardiology will sign off. Please reconsult if deemed necessary, Plan discussed with: Patient, Other (Nurses) My Orders My Orders Orders - THA MONTES RESIDENT Procedure Category Date Status Time Complete Blood Count LAB 09/17/25 Logged 13:38 Comprehensive LAB 09/17/25 Logged Metabolic Panel 13:38 PTPTT LAB 11/3/25 Logged 13:38 Magnesium LAB 09/17/25 Logged 13:38 Spironolactone PHA 09/18/25 Logged (Aldactone) 10:00 Dietary Evaluation Review Comments: Nutrition Recommendation: 1) Consider CCHO 60 + cardiac diet 2) Refer Physician Assistant for diabetes education 3) Monitor PO intake, lab values, weight trend, and I/O Expected Outcomes/Goals: Intake to meet >75% estimated needs Lab values to improve Fu 3-5 days Visit Coding Cardiology RES Date of Service: Sep 17, 2025 Billing Provider: MARY REZA Sr., MD Cardiology Common Codes: [id number] HOSP CARE(High Cardiology Secondary Visit Cod: [id number] CARE PLAN 30 MINUTES TAH MONTES RESIDENT Sep 17, 2025 13:48
--- NOTE | 2025-09-17 15:07 | DVHOP ---
DATE OF SURGERY: 09/17/2025 TECHNIQUE PERFORMED: * Emergency case. * Ultrasound of the right femoral artery. * Management of conscious sedation. * Fluoroscopy-guided insertion of a 6-[place] arterial line from the right femoral artery. * Right coronary artery angiography. * Balloon angioplasty of the right coronary artery with 2.0 x 12 mm length semi-compliant balloon. * Stenting and angioplasty of right coronary artery. Total of two stents have been deployed. The first stent is 3.0 x 38 mm long and that has formed distal to the mid region of the right coronary artery and second stent is 3.0 x 30 mm length from proximal to mid region of the right coronary artery (total of two stents are deployed in the right coronary artery). * Intravascular ultrasound of the right coronary artery. * A balloon angioplasty of the right coronary artery, stent with 3.5 x 20 mm noncompliant balloon and mid artery size almost to 3.6 mm in size. * Right iliofemoral artery angiography, arteriotomy and Angio-Seal of the right femoral artery. ASSISTANTS: Assisted by Swetha Burger and Katia. INDICATIONS: The patient has underlying subtotally occluded right coronary artery in the mid region and also distally. A DAYANA grade 2 flow has been noted in the artery and the artery had been narrowed, 99.9% narrowing. DESCRIPTION OF PROCEDURE: The procedure performed, the risks and benefits all have been explained to the patient and he understood and accepted very well. Discussion was also done with his . In a standard manner, the right groin was shaved and was cleaned with soap and Betadine. A 6-[place] arterial line also had been placed in a standard manner and we put 6-[place] THOMAS catheter with the side hole and a right coronary angiography was done. After giving the 50 mcg of nitroglycerin, subsequently we started Angiomax. We also put a Fielder wire and Fielder wire with half of the 2.0 x 12 mm length balloon was able to cross the lesion. Subsequently balloon was advanced and the angioplasty of the mid region of the right coronary artery was done and we also have done angioplasty of the distal region of the right coronary artery with help of balloon. We also did balloon angioplasty of the proximal region of the right coronary artery. Balloon deflated and balloon had been discontinued. Subsequently now we have a put a stent all the way from the distal region of the right coronary artery to mid region of the right coronary artery, which is 3.0 x 38 mm length [place] drug-eluting stent of [employer] deployed at stent size was increased gradually to 3.25 mm. I inflated about 31 seconds, subsequently for 21 seconds. Subsequently, now we have put another stent overlapping this stent, which is 3.0 x 30 mm length stent, which has been deployed total of 17 atmospheres for 31 seconds followed by 21 seconds. Angiography was done. Results were satisfactory and then we did intravascular ultrasound. We found there was a gap between the stent and media, so we put a 3.5 x 20 mm length noncompliant balloon all the way down distally and inflated up to the 17 atmospheres. The stent size was increased to 3.65 mm distally, mid and proximally and inserted at a different level. The entire stent had been inserted gradually and balloon deflated and balloon has been discontinued. Angiography was done. Results were satisfactory. There were no complications. Balloon wire and catheter had been discontinued. Right iliofemoral angiography done, arteriotomy and Angio-Seal also have been done. The procedure went well. CONCLUSION: The lesion #1 in the right coronary artery proximally is 90% narrowed. Mid region of the right coronary artery is narrowed in the range of 99.9. The distal region of the right coronary artery, the lesion is in the range of 90% plus. This was preprocedure and there was a DAYANA grade 2 flow. Postprocedure, the first, second, and third lesions are no longer present. The artery is 100% widely opened and there is no spasm, no dissection, no thrombosis and DAYANA grade 3 flow has been noted without any complication. PLAN OF ACTION: Advised for aspirin, Plavix, beta-zuri, cholesterol reducing medicine. 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 MD AUBRIE Springer TID: [id number] RECEIPT: [id number] LUDY
[2025-09-17 15:14] LABS: Hematocrit 47.4 % (41.0-53.0); Hemoglobin 16.2 g/dL (13.5-17.5); Mean Corpuscular Hemoglobin 32.4 pg (28.0-32.0); Mean Corpuscular Volume 95.1 fL (80.0-100.0); Nucleated Red Blood Cells % 0.1 %
[2025-09-17 15:32] LABS: INR 1.16 (0.9-1.15); Partial Thromboplastin Time 35.4 SEC (24.5-34.5); Prothrombin Time 12.1 sec (9.3-11.8)
[2025-09-17 16:10] LABS: Alanine Aminotransferase 24 U/L (7-40); Albumin 4.1 g/dL (3.2-4.8); Alkaline Phosphatase 111 U/L (46-116); Anion Gap 11 (5-15); BUN/Creatinine Ratio 28.0 (10.0-20.0); Calcium 9.8 mg/dL (8.7-10.4); Carbon Dioxide 25 mmol/L (20-31); Chloride 101 mmol/L (98-107); Magnesium 2.2 mg/dL (1.6-2.6); Potassium 4.3 mmol/L (3.5-5.1); Sodium 137 mmol/L (136-145); Total Protein 7.1 g/dL (5.7-8.2)
[2025-09-17 16:11] LABS: Bilirubin, Total 0.6 mg/dL (0.2-1.0)
[2025-09-17 16:13] LABS: Blood Urea Nitrogen 30 mg/dL (9-23); Glucose 228 mg/dL (74-106)
[2025-09-18] VITALS (9 sets, daily range): BP systolic 113–137; BP diastolic 52–73; PULSE 63–75; RESP 17–18; TEMP 98.2–99.8; O2SAT 94–97
--- NOTE | 2025-09-18 01:06 | DVHPN2 ---
Consult Progress Note Date Seen: Sep 17, 2025 Subjective Other Systems: Patient was seen and evaluated in follow up. Patient underwent completed coronary angiography on 09/11/2025 with PCI to LAD and staged procedure to proximal-mid RCA on 09/17/2025. Patient is on PO diuretics, DAPT, statins, optimal GDMT. Telemetry reviewed. Objective vital signs Vital Sign Date Time Temp Pulse Resp B/P (MAP) Pulse Ox O2 Delivery O2 Flow Rate FiO2 09/17/25 21:00 98.1 76 18 142/79 (100) 95 98.1 09/17/25 20:00 Room Air* 0 21 Total Intake and Output 09/17/25 09/17/25 09/18/25 15:00 23:00 07:00 Intake Total 300 ml Balance 300 ml medications Current Medications Medications Dose Ordered Sig/Wanda Route Start Time Stop Time Status Last Admin Dose Admin Hydralazine HCl 10 mg Q6HP PRN IV 09/11/25 05:00 09/11/25 05:50 10 MG Ondansetron HCl 4 mg Q4HP PRN IV 09/11/25 05:00 Nitroglycerin 0.4 mg Q5MINP PRN SL 09/11/25 05:00 09/11/25 06:36 0.4 MG Morphine Sulfate 2 mg Q30M PRN IV 09/11/25 05:00 Aspirin 81 mg DAILY PO 09/12/25 10:00 09/16/25 08:49 81 MG Atorvastatin Calcium 40 mg HS PO 09/11/25 22:00 09/17/25 21:53 40 MG Ergocalciferol 50,000 unit Q7D PO 09/11/25 09:45 09/11/25 10:13 50,000 UNIT Cyanocobalamin 1,000 mcg DAILY PO 09/11/25 10:00 09/17/25 12:42 1,000 MCG Clopidogrel Bisulfate 75 mg DAILY PO 09/13/25 10:00 09/16/25 08:52 75 MG Enoxaparin Sodium 40 mg DAILY SC 09/13/25 10:00 09/16/25 08:52 40 MG Furosemide 40 mg DAILY PO 09/13/25 10:00 09/17/25 12:35 40 MG Losartan Potassium 25 mg DAILY PO 09/13/25 10:00 09/17/25 12:42 25 MG Empaglifozin 10 mg DAILY PO 09/13/25 10:00 09/17/25 12:41 10 MG Metoprolol Succinate 25 mg DAILY PO 09/13/25 10:00 09/17/25 12:44 25 MG Diagnostic Test (Pha) 1 strip ACHS 09/14/25 17:00 09/17/25 21:55 1 STRIP Insulin Human Regular HS SC 09/14/25 22:00 09/17/25 22:04 4 UNITS Insulin Human Regular AC SC 09/14/25 17:00 09/17/25 18:16 9 UNITS Dextrose 50 ml UD PRN IV 09/14/25 12:15 Insulin Glargine 20 units BID@0700,2200 SC 09/16/25 22:00 09/17/25 22:03 20 UNITS Spironolactone 25 mg DAILY PO 09/18/25 10:00 Examination: GENERAL:Normal, HEENT:Normal, NECK:Normal, LUNGS:Normal, CVS:Normal, ABDOMEN:Normal, MSK:Abnormal (Bilateral infrapatellar pitting edema), SKIN:Normal, NEURO:Abnormal (AAOx2) laboratory and microbiology Laboratory Tests 09/17/25 14:36 Test 09/17/25 14:36 Range/Units Serum Glucose 228 H 74-106 mg/dL Problem List/Assessment/Plan Problem List/Assessment/Plan Problem List NSTEMI type I - s/p PCI to LAD and staged PCI to RCA. Hypertensive crisis. Acute on newly diagnosed systolic congestive heart failure (LVEF 35%). Coronary artery disease with history of [place] status post PCI with one NYDIA. Respiratory alkalosis. No reflow phenomenon. Transaminitis - resolved. Diabetes insulin dependent. Dyslipidemia. Vitamin-D deficiency. Mild cognitive impairment. Plan/Recommendation Continued all current supportive medical care. Patient has been seen by Edie Miller, Resident on my behalf. We have discussed the plan with the patient. 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 Troponin positive in up trending ([phone]). Cardiac pain (previously documented angina). Completed LHC which showed multi-vessel disease (occluded proximal LAD, chronically occluded RCA and severe stenosis and circumflex), completed PCI to LAD. Due to no reflow phenomena required Tirofiban infusion. Completed stages procedure PCI to proximal-mid RCA with 3 NYDIA on 09/17/2025. Continue trending troponin until peak. Echocardiogram: Major hypokinesis in anterior apical and septal wall, LVEF 35%. Optimize GDM T as clinically tolerated, currently completed. Ordered laboratory to evaluate kidney function and electrolytes. Required heparin and nitroglycerin drip on admission, currently off. On PO diuretics with furosemide 20 mg PO daily. On aspirin and clopidogrel and atorvastatin. Optimize afterload and preload. Additional plan as per the hospital course. Plan discussed with: Other Dietary Evaluation Review Comments: Nutrition Recommendation: 1) Consider CCHO 60 + cardiac diet 2) Refer Geodetic Surveyor Technologist for diabetes education 3) Monitor PO intake, lab values, weight trend, and I/O Expected Outcomes/Goals: Intake to meet >75% estimated needs Lab values to improve Fu 3-5 days Date of Service: Sep 17, 2025 Billing Provider: BOBBY FORDE MD Cardiology Common Codes: [id number] [facility] BOBBY FORDE MD Sep 18, 2025 01:06
[2025-09-18 06:53] LABS: Chloride 100 mmol/L (98-107); Potassium 4.5 mmol/L (3.5-5.1); Sodium 140 mmol/L (136-145)
[2025-09-18 06:54] LABS: Anion Gap 8 (5-15)
[2025-09-18 06:55] LABS: Calcium 10.0 mg/dL (8.7-10.4); Carbon Dioxide 32 mmol/L (20-31)
[2025-09-18 07:00] LABS: BUN/Creatinine Ratio 19.2 (10.0-20.0); Blood Urea Nitrogen 23 mg/dL (9-23); Magnesium 2.3 mg/dL (1.6-2.6)
[2025-09-18 07:03] LABS: Glucose 117 mg/dL (74-106)
--- NOTE | 2025-09-18 09:33 | DVHPN2 ---
Subjective Complaints No chest pain No shortness of breath Scheduled for his 3rd procedure tomorrow Changes from previous H/P or p: Changes Objective Vitals Vital Signs Date Time Temp Pulse Resp B/P (MAP) Pulse Ox O2 Delivery O2 Flow Rate FiO2 09/18/25 05:00 98.2 75 17 120/62 (81) 95 98.2 09/17/25 20:00 Room Air* 0 21 Intake/Output Intake and Output 09/18/25 07:00 Intake Total 1200 ml Balance 1200 ml Intake Oral 1200 ml # Voids 6 General Appearance: Alert, Oriented X3, Cooperative Lungs: Clear to auscultation, Normal air movement Cardiovascular: Regular rate, Normal S1, Normal S2 Abdomen: Normal bowel sounds, Soft, No tenderness Extremities: No edema Medications Current Medications Medications Dose Ordered Sig/Wanda Route Start Time Stop Time Status Last Admin Dose Admin Hydralazine HCl 10 mg Q6HP PRN IV 09/11/25 05:00 09/11/25 05:50 10 MG Ondansetron HCl 4 mg Q4HP PRN IV 09/11/25 05:00 Nitroglycerin 0.4 mg Q5MINP PRN SL 09/11/25 05:00 09/11/25 06:36 0.4 MG Morphine Sulfate 2 mg Q30M PRN IV 09/11/25 05:00 Aspirin 81 mg DAILY PO 09/12/25 10:00 09/16/25 08:49 81 MG Atorvastatin Calcium 40 mg HS PO 09/11/25 22:00 09/17/25 21:53 40 MG Ergocalciferol 50,000 unit Q7D PO 09/11/25 09:45 09/11/25 10:13 50,000 UNIT Cyanocobalamin 1,000 mcg DAILY PO 09/11/25 10:00 09/17/25 12:42 1,000 MCG Clopidogrel Bisulfate 75 mg DAILY PO 09/13/25 10:00 09/16/25 08:52 75 MG Enoxaparin Sodium 40 mg DAILY SC 09/13/25 10:00 09/16/25 08:52 40 MG Furosemide 40 mg DAILY PO 09/13/25 10:00 09/17/25 12:35 40 MG Losartan Potassium 25 mg DAILY PO 09/13/25 10:00 09/17/25 12:42 25 MG Empaglifozin 10 mg DAILY PO 09/13/25 10:00 09/17/25 12:41 10 MG Metoprolol Succinate 25 mg DAILY PO 09/13/25 10:00 09/17/25 12:44 25 MG Diagnostic Test (Pha) 1 strip ACHS 09/14/25 17:00 09/18/25 06:38 1 STRIP Insulin Human Regular HS SC 09/14/25 22:00 09/17/25 22:04 4 UNITS Insulin Human Regular AC SC 09/14/25 17:00 09/18/25 06:37 2 UNITS Dextrose 50 ml UD PRN IV 09/14/25 12:15 Insulin Glargine 20 units BID@0700,2200 SC 09/16/25 22:00 09/18/25 06:38 20 UNITS Spironolactone 25 mg DAILY PO 09/18/25 10:00 Laboratory Results Laboratory Tests 09/17/25 14:36 09/18/25 05:14 Chemistry Test 09/17/25 14:36 09/18/25 05:14 Albumin 4.1 g/dL (3.2-4.8) Calcium Level 9.8 mg/dL (8.7-10.4) 10.0 mg/dL (8.7-10.4) Magnesium Level 2.2 mg/dL (1.6-2.6) 2.3 mg/dL (1.6-2.6) Total Protein 7.1 g/dL (5.7-8.2) Coagulation Test 09/17/25 14:36 Prothrombin Time 12.1 sec (9.3-11.8) H Prothrombin Time INR 1.16 (0.9-1.15) H Activated Partial Thromboplast Time 35.4 SEC (24.5-34.5) H LFT Test 09/17/25 14:36 Alanine Aminotransferase (ALT) 24 U/L (7-40) Alkaline Phosphatase 111 U/L (46-116) Aspartate Amino Transferase (AST) 34 U/L (13-40) Total Bilirubin 0.6 mg/dL (0.2-1.0) Urinalysis Test 09/13/25 07:00 09/17/25 04:14 Urine WBC Clumps Present /hpf (None Seen) Urine Color Colorless (Yellow) Urine Clarity Turbid (Clear) H Urine pH 7.0 (5.0-9.0) Urine Specific [place] 1.025 (1.001-1.035) Urine Protein Negative (Negative) Urine Ketones Negative (Negative) Urine Blood Negative /uL (Negative) Urine Nitrite Negative (Negative) Urine Bilirubin Negative (Negative) Urine Urobilinogen Normal mg/dL (Negative) Urine Leukocyte Esterase 3+ /uL (Negative) Urine RBC 2 /hpf (0 - 3) Urine Microscopic WBC 88 /HPF (0-3) H Urine Squamous Epithelial Cells None seen /hpf (<5) Urine Bacteria Few /hpf (None Seen) H Urine Glucose 4+ mg/dL (Normal) H Microbiology Microbiology Date/Time Source Procedure Growth Status 09/13/25 02:30 Nose MRSA Screen - Final Complete Assessment/Plan Assessment/Plan NSTEMI type 1 Hypertensive crisis Coronary artery disease status post PCI stenting of the LAD Type 2 diabetes Hypertension Mixed hyperlipidemia Vitamin-D deficiency Mild cognitive impairment Acute on chronic congestive heart failure with reduced ejection fraction Plan Aspirin Brilinta Lipitor Lasix 20 mg IV twice a day The patient will need a 2nd angioplasty which will be done early next week on Wednesday Continue to monitor the patient on telemetry closely 09/13/2025: Continue aspirin and Plavix Lasix Restart Lantus Physical therapy evaluation Monitor closely 09/14/25: Continue current Tx Angiogram for Wednesday09/15/25: Continue current Tx Increase Lantus to 20 units bid Angiogram in 2 days ASA and Plavix 09/16/2025: Doing well Continue Lantus 20 units twice a day Angiogram in the morning Continue aspirin and Plavix 09/17/2025: Status post angiogram and RCA angioplasty today Status post LAD angiogram and angioplasty few days ago He is still needs a 3rd procedure for his circumflex artery in [address] Connie Robledo Continue aspirin and Plavix 09/18/2025: Continue aspirin and Plavix Coronary angiogram scheduled for tomorrow NPO after midnight Plan discussed with: Patient Date of Service: Sep 18, 2025 Billing Provider: TREY SANCHEZ MD Common Visit Codes: NOT BILLABLE TREY SANCHEZ MD Sep 18, 2025 09:33
[2025-09-18] MEDS: SPIRONOLACTONE 25 MG TAB PO SCH (09:34)
[2025-09-19] VITALS (12 sets, daily range): BP systolic 123–144; BP diastolic 53–90; PULSE 70–82; RESP 15–21; TEMP 98.2–98.9; O2SAT 93–100
--- NOTE | 2025-09-19 00:08 | DVHPN2 ---
Progress Note - Dictate Date Seen: Sep 18, 2025 Medical Necessity Reason Pt with a Central, PICC or Fol: No Subjective Patient was seen and evaluated in follow up. Patient appears comfortable in bed. CO2 32. BS are WNL. Telemetry reviewed. vital signs Vital Sign Date Time Temp Pulse Resp B/P (MAP) Pulse Ox O2 Delivery O2 Flow Rate FiO2 09/18/25 17:00 98.7 69 18 116/57 (76) 97 98.7 09/18/25 08:10 Room Air* 0 21 Total Intake and Output 09/17/25 09/17/25 09/18/25 15:00 23:00 07:00 Intake Total 300 ml 900 ml Balance 300 ml 900 ml medications Current Medications Medications Dose Ordered Sig/Wanda Route Start Time Stop Time Status Last Admin Dose Admin Hydralazine HCl 10 mg Q6HP PRN IV 09/11/25 05:00 09/11/25 05:50 10 MG Ondansetron HCl 4 mg Q4HP PRN IV 09/11/25 05:00 Nitroglycerin 0.4 mg Q5MINP PRN SL 09/11/25 05:00 09/11/25 06:36 0.4 MG Morphine Sulfate 2 mg Q30M PRN IV 09/11/25 05:00 Aspirin 81 mg DAILY PO 09/12/25 10:00 09/18/25 09:34 81 MG Atorvastatin Calcium 40 mg HS PO 09/11/25 22:00 09/17/25 21:53 40 MG Ergocalciferol 50,000 unit Q7D PO 09/11/25 09:45 09/18/25 09:34 50,000 UNIT Cyanocobalamin 1,000 mcg DAILY PO 09/11/25 10:00 09/18/25 09:31 1,000 MCG Clopidogrel Bisulfate 75 mg DAILY PO 09/13/25 10:00 09/18/25 09:33 75 MG Enoxaparin Sodium 40 mg DAILY SC 09/13/25 10:00 09/18/25 09:35 40 MG Furosemide 40 mg DAILY PO 09/13/25 10:00 09/18/25 09:36 40 MG Losartan Potassium 25 mg DAILY PO 09/13/25 10:00 09/18/25 09:32 25 MG Empaglifozin 10 mg DAILY PO 09/13/25 10:00 09/18/25 09:31 10 MG Metoprolol Succinate 25 mg DAILY PO 09/13/25 10:00 09/18/25 09:37 25 MG Diagnostic Test (Pha) 1 strip ACHS 09/14/25 17:00 09/18/25 17:20 1 STRIP Insulin Human Regular HS SC 09/14/25 22:00 09/17/25 22:04 4 UNITS Insulin Human Regular AC SC 09/14/25 17:00 09/18/25 17:26 3 UNITS Dextrose 50 ml UD PRN IV 09/14/25 12:15 Insulin Glargine 20 units BID@0700,2200 SC 09/16/25 22:00 09/18/25 06:38 20 UNITS Spironolactone 25 mg DAILY PO 09/18/25 10:00 09/18/25 09:34 25 MG objective GENERAL: Alert and oriented x 3. No acute distress. EYES: PERRL, EOMI. Anicteric. HENT: Moist mucous membranes. LUNGS: Clear to auscultation bilaterally. CARDIOVASCULAR: Regular rate and rhythm. ABDOMEN: Soft, nontender and nondistended. EXTREMITIES: Bilateral infrapatellar pitting edema. NEUROLOGIC: No focal neurological deficits. SKIN: Warm, dry. laboratory and microbiology Laboratory Tests 09/18/25 05:14 09/17/25 14:36 Test 09/18/25 05:14 Range/Units Serum Glucose 117 #H 74-106 mg/dL Problem List Problem List NSTEMI type I - s/p PCI to LAD and staged PCI to RCA. Hypertensive crisis. Acute on newly diagnosed systolic congestive heart failure (LVEF 35%). Coronary artery disease with history of [place] status post PCI with one NYDIA. Respiratory alkalosis. No reflow phenomenon. Transaminitis - resolved. Diabetes insulin dependent. Dyslipidemia. Vitamin-D deficiency. Mild cognitive impairment. Plan/Recommendation Continued all current supportive medical care. Patient has been seen by Edie Miller, Resident on my behalf. We have discussed the plan with the patient. 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 Troponin positive in up trending ([phone]). Cardiac pain (previously documented angina). Completed LHC which showed multi-vessel disease (occluded proximal LAD, chronically occluded RCA and severe stenosis and circumflex), completed PCI to LAD. Due to no reflow phenomena required Tirofiban infusion. Completed stages procedure PCI to proximal-mid RCA with 3 NYDIA on 09/17/2025. Continue trending troponin until peak. Echocardiogram: Major hypokinesis in anterior apical and septal wall, LVEF 35%. Optimize GDM T as clinically tolerated, currently completed. Ordered laboratory to evaluate kidney function and electrolytes. Required heparin and nitroglycerin drip on admission, currently off. On PO diuretics with furosemide 20 mg PO daily. On aspirin and clopidogrel and atorvastatin. Optimize afterload and preload. Additional plan as per the hospital course. Assessment/Plan Continued all current supportive medical care. Aspirin, Plavix, Metoprolol. DVT prophylactics. Diuretics with Lasix. Losartan. Morphine for pain management. Additional plan as per the hospital course. Dietary Evaluation Review Comments: Nutrition Recommendation: 1) Consider CCHO 60 + cardiac diet 2) Refer Disability Insurance Hearing Officer for diabetes education 3) Monitor PO intake, lab values, weight trend, and I/O Expected Outcomes/Goals: Intake to meet >75% estimated needs Lab values to improve Fu 3-5 days Plan discussed with: Patient, Other BOBBY FORDE MD Sep 18, 2025 19:33
[2025-09-19 06:14] LABS: Chloride 100 mmol/L (98-107); Potassium 4.8 mmol/L (3.5-5.1); Sodium 139 mmol/L (136-145)
[2025-09-19 06:15] LABS: Anion Gap 7 (5-15)
[2025-09-19 06:16] LABS: Calcium 10.0 mg/dL (8.7-10.4)
[2025-09-19 06:21] LABS: BUN/Creatinine Ratio 16.8 (10.0-20.0); Blood Urea Nitrogen 22 mg/dL (9-23); Glucose 78 mg/dL (74-106)
[2025-09-19 06:23] LABS: Carbon Dioxide 32 mmol/L (20-31)
[2025-09-19] MEDS: IODIXANOL 320MG/ML 100ML BTL IV ONE ×2 (08:26→08:35)
[2025-09-19] MEDS: MIDAZOLAM HCL 2MG/2ML 2ml VIAL (1mg/ml) ONE (08:32)
[2025-09-19] MEDS: ANGIOMAX 250 MG VIAL IV ONE ×2 (08:34→09:34)
[2025-09-19] MEDS: SODIUM CHL 0.9% 50 ML ONE ×2 (08:34→09:34)
[2025-09-19] MEDS: fentaNYL CITRATE 100 MCG/2 ML VL ONE (08:34)
[2025-09-19] MEDS: LIDOCAINE 2%HCL (LOCAL ANESTH.) INJ 20ML MDV ONE (08:36)
[2025-09-19] MEDS: NITROGLYCERIN 50MG/250ML 250 ML IV ONE (08:36)
[2025-09-19] MEDS: CLOPIDOGREL BISULFATE 75 MG TAB ONE (09:49)
--- NOTE | 2025-09-19 10:28 | DVHPN2 ---
Subjective s/p 3rd angioplasty Changes from previous H/P or p: Changes Objective Vitals Vital Signs Date Time Temp Pulse Resp B/P (MAP) Pulse Ox O2 Delivery O2 Flow Rate FiO2 09/19/25 10:15 72 17 135/79 (97) 100 09/19/25 10:00 98.5 98.5 09/18/25 20:00 Room Air* 0 21 Intake/Output Intake and Output 09/19/25 07:00 Intake Total 1670 ml Balance 1670 ml Intake Oral 1670 ml # Voids 5 General Appearance: Alert, Oriented X3, Cooperative Lungs: Clear to auscultation, Normal air movement Cardiovascular: Regular rate, Normal S1, Normal S2 Abdomen: Normal bowel sounds, Soft, No tenderness Extremities: No edema Medications Current Medications Medications Dose Ordered Sig/Wanda Route Start Time Stop Time Status Last Admin Dose Admin Hydralazine HCl 10 mg Q6HP PRN IV 09/11/25 05:00 09/11/25 05:50 10 MG Ondansetron HCl 4 mg Q4HP PRN IV 09/11/25 05:00 Nitroglycerin 0.4 mg Q5MINP PRN SL 09/11/25 05:00 09/11/25 06:36 0.4 MG Morphine Sulfate 2 mg Q30M PRN IV 09/11/25 05:00 Aspirin 81 mg DAILY PO 09/12/25 10:00 09/18/25 09:34 81 MG Atorvastatin Calcium 40 mg HS PO 09/11/25 22:00 09/18/25 22:03 40 MG Ergocalciferol 50,000 unit Q7D PO 09/11/25 09:45 09/18/25 09:34 50,000 UNIT Cyanocobalamin 1,000 mcg DAILY PO 09/11/25 10:00 09/18/25 09:31 1,000 MCG Clopidogrel Bisulfate 75 mg DAILY PO 09/13/25 10:00 09/18/25 09:33 75 MG Enoxaparin Sodium 40 mg DAILY SC 09/13/25 10:00 09/18/25 09:35 40 MG Furosemide 40 mg DAILY PO 09/13/25 10:00 09/18/25 09:36 40 MG Losartan Potassium 25 mg DAILY PO 09/13/25 10:00 09/18/25 09:32 25 MG Empaglifozin 10 mg DAILY PO 09/13/25 10:00 09/18/25 09:31 10 MG Metoprolol Succinate 25 mg DAILY PO 09/13/25 10:00 09/18/25 09:37 25 MG Diagnostic Test (Pha) 1 strip ACHS 09/14/25 17:00 09/19/25 07:16 1 STRIP Insulin Human Regular HS SC 09/14/25 22:00 09/18/25 22:03 6 UNITS Insulin Human Regular AC SC 09/14/25 17:00 09/18/25 17:26 3 UNITS Dextrose 50 ml UD PRN IV 09/14/25 12:15 Insulin Glargine 20 units BID@0700,2200 SC 09/16/25 22:00 09/18/25 22:01 20 UNITS Spironolactone 25 mg DAILY PO 09/18/25 10:00 09/18/25 09:34 25 MG Ceftriaxone Sodium 50 ml @ 100 mls/hr DAILY@09 IV 09/20/25 09:00 Sodium Chloride 1,000 ml @ 75 mls/hr [id number] IV 09/19/25 10:00 Laboratory Results Laboratory Tests 09/17/25 14:36 09/19/25 05:11 Chemistry Test 09/19/25 05:11 Calcium Level 10.0 mg/dL (8.7-10.4) Urinalysis Test 09/13/25 07:00 09/17/25 04:14 Urine WBC Clumps Present /hpf (None Seen) Urine Color Colorless (Yellow) Urine Clarity Turbid (Clear) H Urine pH 7.0 (5.0-9.0) Urine Specific [place] 1.025 (1.001-1.035) Urine Protein Negative (Negative) Urine Ketones Negative (Negative) Urine Blood Negative /uL (Negative) Urine Nitrite Negative (Negative) Urine Bilirubin Negative (Negative) Urine Urobilinogen Normal mg/dL (Negative) Urine Leukocyte Esterase 3+ /uL (Negative) Urine RBC 2 /hpf (0 - 3) Urine Microscopic WBC 88 /HPF (0-3) H Urine Squamous Epithelial Cells None seen /hpf (<5) Urine Bacteria Few /hpf (None Seen) H Urine Glucose 4+ mg/dL (Normal) H Microbiology Microbiology Date/Time Source Procedure Growth Status 09/17/25 04:14 Voided Urine Urine Culture - Preliminary Resulted 09/13/25 02:30 Nose MRSA Screen - Final Complete Assessment/Plan Assessment/Plan NSTEMI type 1 Hypertensive crisis Coronary artery disease status post PCI stenting of the LAD Type 2 diabetes Hypertension Mixed hyperlipidemia Vitamin-D deficiency Mild cognitive impairment Acute on chronic congestive heart failure with reduced ejection fraction UTI Plan Aspirin Brilinta Lipitor Lasix 20 mg IV twice a day The patient will need a 2nd angioplasty which will be done early next week on Wednesday Continue to monitor the patient on telemetry closely 09/13/2025: Continue aspirin and Plavix Lasix Restart Lantus Physical therapy evaluation Monitor closely 09/14/25: Continue current Tx Angiogram for Wednesday09/15/25: Continue current Tx Increase Lantus to 20 units bid Angiogram in 2 days ASA and Plavix 09/16/2025: Doing well Continue Lantus 20 units twice a day Angiogram in the morning Continue aspirin and Plavix 09/17/2025: Status post angiogram and RCA angioplasty today Status post LAD angiogram and angioplasty few days ago He is still needs a 3rd procedure for his circumflex artery in [address] Connie Robledo Continue aspirin and Plavix 09/18/2025: Continue aspirin and Plavix Coronary angiogram scheduled for tomorrow NPO after midnight 09/19/25: CAD s/p angioplasty x3 Continue aspirin and Plavix Lipitor GABI most likely due to contrast nephropathy: Start IV fluids, hold Lasix and Aldactone for now UTI: Rocephin IV Monitor kidney function Plan discussed with: Patient My Orders Orders - TREY SANCHEZ MD Procedure Category Date Status Time Consistent DIET 09/18/25 Transmitted Carb(Ccho)Diabetes Lunch Ceftriaxone 1gm/50ml PHA 09/20/25 In Process (Rocephin) 09:00 Sodium Chloride 0.9% PHA 09/19/25 In Process 10:00 Date of Service: Sep 19, 2025 Billing Provider: TREY SANCHEZ MD Common Visit Codes: NOT BILLABLE TREY SANCHEZ MD Sep 19, 2025 10:28
[2025-09-19] MEDS: SODIUM CHLORIDE 0.9% 1,000 ML IV SCH (12:16)
--- NOTE | 2025-09-19 14:17 | DVHOP ---
DATE OF SURGERY: 09/19/2025 TECHNIQUE PERFORMED: * Emergency case. * Ultrasound of the right femoral artery. * Management of conscious sedation. * Insertion of 6-Indonesian arterial line in the right femoral artery under fluoroscopy guidance. * Left coronary angiography. * Shockwave balloon angioplasty of proximal region of the left circumflex artery, which is 3.5 x 10 mm length balloon. * Angioplasty of posterolateral-posterior descending artery arising from left circumflex artery with 2.0 x 20 mm length semi-compliant balloon. * Stenting and angioplasty of posterior descending artery-posterolateral branch arising from the circumflex artery with 2.25 x 38 mm length [place] stent of Voxli and mid artery size up to 2.5 mm in size. * Stenting and angioplasty of proximal region of the left circumflex artery with 3.5 x 15 mm length [place] stent of Voxli and mid artery size up to 3.75 mm. * Right iliofemoral artery angiography. * Arteriotomy and Angio-Seal of the right femoral artery. COMPLICATIONS: None. ASSISTANTS: Assisted by Zofia Bishop Patrick and Brian. INDICATIONS: * The patient has underlying 90% plus radial stenosis of the large dominant circumflex artery in the proximal region. * The patient also has 95% plus narrowing of the large posterolateral branch - posterior descending artery arising from circumflex artery and it is a type C long lesion. DESCRIPTION OF PROCEDURE: Risks and benefits all have been explained to the patient, understands very well. The patient has been brought to the slab lifting engineer. was done with his . In a standard manner, we have put the 6-Ind[place]ian arterial line in the right femoral artery, and subsequently, the AngioMax started, we put an XB 3.5 6-Indonesian guiding catheter and subsequently we used a filter wire, which went smoothly into all the way from circumflex to the posterolateral branch of the circumflex artery. Subsequently now, we put 2.0 x 20 mm length balloon and a balloon angioplasty of the posterolateral branch - posterior descending artery of the circumflex artery was being done and the balloon has been discontinued. Subsequently now, we have put the shockwave balloon into the proximal region of the circumflex artery, which is 3.5 x 10 mm balloon and shockwave was given by taking the balloon up to 9 atmospheres and artery has been very widely opened up. Subsequently now, we put a stent 2.25 x 38 mm length stent into the posterolateral branch of the left circumflex artery, which has been deployed at a total of 17 atmospheres and the size of the stent was increased to 2.5 mm in length. Balloon deflated and balloon had been discontinued. Subsequently, we put another stent in the proximal region of the circumflex artery, which is 3.5 x 15 mm length [place] stent and deployed total of 17 atmospheres. Stent size was now increased to 3.75. Balloon deflated. Balloon had been discontinued. Angiography was done. Result was satisfactory. There were no complications. The patient has done remarkably very well. Balloon wire and catheter all had been discontinued. Angiography was done. Arteriotomy and Angio-Seal was done. The procedure went well. CONCLUSION: * Prior to performing the procedure #1, the posterolateral branch arising from the left circumflex artery has about 95% blockage proximally and distally and DAYANA grade 2 flow. Postprocedure, it is DAYANA grade 3 flow and the residual stenosis is 0%, 100% widely open and no complications. * The proximal lesion of the left circumflex artery is narrowed. Preprocedure 90% plus. DAYANA grade 3 flow. Postprocedure DAYANA grade 3 flow, residual stenosis 0%. No spasm. No dissection. No thrombosis. The procedure went well. Please note the circumflex artery is a very large co-dominant artery. PLAN OF ACTION: Advised for aspirin, Plavix, beta-zuri, cholesterol-reducing medicine and if he remains stable, he can be discharged tomorrow and outpatient Cardiology followup. Yao Robledo MD MP/ROBERTO/RICKEY TID: [id number] RECEIPT: [id number] [facility]ENTERBilly
--- NOTE | 2025-09-19 23:55 | DVHPN2 ---
Progress Note - Dictate Date Seen: Sep 19, 2025 Medical Necessity Reason Pt with a Central, PICC or Fol: No Subjective Patient was seen and evaluated in follow up. Patient underwent emergency left coronary angiography, shockwave balloon angioplasty of proximal region of the left circumflex artery, angioplasty of posterolateral-posterior descending artery arising from left circumflex artery, stenting and angioplasty of posterior descending artery-posterolateral branch arising from the circumflex artery, stenting and angioplasty of proximal region of the left circumflex artery, right iliofemoral artery angiography, arteriotomy and Angio-Seal of the right femoral artery. Patient is advised for aspirin, Plavix, beta-zuri, cholesterol-reducing medicine and if he remains stable, he can be discharged tomorrow and outpatient with cardiology followup. Telemetry reviewed. vital signs Vital Sign Date Time Temp Pulse Resp B/P (MAP) Pulse Ox O2 Delivery O2 Flow Rate FiO2 09/19/25 12:17 74 123/69 09/19/25 11:00 21 100 09/19/25 10:00 98.5 98.5 09/18/25 20:00 Room Air* 0 21 Total Intake and Output 09/18/25 09/18/25 09/19/25 15:00 23:00 07:00 Intake Total 240 ml 1080 ml 350 ml Balance 240 ml 1080 ml 350 ml medications Current Medications Medications Dose Ordered Sig/Wanda Route Start Time Stop Time Status Last Admin Dose Admin Hydralazine HCl 10 mg Q6HP PRN IV 09/11/25 05:00 09/11/25 05:50 10 MG Ondansetron HCl 4 mg Q4HP PRN IV 09/11/25 05:00 Nitroglycerin 0.4 mg Q5MINP PRN SL 09/11/25 05:00 09/11/25 06:36 0.4 MG Morphine Sulfate 2 mg Q30M PRN IV 09/11/25 05:00 Aspirin 81 mg DAILY PO 09/12/25 10:00 09/18/25 09:34 81 MG Atorvastatin Calcium 40 mg HS PO 09/11/25 22:00 09/18/25 22:03 40 MG Ergocalciferol 50,000 unit Q7D PO 09/11/25 09:45 09/18/25 09:34 50,000 UNIT Cyanocobalamin 1,000 mcg DAILY PO 09/11/25 10:00 09/19/25 12:17 1,000 MCG Clopidogrel Bisulfate 75 mg DAILY PO 09/13/25 10:00 09/18/25 09:33 75 MG Enoxaparin Sodium 40 mg DAILY SC 09/13/25 10:00 09/18/25 09:35 40 MG Losartan Potassium 25 mg DAILY PO 09/13/25 10:00 09/19/25 12:16 25 MG Empaglifozin 10 mg DAILY PO 09/13/25 10:00 09/19/25 12:17 10 MG Metoprolol Succinate 25 mg DAILY PO 09/13/25 10:00 09/19/25 12:17 25 MG Diagnostic Test (Pha) 1 strip ACHS 09/14/25 17:00 09/19/25 12:27 1 STRIP Insulin Human Regular HS SC 09/14/25 22:00 09/18/25 22:03 6 UNITS Insulin Human Regular AC SC 09/14/25 17:00 09/18/25 17:26 3 UNITS Dextrose 50 ml UD PRN IV 09/14/25 12:15 Insulin Glargine 20 units BID@0700,2200 SC 09/16/25 22:00 09/18/25 22:01 20 UNITS Ceftriaxone Sodium 50 ml @ 100 mls/hr DAILY@09 IV 09/20/25 09:00 Sodium Chloride 1,000 ml @ 75 mls/hr [id number] IV 09/19/25 10:00 09/19/25 12:16 75 MLS/HR objective GENERAL: Alert and oriented x 3. No acute distress. EYES: PERRL, EOMI. Anicteric. HENT: Moist mucous membranes. LUNGS: Clear to auscultation bilaterally. CARDIOVASCULAR: Regular rate and rhythm. ABDOMEN: Soft, nontender and nondistended. EXTREMITIES: Bilateral infrapatellar pitting edema. NEUROLOGIC: No focal neurological deficits. SKIN: Warm, dry. laboratory and microbiology Laboratory Tests 09/19/25 05:11 09/17/25 14:36 Test 09/19/25 05:11 Range/Units Serum Glucose 78 74-106 mg/dL Problem List Problem List NSTEMI type I - s/p PCI to LAD and staged PCI to RCA. Hypertensive crisis. Acute on newly diagnosed systolic congestive heart failure (LVEF 35%). Coronary artery disease with history of [place] status post PCI with one NYDIA. Respiratory alkalosis. No reflow phenomenon. Transaminitis - resolved. Diabetes insulin dependent. Dyslipidemia. Vitamin-D deficiency. Mild cognitive impairment. Plan/Recommendation Continued all current supportive medical care. Patient has been seen by Edie Miller, Resident on my behalf. We have discussed the plan with the patient. 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 Troponin positive in up trending ([phone]). Cardiac pain (previously documented angina). Completed LHC which showed multi-vessel disease (occluded proximal LAD, chronically occluded RCA and severe stenosis and circumflex), completed PCI to LAD. Due to no reflow phenomena required Tirofiban infusion. Completed stages procedure PCI to proximal-mid RCA with 3 NYDIA on 09/17/2025. Continue trending troponin until peak. Echocardiogram: Major hypokinesis in anterior apical and septal wall, LVEF 35%. Optimize GDM T as clinically tolerated, currently completed. Ordered laboratory to evaluate kidney function and electrolytes. Required heparin and nitroglycerin drip on admission, currently off. On PO diuretics with furosemide 20 mg PO daily. On aspirin and clopidogrel and atorvastatin. Optimize afterload and preload. Additional plan as per the hospital course. Assessment/Plan Continued all current supportive medical care. Metoprolol. DVT prophylactics. Losartan. Morphine for pain management. IV antibiotics as ordered. Additional plan as per the hospital course. Dietary Evaluation Review Comments: Nutrition Recommendation: 1) Consider CCHO 60 + cardiac diet 2) Refer Metal[employer] for diabetes education 3) Monitor PO intake, lab values, weight trend, and I/O Expected Outcomes/Goals: Intake to meet >75% estimated needs Lab values to improve Fu 3-5 days Plan discussed with: Patient BOBBY FORDE MD Sep 19, 2025 12:32
[2025-09-20 01:00] VITALS: BP 147/76; PULSE 85; RESP 18; TEMP 97.9; O2SAT 96
[2025-09-20 05:00] VITALS: BP 139/82; PULSE 86; RESP 16; TEMP 98.2; O2SAT 97
[2025-09-20 06:17] LABS: Anion Gap 9 (5-15); Carbon Dioxide 25 mmol/L (20-31); Chloride 106 mmol/L (98-107); Potassium 4.2 mmol/L (3.5-5.1); Sodium 140 mmol/L (136-145)
[2025-09-20 06:19] LABS: Calcium 9.7 mg/dL (8.7-10.4)
[2025-09-20 06:24] LABS: BUN/Creatinine Ratio 20.0 (10.0-20.0); Blood Urea Nitrogen 20 mg/dL (9-23)
[2025-09-20 06:28] LABS: Glucose 140 mg/dL (74-106)
[2025-09-20 08:00] VITALS: PULSE 76
[2025-09-20 09:00] VITALS: BP 132/75; PULSE 78; RESP 17; TEMP 97.8; O2SAT 100
[2025-09-20] MEDS ORDERED: CLOP75TA70 PO (12:07)
[2025-09-20] MEDS ORDERED: METO25TA36 PO (12:07)
[2025-09-20] MEDS ORDERED: ASPI-325 PO (12:07)
[2025-09-20] MEDS ORDERED: EMPA1TAB PO (12:07)
[2025-09-20] MEDS ORDERED: LOS25T PO (12:07)
[2025-09-20] MEDS ORDERED: ATOR-507 PO (12:07)
[2025-09-20] MEDS ORDERED: CEPH500C PO (12:10)
[2025-09-20 13:00] VITALS: BP 124/68; PULSE 65; RESP 17; TEMP 97.9; O2SAT 99
--- NOTE | 2025-09-20 13:01 | DVHDS2 ---
Discharge Summary Date of Admission Sep 11, 2025 at 04:51 Date of Discharge: Sep 20, 2025 Labs/Diagnostic Data: Laboratory Results Test 09/20/25 05:12 09/18/25 05:14 09/17/25 14:36 09/17/25 04:14 Sodium Level 140 mmol/L (136-145) Potassium Level 4.2 mmol/L (3.5-5.1) Chloride Level 106 mmol/L (98-107) Carbon Dioxide Level 25 mmol/L (20-31) Anion Gap 9 (5-15) Blood Urea Nitrogen 20 mg/dL (9-23) Creatinine 1.00 mg/dL (0.700-1.30) Glomerular Filtration Rate Calc 77 mL/min (>90) BUN/Creatinine Ratio 20.0 (10.0-20.0) Serum Glucose 140 mg/dL (74-106) Calcium Level 9.7 mg/dL (8.7-10.4) Magnesium Level 2.3 mg/dL (1.6-2.6) White Blood Count 8.0 10^3/uL (4.4-10.8) Red Blood Count 4.99 10^6/uL (4.5-5.90) Hemoglobin 16.2 g/dL (13.5-17.5) Hematocrit 47.4 % (41.0-53.0) Mean Corpuscular Volume 95.1 fL (80.0-100.0) Mean Corpuscular Hemoglobin 32.4 pg (28.0-32.0) Mean Corpuscular Hemoglobin Concent 34.1 g/dL (32.0-36.0) Red Cell Distribution Width 14.7 % (11.8-14.3) Platelet Count 186 10^3/uL (140-450) Mean Platelet Volume 9.1 fL (6.9-10.8) Neutrophils (%) (Auto) 65.0 % (37.0-80.0) Lymphocytes (%) (Auto) 24.5 % (10.0-50.0) Monocytes (%) (Auto) 7.4 % (0.0-12.0) Eosinophils (%) (Auto) 2.9 % (0.0-7.0) Basophils (%) (Auto) 0.2 % (0.0-2.0) Neutrophils # (Auto) 5.2 10 ^3/uL (1.6-8.6) Lymphocytes # (Auto) 2.0 10 ^3/uL (0.4-5.4) Monocytes # (Auto) 0.6 10 ^3/uL (0-1.3) Eosinophils # (Auto) 0.2 10 ^3/uL (0-0.8) Basophils # (Auto) 0 10 ^3/uL (0-0.2) Nucleated Red Blood Cells 0.1 % Prothrombin Time 12.1 sec (9.3-11.8) Prothrombin Time INR 1.16 (0.9-1.15) Activated Partial Thromboplast Time 35.4 SEC (24.5-34.5) Total Bilirubin 0.6 mg/dL (0.2-1.0) Aspartate Amino Transferase (AST) 34 U/L (13-40) Alanine Aminotransferase (ALT) 24 U/L (7-40) Alkaline Phosphatase 111 U/L (46-116) Total Protein 7.1 g/dL (5.7-8.2) Albumin 4.1 g/dL (3.2-4.8) Urine Color Colorless (Yellow) Urine Clarity Turbid (Clear) Urine pH 7.0 (5.0-9.0) Urine Specific [place] 1.025 (1.001-1.035) Urine Protein Negative (Negative) Urine Ketones Negative (Negative) Urine Blood Negative /uL (Negative) Urine Nitrite Negative (Negative) Urine Bilirubin Negative (Negative) Urine Urobilinogen Normal mg/dL (Negative) Urine Leukocyte Esterase 3+ /uL (Negative) Urine RBC 2 /hpf (0 - 3) Urine Microscopic WBC 88 /HPF (0-3) Urine Squamous Epithelial Cells None seen /hpf (<5) Urine Bacteria Few /hpf (None Seen) Urine Glucose 4+ mg/dL (Normal) Test 09/13/25 11:57 09/13/25 07:00 09/13/25 02:30 09/12/25 05:15 POC Glucose 354 mg/dl (70-106) Urine WBC Clumps Present /hpf (None Seen) Urine Opiates Screen Neg (NEGATIVE) Urine Fentanyl Screen Neg (NEGATIVE) Urine Barbiturates Screen Neg (NEGATIVE) Urine Phencyclidine Screen Neg (NEGATIVE) Urine Amphetamines Screen Neg (NEGATIVE) Urine Benzodiazepines Screen Pos (NEGATIVE) Urine Cocaine Screen Neg (NEGATIVE) Urine Cannabinoids Screen Neg (NEGATIVE) Influenza Type A Antigen Negative (Negative) Influenza Type B Antigen Negative (Negative) SARS-CoV-2 Antigen (Rapid) Negative (NEGATIVE) Troponin I High Sensitivity > 62296 ng/L (</=54) Triglycerides Level 104 mg/dL (< 150) Cholesterol Level 168 mg/dL (< 200) LDL Cholesterol 111 mg/dL (< 100) HDL Cholesterol 40 mg/dL (40-59) Thyroid Stimulating Hormone (TSH) 0.86 uIU/mL (0.55-4.78) Test 09/11/25 11:09 09/11/25 09:15 09/11/25 01:51 Hemoglobin A1c 10.7 % A1C (<5.7) Lactic Acid Level 1.1 mmol/L (0.4-2.0) Phosphorus Level 2.1 mg/dL (2.4-5.1) C-Reactive Protein High Sensitivity 0.84 mg/dL (<1.0) Lipase 18 U/L (12-53) Blood Gas Specimen Type Arterial Blood Gas Sample Site Right radial Blood Gas Patient Temperature 37.0 Arterial Blood Date Drawn [id number] Arterial Blood pH 7.458 (7.350-7.450) Arterial Blood Partial Pressure CO2 33.5 mmHg (35.0-48.0) Arterial Blood Partial Pressure O2 73.2 mmHg (83.0-108.0) Arterial Blood HCO3 23.2 mmol/L (21.0-28.0) Arterial Blood Oxygen Saturation 95.2 % (94.0-98.0) Arterial Blood Base Excess 0.0 mmol/L (-2.0-3.0) Arterial Blood Oxyhemoglobin 94.0 % (94.0-98.0) Arterial Blood Carboxyhemoglobin 1.0 % (0.5-1.5) Arterial Blood Methemoglobin 0.3 % (0.0-1.5) Nic Test Yes Blood Gas Total Hemoglobin 14.10 g/dL (13.5-17.5) Blood Gas Modality Room air FiO2 % 21.0 B-Type Natriuretic Peptide 81.09 pg/mL (0-100) Vitamin B12 Level 217 pg/mL (211-911) Vitamin D 25-Hydroxy 24.1 ng/mL (30.0-100) Other Laboratory Tests 09/20/25 05:12 09/17/25 14:36 Brief Hx & Hospital Course: Final diagnoses: NSTEMI type 1 Hypertensive crisis Coronary artery disease status post PCI stenting x3 Type 2 diabetes Hypertension Mixed hyperlipidemia Vitamin-D deficiency Mild cognitive impairment Acute on chronic congestive heart failure with reduced ejection fraction UTI 80-year-old male who was admitted for chest pain and NSTEMI type 1 and was diagnosed with possible coronary artery disease and therefore he was seen by Cardiology and was recommended to have an angiogram which showed three-vessel coronary artery disease and therefore cardiology recommended to do staged angioplasty of all 3 lesions He had angioplasty and stent placement of the LAD and then he was brought back in the head the right coronary artery done then at a later time yesterday was also taking back and did the circumflex He was kept on aspirin and Plavix He was given a statin His diabetes was out of control initially, his insulin was adjusted and his blood glucose became better Now is asymptomatic He is stable for discharge He will be discharged home on aspirin and Plavix and Lipitor and Jardiance and losartan and metoprolol He also has a UTI, he will be given cephalexin for it for 5 days Follow up with his primary care physician as soon as possible Condition at Discharge: Stable Final Diagnosis/Problems List NSTEMI type 1 Hypertensive crisis Coronary artery disease status post PCI stenting of the LAD Type 2 diabetes Hypertension Mixed hyperlipidemia Vitamin-D deficiency Mild cognitive impairment Acute on chronic congestive heart failure with reduced ejection fraction UTI Discharge Disposition: Home SNF Discharge Will this Physician continue t: No Discharge Instruct/Medications Diet: Cardiac 2g Na,low cholest Activity: No Restrictions, As Tolerated Follow Up/Referral: PCP [facility] Medications: ASA Plavix Lipitor Jardiance Losartan Toprol X Keflex Scheduled Aspirin (Aspir-81), 81 MG PO DAILY, (Reported) Aspirin (Aspirin Low Dose), 81 MG PO DAILY Atorvastatin Calcium (Lipitor), 1 TAB PO DAILY Cephalexin Monohydrate (Cephalexin), 1 CAP PO TID Cholecalciferol (Vitamin D3), 1,250 UNIT OR QWEEKLY, (Reported) Clopidogrel Bisulfate (Clopidogrel), 75 MG PO DAILY Donepezil Hydrochloride (Donepezil Hcl), 1 TAB PO DAILY, (Reported) Empagliflozin (Jardiance), 1 TAB PO DAILY, (Reported) Empagliflozin (Jardiance), 10 MG PO DAILY Furosemide (Lasix), 1 TAB PO DAILY Gabapentin (Gabapentin), 1 CAP PO TID, (Reported) Insulin Glargine (Lantus), 40 SC BID, (Reported) Insulin Regular (Human) (Humulin R), 40 UNIT IV BID, (Reported) Lisinopril (Lisinopril), 1 TAB PO DAILY, (Reported) Losartan Potassium (Losartan Potassium), 25 MG PO DAILY Metformin Hydrochloride (Metformin Hydrochloride), 1 TAB PO BID, (Reported) Metoprolol Succinate (Toprol Xl), 1 TAB PO DAILY Tamsulosin Hcl (Tamsulosin Hcl), 1 CAP PO DAILY, (Reported) Miscellaneous Medications Atorvastatin Calcium (Atorvastatin Calcium), 1 TAB PO, (Reported) Hydrocodone-Acetaminophen (Hydrocodone Bitartrate/AC 5-325 mg), 1 TAB PO, (Reported) Discharge Statement: "Patient was advised to return to the ER or call 911 if any headaches, dizziness, shortness of breath, chest pain, abdominal pain, bleeding, fevers, or worsening of medical condition. Patient was counseled about treatment plan, medications, possible side effects, patientverbalized understanding. All questions were answered to the best of my ability. This discharge took greater then 30 minutes in planning, reviewing documentation, counseling the patient, and discussing with other team members." ASSESSMENT ASSESSMENT Assessment NSTEMI type 1 Hypertensive crisis Coronary artery disease status post PCI stenting of the LAD Type 2 diabetes Hypertension Mixed hyperlipidemia Vitamin-D deficiency Mild cognitive impairment Acute on chronic congestive heart failure with reduced ejection fraction UTI Date of Service: Sep 20, 2025 Billing Provider: TREY SANCHEZ MD Common Visit Codes: NOT BILLABLE TREY SANCHEZ MD Sep 20, 2025 13:01
--- NOTE | 2025-09-20 13:26 | DVHPN2 ---
Progress Note - Dictate Date Seen: Sep 20, 2025 Medical Necessity Reason Pt with a Central, PICC or Fol: No Subjective Patient was seen and evaluated in follow up. No overnight events. Dressings are C/D/I. BS are WNL. Telemetry reviewed. vital signs Vital Sign Date Time Temp Pulse Resp B/P (MAP) Pulse Ox O2 Delivery O2 Flow Rate FiO2 09/20/25 10:26 132/73 09/20/25 10:25 72 09/20/25 09:00 97.8 17 100 97.8 09/20/25 08:30 Room Air* 0 21 Total Intake and Output 09/19/25 09/19/25 09/20/25 15:00 23:00 07:00 Intake Total 50 ml 300 ml 550 ml Output Total 1225 ml Balance 50 ml 300 ml -675 ml medications Current Medications Medications Dose Ordered Sig/Wanda Route Start Time Stop Time Status Last Admin Dose Admin Hydralazine HCl 10 mg Q6HP PRN IV 09/11/25 05:00 09/11/25 05:50 10 MG Ondansetron HCl 4 mg Q4HP PRN IV 09/11/25 05:00 Nitroglycerin 0.4 mg Q5MINP PRN SL 09/11/25 05:00 09/11/25 06:36 0.4 MG Aspirin 81 mg DAILY PO 09/12/25 10:00 09/20/25 10:25 81 MG Atorvastatin Calcium 40 mg HS PO 09/11/25 22:00 09/19/25 22:06 40 MG Ergocalciferol 50,000 unit Q7D PO 09/11/25 09:45 09/18/25 09:34 50,000 UNIT Cyanocobalamin 1,000 mcg DAILY PO 09/11/25 10:00 09/20/25 10:26 1,000 MCG Clopidogrel Bisulfate 75 mg DAILY PO 09/13/25 10:00 09/20/25 10:26 75 MG Enoxaparin Sodium 40 mg DAILY SC 09/13/25 10:00 09/20/25 10:23 40 MG Losartan Potassium 25 mg DAILY PO 09/13/25 10:00 09/20/25 10:26 25 MG Empaglifozin 10 mg DAILY PO 09/13/25 10:00 09/20/25 10:26 10 MG Metoprolol Succinate 25 mg DAILY PO 09/13/25 10:00 09/20/25 10:25 25 MG Diagnostic Test (Pha) 1 strip ACHS 09/14/25 17:00 09/20/25 10:47 1 STRIP Insulin Human Regular HS SC 09/14/25 22:00 09/19/25 22:06 4 UNITS Insulin Human Regular AC SC 09/14/25 17:00 09/20/25 10:47 2 UNITS Dextrose 50 ml UD PRN IV 09/14/25 12:15 Insulin Glargine 20 units BID@0700,2200 SC 09/16/25 22:00 09/20/25 06:16 20 UNITS Ceftriaxone Sodium 50 ml @ 100 mls/hr DAILY@09 IV 09/20/25 09:00 09/20/25 10:23 100 MLS/HR Sodium Chloride 1,000 ml @ 75 mls/hr [id number] IV 09/19/25 10:00 09/19/25 23:20 75 MLS/HR objective GENERAL: Alert and oriented x 3. No acute distress. EYES: PERRL, EOMI. Anicteric. HENT: Moist mucous membranes. LUNGS: Clear to auscultation bilaterally. CARDIOVASCULAR: Regular rate and rhythm. ABDOMEN: Soft, nontender and nondistended. EXTREMITIES: Bilateral infrapatellar pitting edema. NEUROLOGIC: No focal neurological deficits. SKIN: Warm, dry. laboratory and microbiology Laboratory Tests 09/20/25 05:12 09/17/25 14:36 Test 09/20/25 05:12 Range/Units Serum Glucose 140 H 74-106 mg/dL Problem List Problem List NSTEMI type I - s/p PCI to LAD and staged PCI to RCA. Hypertensive crisis. Acute on newly diagnosed systolic congestive heart failure (LVEF 35%). Coronary artery disease with history of [place] status post PCI with one NYDIA. Respiratory alkalosis. No reflow phenomenon. Transaminitis - resolved. Diabetes insulin dependent. Dyslipidemia. Vitamin-D deficiency. Mild cognitive impairment. Plan/Recommendation Continued all current supportive medical care. Patient has been seen by Edie Miller, Resident on my behalf. We have discussed the plan with the patient. 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 Troponin positive in up trending ([phone]). Cardiac pain (previously documented angina). Completed LHC which showed multi-vessel disease (occluded proximal LAD, chronically occluded RCA and severe stenosis and circumflex), completed PCI to LAD. Due to no reflow phenomena required Tirofiban infusion. Completed stages procedure PCI to proximal-mid RCA with 3 NYDIA on 09/17/2025. Continue trending troponin until peak. Echocardiogram: Major hypokinesis in anterior apical and septal wall, LVEF 35%. Optimize GDM T as clinically tolerated, currently completed. Ordered laboratory to evaluate kidney function and electrolytes. Required heparin and nitroglycerin drip on admission, currently off. On PO diuretics with furosemide 20 mg PO daily. On aspirin and clopidogrel and atorvastatin. Optimize afterload and preload. Additional plan as per the hospital course. Assessment/Plan Continued all current supportive medical care. Aspirin, Lipitor, Metoprolol, Plavix. IV antibiotics as ordered. DVT prophylactics. IV Hydralazine for SBP >150. Losartan. Morphine for pain management. Additional plan as per the hospital course. Dietary Evaluation Review Comments: Nutrition Recommendation: 1) Consider CCHO 60 + cardiac diet 2) Refer Science Consultant for diabetes education 3) Monitor PO intake, lab values, weight trend, and I/O Expected Outcomes/Goals: Intake to meet >75% estimated needs Lab values to improve Fu 3-5 days Plan discussed with: Patient BOBBY FORDE MD Sep 20, 2025 12:21
[2025-09-20 13:41] VITALS: BP 132/73; PULSE 72; TEMP 36.6
== END 2025-09-20 14:40 | disposition home or self-care (01) | DRG 323 ==
LOC: EDSEX 01:40 → ER 01:40 → EDBD 01:40 → EDUNIT# 04:51 → OVERFLOW 04:51 → DOU 19:46 → TELE-CENTR 09-13 02:40
PROVIDERS: ADMIT Internal Medicine Geriatric Medicine; ATTEND Internal Medicine Geriatric Medicine
PROC: 027034Z Dilation of Coronary Artery, One Artery with Drug-eluting Intraluminal Device, Percutaneous Approach (ICD-10-PCS; principal; 2025-09-11)
PROC: B211YZZ Fluoroscopy of Multiple Coronary Arteries using Other Contrast (ICD-10-PCS; 2025-09-11)
PROC: B215YZZ Fluoroscopy of Left Heart using Other Contrast (ICD-10-PCS; 2025-09-11)
PROC: 02C03ZZ Extirpation of Matter from Coronary Artery, One Artery, Percutaneous Approach (ICD-10-PCS; 2025-09-11)
PROC: 02703ZZ Dilation of Coronary Artery, One Artery, Percutaneous Approach (ICD-10-PCS; 2025-09-11)
PROC: 4A023N7 Measurement of Cardiac Sampling and Pressure, Left Heart, Percutaneous Approach (ICD-10-PCS; 2025-09-11)
PROC: 3E07317 Introduction of Other Thrombolytic into Coronary Artery, Percutaneous Approach (ICD-10-PCS; 2025-09-11)
PROC: B241ZZ3 Ultrasonography of Multiple Coronary Arteries, Intravascular (ICD-10-PCS; 2025-09-11)
PROC: 027034Z Dilation of Coronary Artery, One Artery with Drug-eluting Intraluminal Device, Percutaneous Approach (ICD-10-PCS; 2025-09-17)
PROC: 02703DZ Dilation of Coronary Artery, One Artery with Intraluminal Device, Percutaneous Approach (ICD-10-PCS; 2025-09-17)
PROC: 4A023N7 Measurement of Cardiac Sampling and Pressure, Left Heart, Percutaneous Approach (ICD-10-PCS; 2025-09-17)
PROC: B211YZZ Fluoroscopy of Multiple Coronary Arteries using Other Contrast (ICD-10-PCS; 2025-09-17)
PROC: B240ZZ3 Ultrasonography of Single Coronary Artery, Intravascular (ICD-10-PCS; 2025-09-17)
PROC: B41JYZZ Fluoroscopy of Other Lower Arteries using Other Contrast (ICD-10-PCS; 2025-09-17)
PROC: 02F03ZZ Fragmentation in Coronary Artery, One Artery, Percutaneous Approach (ICD-10-PCS; 2025-09-19)
PROC: 0270356 Dilation of Coronary Artery, One Artery, Bifurcation, with Two Drug-eluting Intraluminal Devices, Percutaneous Approach (ICD-10-PCS; 2025-09-19)
PROC: 4A023N7 Measurement of Cardiac Sampling and Pressure, Left Heart, Percutaneous Approach (ICD-10-PCS; 2025-09-19)
PROC: B211YZZ Fluoroscopy of Multiple Coronary Arteries using Other Contrast (ICD-10-PCS; 2025-09-19)
DX: I21.4 Non-ST elevation (NSTEMI) myocardial infarction (principal); I50.23 Acute on chronic systolic (congestive) heart failure; E87.3 Alkalosis; I11.0 Hypertensive heart disease with heart failure; N39.0 Urinary tract infection, site not specified; E11.9 Type 2 diabetes mellitus without complications; I16.9 Hypertensive crisis, unspecified; G31.84 Mild cognitive impairment of uncertain or unknown etiology; Z20.822 Contact with and (suspected) exposure to COVID-19; E55.9 Vitamin D deficiency, unspecified; R74.01 Elevation of levels of liver transaminase levels; E78.2 Mixed hyperlipidemia; I25.10 Atherosclerotic heart disease of native coronary artery without angina pectoris; F17.210 Nicotine dependence, cigarettes, uncomplicated; I25.2 Old myocardial infarction; Z79.4 Long term (current) use of insulin; Z79.899 Other long term (current) drug therapy; Z95.5 Presence of coronary angioplasty implant and graft
CPT/HCPCS: 36415; 36600; 71045; 80048; 80053; 80061; 80307; 81001; 82306; 82607; 82805; 82962; 83036; 83605; 83690; 83735; 83880; 84100; 84443; 84484; 85025; 85610; 85730; 86141; 87081; 87086; 87088; 87186; 87426; 87804; 92941; 92973; 92975; 92978; 93005; 93306; 93458; 96374; 96375; 97110; 97116; 97163; 99152; G0378; J1815; J2250; Q9967